=== PATIENT | male | born 1970 | race Caucasian/White ===

== ENCOUNTER 2017-02-02 11:40 | Emergency (ER) | payer BC, MEDICARE ==
[2017-02-02 11:57] VITALS: BP 143/79; PULSE 104; RESP 20; TEMP 99.1
--- NOTE | 2017-02-02 12:24 | ED ---
General Adult HPI - General Chief complaint: Wound/Laceration Stated complaint: LAC RT HAND Time Seen by Provider: 02/02/17 12:15 Source: patient, RN notes reviewed Mode of arrival: ambulatory Limitations: physical limitation - History of Present Illness Initial comments: Patient 46-year-old male who presents emergency room today with chief complaint of lacerations to the right hand that occurred yesterday at approximately 6 PM. He states he accidentally grabbed a boot trimmer that was running causing laceration to the webspace of the first and second digit along with small lacerations to the proximal phalanx of the third fourth and fifth digits over the volar aspect. Patient states that lacerations to his fingers seem to be healing well but he said hard time with a laceration to the webspace. Patient states tetanus up-to-date. He denies any other complaints or symptoms. Patient denies any recent fever, chills, shortness of breath, chest pain, back pain, abdominal pain, nausea or vomiting, numbness or tingling, dysuria or hematuria, constipation or diarrhea, headaches or visual changes, or any other complaints. - Related Data Home Medications Medication Instructions Recorded Confirmed ALPRAZolam 0.5 mg PO HS 03/28/15 02/02/17 DULoxetine HCL 60 mg PO DAILY 03/28/15 02/02/17 Gabapentin 600 mg PO TID 03/28/15 02/02/17 HYDROcodone/APAP 10-325MG [[place] 1 tab PO Q6H PRN 03/28/15 02/02/17 10-325] Ipratropium/Albuterol Sulfate 1 - 2 puff INHALATION RT-QID 03/28/15 02/02/17 [Combivent Respimat Inhaler] Oxygen 3 - 4 l NASAL CONTINUOUS 03/28/15 02/02/17 Previous Rx's Medication Instructions Recorded Albuterol Nebulized (Conc) 2.5 mg INHALATION Q6H #0 03/31/15 [Ventolin Nebulized (Conc)] Budesonide-Formot 160-4.5 Mcg 2 puff INHALATION BID #1 inhaler 03/31/15 [Symbicort 160-4.5 Mcg Inhaler] Ipratropium Nebulized [Atrovent 0.5 mg INHALATION RT-Q6H #0 03/31/15 Nebulized] Allergies Allergy/AdvReac Type Severity Reaction Status Date / Time No Known Allergies Allergy Verified 02/02/17 11:57 Review of Systems ROS Statement: Those systems with pertinent positive or pertinent negative responses have been documented in the HPI. ROS Other: All systems not noted in ROS Statement are negative. Past Medical History Past Medical History: COPD, Fibromyalgia Additional Past Medical History / Comment(s): arthritis History of Any Multi-Drug Resistant Organisms: None Reported Past Surgical History: Ear Surgery Past Psychological History: No Psychological Hx Reported Smoking Status: Former smoker Past Alcohol Use History: None Reported Past Drug Use History: None Reported - Past Family History Father Family Medical History: Cancer Mother Family Medical History: COPD General Exam - General Exam Comments Initial Comments: General: The patient is awake and alert, in no distress, and does not appear acutely ill. Neck: The neck is supple, there is no tenderness or JVD. Cardiovascular: There is a regular rate and rhythm. No murmur, rub or gallop is appreciated. Respiratory: Lungs are clear to auscultation, respirations are non-labored, breath sounds are equal. No wheezes, stridor, rales, or rhonchi. Musculoskeletal: Full range motion. Sensation intact. Pulses equal bilaterally 2+. Strength is 5/5 in all areas. Neurological: A&O x 3. CN II-XII intact, There are no obvious motor or sensory deficits. Coordination appears grossly intact. Speech is normal. Skin: 0.5 cm linear laceration to the volar aspect of the third fourth and fifth digits of the proximal aspect running horizontally. No active bleeding. Patient does have a L-shaped laceration in the webspace between the first and second digit of the right hand. Psychiatric: Normal mood and affect. Limitations: physical limitation Course Vital Signs 02/02/17 11:55 Temperature 99.1 F Pulse Rate 104 H Respiratory 20 Rate Blood Pressure 143/79 O2 Sat by Pulse 93 L Oximetry Procedures - Procedures Initial comment: 1.5 cm L-shaped laceration to the webspace between the first and second digit of the right hand. The skin was anesthetized with 1% lidocaine. The laceration was then cleansed with Betadine and irrigated with normal saline. The wound was inspected, and there was no evidence of injury to deep structures. No foreign body was noted in the wound. A total of 2 skin sutures were placed utilizing 4- 0 nylon. Disposition Clinical Impression: Laceration Disposition: HOME SELF-CARE Condition: Good Instructions: Laceration (ED) Additional Instructions: Please return to the emergency room in 8-10 days to have sutures removed. Please watch for any signs of infection which may include increased pain, swelling, redness, fever or chills. Please return to emergency room for any signs of infection do occur. Please use clean soap and water over the area to prevent scabbing over your stitches. Please leave wound covered for the first 24-48 hours and then leave wound open to air. Please return to the emergency room for any other concerns. Referrals: Hue Laurent MD [Primary Care Provider] - 1-2 days Time of Disposition: 12:50
== END 2017-02-02 13:03 | disposition home or self-care (01) ==
LOC: EC 11:40
DX: S61.411A Laceration without foreign body of right hand, initial encounter (principal); S61.212A Laceration without foreign body of right middle finger without damage to nail, initial encounter; S61.214A Laceration without foreign body of right ring finger without damage to nail, initial encounter; S61.216A Laceration without foreign body of right little finger without damage to nail, initial encounter; J44.9 Chronic obstructive pulmonary disease, unspecified; M79.7 Fibromyalgia; M19.90 Unspecified osteoarthritis, unspecified site; Z79.899 Other long term (current) drug therapy; Z87.891 Personal history of nicotine dependence; W31.89XA Contact with other specified machinery, initial encounter
CPT/HCPCS: 12001; 99282

== ENCOUNTER → 2017-08-17 | Outpatient (CLI) | payer BC, MEDICARE ==
--- NOTE | 2017-08-17 14:00 | XR ---
EXAMINATION TYPE: XR cervical spine comp DATE OF EXAM: 08/17/2017 COMPARISON: NONE HISTORY: Cervalgia posterior left neck pain x1 month TECHNIQUE: Five-view cervical spine FINDINGS: There is some side bending towards the right which can be positional. Foramen are patent. T here is some foraminal narrowing C5-C6 on the right. Prevertebral space is normal. Disc space narrowi ng is present C5-6. The C6-7 disc space has limited evaluation. The C7-T1 interspace is not visualize d in the lateral projection. IMPRESSION: 1. Degenerative disc changes C5-6. Some right foraminal narrowing is present.
== END | disposition home or self-care (01) ==
LOC: RADXRYALE 13:19
PROVIDERS: ATTEND Internal Medicine
DX: M99.71 Connective tissue and disc stenosis of intervertebral foramina of cervical region (principal); M47.812 Spondylosis without myelopathy or radiculopathy, cervical region
CPT/HCPCS: 72050

== ENCOUNTER → 2017-09-14 | Outpatient (CLI) | payer BC, MEDICARE ==
--- NOTE | 2017-09-14 23:06 | MR ---
EXAMINATION TYPE: MR erick/lspine wo con DATE OF EXAM: 09/14/2017 COMPARISON: NONE HISTORY: Neck/lower back pain, headaches, BUE & BLE radic TECHNIQUE: Multiplanar, multisequence imaging of the lumbar spine is performed without IV contrast. FINDINGS: Cervical vertebra have normal alignment. There is some narrowing at C5-6 C6-7 disc spaces. There are small posterior disc herniations at C4-5 C5-6 C6-7. C6-7 disc herniation is slightly larger. There is some narrowing of the spinal canal at C5-6 and C6-7-2 8 mm. I see no definite cord edema. Visualized brainstem is intact. There is a small posterior disc bulge at C2-3. I see no focal bone destruction. The lumbar vertebra have normal alignment. There is narrowing at L4-5 L5-S1 disc spaces with mild pos terior disc bulging. There is a larger posterior disc bulge and herniation at L1-2. There is developm entally adequate spinal canal and no spinal stenosis in the lumbar region. Lumbar nerve roots appear normal. The neural foramina are fairly well-maintained. I see no focal bone destruction. There is no lumbar paraspinal mass. CONCLUSION: Spondylotic changes in the cervical spine as above with mild relative spinal stenosis at C5-6 C6-7 of 8 mm. No fracture. Small posterior disc bulging and herniation at C5-6 C6-7. Mild spondylosis in the lower lumbar spine. Posterior disc bulging as above in the lumbar region with out evidence of spinal stenosis. No fracture.
== END ==
LOC: RADMRIMAIN 19:09
PROVIDERS: ATTEND Psychiatry & Neurology Neurology
DX: M48.02 Spinal stenosis, cervical region (principal); M50.222 Other cervical disc displacement at C5-C6 level; M51.26 Other intervertebral disc displacement, lumbar region; M47.812 Spondylosis without myelopathy or radiculopathy, cervical region; M47.816 Spondylosis without myelopathy or radiculopathy, lumbar region
CPT/HCPCS: 72141; 72148

== ENCOUNTER 2018-01-31 02:46 | Observation (INO) | payer BC, MEDICARE ==
[2018-01-31] MEDS ORDERED: ACETAMINOPHEN TAB 500 MG TAB PO STA (02:56)
[2018-01-31 03:12] LABS: Basophils % (A) 0 %; Eosinophils # (A) 0.1 k/uL (0-0.7); Eosinophils % (A) 1 %; HCT 49.3 % (39.0-53.0); HGB 15.6 gm/dL (13.0-17.5); Hypochromasia Slight; Lymphocytes # (A) 1.4 k/uL (1.0-4.8); Lymphocytes % (A) 15 %; MCHC 31.7 g/dL (31.0-37.0); MCV 97.8 fL (80.0-100.0); Mean Platelet Volume 6.6; Monocytes # (A) 0.7 k/uL (0-1.0); Monocytes % (A) 8 %; Neutrophils # (A) 6.8 k/uL (1.3-7.7); Neutrophils % (A) 73 %; Platelet Count 241 k/uL (150-450); RBC 5.04 m/uL (4.30-5.90); RDW 12.1 % (11.5-15.5); WBC 9.3 k/uL (3.8-10.6)
[2018-01-31] MEDS ORDERED: IPRATROPIUM-ALBUTEROL 3 ML NEB INHALATION STA (03:12)
--- NOTE | 2018-01-31 03:18 | ED ---
General Adult HPI - General Chief complaint: Shortness of Breath Stated complaint: HAROLDO Time Seen by Provider: 01/31/18 02:47 Source: patient Mode of arrival: EMS Limitations: no limitations - History of Present Illness Initial comments: Sudhakar's a 47-year-old with known COPD and tobacco abuse who presents to the emergency department today via EMS for evaluation of shortness of breath. Patient reports that throughout the day has had progressively worsening shortness of breath and is felt as though he is wheezing. He has not tried any of his home breathing treatments. He reports that he couldn't catch his breath so he called 911. EMS reports they found him in a tripoding position with increased work of breathing, he is noted to be tachycardic and have a normal oxygen saturation of only 88%. He was given Solu-Medrol and a DuoNeb in route, placed on supplemental oxygen. On arrival the patient reports the DuoNeb improved his shortness of breath significantly. Patient denies any recent hospitalizations or known sick contacts. He denies any subjective fevers or chills. He denies any chest pain or palpitations. - Related Data Home Medications Medication Instructions Recorded Confirmed ALPRAZolam 0.5 mg PO HS 03/28/15 01/31/18 DULoxetine HCL 60 mg PO DAILY 03/28/15 01/31/18 Gabapentin 600 mg PO TID 03/28/15 01/31/18 Ipratropium/Albuterol Sulfate 1 - 2 puff INHALATION RT-QID 03/28/15 01/31/18 [Combivent Respimat Inhaler] Oxygen 3 - 4 l NASAL CONTINUOUS 03/28/15 01/31/18 Hydrocodone/Acetaminophen [[place] 1 tab PO Q8HR PRN 01/31/18 01/31/18 7.5-325] Meloxicam [Mobic] 7.5 mg PO BID 01/31/18 01/31/18 Previous Rx's Medication Instructions Recorded Albuterol Nebulized (Conc) 2.5 mg INHALATION Q6H #0 03/31/15 [Ventolin Nebulized (Conc)] Budesonide-Formot 160-4.5 Mcg 2 puff INHALATION BID #1 inhaler 03/31/15 [Symbicort 160-4.5 Mcg Inhaler] Ipratropium Nebulized [Atrovent 0.5 mg INHALATION RT-Q6H #0 03/31/15 Nebulized] Allergies Allergy/AdvReac Type Severity Reaction Status Date / Time No Known Allergies Allergy Verified 01/31/18 02:51 Review of Systems ROS Statement: Those systems with pertinent positive or pertinent negative responses have been documented in the HPI. ROS Other: All systems not noted in ROS Statement are negative. Constitutional: Denies: fever Past Medical History Past Medical History: COPD, Fibromyalgia Additional Past Medical History / Comment(s): arthritis History of Any Multi-Drug Resistant Organisms: None Reported Past Surgical History: Ear Surgery Past Psychological History: No Psychological Hx Reported Smoking Status: Former smoker Past Alcohol Use History: None Reported Past Drug Use History: None Reported - Past Family History Father Family Medical History: Cancer Mother Family Medical History: COPD General Exam Limitations: no limitations General appearance: alert, in no apparent distress Head exam: Present: atraumatic, normocephalic Eye exam: Present: normal appearance, PERRL ENT exam: Present: normal exam Neck exam: Present: full ROM Respiratory exam: Present: wheezes Cardiovascular Exam: Present: normal rhythm, tachycardia GI/Abdominal exam: Present: soft. Absent: distended Rectal exam: Present: deferred Extremities exam: Present: normal inspection. Absent: pedal edema Back exam: Present: normal inspection Neurological exam: Present: alert, oriented X3 Psychiatric exam: Present: normal affect, normal mood Skin exam: Present: warm, dry Course Vital Signs 01/31/18 01/31/18 01/31/18 02:48 03:05 03:18 Temperature 100.3 F H Pulse Rate 109 H 104 H Respiratory 20 24 20 Rate Blood Pressure 135/92 131/78 O2 Sat by Pulse 95 96 Oximetry 01/31/18 01/31/18 01/31/18 03:25 03:34 04:18 Temperature Pulse Rate 105 H 100 106 H Respiratory 20 Rate Blood Pressure 123/82 O2 Sat by Pulse 96 Oximetry 01/31/18 01/31/18 05:18 06:41 Temperature 99.0 F Pulse Rate 105 H Respiratory 20 Rate Blood Pressure 125/82 O2 Sat by Pulse 97 Oximetry EKG Findings - EKG Comments: EKG Findings:: EKG obtained at 2:59 AM, rate is 105, rhythm is sinus tachycardia , rightward axis, there is noted to be enlarged P waves suggestive of a large right atrium, normal intervals, NE is 128, QRS is 76, QTC is [address] elevations or depressions no evidence of acute ischemia or infarction. Medical Decision Making - Medical Decision Making The patient was seen and evaluated, history was obtained from the patient and EMS The patient with a history of COPD, hypoxic upon EMS arrival treated with DuoNeb , supplemental oxygen, Solu-Medrol prior to arrival in the ER Continues to wheeze upon arrival Beth vital signs were reviewed patient is tachycardic, tachypneic and has attempted sure of 100.3 Fahrenheit Sepsis workup was ordered Workup is suggestive of COPD exacerbation there is no infectious cause identified, troponin is negative, d-dimer is negative x-ray shows no evidence of pneumonia, suggestive of COPD Patient persistently tachycardic even while sleeping, tachypneic when woke he states that he still feels somewhat short of breath despite having repeat DuoNeb 's in the ER at this time I feel the patient warrants admission to the hospital for [id number] duo nebs and steroid therapy. In addition and continued to discuss possible home oxygen again. Patient is agreeable to this. Patient care was discussed with Dr. Carmona who accepts the admission for COPD exacerbation with hypoxia. - Lab Data Result diagrams: 01/31/18 02:49 01/31/18 02:49 Lab Results 01/31/18 01/31/18 01/31/18 Range/Units 02:49 02:49 02:49 WBC 9.3 (3.8-10.6) k/uL RBC 5.04 (4.30-5.90) m/uL Hgb 15.6 (13.0-17.5) gm/dL Hct 49.3 (39.0-53.0) % MCV 97.8 (80.0-100.0) fL MCH 31.0 (25.0-35.0) pg MCHC 31.7 (31.0-37.0) g/dL RDW 12.1 (11.5-15.5) % Plt Count 241 (150-450) k/uL Neutrophils % 73 % Lymphocytes % 15 % Monocytes % 8 % Eosinophils % 1 % Basophils % 0 % Neutrophils # 6.8 (1.3-7.7) k/uL Lymphocytes # 1.4 (1.0-4.8) k/uL Monocytes # 0.7 (0-1.0) k/uL Eosinophils # 0.1 (0-0.7) k/uL Basophils # 0.0 (0-0.2) k/uL Hypochromasia Slight PT (9.0-12.0) sec INR (<1.2) APTT (22.0-30.0) sec D-Dimer (<0.60) mg/L FEU Sodium 140 (137-145) mmol/L Potassium 4.5 (3.5-5.1) mmol/L Chloride 89 L (98-107) mmol/L Carbon Dioxide 43 H* (22-30) mmol/L Anion Gap 8 mmol/L BUN 12 (9-20) mg/dL Creatinine 0.60 L (0.66-1.25) mg/dL Est GFR (CKD-EPI)AfAm >90 (>60 ml/min/1.73 sqM) Est GFR (CKD-EPI)NonAf >90 (>60 ml/min/1.73 sqM) Glucose 107 H (74-99) mg/dL Plasma Lactic Acid Jamaal 0.9 (0.7-2.0) mmol/L Calcium 10.0 (8.4-10.2) mg/dL Total Bilirubin 0.7 (0.2-1.3) mg/dL AST 22 (17-59) U/L ALT 29 (21-72) U/L Alkaline Phosphatase 78 (38-126) U/L Troponin I (0.000-0.034) ng/mL Total Protein 8.4 H (6.3-8.2) g/dL Albumin 4.8 (3.5-5.0) g/dL Urine Color Urine Appearance (Clear) Urine pH (5.0-8.0) Ur Specific [place] (1.001-1.035) Urine Protein (Negative) Urine Glucose (UA) (Negative) Urine Ketones (Negative) Urine Blood (Negative) Urine Nitrite (Negative) Urine Bilirubin (Negative) Urine Urobilinogen (<2.0) mg/dL Ur Leukocyte Esterase (Negative) Urine RBC (0-5) /hpf Urine WBC (0-5) /hpf Hyaline Casts (0-2) /lpf Urine Mucus (None) /hpf 01/31/18 01/31/18 01/31/18 Range/Units 02:49 02:49 02:49 WBC (3.8-10.6) k/uL RBC (4.30-5.90) m/uL Hgb (13.0-17.5) gm/dL Hct (39.0-53.0) % MCV (80.0-100.0) fL MCH (25.0-35.0) pg MCHC (31.0-37.0) g/dL RDW (11.5-15.5) % Plt Count (150-450) k/uL Neutrophils % % Lymphocytes % % Monocytes % % Eosinophils % % Basophils % % Neutrophils # (1.3-7.7) k/uL Lymphocytes # (1.0-4.8) k/uL Monocytes # (0-1.0) k/uL Eosinophils # (0-0.7) k/uL Basophils # (0-0.2) k/uL Hypochromasia PT 10.5 (9.0-12.0) sec INR 1.1 (<1.2) APTT 25.2 (22.0-30.0) sec D-Dimer 0.18 (<0.60) mg/L FEU Sodium (137-145) mmol/L Potassium (3.5-5.1) mmol/L Chloride (98-107) mmol/L Carbon Dioxide (22-30) mmol/L Anion Gap mmol/L BUN (9-20) mg/dL Creatinine (0.66-1.25) mg/dL Est GFR (CKD-EPI)AfAm (>60 ml/min/1.73 sqM) Est GFR (CKD-EPI)NonAf (>60 ml/min/1.73 sqM) Glucose (74-99) mg/dL Plasma Lactic Acid Jamaal (0.7-2.0) mmol/L Calcium (8.4-10.2) mg/dL Total Bilirubin (0.2-1.3) mg/dL AST (17-59) U/L ALT (21-72) U/L Alkaline Phosphatase (38-126) U/L Troponin I <0.012 (0.000-0.034) ng/mL Total Protein (6.3-8.2) g/dL Albumin (3.5-5.0) g/dL Urine Color Urine Appearance (Clear) Urine pH (5.0-8.0) Ur Specific [place] (1.001-1.035) Urine Protein (Negative) Urine Glucose (UA) (Negative) Urine Ketones (Negative) Urine Blood (Negative) Urine Nitrite (Negative) Urine Bilirubin (Negative) Urine Urobilinogen (<2.0) mg/dL Ur Leukocyte Esterase (Negative) Urine RBC (0-5) /hpf Urine WBC (0-5) /hpf Hyaline Casts (0-2) /lpf Urine Mucus (None) /hpf 01/31/18 Range/Units 05:34 WBC (3.8-10.6) k/uL RBC (4.30-5.90) m/uL Hgb (13.0-17.5) gm/dL Hct (39.0-53.0) % MCV (80.0-100.0) fL MCH (25.0-35.0) pg MCHC (31.0-37.0) g/dL RDW (11.5-15.5) % Plt Count (150-450) k/uL Neutrophils % % Lymphocytes % % Monocytes % % Eosinophils % % Basophils % % Neutrophils # (1.3-7.7) k/uL Lymphocytes # (1.0-4.8) k/uL Monocytes # (0-1.0) k/uL Eosinophils # (0-0.7) k/uL Basophils # (0-0.2) k/uL Hypochromasia PT (9.0-12.0) sec INR (<1.2) APTT (22.0-30.0) sec D-Dimer (<0.60) mg/L FEU Sodium (137-145) mmol/L Potassium (3.5-5.1) mmol/L Chloride (98-107) mmol/L Carbon Dioxide (22-30) mmol/L Anion Gap mmol/L BUN (9-20) mg/dL Creatinine (0.66-1.25) mg/dL Est GFR (CKD-EPI)AfAm (>60 ml/min/1.73 sqM) Est GFR (CKD-EPI)NonAf (>60 ml/min/1.73 sqM) Glucose (74-99) mg/dL Plasma Lactic Acid Jama[place] (0.7-2.0) mmol/L Calcium (8.4-10.2) mg/dL Total Bilirubin (0.2-1.3) mg/dL AST (17-59) U/L ALT (21-72) U/L Alkaline Phosphatase (38-126) U/L Troponin I (0.000-0.034) ng/mL Total Protein (6.3-8.2) g/dL Albumin (3.5-5.0) g/dL Urine Color Yellow Urine Appearance Clear (Clear) Urine pH 8.5 H (5.0-8.0) Ur Specific [place] 1.016 (1.001-1.035) Urine Protein Trace H (Negative) Urine Glucose (UA) Negative (Negative) Urine Ketones 2+ H (Negative) Urine Blood Small H (Negative) Urine Nitrite Negative (Negative) Urine Bilirubin Negative (Negative) Urine Urobilinogen <2.0 (<2.0) mg/dL Ur Leukocyte Esterase Negative (Negative) Urine RBC 133 H (0-5) /hpf Urine WBC 4 (0-5) /hpf Hyaline Casts 1 (0-2) /lpf Urine Mucus Rare H (None) /hpf Disposition Clinical Impression: COPD (chronic obstructive pulmonary disease), Respiratory failure Disposition: ADMITTED IP TO THIS HOSP Condition: Fair Referrals: Hue Laurent MD [Primary Care Provider] - 1-2 days Decision Time: 06:57
[2018-01-31] MEDS: SODIUM CHLORIDE 0.9% 500 ML IV SCH ×2 (03:20→03:21)
[2018-01-31 03:21] LABS: INR 1.1 (<1.2); Partial Thromboplastin Time 25.2 sec (22.0-30.0); Prothrombin Time 10.5 sec (9.0-12.0)
[2018-01-31 03:23] LABS: ALT 29 U/L (21-72); AST 22 U/L (17-59); Albumin 4.8 g/dL (3.5-5.0); Alkaline Phosphatase 78 U/L (38-126); Blood Urea Nitrogen 12 mg/dL (9-20); Chloride 89 mmol/L (98-107); Glucose 107 mg/dL (74-99); Potassium 4.5 mmol/L (3.5-5.1); Sodium 140 mmol/L (137-145); Total Bilirubin 0.7 mg/dL (0.2-1.3); Total Protein 8.4 g/dL (6.3-8.2)
[2018-01-31 03:30] LABS: Anion Gap 8 mmol/L
[2018-01-31 03:34] LABS: Carbon Dioxide 43 mmol/L (22-30)
--- NOTE | 2018-01-31 04:11 | XR ---
EXAM: XR Chest, 2 Views CLINICAL HISTORY: ITS.REASON XR Reason: Fever TECHNIQUE: Frontal and lateral views of the chest. COMPARISON: 07/17/16 FINDINGS: Again noted is pulmonary hyperexpansion and chronic interstitial prominence suggestive of COPD. No interval consolidation or other acute cardiopulmonary process. Old fractures again noted. IMPRESSION: No acute cardiopulmonary findings. Findings compatible with COPD.
[2018-01-31 05:59] LABS: Appearance,Urine Clear (Clear); Bilirubin,Urine Negative (Negative); Blood,Urine Small (Negative); Color,Urine Yellow; Glucose,Urine (UA) Negative (Negative); Hyaline Casts,Urine 1 /lpf (0-2); Ketones,Urine 2+ (Negative); Leukocyte Esterase,Urine Negative (Negative); Mucus,Urine Rare /hpf; Nitrite,Urine Negative (Negative); PH, Urine 8.5 (5.0-8.0); Protein,Urine Trace (Negative); RBC,Urine 133 /hpf (0-5); Specific Gravity,Urine 1.016 (1.001-1.035); Urobilinogen,Urine <2.0 mg/dL (<2.0); WBC,Urine 4 /hpf (0-5)
[2018-01-31] MEDS ORDERED: NALOXONE 0.4 MG/ML 1 ML VIAL IV PRN (06:47)
[2018-01-31] MEDS ORDERED: IPRATROPIUM-ALBUTEROL 3 ML NEB INHALATION PRN ×2 (06:51→08:42)
[2018-01-31] MEDS ORDERED: ACETAMINOPHEN TAB 500 MG TAB PO PRN (07:35)
[2018-01-31] MEDS ORDERED: predniSONE 20 MG TAB PO SCH (09:00)
[2018-01-31] MEDS: ALPRAZolam 0.5 MG TAB PO PRN ×2 (09:33→21:03)
[2018-01-31] MEDS: LACTATED RINGERS 1,000 ML IV SCH (09:43)
--- NOTE | 2018-01-31 10:53 | P.CNPUL ---
History of Present Illness Consult date: 01/31/18 Reason for consult: dyspnea, cough, COPD, hypoxemia, abnormal CXR/CT Chief complaint: Shortness of breath, coughing, wheezing History of present illness: Pulmonary consult dated 01/31/2018 This is a 47-year-old male who looks older than his stated age who comes in for a COPD exacerbation. He has a history of significant tobacco addiction. He apparently sees my partner for COPD. The patient complains of shortness of breath chest tightness wheezing cough and phlegm production. He apparently was using his home nebulizer machine without benefit. He called 911 and EMS found him to be tripoding at home. He had significant work of breathing as well as tachycardia and a low saturation. For that reason he was given updraft treatments and steroids and brought to the hospital he was evaluated by the emergency room and admitted. The patient is not a particularly good historian. In addition to COPD, he apparently has a history of arthritis and fibromyalgia. The ER chela points out that he is a former smoker. He was not real clear as to whether or not he smoked or didn't smoke. Again he didn't really know his medications particularly well. He apparently was on some daily dose of prednisone but he was not sure of the dose. Review of Systems A 14 point review of system is positive for shortness of breath chest tightness wheezing cough chest congestion shortness of breath and phlegm production. He had all the typical symptoms of a COPD exacerbation. His chest x-ray was normal. Past Medical History Past Medical History: COPD, CVA/TIA, Fibromyalgia, Hyperlipidemia, Hypertension , Osteoarthritis (OA), Pneumonia, Respiratory Disorder Additional Past Medical History / Comment(s): Pt having some difficulty answering PMH questions, spouse is at bedside and has to correct him at times. Spouse said he normally has alittle memory problems but that pt had a severe headache on 01/29 for 1 day and vomitted and felt clammy-headache resolve but spouse thinks his memory worsened. Other hx: Severe COPD, respiratory failure with home oxygen at 2L/NC ATC, tracheobronchitis, TIA, DJD, chronic low back pain, History of Any Multi-Drug Resistant Organisms: None Reported Past Surgical History: Ear Surgery Additional Past Surgical History / Comment(s): R ear surgery for "fractured bone." per spouse. Past Anesthesia/Blood Transfusion Reactions: No Reported Reaction Smoking Status: Light tobacco smoker - Past Family History Father Family Medical History: Cancer Additional Family Medical History / Comment(s): Father of throat cancer at the age of 52 yrs. He was a smoker. Mother Family Medical History: COPD Additional Family Medical History / Comment(s): Mother is 74 yrs old. She is a smoker. Medications and Allergies Home Medications Medication Instructions Recorded Confirmed Type ALPRAZolam 0.5 mg PO QID PRN 03/28/15 01/31/18 History DULoxetine HCL 60 mg PO DAILY 03/28/15 01/31/18 History Gabapentin 600 mg PO TID 03/28/15 01/31/18 History Ipratropium/Albuterol Sulfate 1 puff INHALATION RT-QID 03/28/15 01/31/18 History [Combivent Respimat Inhaler] Budesonide-Formot 160-4.5 Mcg 2 puff INHALATION RT-BID 01/31/18 01/31/18 History [Symbicort 160-4.5 Mcg Inhaler] Hydrocodone/Acetaminophen [[place] 1 tab PO TID 01/31/18 01/31/18 History 7.5-325] Ipratropium-Albuterol Nebulize 3 ml INHALATION RT-QID 01/31/18 01/31/18 History [Duoneb 0.5 mg-3 mg/3 ml Soln] Meloxicam [Mobic] 7.5 mg PO BID 01/31/18 01/31/18 History Allergies Allergy/AdvReac Type Severity Reaction Status Date / Time No Known Allergies Allergy Verified 01/31/18 07:39 Physical Exam Osteopathic Statement: *. No significant issues noted on an osteopathic structural exam other than those noted in the History and Physical/Consult. Vitals: Vital Signs Temp Pulse Pulse Resp BP BP BP 01/31/18 08:48 100 01/31/18 08:35 104 H 117 H 25 H 139/91 01/31/18 08:00 99.2 F 121 H 18 112/82 01/31/18 07:15 100.2 F H 105 H 18 122/81 01/31/18 06:41 99.0 F 01/31/18 05:18 105 H 20 125/82 01/31/18 04:18 106 H 20 123/82 01/31/18 03:34 100 01/31/18 03:25 105 H 01/31/18 03:18 104 H 20 131/78 01/31/18 03:05 24 01/31/18 02:48 100.3 F H 109 H 20 135/92 Pulse Ox 01/31/18 08:48 01/31/18 08:35 95 01/31/18 08:00 96 01/31/18 07:15 96 01/31/18 06:41 01/31/18 05:18 97 01/31/18 04:18 96 01/31/18 03:34 01/31/18 03:25 01/31/18 03:18 96 01/31/18 03:05 01/31/18 02:48 95 Intake and Output 01/30/18 01/31/18 01/31/18 22:59 06:59 14:59 Other: Weight 68.039 kg No acute distress, oriented 3. Nasal O2 in place. No evidence of claudia respiratory distress. HEENT examination is grossly unremarkable. Mucous membranes are moist. No oral lesions. Neck supple. Full range of motion. No adenopathy thyromegaly or neck vein distention. Cardiovascular examination reveals regular rhythm rate. S1-S2 normal. No S3 or S4. No discernible murmur noted. Lungs reveal diminished breath sounds throughout. There are coarse expiratory rhonchi and wheezes. There is prolongation on forced maneuver. Breath sounds are equal bilaterally. Abdomen soft bowel sounds are heard. No masses or tenderness. Extremities are intact. No cyanosis clubbing or edema. Skin is without rash or lesion. Neurologic examination is brief but nonfocal. Results - Laboratory Findings CBC and BMP: 01/31/18 02:49 01/31/18 02:49 PT/INR, D-dimer PT 10.5 sec (9.0-12.0) 01/31/18 02:49 INR 1.1 (<1.2) 01/31/18 02:49 D-Dimer 0.18 mg/L FEU (<0.60) 01/31/18 02:49 Abnormal lab findings: Abnormal Labs 01/31/18 01/31/18 02:49 05:34 Chloride 89 L Carbon Dioxide 43 H* Creatinine 0.60 L Glucose 107 H Total Protein 8.4 H Urine pH 8.5 H Urine Protein Trace H Urine Ketones 2+ H Urine Blood Small H Urine RBC 133 H Urine Mucus Rare H - Diagnostic Findings Chest x-ray: report reviewed (Chest x-ray, labs and medications are reviewed.), image reviewed Assessment and Plan Assessment: Assessment COPD exacerbation, likely complicated by tracheobronchitis without claudia evidence of pneumonia History of fibromyalgia History of arthritis Previous history and possible ongoing tobacco use Plan: Plan dated 01/31/2018 The patient's chest x-ray does not show an acute infiltrate. It is consistent with COPD. The patient's medications will be reviewed and recommendations will be made. He was not really clear as to how much prednisone he was taking on a daily basis. He thought he was taking may be 11 mg in the nurse thought he was taking 40 mg. It doesn't list prednisone on his med list as one of the medications. In addition, the patient may still be smoking. Additional recommendations and suggestions are forthcoming. He needs follow-up with my partner when he gets discharged. He probably in the hospital for a couple of days. Time with Patient: Greater than 30
[2018-01-31] MEDS: IPRATROPIUM-ALBUTEROL 3 ML NEB INHALATION SCH ×3 (11:39→19:51)
[2018-01-31] MEDS: methylPREDNISolone SOD SUCCI 125 MG/2 ML VIAL IV SCH ×3 (13:38→23:09)
[2018-01-31] MEDS: DULoxetine HCL 60 MG CAPSULE.DR PO SCH (14:52)
[2018-01-31] MEDS: HYDROcodone/APAP 7.5-325MG 1 EACH TAB PO SCH ×2 (14:53→21:00)
[2018-01-31] MEDS: GABAPENTIN 300 MG CAP PO SCH ×2 (14:55→21:01)
[2018-01-31 17:28] LABS: Glucose,Whole Blood 122 mg/dL (75-99)
[2018-01-31] MEDS: INSULIN ASPART 100 UNIT/ML 1 ML 10 ML VIAL SQ SCH ×2 (17:56→21:01)
[2018-01-31] MEDS: BUDESONIDE 1 MG/2 ML NEBU INHALATION SCH (19:51)
[2018-01-31] MEDS ORDERED: SYMBICORT 160-4.5 MCG INHALER INHALATION SCH (20:00)
[2018-01-31] MEDS: FORMOTEROL FUMARATE 20 MCG/2 ML NEBU INHALATION SCH (20:14)
[2018-01-31 20:58] LABS: Glucose,Whole Blood 172 mg/dL (75-99)
[2018-01-31] MEDS: SULFAMETHOX-TMP 800-160MG 1 EACH TAB PO SCH (21:00)
[2018-01-31] MEDS: FAMOTIDINE 20 MG TAB PO SCH (21:01)
[2018-01-31 21:29] LABS: Hemoglobin A1C 5.2 % (4.0-6.0)
[2018-01-31 22:33] VITALS: RESP 16
--- NOTE | 2018-02-01 01:40 | P.HPIM ---
History of Present Illness H&P Date: 01/31/18 Chief Complaint: Shortness of breath Patient is a 47-year-old male with a known history of COPD, CVA/TIA, Fibromyalgia, Hyperlipidemia, Hypertension, Osteoarthritis (OA), Pneumonia and a good ejection him to ER with complaints of shortness of breath, chest tightness and wheezing and cough with sputum production. Patient was brought to the hospital where EMS. Patient has been having worsening shortness of breath since last Sunday. Patient was also having nausea vomiting yesterday. No complaints of vomiting today. Patient otherwise denied any fever or chills. No nausea vomiting or abdominal pain. Patient is being treated for acute COPD exacerbation. Patient was started on IV steroids and breathing treatments. Chest x-ray findings compatible with COPD. Patient is a poor historian and most of the history was taken from his at bedside. Review of Systems Constitutional: Patient denies any fever or chills . No generalized weakness or weight loss. Abdomen: Patient denied nausea vomiting and diarrhea and abdominal pain. Cardiovascular: Patient denies any chest pain or short of breath no palpitations. Respiratory: Patient does have cough is from production and shortness of breath. Neurologic: Patient denied any numbness or tingling headache. Musculoskeletal: Patient denies any complaints of joint swelling or deformity. Skin: Negative Psychiatric: Negative Endocrine: No heat or cold intolerance. No recent weight gain. Genitourinary: No dysuria or hematuria. All other 14 point ROS negative except the above Past Medical History Past Medical History: COPD, CVA/TIA, Fibromyalgia, Hyperlipidemia, Hypertension , Osteoarthritis (OA), Pneumonia, Respiratory Disorder Additional Past Medical History / Comment(s): Pt having some difficulty answering PMH questions, spouse is at bedside and has to correct him at times. Spouse said he normally has alittle memory problems but that pt had a severe headache on 01/29 for 1 day and vomitted and felt clammy-headache resolve but spouse thinks his memory worsened. Other hx: Severe COPD, respiratory failure with home oxygen at 2L/NC ATC, tracheobronchitis, TIA, DJD, chronic low back pain, History of Any Multi-Drug Resistant Organisms: None Reported Past Surgical History: Ear Surgery Additional Past Surgical History / Comment(s): R ear surgery for "fractured bone." per spouse. Past Anesthesia/Blood Transfusion Reactions: No Reported Reaction Smoking Status: Light tobacco smoker - Past Family History Father Family Medical History: Cancer Additional Family Medical History / Comment(s): Father of throat cancer at the age of 52 yrs. He was a smoker. Mother Family Medical History: COPD Additional Family Medical History / Comment(s): Mother is 74 yrs old. She is a smoker. Medications and Allergies Home Medications Medication Instructions Recorded Confirmed Type ALPRAZolam 0.5 mg PO QID PRN 03/28/15 01/31/18 History DULoxetine HCL 60 mg PO DAILY 03/28/15 01/31/18 History Gabapentin 600 mg PO TID 03/28/15 01/31/18 History Ipratropium/Albuterol Sulfate 1 puff INHALATION RT-QID 03/28/15 01/31/18 History [Combivent Respimat Inhaler] Budesonide-Formot 160-4.5 Mcg 2 puff INHALATION RT-BID 01/31/18 01/31/18 History [Symbicort 160-4.5 Mcg Inhaler] Hydrocodone/Acetaminophen [[place] 1 tab PO TID 01/31/18 01/31/18 History 7.5-325] Ipratropium-Albuterol Nebulize 3 ml INHALATION RT-QID 01/31/18 01/31/18 History [Duoneb 0.5 mg-3 mg/3 ml Soln] Meloxicam [Mobic] 7.5 mg PO BID 01/31/18 01/31/18 History Allergies Allergy/AdvReac Type Severity Reaction Status Date / Time No Known Allergies Allergy Verified 01/31/18 07:39 Physical Exam Vitals: Vital Signs Temp Pulse Pulse Resp BP BP BP 01/31/18 11:49 92 01/31/18 11:39 88 01/31/18 09:48 111 H 01/31/18 08:48 100 01/31/18 08:35 104 H 117 H 25 H 139/91 01/31/18 08:00 99.2 F 121 H 18 112/82 01/31/18 07:15 100.2 F H 105 H 18 122/81 01/31/18 06:41 99.0 F 01/31/18 05:18 105 H 20 125/82 01/31/18 04:18 106 H 20 123/82 01/31/18 03:34 100 01/31/18 03:25 105 H 01/31/18 03:18 104 H 20 131/78 01/31/18 03:05 24 01/31/18 02:48 100.3 F H 109 H 20 135/92 Pulse Ox 01/31/18 11:49 01/31/18 11:39 01/31/18 09:48 01/31/18 08:48 01/31/18 08:35 95 01/31/18 08:00 96 01/31/18 07:15 96 01/31/18 06:41 01/31/18 05:18 97 01/31/18 04:18 96 01/31/18 03:34 01/31/18 03:25 01/31/18 03:18 96 01/31/18 03:05 01/31/18 02:48 95 Intake and Output 01/30/18 01/31/18 01/31/18 22:59 06:59 14:59 Other: Voiding Method Urinal Weight 68.039 kg PHYSICAL EXAMINATION: Patient is lying in the bed comfortably, no acute distress, awake alert and oriented.. HEENT: Normocephalic. Neck is supple. Pupils reactive. Nostrils clear. Oral cavity is moist. Ears reveal no drainage. Neck reveals no JVD, carotid bruits, or thyromegaly. CHEST EXAMINATION: Trachea is central. Symmetrical expansion. I'll artery diminished air entry and expiratory wheeze CARDIAC: Normal S1, S2 with no gallops. No murmurs ABDOMEN: Soft. Bowel sounds normal. No organomegaly. No abdominal bruits. Extremities: reveal no edema. No clubbing or cyanosis Neurologically awake, alert, oriented x3 with well-coordinated movements. No focal deficits noted Skin: No rash or skin lesions. Psychiatric: Coperative. Nonsuicidal Musculoskeletal: No joint swelling or deformity. Normal range of motion. Results CBC & Chem 7: 01/31/18 02:49 01/31/18 02:49 Labs: Abnormal Lab Results - Last 24 Hours (Table) 01/31/18 01/31/18 Range/Units 02:49 05:34 Chloride 89 L (98-107) mmol/L Carbon Dioxide 43 H* (22-30) mmol/L Creatinine 0.60 L (0.66-1.25) mg/dL Glucose 107 H (74-99) mg/dL Total Protein 8.4 H (6.3-8.2) g/dL Urine pH 8.5 H (5.0-8.0) Urine Protein Trace H (Negative) Urine Ketones 2+ H (Negative) Urine Blood Small H (Negative) Urine RBC 133 H (0-5) /hpf Urine Mucus Rare H (None) /hpf Microbiology - Last 24 Hours (Table) 01/31/18 05:34 Urine Culture - Preliminary Urine,Voided Thrombosis Risk Factor Assmnt - DVT/VTE Prophylaxis DVT/VTE Prophylaxis: Pharmacologic Prophylaxis ordered - Choose All That Apply Any of the Below Risk Factors Present?: Yes Each Factor Represents 1 point: Abnormal pulmonary function (COPD), Age 41-60 years, Serious lung disease incl. pneumonia (< 1month) Other Risk Factors: No Other congenital or acquired thrombophilia - If yes, enter type in comment: No Thrombosis Risk Factor Assessment Total Risk Factor Score: 3 Thrombosis Risk Factor Assessment Level: Moderate Risk Assessment and Plan Assessment: Acute COPD exacerbation with tracheobronchitis. Unlikely pneumonia Chronic hypoxic respiratory failure on home oxygen 2 L with another cannula History of TIA Chronic low back pain Fibromyalgia Osteoarthritis DVT prophylaxis Nicotine addiction Plan: Patient will be continued on IV steroids and breathing treatments along with antibiotics. Pulmonary is following. Continue the current management and further admissions based on the clinical course. Smoking cessation has been counseled extensively. Time with Patient: Greater than 30
[2018-02-01] MEDS: methylPREDNISolone SOD SUCCI 125 MG/2 ML VIAL IV SCH ×2 (05:59→11:51)
[2018-02-01 06:05] VITALS: BP 124/67; TEMP 98.6
[2018-02-01] MEDS: ALPRAZolam 0.5 MG TAB PO PRN (06:08)
[2018-02-01] MEDS: FORMOTEROL FUMARATE 20 MCG/2 ML NEBU INHALATION SCH (06:10)
[2018-02-01] MEDS: IPRATROPIUM-ALBUTEROL 3 ML NEB INHALATION SCH ×2 (06:10→11:12)
[2018-02-01] MEDS: BUDESONIDE 1 MG/2 ML NEBU INHALATION SCH (06:10)
[2018-02-01 06:56] LABS: Glucose,Whole Blood 124 mg/dL (75-99)
[2018-02-01] MEDS ORDERED: HEPARIN SODIUM,PORCINE 5,000 UNIT/ML 1 ML VIAL SQ SCH (08:00)
[2018-02-01] MEDS: LACTATED RINGERS 1,000 ML IV SCH (08:09)
[2018-02-01] MEDS: INSULIN ASPART 100 UNIT/ML 1 ML 10 ML VIAL SQ SCH ×2 (08:10→11:53)
[2018-02-01] MEDS: SULFAMETHOX-TMP 800-160MG 1 EACH TAB PO SCH (08:11)
[2018-02-01] MEDS: DULoxetine HCL 60 MG CAPSULE.DR PO SCH (08:11)
[2018-02-01] MEDS: FAMOTIDINE 20 MG TAB PO SCH (08:12)
[2018-02-01] MEDS: GABAPENTIN 300 MG CAP PO SCH (08:12)
[2018-02-01] MEDS: HYDROcodone/APAP 7.5-325MG 1 EACH TAB PO SCH (08:12)
[2018-02-01 11:47] LABS: Glucose,Whole Blood 141 mg/dL (75-99)
[2018-02-01] MEDS ORDERED: predniSONE 20 MG TAB PO SCH (13:30)
[2018-02-01 13:36] VITALS: PULSE 100
--- NOTE | 2018-02-01 13:37 | P.PN ---
Subjective Progress Note Date: 02/01/18 Principal diagnosis: COPD exacerbation Progress note dated 02/01/2018 A 47-year-old male who saw yesterday in consultation. Saw him for a COPD exacerbation. The patient is doing much better. Feeling much better. He's back to baseline. In addition to COPD, he has a history of arthritis ongoing nicotine addiction and fibromyalgia. The patient could be discharged home today. We'll leave that up to the primary. He should follow with my partner in the office. The patient states that his breathing is much improved. His less chest tightness wheezing cough and phlegm production. He could be discharged home on a prednisone burst and taper and a short course of oral antibiotics. He is not manifesting any signs or symptoms of respiratory distress. No use of accessory muscles, no audible wheezing, no nasal flaring, etc. Objective - Vital Signs Vital signs: Vital Signs Temp 98.6 F 02/01/18 06:04 Pulse 104 H 02/01/18 13:25 Resp 16 02/01/18 06:04 BP 124/67 02/01/18 06:04 Pulse Ox 98 02/01/18 06:04 Intake & Output 01/31/18 02/01/18 02/01/18 18:59 06:59 18:59 Intake Total 400 Balance 400 Intake: Oral 400 Other: Voiding Method Urinal Urinal Urinal # Voids 1 1 2 - Exam No acute distress, oriented 3. No supplemental oxygen today. No evidence of claudia respiratory distress. HEENT examination is grossly unremarkable. Mucous membranes are moist. No oral lesions. Neck supple. Full range of motion. No adenopathy thyromegaly or neck vein distention. Cardiovascular examination reveals regular rhythm rate. S1-S2 normal. No S3 or S4. No discernible murmur noted. Lungs reveal diminished breath sounds throughout. Breath sounds are equal bilaterally but diminished throughout. Rhonchi have improved dramatically and there are a few scattered mild wheezes. No crackles. All in all, breath sounds are much improved. Abdomen soft bowel sounds are heard. No masses or tenderness. Extremities are intact. No cyanosis clubbing or edema. Skin is without rash or lesion. Neurologic examination is brief but nonfocal. - Labs CBC & Chem 7: 01/31/18 02:49 01/31/18 02:49 Labs: Abnormal Lab Results - Last 24 Hours (Table) 01/31/18 01/31/18 02/01/18 Range/Units 17:22 20:55 06:50 POC Glucose (mg/dL) 122 H 172 H 124 H (75-99) mg/dL 02/01/18 Range/Units 11:46 POC Glucose (mg/dL) 141 H (75-99) mg/dL Microbiology - Last 24 Hours (Table) 01/31/18 05:34 Urine Culture - Final Urine,Voided 01/31/18 02:49 Blood Culture - Preliminary Blood No Growth after 24 hours Assessment and Plan Assessment: Assessment COPD exacerbation, likely complicated by tracheobronchitis without claudia evidence of pneumonia History of fibromyalgia History of arthritis Previous history and possible ongoing tobacco use Plan: Plan dated 01/31/2018 The patient's chest x-ray does not show an acute infiltrate. It is consistent with COPD. The patient's medications will be reviewed and recommendations will be made. He was not really clear as to how much prednisone he was taking on a daily basis. He thought he was taking may be 11 mg in the nurse thought he was taking 40 mg. It doesn't list prednisone on his med list as one of the medications. In addition, the patient may still be smoking. Additional recommendations and suggestions are forthcoming. He needs follow-up with my partner when he gets discharged. He probably in the hospital for a couple of days. Plan dated 02/01/2018 The patient seems to be much improved today. Microbiologic studies are negative. His chest x-ray only showed changes of COPD. There were no new labs to report today. His medications were reviewed yesterday and adjusted accordingly. The patient encouraged to stop smoking. We also recommended he continue taking his current medications along with the prednisone and antibiotics he will be discharged on. Finally, he needs to follow-up with Dr. Stephens in the outpatient setting. Time with Patient: Less than 30
== END 2018-02-01 14:46 | disposition home or self-care (01) ==
LOC: EC 02:46 → 4MS4W 06:47
PROVIDERS: ADMIT Internal Medicine; ATTEND Internal Medicine
DX: J44.1 Chronic obstructive pulmonary disease with (acute) exacerbation (principal); J96.11 Chronic respiratory failure with hypoxia; J96.12 Chronic respiratory failure with hypercapnia; R11.2 Nausea with vomiting, unspecified; J40 Bronchitis, not specified as acute or chronic; M79.7 Fibromyalgia; M19.90 Unspecified osteoarthritis, unspecified site; R31.29 Other microscopic hematuria; E78.5 Hyperlipidemia, unspecified; I10 Essential (primary) hypertension; G89.29 Other chronic pain; M54.5 Low back pain; Z86.73 Personal history of transient ischemic attack (TIA), and cerebral infarction without residual deficits; Z87.01 Personal history of pneumonia (recurrent); Z99.81 Dependence on supplemental oxygen; F17.200 Nicotine dependence, unspecified, uncomplicated; Z80.0 Family history of malignant neoplasm of digestive organs; Z79.899 Other long term (current) drug therapy; Z79.51 Long term (current) use of inhaled steroids; Z79.1 Long term (current) use of non-steroidal anti-inflammatories (NSAID); Z79.891 Long term (current) use of opiate analgesic
CPT/HCPCS: 99285 ×2; 96361 ×5; 96376 ×2; 96374; 36415; 94640 ×4; 93005; 85379; 80053; 83605; 84484; 85025; 85610; 85730; 81001; 87040; 87086; 83036; 71046; G0378 ×2; J2930 ×2; J7512 ×2

== ENCOUNTER 2018-03-08 05:25 | Observation (INO) | payer BC, MEDICARE ==
[2018-03-08 06:19] LABS: Basophils # (A) 0.1 k/uL (0-0.2); Basophils % (A) 0 %; Eosinophils # (A) 0.2 k/uL (0-0.7); Eosinophils % (A) 1 %; HCT 48.1 % (39.0-53.0); HGB 15.5 gm/dL (13.0-17.5); Lymphocytes # (A) 0.6 k/uL (1.0-4.8); Lymphocytes % (A) 4 %; MCH 31.2 pg (25.0-35.0); MCHC 32.3 g/dL (31.0-37.0); MCV 96.8 fL (80.0-100.0); Monocytes # (A) 0.8 k/uL (0-1.0); Monocytes % (A) 5 %; Neutrophils # (A) 14.8 k/uL (1.3-7.7); Neutrophils % (A) 89 %; Platelet Count 267 k/uL (150-450); RBC 4.97 m/uL (4.30-5.90); RDW 12.5 % (11.5-15.5); WBC 16.7 k/uL (3.8-10.6)
[2018-03-08 06:29] LABS: ALT 22 U/L (21-72); AST 27 U/L (17-59); Albumin 4.4 g/dL (3.5-5.0); Alkaline Phosphatase 83 U/L (38-126); Anion Gap 8 mmol/L; Blood Urea Nitrogen 12 mg/dL (9-20); Calcium 9.9 mg/dL (8.4-10.2); Carbon Dioxide 40 mmol/L (22-30); Chloride 90 mmol/L (98-107); Glucose 98 mg/dL (74-99); Potassium 4.9 mmol/L (3.5-5.1); Sodium 138 mmol/L (137-145); Total Bilirubin 0.7 mg/dL (0.2-1.3); Total Protein 7.9 g/dL (6.3-8.2)
[2018-03-08 06:34] LABS: D-Dimer 0.23 mg/L FEU (<0.60); INR 1.1 (<1.2); Partial Thromboplastin Time 26.7 sec (22.0-30.0); Prothrombin Time 10.3 sec (9.0-12.0)
--- NOTE | 2018-03-08 06:39 | XR ---
EXAM: XR Chest, 1 View. CLINICAL HISTORY: Reason: dyspnea TECHNIQUE: Frontal view of the chest. COMPARISON: 01/31/18 FINDINGS: Lungs: Lungs are mildly hyperinflated, likely secondary to COPD. No definite airspace consolidation or superimposed interstitial edema. Pleural spaces: No significant pleural effusions. No evidence of pneumothorax. Heart: Heart size normal. Mediastinum: No mediastinal widening or shift. Bones: Unremarkable. No acute fracture. IMPRESSION: No evidence of acute cardiopulmonary abnormality.
[2018-03-08 06:47] LABS: Creatine Kinase 38 U/L (55-170)
[2018-03-08] MEDS ORDERED: ALBUTEROL NEBULIZED 2.5 MG/3 ML INHALATION STA ×2 (06:53→07:07)
[2018-03-08 07:00] LABS: Creatine Kinase MB 1.8 ng/mL (0.0-2.4); Troponin I <0.012 ng/mL (0.000-0.034)
[2018-03-08] MEDS ORDERED: DEXAMETHASONE SOD PHOSPHATE 10 MG/ML 1 ML VIAL IV STA (07:06)
[2018-03-08] MEDS ORDERED: IPRATROPIUM-ALBUTEROL 3 ML NEB INHALATION STA (07:06)
[2018-03-08] MEDS ORDERED: ACETAMINOPHEN TAB 500 MG TAB PO STA (07:06)
[2018-03-08] MEDS ORDERED: SODIUM CHLORIDE 0.9% 500 ML IV ONE (07:06)
[2018-03-08] MEDS ORDERED: LEVOFLOXACIN 500 MG TAB PO STA (07:07)
[2018-03-08] MEDS: SODIUM CHLORIDE 0.9% 1,000 ML IV SCH ×2 (08:10→20:31)
[2018-03-08] MEDS ORDERED: IPRATROPIUM-ALBUTEROL 3 ML NEB INHALATION PRN (08:32)
--- NOTE | 2018-03-08 08:37 | ED ---
General Adult HPI - General Chief complaint: Shortness of Breath Stated complaint: Vomiting,HAROLDO Time Seen by Provider: 03/08/18 05:39 Source: patient, family, RN notes reviewed, old records reviewed Mode of arrival: ambulatory Limitations: no limitations - History of Present Illness Initial comments: 48-year-old male presenting for evaluation of cough and dyspnea. Patient does have COPD, he was recently admitted with COPD exacerbation. Patient continues to smoke, he states he's had some diffuse chest pain worse with coughing. Denies any central or radiating chest pain. Patient does report subjective fever and chills. He is also had some nausea, no significant abdominal pain. No diarrhea. Patient's cough is productive of yellow sputum. - Related Data Home Medications Medication Instructions Recorded Confirmed ALPRAZolam 0.5 mg PO TID 03/28/15 03/08/18 DULoxetine HCL 60 mg PO DAILY 03/28/15 03/08/18 Gabapentin 600 mg PO TID 03/28/15 03/08/18 Ipratropium/Albuterol Sulfate 1 puff INHALATION RT-QID 03/28/15 03/08/18 [Combivent Respimat Inhaler] Budesonide-Formot 160-4.5 Mcg 1 puff INHALATION RT-BID 01/31/18 03/08/18 [Symbicort 160-4.5 Mcg Inhaler] Ipratropium-Albuterol Nebulize 3 ml INHALATION RT-QID 01/31/18 03/08/18 [Duoneb 0.5 mg-3 mg/3 ml Soln] HYDROcodone/APAP 10-325MG [[place] 1 tab PO Q8H PRN 03/08/18 03/08/18 10-325] Allergies Allergy/AdvReac Type Severity Reaction Status Date / Time No Known Allergies Allergy Verified 03/08/18 07:54 Review of Systems ROS Statement: Those systems with pertinent positive or pertinent negative responses have been documented in the HPI. ROS Other: All systems not noted in ROS Statement are negative. Past Medical History Past Medical History: COPD, CVA/TIA, Fibromyalgia, Hyperlipidemia, Hypertension , Osteoarthritis (OA), Pneumonia, Respiratory Disorder Additional Past Medical History / Comment(s): Pt having some difficulty answering PMH questions, spouse is at bedside and has to correct him at times. Spouse said he normally has alittle memory problems but that pt had a severe headache on 01/29 for 1 day and vomitted and felt clammy-headache resolve but spouse thinks his memory worsened. Other hx: Severe COPD, respiratory failure with home oxygen at 2L/NC ATC, tracheobronchitis, TIA, DJD, chronic low back pain, History of Any Multi-Drug Resistant Organisms: None Reported Past Surgical History: Ear Surgery Additional Past Surgical History / Comment(s): R ear surgery for "fractured bone." per spouse. Past Anesthesia/Blood Transfusion Reactions: No Reported Reaction Past Psychological History: No Psychological Hx Reported Smoking Status: Former smoker Past Alcohol Use History: None Reported Past Drug Use History: None Reported - Past Family History Father Family Medical History: Cancer Additional Family Medical History / Comment(s): Father of throat cancer at the age of 52 yrs. He was a smoker. Mother Family Medical History: COPD Additional Family Medical History / Comment(s): Mother is 74 yrs old. She is a smoker. General Exam Limitations: no limitations General appearance: alert, in no apparent distress Head exam: Present: atraumatic, normocephalic Eye exam: Present: normal appearance, PERRL ENT exam: Present: normal exam Neck exam: Present: normal inspection. Absent: tenderness, meningismus Respiratory exam: Present: respiratory distress, wheezes, rhonchi, decreased breath sounds Cardiovascular Exam: Present: normal rhythm, tachycardia GI/Abdominal exam: Present: soft. Absent: distended, tenderness, guarding Extremities exam: Present: normal inspection, normal capillary refill. Absent: pedal edema Neurological exam: Present: alert, oriented X3, CN II-XII intact. Absent: motor sensory deficit Psychiatric exam: Present: normal affect, normal mood Skin exam: Present: warm, dry, intact. Absent: cyanosis, diaphoretic Course Vital Signs 03/08/18 03/08/18 03/08/18 05:29 05:41 07:54 Temperature 99.3 F Pulse Rate 115 H 107 H Respiratory 24 22 Rate Blood Pressure 130/70 O2 Sat by Pulse 95 Oximetry 03/08/18 03/08/18 08:09 08:13 Temperature Pulse Rate 120 H 112 H Respiratory 22 Rate Blood Pressure 118/85 O2 Sat by Pulse Oximetry EKG Findings - EKG Comments: EKG Findings:: EKG: Sinus tachycardia, right atrial enlargement, ventricular rate of 112, HI interval 122, QRS duration 84, QTC 434, no ST segment elevation or depression Medical Decision Making - Medical Decision Making 48-year-old male presenting with worsening cough and dyspnea. Patient is in moderate respiratory distress, given multiple doses of albuterol, Atrovent in the emergency department. Is also loaded with IV steroids. Despite initial treatment, patient's symptoms fail to improve. Chest x-ray obtained, negative for focal pneumonia. Patient does have leukocytosis given this with history of subjective fever and chills patient is started on antibiotics. Laboratory studies also revealed negative d-dimer, negative troponin and BNP. Patient will be admitted for further treatment and evaluation of COPD exacerbation. - Lab Data Result diagrams: 03/08/18 05:44 03/08/18 05:44 Lab Results 03/08/18 03/08/18 03/08/18 Range/Units 05:44 05:44 05:44 WBC 16.7 H (3.8-10.6) k/uL RBC 4.97 (4.30-5.90) m/uL Hgb 15.5 (13.0-17.5) gm/dL Hct 48.1 (39.0-53.0) % MCV 96.8 (80.0-100.0) fL MCH 31.2 (25.0-35.0) pg MCHC 32.3 (31.0-37.0) g/dL RDW 12.5 (11.5-15.5) % Plt Count 267 (150-450) k/uL Neutrophils % 89 % Lymphocytes % 4 % Monocytes % 5 % Eosinophils % 1 % Basophils % 0 % Neutrophils # 14.8 H (1.3-7.7) k/uL Lymphocytes # 0.6 L (1.0-4.8) k/uL Monocytes # 0.8 (0-1.0) k/uL Eosinophils # 0.2 (0-0.7) k/uL Basophils # 0.1 (0-0.2) k/uL PT (9.0-12.0) sec INR (<1.2) APTT (22.0-30.0) sec D-Dimer (<0.60) mg/L FEU Sodium 138 (137-145) mmol/L Potassium 4.9 (3.5-5.1) mmol/L Chloride 90 L (98-107) mmol/L Carbon Dioxide 40 H (22-30) mmol/L Anion Gap 8 mmol/L BUN 12 (9-20) mg/dL Creatinine 0.58 L (0.66-1.25) mg/dL Est GFR (CKD-EPI)AfAm >90 (>60 ml/min/1.73 sqM) Est GFR (CKD-EPI)NonAf >90 (>60 ml/min/1.73 sqM) Glucose 98 (74-99) mg/dL Calcium 9.9 (8.4-10.2) mg/dL Total Bilirubin 0.7 (0.2-1.3) mg/dL AST 27 (17-59) U/L ALT 22 (21-72) U/L Alkaline Phosphatase 83 (38-126) U/L Total Creatine Kinase 38 L (55-170) U/L CK-MB (CK-2) 1.8 (0.0-2.4) ng/mL CK-MB (CK-2) Rel Index 4.7 Troponin I <0.012 (0.000-0.034) ng/mL NT-Pro-B Natriuret Pep pg/mL Total Protein 7.9 (6.3-8.2) g/dL Albumin 4.4 (3.5-5.0) g/dL 03/08/18 03/08/18 Range/Units 05:44 05:44 WBC (3.8-10.6) k/uL RBC (4.30-5.90) m/uL Hgb (13.0-17.5) gm/dL Hct (39.0-53.0) % MCV (80.0-100.0) fL MCH (25.0-35.0) pg MCHC (31.0-37.0) g/dL RDW (11.5-15.5) % Plt Count (150-450) k/uL Neutrophils % % Lymphocytes % % Monocytes % % Eosinophils % % Basophils % % Neutrophils # (1.3-7.7) k/uL Lymphocytes # (1.0-4.8) k/uL Monocytes # (0-1.0) k/uL Eosinophils # (0-0.7) k/uL Basophils # (0-0.2) k/uL PT 10.3 (9.0-12.0) sec INR 1.1 (<1.2) APTT 26.7 (22.0-30.0) sec D-Dimer 0.23 (<0.60) mg/L FEU Sodium (137-145) mmol/L Potassium (3.5-5.1) mmol/L Chloride (98-107) mmol/L Carbon Dioxide (22-30) mmol/L Anion Gap mmol/L BUN (9-20) mg/dL Creatinine (0.66-1.25) mg/dL Est GFR (CKD-EPI)AfAm (>60 ml/min/1.73 sqM) Est GFR (CKD-EPI)NonAf (>60 ml/min/1.73 sqM) Glucose (74-99) mg/dL Calcium (8.4-10.2) mg/dL Total Bilirubin (0.2-1.3) mg/dL AST (17-59) U/L ALT (21-72) U/L Alkaline Phosphatase (38-126) U/L Total Creatine Kinase (55-170) U/L CK-MB (CK-2) (0.0-2.4) ng/mL CK-MB (CK-2) Rel Index Troponin I (0.000-0.034) ng/mL NT-Pro-B Natriuret Pep 89 pg/mL Total Protein (6.3-8.2) g/dL Albumin (3.5-5.0) g/dL Disposition Clinical Impression: Acute exacerbation of chronic obstructive airways disease Disposition: ADMITTED IP TO THIS HOSP Condition: Stable Is patient prescribed a controlled substance at d/c from ED?: No Referrals: Hue Laurent MD [Primary Care Provider] - 1-2 days Decision to Admit Reason: Admit from EC Decision Date: 03/08/18 Decision Time: 08:37
[2018-03-08] MEDS ORDERED: ONDANSETRON 4 MG/2 ML VIAL IVP STA (09:00)
--- NOTE | 2018-03-08 11:30 | P.HPIM ---
History of Present Illness Patient developed pleasant 48-year-old gentleman with a long history of smoking and advance to COPD FEV1 of 17% uses 2 L of onset at home came in with complaints of shortness of breath cough with. Sputum production going on for last few days patient was given now for breathing treatments without any significant improvement IV steroids and patient was subsequently admitted to the hospital. Patient's d-dimer is negative chest x-ray did not show any pneumonic process patient is trying to quit smoking use to smoke a lot in the past now only smoking about 2 cigarettes per day. Review of Systems REVIEW OF SYSTEMS: CONSTITUTIONAL: No fever, no malaise, no fatigue. HEENT: No recent visual problems or hearing problems. Denied any sore throat. CARDIOVASCULAR: No chest pain, orthopnea, PND, no palpitations, no syncope. PULMONARY: no hemoptysis. GASTROINTESTINAL: No diarrhea, no nausea, no vomiting, no abdominal pain. Normoactive bowel sounds. NEUROLOGICAL: No headaches, no weakness, no numbness. HEMATOLOGICAL: Denies any bleeding or petechiae. GENITOURINARY: Denies any burning micturition, frequency, or urgency. MUSCULOSKELETAL/RHEUMATOLOGICAL: Denies any joint pain, swelling, or any muscle pain. ENDOCRINE: Denies any polyuria or polydipsia. The rest of the 14-point review of systems is negative. Past Medical History Past Medical History: COPD, CVA/TIA, Fibromyalgia, Hyperlipidemia, Hypertension , Osteoarthritis (OA), Pneumonia, Respiratory Disorder Additional Past Medical History / Comment(s): Pt recently admitted on 01/31/18 with chronic hypoxic and hypercapnic respiratory failure, acute/chronic COPD, traceobronchitis and microscopic hematuria. Other hx: Severe COPD, respiratory failure with home oxygen at 3L/[place] ATC, tracheobronchitis, TIA, DJD, chronic low back pain, memory problems. History of Any Multi-Drug Resistant Organisms: None Reported Past Surgical History: Ear Surgery Additional Past Surgical History / Comment(s): R ear surgery for "fractured bone." per spouse. Past Anesthesia/Blood Transfusion Reactions: No Reported Reaction Smoking Status: Current every day smoker - Past Family History Father Family Medical History: Cancer Additional Family Medical History / Comment(s): Father of throat cancer at the age of 52 yrs. He was a smoker. Mother Family Medical History: COPD Additional Family Medical History / Comment(s): Mother is 74 yrs old. She is a smoker. Medications and Allergies Home Medications Medication Instructions Recorded Confirmed Type ALPRAZolam 0.5 mg PO TID 03/28/15 03/08/18 History DULoxetine HCL 60 mg PO DAILY 03/28/15 03/08/18 History Gabapentin 600 mg PO TID 03/28/15 03/08/18 History Ipratropium/Albuterol Sulfate 1 puff INHALATION RT-QID 03/28/15 03/08/18 History [Combivent Respimat Inhaler] Budesonide-Formot 160-4.5 Mcg 1 puff INHALATION RT-BID 01/31/18 03/08/18 History [Symbicort 160-4.5 Mcg Inhaler] Ipratropium-Albuterol Nebulize 3 ml INHALATION RT-QID 01/31/18 03/08/18 History [Duoneb 0.5 mg-3 mg/3 ml Soln] HYDROcodone/APAP 10-325MG [[place] 1 tab PO Q8H PRN 03/08/18 03/08/18 History 10-325] Allergies Allergy/AdvReac Type Severity Reaction Status Date / Time No Known Allergies Allergy Verified 03/08/18 07:54 Physical Exam Vitals: Vital Signs Temp Pulse Resp BP Pulse Ox 03/08/18 09:07 98.7 F 102 H 22 104/76 96 03/08/18 08:13 112 H 22 118/85 03/08/18 08:09 120 H 03/08/18 07:54 107 H 03/08/18 05:41 22 03/08/18 05:29 99.3 F 115 H 24 130/70 95 Intake and Output 03/07/18 03/08/18 03/08/18 22:59 06:59 14:59 Other: Weight 60.781 kg PHYSICAL EXAMINATION: GENERAL: The patient is alert and oriented x3, not in any acute distress. Well developed, well nourished. HEENT: Pupils are round and equally reacting to light. EOMI. No scleral icterus. No conjunctival pallor. Normocephalic, atraumatic. No pharyngeal erythema. No thyromegaly. CARDIOVASCULAR: S1 and S2 present. No murmurs, rubs, or gallops. PULMONARY: Fairly good air entry into bilateral lung bond minimal expiratory wheezing was appreciated. ABDOMEN: Soft, nontender, nondistended, normoactive bowel sounds. No palpable organomegaly. MUSCULOSKELETAL: No joint swelling or deformity. EXTREMITIES: No cyanosis, clubbing, or pedal edema. NEUROLOGICAL: Gross neurological examination did not reveal any focal deficits. SKIN: No rashes. Results CBC & Chem 7: 03/08/18 05:44 03/08/18 05:44 Labs: Abnormal Lab Results - Last 24 Hours (Table) 03/08/18 03/08/18 03/08/18 Range/Units 05:44 05:44 05:44 WBC 16.7 H (3.8-10.6) k/uL Neutrophils # 14.8 H (1.3-7.7) k/uL Lymphocytes # 0.6 L (1.0-4.8) k/uL Chloride 90 L (98-107) mmol/L Carbon Dioxide 40 H (22-30) mmol/L Creatinine 0.58 L (0.66-1.25) mg/dL Total Creatine Kinase 38 L (55-170) U/L Thrombosis Risk Factor Assmnt - Choose All That Apply Any of the Below Risk Factors Present?: Yes Each Factor Represents 1 point: Abnormal pulmonary function (COPD), Age 41-60 years, Serious lung disease incl. pneumonia (< 1month) Other Risk Factors: No Other congenital or acquired thrombophilia - If yes, enter type in comment: No Thrombosis Risk Factor Assessment Total Risk Factor Score: 3 Thrombosis Risk Factor Assessment Level: Moderate Risk Assessment and Plan Plan: -Acute on chronic hypercapnic respiratory failure secondary to COPD exacerbation. Smoking cessation counseling was provided and patient will be started on oral steroids IV steroids will be discontinued patient probably can be discharged tomorrow pulmonary will be consulted inhalational treatments will be provided. -Depression -Fibromyalgia -Hyperlipidemia Hypertension - osteoarthritis -CVA/TIA For rest of his chronic medical problems patient will be resumed and continued on appropriate home medications.
[2018-03-08] MEDS ORDERED: methylPREDNISolone SOD SUCCI 125 MG/2 ML VIAL IV SCH (12:00)
[2018-03-08] MEDS: HYDROcodone/APAP 10-325MG 1 EACH TAB PO PRN ×2 (12:23→18:34)
[2018-03-08] MEDS: ALPRAZolam 0.5 MG TAB PO PRN ×2 (13:18→18:34)
[2018-03-08] MEDS: GABAPENTIN 300 MG CAP PO SCH ×3 (13:54→20:32)
[2018-03-08] MEDS: DULoxetine HCL 60 MG CAPSULE.DR PO SCH (13:58)
[2018-03-08 14:56] VITALS: RESP 18
[2018-03-08] MEDS: ALBUTEROL NEBULIZED 2.5 MG/3 ML INHALATION SCH ×3 (15:41→19:34)
[2018-03-08] MEDS ORDERED: GABAPENTIN 300 MG CAP PO SCH (16:00)
--- NOTE | 2018-03-08 16:09 | P.CNPUL ---
History of Present Illness Consult date: 03/08/18 Reason for consult: dyspnea, cough, COPD Chief complaint: Dyspnea, cough, wheezing, congestion History of present illness: This is a 48-year-old white male patient medical history of COPD, CVA/TIA, hypertension, hyperlipidemia, osteoarthritis, previous episodes of pneumonia, fibromyalgia, presented to the emergency department on 03/08/2018 for evaluation of worsening cough, dyspnea, wheezing, chest congestion. Patient was having some diffuse chest pain without radiation is related with coughing. Patient is a current smoker. Denied any fever or chills, no nausea or vomiting , no diarrhea. Bringing up yellow sputum. His maintenance inhalers include Symbicort, and Combivent, and DuoNeb nebulized treatments. Patient does have home oxygen at 2 L per nasal cannula. Chest x-ray was completed, showed no evidence of acute cardiopulmonary abnormality. EKG showed sinus tachycardia with a rate of 112 bPM. Labs showed leukocytosis, with WBC of 16.7, hemoglobin 15.5, d-dimer and [place] profile were within normal limits, sodium is 138, potassium is 4.9, chloride is 90, CO2 is 40, BUN is 12, creatinine 0.58, LFTs were within normal limits, troponin was negative 1, proBNP was 89. Patient has been afebrile, his pulse ox on 3 L per nasal cannula is 96%, hemodynamically stable. He has diffuse wheezing, and rhonchi, he has conversational dyspnea. He was started on doxycycline, IV steroids, nebulized bronchodilators and was admitted for further management. Review of Systems All systems: negative Constitutional: Denies chills, Denies fever Eyes: denies blurred vision, denies pain Ears, nose, mouth and throat: Denies headache, Denies sore throat Cardiovascular: Denies chest pain, Denies shortness of breath Respiratory: Reports cough with sputum, Reports dyspnea, Reports home oxygen, Reports pain on inspiration, Reports respiratory infections, Reports wheezing, Denies cough Gastrointestinal: Denies abdominal pain, Denies diarrhea, Denies nausea, Denies vomiting Musculoskeletal: Denies myalgias Integumentary: Denies pruritus, Denies rash Neurological: Denies numbness, Denies weakness Psychiatric: Denies anxiety, Denies depression Endocrine: Denies fatigue, Denies weight change Past Medical History Past Medical History: COPD, CVA/TIA, Fibromyalgia, Hyperlipidemia, Hypertension , Osteoarthritis (OA), Pneumonia, Respiratory Disorder Additional Past Medical History / Comment(s): Pt recently admitted on 01/31/18 with chronic hypoxic and hypercapnic respiratory failure, acute/chronic COPD, traceobronchitis and microscopic hematuria. Other hx: Severe COPD, respiratory failure with home oxygen at 3L/[place] ATC, tracheobronchitis, TIA, DJD, chronic low back pain, memory problems. History of Any Multi-Drug Resistant Organisms: None Reported Past Surgical History: Ear Surgery Additional Past Surgical History / Comment(s): R ear surgery for "fractured bone." per spouse. Past Anesthesia/Blood Transfusion Reactions: No Reported Reaction Smoking Status: Current every day smoker - Past Family History Father Family Medical History: Cancer Additional Family Medical History / Comment(s): Father of throat cancer at the age of 52 yrs. He was a smoker. Mother Family Medical History: COPD Additional Family Medical History / Comment(s): Mother is 74 yrs old. She is a smoker. Medications and Allergies Home Medications Medication Instructions Recorded Confirmed Type ALPRAZolam 0.5 mg PO TID 03/28/15 03/08/18 History DULoxetine HCL 60 mg PO DAILY 03/28/15 03/08/18 History Gabapentin 600 mg PO TID 03/28/15 03/08/18 History Ipratropium/Albuterol Sulfate 1 puff INHALATION RT-QID 03/28/15 03/08/18 History [Combivent Respimat Inhaler] Budesonide-Formot 160-4.5 Mcg 1 puff INHALATION RT-BID 01/31/18 03/08/18 History [Symbicort 160-4.5 Mcg Inhaler] Ipratropium-Albuterol Nebulize 3 ml INHALATION RT-QID 01/31/18 03/08/18 History [Duoneb 0.5 mg-3 mg/3 ml Soln] HYDROcodone/APAP 10-325MG [[place] 1 tab PO Q8H PRN 03/08/18 03/08/18 History 10-325] Allergies Allergy/AdvReac Type Severity Reaction Status Date / Time No Known Allergies Allergy Verified 03/08/18 07:54 Physical Exam Vitals: Vital Signs Temp Pulse Pulse Resp BP BP Pulse Ox 03/08/18 15:50 112 H 03/08/18 14:53 96.7 F L 111 H 18 120/92 96 03/08/18 13:23 98.5 F 105 H 16 119/75 97 03/08/18 09:07 98.7 F 102 H 22 104/76 96 03/08/18 08:13 112 H 22 118/85 03/08/18 08:09 120 H 03/08/18 07:54 107 H 03/08/18 05:41 22 03/08/18 05:29 99.3 F 115 H 24 130/70 95 Intake and Output 03/08/18 03/08/18 03/08/18 06:59 14:59 22:59 Intake Total 525 Balance 525 Intake: Intake, IV Titration 525 Amount Sodium Chloride 0.9% 1, 525 000 ml @ 75 mls/hr IV . [id number] [facility] Rx#:[id number] Other: Weight 60.781 kg GENERAL EXAM: Alert, pleasant, 48-year-old white male in mild conversational dyspnea comfortable in no apparent distress. HEAD: Normocephalic/atraumatic. EYES: Normal reaction of pupils, equal size. Conjunctiva pink, sclera white. NOSE: Clear with pink turbinates. THROAT: No erythema or exudates. NECK: No masses, no JVD, no thyroid enlargement, no adenopathy. CHEST: No chest wall deformity. Symmetrical expansion. LUNGS: Equal air entry with diffuse wheezes, and rhonchi CVS: Regular rate and rhythm, normal S1 and S2, no gallops, no murmurs, no rubs ABDOMEN: Soft, nontender. No hepatosplenomegaly, normal bowel sounds, no guarding or rigidity. EXTREMITIES: No clubbing, no edema, no cyanosis, 2+ pulses and upper and lower extremities. MUSCULOSKELETAL: Muscle strength and tone normal. SPINE: No scoliosis or deformity SKIN: No rashes CENTRAL NERVOUS SYSTEM: Alert and oriented -3. No focal deficits, tone is normal in all 4 extremities. PSYCHIATRIC: Alert and oriented -3. Appropriate affect. Intact judgment and insight. Results - Laboratory Findings CBC and BMP: 03/08/18 05:44 03/08/18 05:44 PT/INR, D-dimer PT 10.3 sec (9.0-12.0) 03/08/18 05:44 INR 1.1 (<1.2) 03/08/18 05:44 D-Dimer 0.23 mg/L FEU (<0.60) 03/08/18 05:44 Abnormal lab findings: Abnormal Labs 03/08/18 03/08/18 03/08/18 05:44 05:44 05:44 WBC 16.7 H Neutrophils # 14.8 H Lymphocytes # 0.6 L Chloride 90 L Carbon Dioxide 40 H Creatinine 0.58 L Total Creatine Kinase 38 L - Diagnostic Findings Chest x-ray: report reviewed, image reviewed Additional studies: EKG reviewed Assessment and Plan Plan: Assessment: #1. Acute exacerbation of chronic obstructive pulmonary disease and tracheobronchitis. Chest x-ray did not show any evidence of acute pulmonary process #2. Leukocytosis #3. History of advanced COPD, with chronic hypoxemic and hypercapnic respiratory failure #4. History of CVA/TIA #5. Hypertension, hyperlipidemia #6. Osteoarthritis #7. Previous episodes of pneumonia #8. Nicotine dependence, currently down to 2 cigarettes a day #9. Chronic back pain Plan: Continue with doxycycline, nebulized bronchodilators, and steroids. Complete smoking cessation was strongly encouraged. Chest x-ray was negative for any evidence of acute pulmonary process, vital signs are stable. Anticipate improvement and possible discharge home in the next 24 hours. I performed a history & physical examination of the patient and discussed their management with my nurse practitioner, Renetta Lomax. I reviewed the nurse practitioner's note and agree with the documented findings and plan of care. Lung sounds are positive for diffuse wheezes and rhonchi throughout the lung bond. The findings and the impression was discussed with the patient. I attest to the documentation by the nurse practitioner. Time with Patient: Greater than 30
[2018-03-08] MEDS: SYMBICORT 160-4.5 MCG INHALER INHALATION SCH (19:35)
[2018-03-08] MEDS: DOXYCYCLINE 100 MG CAP PO SCH (20:32)
[2018-03-09] MEDS: ALBUTEROL NEBULIZED 2.5 MG/3 ML INHALATION SCH ×2 (06:18→06:20)
[2018-03-09] MEDS: ALPRAZolam 0.5 MG TAB PO PRN (06:25)
[2018-03-09] MEDS: HYDROcodone/APAP 10-325MG 1 EACH TAB PO PRN (06:25)
[2018-03-09] MEDS: SYMBICORT 160-4.5 MCG INHALER INHALATION SCH (08:00)
[2018-03-09 08:09] VITALS: BP 132/66; TEMP 97.6
[2018-03-09] MEDS: DOXYCYCLINE 100 MG CAP PO SCH (08:34)
[2018-03-09] MEDS: SODIUM CHLORIDE 0.9% 1,000 ML IV SCH (08:34)
[2018-03-09] MEDS: GABAPENTIN 300 MG CAP PO SCH (08:34)
[2018-03-09] MEDS: DULoxetine HCL 60 MG CAPSULE.DR PO SCH (08:35)
[2018-03-09] MEDS ORDERED: DULoxetine HCL 60 MG CAPSULE.DR PO SCH (09:00)
[2018-03-09] MEDS ORDERED: LEVOFLOXACIN 500 MG TAB PO SCH (09:00)
[2018-03-09] MEDS ORDERED: predniSONE 20 MG TAB PO SCH (09:00)
--- NOTE | 2018-03-09 11:10 | P.DS ---
Providers Date of admission: 03/08/18 08:32 Attending physician: Magdaleno Sellers Consults: 03/08/18 11:21 Consult Physician Routine Consulting Provider: Amanda Ozuna Consult Reason/Comments: COPD Do you want consulting provider notified?: Yes Primary care physician: Hue Laurent [facility] Course: 48-year-old the with the chronic hypercapnic respiratory failure uses 2 L 3 dysfunction at home came in with for COPD exacerbation triggered bronchitis doing well will be discharged today patient still has some expiratory wheezing. PHYSICAL EXAMINATION: GENERAL: The patient is alert and oriented x3, not in any acute distress. Well developed, well nourished. HEENT: Pupils are round and equally reacting to light. EOMI. No scleral icterus. No conjunctival pallor. Normocephalic, atraumatic. No pharyngeal erythema. No thyromegaly. CARDIOVASCULAR: S1 and S2 present. No murmurs, rubs, or gallops. PULMONARY: Minimal expiratory wheezing probably his baseline. ABDOMEN: Soft, nontender, nondistended, normoactive bowel sounds. No palpable organomegaly. MUSCULOSKELETAL: No joint swelling or deformity. EXTREMITIES: No cyanosis, clubbing, or pedal edema. NEUROLOGICAL: Gross neurological examination did not reveal any focal deficits. SKIN: No rashes. Assessment and Plan Plan: -Acute on chronic hypercapnic respiratory failure secondary to COPD exacerbation. Smoking cessation counseling was provided -Depression -Fibromyalgia -Hyperlipidemia Hypertension - osteoarthritis -CVA/TIA Patient Condition at Discharge: Stable Plan - Discharge Summary Discharge Rx Participant: No New Discharge Prescriptions: New Doxycycline Monohydrate [Monodox] 100 mg PO BID 3 Days #6 cap predniSONE 10 mg PO DAILY #30 tab Ranitidine HCl [Zantac] 150 mg PO BID #30 tab No Action Ipratropium/Albuterol Sulfate [Combivent Respimat Inhaler] 1 puff INHALATION RT-QID Gabapentin 600 mg PO TID DULoxetine HCL 60 mg PO DAILY ALPRAZolam 0.5 mg PO TID Ipratropium-Albuterol Nebulize [Duoneb 0.5 mg-3 mg/3 ml Soln] 3 ml INHALATION RT-QID Budesonide-Formot 160-4.5 Mcg [Symbicort 160-4.5 Mcg Inhaler] 1 puff INHALATION RT-BID HYDROcodone/APAP 10-325MG [[place] 10-325] 1 tab PO Q8H PRN PRN Reason: Pain Discharge Medication List ALPRAZolam 0.5 mg PO TID 03/28/15 [History] DULoxetine HCL 60 mg PO DAILY 03/28/15 [History] Gabapentin 600 mg PO TID 03/28/15 [History] Ipratropium/Albuterol Sulfate [Combivent Respimat Inhaler] 1 puff INHALATION RT- QID 03/28/15 [History] Budesonide-Formot 160-4.5 Mcg [Symbicort 160-4.5 Mcg Inhaler] 1 puff INHALATION RT-BID 01/31/18 [History] Ipratropium-Albuterol Nebulize [Duoneb 0.5 mg-3 mg/3 ml Soln] 3 ml INHALATION RT -QID 01/31/18 [History] HYDROcodone/APAP 10-325MG [[place] 10-325] 1 tab PO Q8H PRN 03/08/18 [History] Doxycycline Monohydrate [Monodox] 100 mg PO BID 3 Days #6 cap 03/09/18 [Rx] Ranitidine HCl [Zantac] 150 mg PO BID #30 tab 03/09/18 [Rx] predniSONE 10 mg PO DAILY #30 tab 03/09/18 [Rx] Follow up Appointment(s)/Referral(s): Hue Laurent MD [Primary Care Provider] - 3 Days Discharge Disposition: HOME SELF-CARE
[2018-03-09 12:02] VITALS: PULSE 88
--- NOTE | 2018-03-09 13:44 | P.PN ---
Subjective Progress Note Date: 03/09/18 Principal diagnosis: Acute exacerbation of chronic obstructive pulmonary disease This is a 48-year-old white male patient medical history of COPD, CVA/TIA, hypertension, hyperlipidemia, osteoarthritis, previous episodes of pneumonia, fibromyalgia, presented to the emergency department on 03/08/2018 for evaluation of worsening cough, dyspnea, wheezing, chest congestion. Patient was having some diffuse chest pain without radiation is related with coughing. Patient is a current smoker. Denied any fever or chills, no nausea or vomiting , no diarrhea. Bringing up yellow sputum. His maintenance inhalers include Symbicort, and Combivent, and DuoNeb nebulized treatments. Patient does have home oxygen at 2 L per nasal cannula. Chest x-ray was completed, showed no evidence of acute cardiopulmonary abnormality. EKG showed sinus tachycardia with a rate of 112 bPM. Labs showed leukocytosis, with WBC of 16.7, hemoglobin 15.5, d-dimer and Vietnamese profile were within normal limits, sodium is 138, potassium is 4.9, chloride is 90, CO2 is 40, BUN is 12, creatinine 0.58, LFTs were within normal limits, troponin was negative 1, proBNP was 89. Patient has been afebrile, his pulse ox on 3 L per nasal cannula is 96%, hemodynamically stable. He has diffuse wheezing, and rhonchi, he has conversational dyspnea. He was started on doxycycline, IV steroids, nebulized bronchodilators and was admitted for further management. The patient is seen again today 03/09/2018 in follow-up on the regular medical floor. He is awake and alert in no acute distress. He states he is breathing quite a bit better today as compared to yesterday. He is still dyspneic on exertion. He is maintaining good O2 saturations in the 90s on 3 L per nasal cannula. He is afebrile. Hemodynamically stable. He is continued on DuoNeb inhalations, Symbicort, prednisone. He is also on empiric antibiotics in the form of doxycycline. He is quite anxious to go home. Objective - Vital Signs Vital signs: Vital Signs Temp 97.6 F 03/09/18 06:55 Pulse 88 03/09/18 11:57 Resp 18 03/09/18 06:55 BP 132/66 03/09/18 06:55 Pulse Ox 94 L 03/09/18 06:55 Intake & Output 03/08/18 03/09/18 03/09/18 18:59 06:59 18:59 Intake Total 525 900 Balance 525 900 Intake: Intake, IV Titration 525 900 Amount Sodium Chloride 0.9% 1, 525 900 000 ml @ 75 mls/hr IV . [id number] MELVA Rx#:[id number] Other: Voiding Method Toilet Toilet # Voids 1 - Exam GENERAL EXAM: Alert, active, comfortable in no apparent distress. HEAD: Normocephalic. EYES: Normal reaction of pupils, equal size. NOSE: Clear with pink turbinates. THROAT: No erythema or exudates. NECK: No masses, no JVD. CHEST: No chest wall deformity. LUNGS: Equal air entry with bilateral end expiratory wheeze. Diminished. CVS: S1 and S2 normal with no audible murmur, regular rhythm. ABDOMEN: No hepatosplenomegaly, normal bowel sounds, no guarding or rigidity. SPINE: No scoliosis or deformity SKIN: No rashes CENTRAL NERVOUS SYSTEM: No focal deficits, tone is normal in all 4 extremities. EXTREMITIES: There is no peripheral edema. No clubbing, no cyanosis. Peripheral pulses are intact. - Labs CBC & Chem 7: 03/08/18 05:44 03/08/18 05:44 Assessment and Plan Assessment: Assessment: #1. Acute exacerbation of chronic obstructive pulmonary disease and tracheobronchitis. Chest x-ray did not show any evidence of acute pulmonary process #2. Leukocytosis #3. History of advanced COPD, with chronic hypoxemic and hypercapnic respiratory failure #4. History of CVA/TIA #5. Hypertension, hyperlipidemia #6. Osteoarthritis #7. Previous episodes of pneumonia #8. Nicotine dependence, currently down to 2 cigarettes a day #9. Chronic back pain Plan: The patient was seen and evaluated by Dr. Lane. The patient is quite anxious to go home. He could complete a course of oral antibiotics. Complete a prednisone taper. Continue with his home nebulized treatments and inhalers. He is again encouraged regarding possible importance of complete smoking cessation. He should follow-up in our office early next week. He and his are both encouraged to call sooner however with any recurrence of symptoms or other questions or concerns. I, the cosigning physician, performed a history & physical examination of the patient. Lungs sounds with end expiratory wheeze, diminished. Maintaining good O2 saturations in the 90s on 3 L/m per nasal cannula. I discussed the assessment and plan of care with my nurse practitioner, Gabrielle Segura. I attest to the above note as dictated by her.
== END 2018-03-09 14:30 | disposition home or self-care (01) ==
LOC: EC 05:25 → 5MS5E 08:32
PROVIDERS: ADMIT Internal Medicine; ATTEND Internal Medicine
DX: J44.1 Chronic obstructive pulmonary disease with (acute) exacerbation (principal); E78.5 Hyperlipidemia, unspecified; F17.210 Nicotine dependence, cigarettes, uncomplicated; F32.9 Major depressive disorder, single episode, unspecified; M79.7 Fibromyalgia; G89.29 Other chronic pain; M54.5 Low back pain; J96.22 Acute and chronic respiratory failure with hypercapnia; J96.21 Acute and chronic respiratory failure with hypoxia; I10 Essential (primary) hypertension; M19.90 Unspecified osteoarthritis, unspecified site; Z71.6 Tobacco abuse counseling; Z86.73 Personal history of transient ischemic attack (TIA), and cerebral infarction without residual deficits; Z82.5 Family history of asthma and other chronic lower respiratory diseases; Z80.0 Family history of malignant neoplasm of digestive organs; Z79.51 Long term (current) use of inhaled steroids; Z87.01 Personal history of pneumonia (recurrent); Z99.81 Dependence on supplemental oxygen; Z79.899 Other long term (current) drug therapy
CPT/HCPCS: 36415; 71045; 80053; 82550; 82553; 83880; 84484; 85025; 85379; 85610; 85730; 93005; 94640; 96361; 96374; 99285

== ENCOUNTER 2018-07-10 13:20 | Inpatient (IN) | payer BC, MEDICARE ==
[2018-07-10] MEDS ORDERED: methylPREDNISolone SOD SUCCI 125 MG/2 ML VIAL IV STA (13:57)
[2018-07-10] MEDS ORDERED: SODIUM CHLORIDE 0.9% 1,000 ML IV STA (13:57)
[2018-07-10] MEDS ORDERED: IPRATROPIUM-ALBUTEROL 3 ML NEB INHALATION STA (13:57)
[2018-07-10] MEDS ORDERED: HYDROcodone/APAP 5-325MG 1 EACH TAB PO STA (13:59)
--- NOTE | 2018-07-10 14:01 | ED ---
General Adult HPI - General Chief complaint: Shortness of Breath Stated complaint: HAROLDO Time Seen by Provider: 07/10/18 13:49 Source: patient, EMS, RN notes reviewed Mode of arrival: EMS Limitations: no limitations - History of Present Illness Initial comments: Patient is a pleasant 48-year-old male presenting to the emergency Department with complaints of difficulty breathing. Patient has chronic COPD with similar symptoms. Symptoms have been worse over the past couple of weeks. Patient does have cough with yellow sputum. No fevers. No chest pain. No leg pain or leg swelling. - Related Data Home Medications Medication Instructions Recorded Confirmed ALPRAZolam 0.5 mg PO QID 03/28/15 07/10/18 DULoxetine HCL 60 mg PO DAILY 03/28/15 07/10/18 Gabapentin 600 mg PO TID 03/28/15 07/10/18 Ipratropium/Albuterol Sulfate 1 puff INHALATION RT-QID 03/28/15 07/10/18 [Combivent Respimat Inhaler] Budesonide-Formot 160-4.5 Mcg 2 puff INHALATION RT-BID 01/31/18 07/10/18 [Symbicort 160-4.5 Mcg Inhaler] Albuterol Nebulized [Ventolin 2.5 mg INHALATION RT-TID 07/10/18 07/10/18 Nebulized] HYDROcodone/APAP 7.5-325MG [[place] 1 tab PO TID 07/10/18 07/10/18 7.5-325] Ipratropium Nebulized [Atrovent 0.5 mg INHALATION RT-DAILY 07/10/18 07/10/18 Nebulized 0.2 MG/ML] Zolpidem Tartrate [Ambien] 10 mg PO HS PRN 07/10/18 07/10/18 Allergies Allergy/AdvReac Type Severity Reaction Status Date / Time No Known Allergies Allergy Verified 07/10/18 14:16 Review of Systems ROS Statement: Those systems with pertinent positive or pertinent negative responses have been documented in the HPI. ROS Other: All systems not noted in ROS Statement are negative. Constitutional: Denies: fever Eyes: Denies: eye pain ENT: Denies: ear pain, congestion Respiratory: Reports: cough, dyspnea Cardiovascular: Denies: chest pain Endocrine: Denies: fatigue Gastrointestinal: Denies: vomiting Genitourinary: Denies: dysuria Musculoskeletal: Denies: back pain Skin: Denies: rash Neurological: Denies: weakness Past Medical History Past Medical History: COPD, CVA/TIA, Fibromyalgia, Hyperlipidemia, Hypertension , Osteoarthritis (OA), Pneumonia, Respiratory Disorder Additional Past Medical History / Comment(s): Pt recently admitted on 01/31/18 with chronic hypoxic and hypercapnic respiratory failure, acute/chronic COPD, traceobronchitis and microscopic hematuria. Other hx: Severe COPD, respiratory failure with home oxygen at 3L/NC ATC, tracheobronchitis, TIA, DJD, chronic low back pain, memory problems. History of Any Multi-Drug Resistant Organisms: None Reported Past Surgical History: Ear Surgery Additional Past Surgical History / Comment(s): R ear surgery for "fractured bone." per spouse. Past Anesthesia/Blood Transfusion Reactions: No Reported Reaction Past Psychological History: No Psychological Hx Reported Smoking Status: Current every day smoker Past Alcohol Use History: None Reported Past Drug Use History: None Reported - Past Family History Father Family Medical History: Cancer Additional Family Medical History / Comment(s): Father of throat cancer at the age of 52 yrs. He was a smoker. Mother Family Medical History: COPD Additional Family Medical History / Comment(s): Mother is 74 yrs old. She is a smoker. General Exam Limitations: no limitations General appearance: alert, in no apparent distress Head exam: Present: atraumatic Eye exam: Present: normal appearance, PERRL ENT exam: Present: normal oropharynx Neck exam: Present: normal inspection Respiratory exam: Present: respiratory distress, wheezes, decreased breath sounds Cardiovascular Exam: Present: tachycardia GI/Abdominal exam: Present: soft. Absent: tenderness Extremities exam: Present: normal inspection. Absent: pedal edema, calf tenderness Neurological exam: Present: alert Psychiatric exam: Present: normal affect, normal mood Skin exam: Present: normal color Course Vital Signs 07/10/18 07/10/18 07/10/18 13:25 14:01 14:10 Temperature 99.3 F Pulse Rate 125 H 118 H 118 H Respiratory 30 H Rate Blood Pressure 106/85 O2 Sat by Pulse 94 L Oximetry EKG Findings - EKG Comments: EKG Findings:: Sinus tachycardia 120. NJ 128. QRS 84. QT 298. QTC 421. Right axis. Poor R-wave progression. No acute ST change. Medical Decision Making - Medical Decision Making Patient reevaluated and somewhat improved. Patient is not in respiratory distress. Patient and family updated on results and plan. Case was discussed in detail with Dr. Sellers who will admit for Dr. Laurent. - Lab Data Result diagrams: 07/10/18 13:50 07/10/18 13:50 Lab Results 07/10/18 07/10/18 07/10/18 Range/Units 13:50 13:50 13:50 WBC 8.4 (3.8-10.6) k/uL RBC 4.57 (4.30-5.90) m/uL Hgb 13.8 (13.0-17.5) gm/dL Hct 44.9 (39.0-53.0) % MCV 98.4 (80.0-100.0) fL MCH 30.2 (25.0-35.0) pg MCHC 30.7 L (31.0-37.0) g/dL RDW 12.6 (11.5-15.5) % Plt Count 286 (150-450) k/uL Neutrophils % 76 % Lymphocytes % 16 % Monocytes % 5 % Eosinophils % 2 % Basophils % 0 % Neutrophils # 6.4 (1.3-7.7) k/uL Lymphocytes # 1.3 (1.0-4.8) k/uL Monocytes # 0.4 (0-1.0) k/uL Eosinophils # 0.2 (0-0.7) k/uL Basophils # 0.0 (0-0.2) k/uL Hypochromasia Slight PT 10.5 (9.0-12.0) sec INR 1.0 (<1.2) APTT 26.8 (22.0-30.0) sec Sodium 141 (137-145) mmol/L Potassium 4.7 (3.5-5.1) mmol/L Chloride 96 L (98-107) mmol/L Carbon Dioxide 41 H* (22-30) mmol/L Anion Gap 4 mmol/L BUN 6 L (9-20) mg/dL Creatinine 0.53 L (0.66-1.25) mg/dL Est GFR (CKD-EPI)AfAm >90 (>60 ml/min/1.73 sqM) Est GFR (CKD-EPI)NonAf >90 (>60 ml/min/1.73 sqM) Glucose 114 H (74-99) mg/dL Plasma Lactic Acid [place] (0.7-2.0) mmol/L Calcium 9.2 (8.4-10.2) mg/dL Magnesium 2.0 (1.6-2.3) mg/dL Total Bilirubin 0.4 (0.2-1.3) mg/dL AST 17 (17-59) U/L ALT 22 (21-72) U/L Alkaline Phosphatase 43 (38-126) U/L Total Protein 6.5 (6.3-8.2) g/dL Albumin 3.7 (3.5-5.0) g/dL 07/10/18 Range/Units 13:50 WBC (3.8-10.6) k/uL RBC (4.30-5.90) m/uL Hgb (13.0-17.5) gm/dL Hct (39.0-53.0) % MCV (80.0-100.0) fL MCH (25.0-35.0) pg MCHC (31.0-37.0) g/dL RDW (11.5-15.5) % Plt Count (150-450) k/uL Neutrophils % % Lymphocytes % % Monocytes % % Eosinophils % % Basophils % % Neutrophils # (1.3-7.7) k/uL Lymphocytes # (1.0-4.8) k/uL Monocytes # (0-1.0) k/uL Eosinophils # (0-0.7) k/uL Basophils # (0-0.2) k/uL Hypochromasia PT (9.0-12.0) sec INR (<1.2) APTT (22.0-30.0) sec Sodium (137-145) mmol/L Potassium (3.5-5.1) mmol/L Chloride (98-107) mmol/L Carbon Dioxide (22-30) mmol/L Anion Gap mmol/L BUN (9-20) mg/dL Creatinine (0.66-1.25) mg/dL Est GFR (CKD-EPI)AfAm (>60 ml/min/1.73 sqM) Est GFR (CKD-EPI)NonAf (>60 ml/min/1.73 sqM) Glucose (74-99) mg/dL Plasma Lactic Acid Jamaal 1.1 (0.7-2.0) mmol/L Calcium (8.4-10.2) mg/dL Magnesium (1.6-2.3) mg/dL Total Bilirubin (0.2-1.3) mg/dL AST (17-59) U/L ALT (21-72) U/L Alkaline Phosphatase (38-126) U/L Total Protein (6.3-8.2) g/dL Albumin (3.5-5.0) g/dL - Radiology Data Radiology results: image reviewed (Chest x-ray shows chronic changes without acute abnormality) Disposition Clinical Impression: Acute exacerbation of chronic obstructive airways disease Disposition: ADMITTED IP TO THIS HOSP Condition: Serious Is patient prescribed a controlled substance at d/c from ED?: No Referrals: Hue Laurent MD [Primary Care Provider] - 1-2 days Decision Time: 16:31
[2018-07-10 14:53] LABS: Basophils % (A) 0 %; Eosinophils # (A) 0.2 k/uL (0-0.7); Eosinophils % (A) 2 %; HCT 44.9 % (39.0-53.0); HGB 13.8 gm/dL (13.0-17.5); Hypochromasia Slight; Lymphocytes # (A) 1.3 k/uL (1.0-4.8); Lymphocytes % (A) 16 %; MCH 30.2 pg (25.0-35.0); MCHC 30.7 g/dL (31.0-37.0); MCV 98.4 fL (80.0-100.0); Mean Platelet Volume 6.4; Monocytes # (A) 0.4 k/uL (0-1.0); Monocytes % (A) 5 %; Neutrophils # (A) 6.4 k/uL (1.3-7.7); Neutrophils % (A) 76 %; Platelet Count 286 k/uL (150-450); RBC 4.57 m/uL (4.30-5.90); RDW 12.6 % (11.5-15.5); WBC 8.4 k/uL (3.8-10.6)
[2018-07-10 14:55] LABS: ALT 22 U/L (21-72); AST 17 U/L (17-59); Albumin 3.7 g/dL (3.5-5.0); Alkaline Phosphatase 43 U/L (38-126); Blood Urea Nitrogen 6 mg/dL (9-20); Calcium 9.2 mg/dL (8.4-10.2); Chloride 96 mmol/L (98-107); Glucose 114 mg/dL (74-99); Potassium 4.7 mmol/L (3.5-5.1); Sodium 141 mmol/L (137-145); Total Bilirubin 0.4 mg/dL (0.2-1.3); Total Protein 6.5 g/dL (6.3-8.2)
[2018-07-10 15:00] LABS: Anion Gap 4 mmol/L; Partial Thromboplastin Time 26.8 sec (22.0-30.0); Prothrombin Time 10.5 sec (9.0-12.0)
[2018-07-10 15:05] LABS: Carbon Dioxide 41 mmol/L (22-30)
[2018-07-10] MEDS ORDERED: ZOLPIDEM 10 MG TAB PO PRN (15:19)
--- NOTE | 2018-07-10 15:24 | P.HPIM ---
History of Present Illness 48-year-old gentleman with known history of COPD advanced uses about 3 L at home came in with complaints of shortness of breath and wheezing today. Patient is comparing of cough with whitish sputum production follows with Dr. Lane as an outpatient for pulmonology patient's symptoms has been going on for about 2 weeks much worse last couple days. Patient the did not give any clear history of fevers. Patient denied any body aches patient doesn't have any leukocytosis chest x-ray is not available yet which was ordered from ER. Patient was given breathing treatments with significant improvement in his respiratory status although still quite a bit short of breath. Review of Systems REVIEW OF SYSTEMS: CONSTITUTIONAL: No fever, no malaise, no fatigue. HEENT: No recent visual problems or hearing problems. Denied any sore throat. CARDIOVASCULAR: No chest pain, orthopnea, PND, no palpitations, no syncope. PULMONARY: no hemoptysis. GASTROINTESTINAL: No diarrhea, no nausea, no vomiting, no abdominal pain. NEUROLOGICAL: No headaches, no weakness, no numbness. HEMATOLOGICAL: Denies any bleeding or petechiae. GENITOURINARY: Denies any burning micturition, frequency, or urgency. MUSCULOSKELETAL/RHEUMATOLOGICAL: Denies any joint pain, swelling, or any muscle pain. ENDOCRINE: Denies any polyuria or polydipsia. The rest of the 14-point review of systems is negative. Past Medical History Past Medical History: COPD, CVA/TIA, Fibromyalgia, Hyperlipidemia, Hypertension , Osteoarthritis (OA), Pneumonia, Respiratory Disorder Additional Past Medical History / Comment(s): Pt recently admitted on 01/31/18 with chronic hypoxic and hypercapnic respiratory failure, acute/chronic COPD, traceobronchitis and microscopic hematuria. Other hx: Severe COPD, respiratory failure with home oxygen at 3L/NC ATC, tracheobronchitis, TIA, DJD, chronic low back pain, memory problems. History of Any Multi-Drug Resistant Organisms: None Reported Past Surgical History: Ear Surgery Additional Past Surgical History / Comment(s): R ear surgery for "fractured bone." per spouse. Past Anesthesia/Blood Transfusion Reactions: No Reported Reaction Past Psychological History: No Psychological Hx Reported Smoking Status: Current every day smoker Past Alcohol Use History: None Reported Past Drug Use History: None Reported - Past Family History Father Family Medical History: Cancer Additional Family Medical History / Comment(s): Father of throat cancer at the age of 52 yrs. He was a smoker. Mother Family Medical History: COPD Additional Family Medical History / Comment(s): Mother is 74 yrs old. She is a smoker. Medications and Allergies Home Medications Medication Instructions Recorded Confirmed Type ALPRAZolam 0.5 mg PO QID 03/28/15 07/10/18 History DULoxetine HCL 60 mg PO DAILY 03/28/15 07/10/18 History Gabapentin 600 mg PO TID 03/28/15 07/10/18 History Ipratropium/Albuterol Sulfate 1 puff INHALATION RT-QID 03/28/15 07/10/18 History [Combivent Respimat Inhaler] Budesonide-Formot 160-4.5 Mcg 2 puff INHALATION RT-BID 01/31/18 07/10/18 History [Symbicort 160-4.5 Mcg Inhaler] Albuterol Nebulized [Ventolin 2.5 mg INHALATION RT-TID 07/10/18 07/10/18 History Nebulized] HYDROcodone/APAP 7.5-325MG [[place] 1 tab PO TID 07/10/18 07/10/18 History 7.5-325] Ipratropium Nebulized [Atrovent 0.5 mg INHALATION RT-DAILY 07/10/18 07/10/18 History Nebulized 0.2 MG/ML] Zolpidem Tartrate [Ambien] 10 mg PO HS PRN 07/10/18 07/10/18 History Allergies Allergy/AdvReac Type Severity Reaction Status Date / Time No Known Allergies Allergy Verified 07/10/18 14:16 Physical Exam Vitals: Vital Signs Temp Pulse Resp BP Pulse Ox 07/10/18 14:10 118 H 07/10/18 14:01 118 H 07/10/18 13:25 99.3 F 125 H 30 H 106/85 94 L Intake and Output 07/10/18 07/10/18 07/10/18 06:59 14:59 22:59 Other: Weight 56.699 kg PHYSICAL EXAMINATION: GENERAL: The patient is alert and oriented x3, not in any acute distress. Thin built gentleman HEENT: Pupils are round and equally reacting to light. EOMI. No scleral icterus. No conjunctival pallor. Normocephalic, atraumatic. No pharyngeal erythema. No thyromegaly. CARDIOVASCULAR: S1 and S2 present. No murmurs, rubs, or gallops. PULMONARY: Minimal L entry into bilateral lung bond minimal expiratory wheezing was appreciated ABDOMEN: Soft, nontender, nondistended, normoactive bowel sounds. No palpable organomegaly. MUSCULOSKELETAL: No joint swelling or deformity. EXTREMITIES: No cyanosis, clubbing, or pedal edema. NEUROLOGICAL: Gross neurological examination did not reveal any focal deficits. SKIN: No rashes. Results CBC & Chem 7: 07/10/18 13:50 07/10/18 13:50 Labs: Abnormal Lab Results - Last 24 Hours (Table) 07/10/18 07/10/18 Range/Units 13:50 13:50 MCHC 30.7 L (31.0-37.0) g/dL Chloride 96 L (98-107) mmol/L Carbon Dioxide 41 H* (22-30) mmol/L BUN 6 L (9-20) mg/dL Creatinine 0.53 L (0.66-1.25) mg/dL Glucose 114 H (74-99) mg/dL Assessment and Plan Plan: Acute on chronic hypercapnic respiratory failure secondary to COPD exacerbation patient was started on IV steroids continue with the inhalational treatments. Patient clinically does not appear to have pneumonia awaiting chest x-ray results. 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 -Hyperlipidemia -Hypertension -Fibromyalgia Tracheao- bronchitis which patient will be started on doxycycline -Patient will need pharmacologic GI prophylaxis due to systemic steroids is receiving
--- NOTE | 2018-07-10 15:52 | XR ---
EXAMINATION TYPE: XR chest 2V DATE OF EXAM: 07/10/2018 COMPARISON: 03/08/2018 HISTORY: Shortness of breath TECHNIQUE: Frontal and lateral views of the chest are obtained. FINDINGS: Scattered senescent parenchymal changes noted. Hyperinflation compatible with COPD. No evidence for infiltrate. No evidence for atelectasis. Heart size is stable. Mediastinal structures are stable and grossly unremarkable. No evidence for hilar prominence. Degenerative changes dorsal spine. IMPRESSION: 1. No evidence for acute pulmonary disease.
[2018-07-10] MEDS: ALPRAZolam 0.5 MG TAB PO PRN (16:09)
[2018-07-10] MEDS ORDERED: IPRATROPIUM-ALBUTEROL 3 ML NEB INHALATION PRN (16:32)
[2018-07-10] MEDS: GABAPENTIN 300 MG CAP PO SCH ×2 (16:45→21:40)
[2018-07-10] MEDS: IPRATROPIUM-ALBUTEROL 3 ML NEB INHALATION SCH (18:43)
[2018-07-10] MEDS: SYMBICORT 160-4.5 MCG INHALER INHALATION SCH (18:46)
[2018-07-10 19:54] LABS: Glucose,Whole Blood 160 mg/dL (75-99)
[2018-07-10] MEDS: FAMOTIDINE 20 MG TAB PO SCH (21:40)
[2018-07-10] MEDS: INSULIN ASPART 100 UNIT/ML 1 ML 10 ML VIAL SQ SCH (21:41)
[2018-07-10] MEDS: CEFDINIR 300 MG CAP PO SCH (21:49)
[2018-07-10] MEDS: DOXYCYCLINE 100 MG CAP PO SCH (21:49)
[2018-07-10] MEDS: methylPREDNISolone SOD SUCCI 125 MG/2 ML VIAL IV SCH (23:19)
[2018-07-11 01:34] LABS: ABG Base Excess 18.2 mmol/L; ABG PO2 69 mmHg (83-108); ABG TCO2 47 mmol/L (19-24)
[2018-07-11 01:44] LABS: ABG HCO3 45 mmol/L (21-25); ABG PCO2 91 mmHg (35-45)
[2018-07-11] MEDS: SODIUM CHLORIDE 0.9% 1,000 ML IV SCH ×3 (02:05→12:32)
[2018-07-11 04:02] LABS: Glucose,Whole Blood 151 mg/dL (75-99)
[2018-07-11] MEDS ORDERED: NALOXONE 0.4 MG/ML 1 ML VIAL IV PRN (04:27)
[2018-07-11] MEDS: methylPREDNISolone SOD SUCCI 125 MG/2 ML VIAL IV SCH ×4 (05:04→23:55)
[2018-07-11] MEDS: ALPRAZolam 0.5 MG TAB PO PRN ×2 (05:32→16:10)
[2018-07-11 05:54] LABS: HCT 43.9 % (39.0-53.0); HGB 13.5 gm/dL (13.0-17.5); Hypochromasia Moderate; MCHC 30.8 g/dL (31.0-37.0); MCV 100.3 fL (80.0-100.0); Mean Platelet Volume 6.7; Platelet Count 269 k/uL (150-450); RBC 4.37 m/uL (4.30-5.90); RDW 12.6 % (11.5-15.5); WBC 4.3 k/uL (3.8-10.6)
[2018-07-11 06:30] LABS: Anion Gap 3 mmol/L; Blood Urea Nitrogen 11 mg/dL (9-20); Calcium 9.2 mg/dL (8.4-10.2); Chloride 94 mmol/L (98-107); Glucose 133 mg/dL (74-99); Magnesium 1.8 mg/dL (1.6-2.3); Phosphorus 3.6 mg/dL (2.5-4.5); Potassium 5.3 mmol/L (3.5-5.1); Sodium 137 mmol/L (137-145)
[2018-07-11 06:44] LABS: Carbon Dioxide 40 mmol/L (22-30)
[2018-07-11] MEDS ORDERED: Magnesium Replacement Protocol 1 EACH MISC MISCELLANE PRN (06:46)
[2018-07-11] MEDS: MAGNESIUM SULFATE-D5W PMX 1 GM in DEXTROSE/WATER 1 100ML.BAG IVPB SCH ×2 (07:03→09:25)
[2018-07-11] MEDS: INSULIN ASPART 100 UNIT/ML 1 ML 10 ML VIAL SQ SCH ×4 (07:04→20:46)
[2018-07-11 07:11] LABS: Glucose,Whole Blood 127 mg/dL (75-99)
[2018-07-11] MEDS ORDERED: HYDROcodone/APAP 7.5-325MG 1 EACH TAB PO PRN (08:47)
[2018-07-11] MEDS: IPRATROPIUM-ALBUTEROL 3 ML NEB INHALATION SCH ×4 (08:48→19:09)
[2018-07-11] MEDS: SYMBICORT 160-4.5 MCG INHALER INHALATION SCH (08:48)
[2018-07-11] MEDS: HEPARIN SODIUM,PORCINE 5,000 UNIT/ML 1 ML VIAL SQ SCH ×3 (09:24→23:55)
[2018-07-11] MEDS: CEFDINIR 300 MG CAP PO SCH ×2 (09:25→20:52)
[2018-07-11] MEDS: FAMOTIDINE 20 MG TAB PO SCH ×2 (09:26→20:52)
[2018-07-11] MEDS: GABAPENTIN 300 MG CAP PO SCH ×3 (09:26→20:52)
[2018-07-11] MEDS: DOXYCYCLINE 100 MG CAP PO SCH (09:26)
[2018-07-11] MEDS: DULoxetine HCL 60 MG CAPSULE.DR PO SCH (09:26)
--- NOTE | 2018-07-11 11:16 | P.CNPUL ---
History of Present Illness Consult date: 07/11/18 Requesting physician: Magdaleno Sellers Reason for consult: dyspnea, COPD Chief complaint: Acute hypercapnic respiratory failure History of present illness: This is a 48-year-old white male patient of Dr. Laurent, also follows with Dr. 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 Patient's baseline FEV1 is 0.77 L or 21% of predicted, patient wears home O2 at 3 L per nasal cannula, and he is on maintenance dose prednisone of 5 mg daily. Patient quit smoking recently about a month ago, prior to that he smoked 2-3 packs a day for 42 years. Patient presented to the emergency department by ambulance on 2018 for increasing difficulty breathing, early his symptoms have been worse over the past couple of weeks, he does have a congested cough with production of yellow sputum, denied any fever or chills, denied any chest pain, denied any nausea or vomiting. Chest x-ray showed no evidence for acute pulmonary disease. He was initially admitted to a medical floor, however last night he was noted to be lethargic, rapid assessment team was called, and blood gas showed a pO2 of 69, pCO2 of 91, pH of 7.30, this was done on FiO2 of 32%, and is consistent with acute on chronic hypercapnic and hypoxemic respiratory failure. Patient was placed on BiPAP support at pressures of 14/6 and FiO2 of 32%, and transferred to the intensive care unit. The BiPAP unit overnight, this morning she was switched over to 3 L per nasal cannula, he is awake and alert, he is neurologically intact, he is answering questions appropriately, lung sounds are diminished, with diffuse end expiratory wheezing, and prolongation of expiratory phase, he has a congested cough. He was placed on empiric antibiotics including Ceftin year and doxycycline, he is on IV steroids , Symbicort, and DuoNeb nebulized treatments, no fever or chills, hemodynamically she stable. This morning was reviewed and showed no evidence of acute pulmonary process. Review of Systems All systems: negative Constitutional: Denies chills, Denies fever Eyes: denies blurred vision, denies pain Ears, nose, mouth and throat: Denies headache, Denies sore throat Cardiovascular: Denies chest pain, Denies shortness of breath Respiratory: Reports cough with sputum, Reports dyspnea, Denies cough Gastrointestinal: Denies abdominal pain, Denies diarrhea, Denies nausea, Denies vomiting Musculoskeletal: Denies myalgias Integumentary: Denies pruritus, Denies rash Neurological: Denies numbness, Denies weakness Psychiatric: Denies anxiety, Denies depression Endocrine: Denies fatigue, Denies weight change Past Medical History Past Medical History: COPD, CVA/TIA, Fibromyalgia, Hyperlipidemia, Hypertension , Osteoarthritis (OA), Pneumonia, Respiratory Disorder Additional Past Medical History / Comment(s): Pt recently admitted on 01/31/18 with chronic hypoxic and hypercapnic respiratory failure, acute/chronic COPD, traceobronchitis and microscopic hematuria. Other hx: Severe COPD, respiratory failure with home oxygen at 3L/NC ATC, tracheobronchitis, TIA, DJD, chronic low back pain- receives epidural injections, memory problems/forgetfull. History of Any Multi-Drug Resistant Organisms: None Reported Past Surgical History: Ear Surgery Additional Past Surgical History / Comment(s): R ear surgery for "fractured bone." per spouse. Past Anesthesia/Blood Transfusion Reactions: No Reported Reaction Additional Past Anesthesia/Blood Transfusion Reaction / Comment(s): never had any blood transfusions Smoking Status: Current every day smoker - Past Family History Father Family Medical History: Cancer Additional Family Medical History / Comment(s): Father of throat cancer at the age of 52 yrs. He was a smoker. Mother Family Medical History: COPD Additional Family Medical History / Comment(s): Mother is 74 yrs old. She is a smoker. Medications and Allergies Home Medications Medication Instructions Recorded Confirmed Type ALPRAZolam 0.5 mg PO QID 03/28/15 07/10/18 History DULoxetine HCL 60 mg PO DAILY 03/28/15 07/10/18 History Gabapentin 600 mg PO TID 03/28/15 07/10/18 History Ipratropium/Albuterol Sulfate 1 puff INHALATION RT-QID 03/28/15 07/10/18 History [Combivent Respimat Inhaler] Budesonide-Formot 160-4.5 Mcg 2 puff INHALATION RT-BID 01/31/18 07/10/18 History [Symbicort 160-4.5 Mcg Inhaler] Albuterol Nebulized [Ventolin 2.5 mg INHALATION RT-TID 07/10/18 07/10/18 History Nebulized] HYDROcodone/APAP 7.5-325MG [[place] 1 tab PO TID 07/10/18 07/10/18 History 7.5-325] Ipratropium Nebulized [Atrovent 0.5 mg INHALATION RT-DAILY 07/10/18 07/10/18 History Nebulized 0.2 MG/ML] Zolpidem Tartrate [Ambien] 10 mg PO HS PRN 07/10/18 07/10/18 History Allergies Allergy/AdvReac Type Severity Reaction Status Date / Time No Known Allergies Allergy Verified 07/10/18 14:16 Physical Exam Vitals: Vital Signs Temp Pulse Pulse Resp BP BP Pulse Ox 07/11/18 10:00 98 10 L 96/72 90 L 07/11/18 09:15 100 07/11/18 09:00 93 12 120/83 98 07/11/18 08:53 98 07/11/18 08:30 102 H 22 120/83 96 07/11/18 08:00 97.6 F 106 H 23 119/85 92 L 07/11/18 07:30 105 H 21 119/85 93 L 07/11/18 07:00 104 H 29 H 104/71 93 L 07/11/18 06:30 99 14 104/71 94 L 07/11/18 06:00 92 13 104/71 95 07/11/18 05:30 93 11 L 98/69 92 L 07/11/18 05:00 96 15 102/72 94 L 07/11/18 04:30 96 12 102/72 94 L 07/11/18 04:00 98.6 F 95 15 102/72 95 07/11/18 03:50 97 11 L 95 07/11/18 01:54 98.3 F 101 H 24 107/71 96 07/11/18 00:48 96 07/11/18 00:34 100 07/11/18 00:13 113 H 26 H 93 L 07/11/18 00:00 103 H 24 07/10/18 19:36 98.0 F 99 18 103/70 94 L 07/10/18 18:53 107 H 07/10/18 18:52 97.6 F 111 H 24 120/74 97 07/10/18 18:43 109 H 18 07/10/18 16:46 105 H 22 114/99 96 07/10/18 14:10 118 H 07/10/18 14:01 118 H 07/10/18 13:25 99.3 F 125 H 30 H 106/85 94 L Intake and Output 07/10/18 07/11/18 07/11/18 22:59 06:59 14:59 Intake Total 800 190 160 Output Total 250 600 Balance 800 -60 -440 Intake: IV 40 160 Magnesium Sulfate-D5w Pmx 100 1 gm In Dextrose/Water 1 100ml.bag @ 100 mls/hr IVPB Q1H [facility] Rx#: [id number] Sodium Chloride 0.9% 1, 40 60 000 ml @ 100 mls/hr IV . Q10H [facility] Rx#:[id number] Intake, IV Titration 800 Amount Sodium Chloride 0.9% 1, 800 000 ml @ 100 mls/hr IV . Q10H [facility] Rx#:[id number] Oral 150 Output: Urine 250 600 Other: Voiding Method Urinal Urinal # Voids 1 GENERAL EXAM: Alert, pleasant, 48-year-old white male, mildly dyspneic with conversation, but in no acute distress, currently on 3 L per nasal cannula comfortable in no apparent distress. HEAD: Normocephalic/atraumatic. EYES: Normal reaction of pupils, equal size. Conjunctiva pink, sclera white. NOSE: Clear with pink turbinates. THROAT: No erythema or exudates. NECK: No masses, no JVD, no thyroid enlargement, no adenopathy. CHEST: No chest wall deformity. Symmetrical expansion. LUNGS: Diminished breath sounds bilaterally, with diffuse end expiratory wheezes , and prolongation of the expiratory phase of breathing CVS: Regular rate and rhythm, normal S1 and S2, no gallops, no murmurs, no rubs ABDOMEN: Soft, nontender. No hepatosplenomegaly, normal bowel sounds, no guarding or rigidity. EXTREMITIES: No clubbing, no edema, no cyanosis, 2+ pulses and upper and lower extremities. MUSCULOSKELETAL: Muscle strength and tone normal. SPINE: No scoliosis or deformity SKIN: No rashes CENTRAL NERVOUS SYSTEM: Alert and oriented -3. No focal deficits, tone is normal in all 4 extremities. PSYCHIATRIC: Alert and oriented -3. Appropriate affect. Intact judgment and insight. Results - Laboratory Findings CBC and BMP: 07/11/18 05:08 07/11/18 05:08 ABG ABG pH 7.30 (7.35-7.45) L 07/11/18 01:22 ABG pCO2 91 mmHg (35-45) H* 07/11/18 01:22 ABG pO2 69 mmHg (83-108) L 07/11/18 01:22 ABG O2 Saturation 95.0 % (94-97) 07/11/18 01:22 PT/INR, D-dimer PT 10.5 sec (9.0-12.0) 07/10/18 13:50 INR 1.0 (<1.2) 07/10/18 13:50 Abnormal lab findings: Abnormal Labs 07/10/18 07/10/18 07/10/18 13:50 13:50 19:52 MCV MCHC 30.7 L ABG pH ABG pCO2 ABG pO2 ABG HCO3 ABG Total CO2 Potassium Chloride 96 L Carbon Dioxide 41 H* BUN 6 L Creatinine 0.53 L Glucose 114 H POC Glucose (mg/dL) 160 H 07/11/18 07/11/18 07/11/18 01:22 03:51 05:08 MCV 100.3 H MCHC 30.8 L ABG pH 7.30 L ABG pCO2 91 H* ABG pO2 69 L ABG HCO3 45 H* ABG Total CO2 47 H Potassium Chloride Carbon Dioxide BUN Creatinine Glucose POC Glucose (mg/dL) 151 H 07/11/18 07/11/18 05:08 06:59 MCV MCHC ABG pH ABG pCO2 ABG pO2 ABG HCO3 ABG Total CO2 Potassium 5.3 H Chloride 94 L Carbon Dioxide 40 H BUN Creatinine 0.53 L Glucose 133 H POC Glucose (mg/dL) 127 H - Diagnostic Findings Chest x-ray: report reviewed, image reviewed Additional studies: EKG reviewed Assessment and Plan Plan: Assessment: #1. Acute on chronic hypercapnic respiratory failure related to acute exacerbation of chronic obstructive pulmonary disease with tracheobronchitis. Chest x-ray did not show any evidence of acute pulmonary process #2. Stage IV COPD, baseline FEV1 of 0.77 L or 21% of predicted, oxygen and prednisone dependent #3. Former smoker, quit smoking a month ago, prior to that smoked for 42 years 2-3 packs a day #4. Chronic back pain #5. History of hypertension, hyperlipidemia #6. Episodes of pneumonia #7. Osteoarthritis #8. Fibromyalgia #9. History of CVA/TIA Plan: Patient has been maintained on BiPAP support overnight, and this morning he is awake and alert, breathing easier, patient is appropriate, less dyspneic. He utilizes BiPAP as needed during the day and at bedtime, continue the current dose of IV steroids,stop doxycycline will continue with oral Cefdinir. No fever or chills, hemodynamically patient is stable, we'll switch Symbicort to Pulmicort and Perforomist, continue DuoNeb nebulized treatments, patient is stable to transfer out of the intensive care unit today to medical surgical floor [facility]. I performed a history & physical examination of the patient and discussed their management with my nurse practitioner, Renetta Lomax. I reviewed the nurse practitioner's note and agree with the documented findings and plan of care. Lung sounds are positive for diffuse wheezes throughout the lung bond. The findings and the impression was discussed with the patient. I attest to the documentation by the nurse practitioner. Time with Patient: Greater than 30
--- NOTE | 2018-07-11 11:18 | XR ---
EXAMINATION TYPE: XR chest 1V portable DATE OF EXAM: 07/11/2018 COMPARISON: 07/10/2018 INDICATION: COPD exacerbation TECHNIQUE: Single frontal view of the chest is obtained. FINDINGS: The heart size is normal. The pulmonary vasculature is normal. The lungs are clear. No suspicious infiltrates are evident. There is some hyperinflation flattening the diaphragms and silverio nting left costophrenic angle likely related to COPD. IMPRESSION: 1. No acute pulmonary process.
[2018-07-11 12:21] LABS: Glucose,Whole Blood 140 mg/dL (75-99)
--- NOTE | 2018-07-11 13:13 | P.PN ---
Subjective 48-year-old gentleman was admitted for COPD exacerbation patient has advanced COPD. Later in the day patient became up tended required the BiPAP patient was admitted to ICU. significantly improved patient will be discharged out of ICU we will use BiPAP on as-needed basis. In use to have some shortness of breath Constitutional: Denied any fatigue denied any fever. Cardio vascular: denied any chest pain, palpitations Gastrointestinal denied any nausea vomiting Pulmonary: As mentioned in HPI Neurologic denied any new focal deficits All inpatient medications were reviewed and appropriate changes in these medications as dictated in the interval history and assessment and plan. Objective - Vital Signs Vital signs: Vital Signs Temp 97.6 F 07/11/18 08:00 Pulse 91 07/11/18 12:00 Resp 14 07/11/18 12:00 BP 111/76 07/11/18 12:00 Pulse Ox 93 L 07/11/18 12:00 Intake & Output 07/10/18 07/11/18 07/11/18 18:59 06:59 18:59 Intake Total 990 200 Output Total 250 600 Balance 740 -400 Weight 56.699 kg Intake: IV 40 200 Magnesium Sulfate-D5w Pmx 100 1 gm In Dextrose/Water 1 100ml.bag @ 100 mls/hr IVPB Q1H [facility] Rx#: [id number] Sodium Chloride 0.9% 1, 40 100 000 ml @ 100 mls/hr IV . Q10H [facility] Rx#:[id number] Intake, IV Titration 800 Amount Sodium Chloride 0.9% 1, 800 000 ml @ 100 mls/hr IV . Q10H [facility] Rx#:[id number] Oral 150 Output: Urine 250 600 Other: Voiding Method Urinal Urinal # Voids 1 - Exam PHYSICAL EXAMINATION: GENERAL: The patient is alert and oriented x3, not in any acute distress. Thin built gentleman HEENT: Pupils are round and equally reacting to light. EOMI. No scleral icterus. No conjunctival pallor. Normocephalic, atraumatic. No pharyngeal erythema. No thyromegaly. CARDIOVASCULAR: S1 and S2 present. No murmurs, rubs, or gallops. PULMONARY: Minimal L entry into bilateral lung bond minimal expiratory wheezing was appreciated ABDOMEN: Soft, nontender, nondistended, normoactive bowel sounds. No palpable organomegaly. MUSCULOSKELETAL: No joint swelling or deformity. EXTREMITIES: No cyanosis, clubbing, or pedal edema. NEUROLOGICAL: Gross neurological examination did not reveal any focal deficits. SKIN: No rashes. - Labs CBC & Chem 7: 07/11/18 05:08 07/11/18 05:08 Labs: Abnormal Lab Results - Last 24 Hours (Table) 07/10/18 07/10/18 07/10/18 Range/Units 13:50 13:50 19:52 MCV (80.0-100.0) fL MCHC 30.7 L (31.0-37.0) g/dL ABG pH (7.35-7.45) ABG pCO2 (35-45) mmHg ABG pO2 (83-108) mmHg ABG HCO3 (21-25) mmol/L ABG Total CO2 (19-24) mmol/L Potassium (3.5-5.1) mmol/L Chloride 96 L (98-107) mmol/L Carbon Dioxide 41 H* (22-30) mmol/L BUN 6 L (9-20) mg/dL Creatinine 0.53 L (0.66-1.25) mg/dL Glucose 114 H (74-99) mg/dL POC Glucose (mg/dL) 160 H (75-99) mg/dL 07/11/18 07/11/18 07/11/18 Range/Units 01:22 03:51 05:08 MCV 100.3 H (80.0-100.0) fL MCHC 30.8 L (31.0-37.0) g/dL ABG pH 7.30 L (7.35-7.45) ABG pCO2 91 H* (35-45) mmHg ABG pO2 69 L (83-108) mmHg ABG HCO3 45 H* (21-25) mmol/L ABG Total CO2 47 H (19-24) mmol/L Potassium (3.5-5.1) mmol/L Chloride (98-107) mmol/L Carbon Dioxide (22-30) mmol/L BUN (9-20) mg/dL Creatinine (0.66-1.25) mg/dL Glucose (74-99) mg/dL POC Glucose (mg/dL) 151 H (75-99) mg/dL 07/11/18 07/11/18 07/11/18 Range/Units 05:08 06:59 12:10 MCV (80.0-100.0) fL MCHC (31.0-37.0) g/dL ABG pH (7.35-7.45) ABG pCO2 (35-45) mmHg ABG pO2 (83-108) mmHg ABG HCO3 (21-25) mmol/L ABG Total CO2 (19-24) mmol/L Potassium 5.3 H (3.5-5.1) mmol/L Chloride 94 L (98-107) mmol/L Carbon Dioxide 40 H (22-30) mmol/L BUN (9-20) mg/dL Creatinine 0.53 L (0.66-1.25) mg/dL Glucose 133 H (74-99) mg/dL POC Glucose (mg/dL) 127 H 140 H (75-99) mg/dL Assessment and Plan Plan: Acute on chronic hypercapnic respiratory failure secondary to COPD exacerbation patient was started on IV steroids continue with the inhalational treatments. 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
[2018-07-11 14:03] LABS: Hemoglobin A1C 5.2 % (4.0-6.0)
[2018-07-11] MEDS: HYDROcodone/APAP 10-325MG 1 EACH TAB PO PRN (16:10)
[2018-07-11 17:48] LABS: Glucose,Whole Blood 130 mg/dL (75-99)
[2018-07-11] MEDS: FORMOTEROL FUMARATE 20 MCG/2 ML NEBU INHALATION SCH (19:09)
[2018-07-11] MEDS: BUDESONIDE 1 MG/2 ML NEBU INHALATION SCH (19:09)
[2018-07-11 20:44] LABS: Glucose,Whole Blood 178 mg/dL (75-99)
[2018-07-12 02:10] VITALS: RESP 16
[2018-07-12] MEDS: methylPREDNISolone SOD SUCCI 125 MG/2 ML VIAL IV SCH ×2 (06:00→12:46)
[2018-07-12] MEDS: ALPRAZolam 0.5 MG TAB PO PRN (06:24)
[2018-07-12] MEDS: FORMOTEROL FUMARATE 20 MCG/2 ML NEBU INHALATION SCH (07:02)
[2018-07-12] MEDS: IPRATROPIUM-ALBUTEROL 3 ML NEB INHALATION SCH ×3 (07:02→15:45)
[2018-07-12] MEDS: BUDESONIDE 1 MG/2 ML NEBU INHALATION SCH (07:02)
[2018-07-12 07:19] LABS: Glucose,Whole Blood 112 mg/dL (75-99)
[2018-07-12 08:10] VITALS: BP 104/71; TEMP 98
[2018-07-12 08:18] LABS: Magnesium 2.1 mg/dL (1.6-2.3); Phosphorus 3.4 mg/dL (2.5-4.5)
[2018-07-12] MEDS: INSULIN ASPART 100 UNIT/ML 1 ML 10 ML VIAL SQ SCH ×2 (08:22→13:39)
[2018-07-12] MEDS: CEFDINIR 300 MG CAP PO SCH (08:27)
[2018-07-12] MEDS: HYDROcodone/APAP 10-325MG 1 EACH TAB PO PRN ×2 (08:27)
[2018-07-12] MEDS: GABAPENTIN 300 MG CAP PO SCH (08:27)
[2018-07-12] MEDS: HEPARIN SODIUM,PORCINE 5,000 UNIT/ML 1 ML VIAL SQ SCH (08:27)
[2018-07-12] MEDS: FAMOTIDINE 20 MG TAB PO SCH (08:28)
[2018-07-12] MEDS: SODIUM CHLORIDE 0.9% 1,000 ML IV SCH (08:28)
[2018-07-12] MEDS: DULoxetine HCL 60 MG CAPSULE.DR PO SCH (08:28)
[2018-07-12 12:07] LABS: Glucose,Whole Blood 119 mg/dL (75-99)
--- NOTE | 2018-07-12 13:51 | P.PN ---
Subjective Progress Note Date: 07/12/18 Principal diagnosis: Acute hypercapnic respiratory failure This is a 48-year-old white male patient of Dr. Laurent, also follows with Dr. 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 Patient's baseline FEV1 is 0.77 L or 21% of predicted, patient wears home O2 at 3 L per nasal cannula, and he is on maintenance dose prednisone of 5 mg daily. Patient quit smoking recently about a month ago, prior to that he smoked 2-3 packs a day for 42 years. Patient presented to the emergency department by ambulance on 2018 for increasing difficulty breathing, early his symptoms have been worse over the past couple of weeks, he does have a congested cough with production of yellow sputum, denied any fever or chills, denied any chest pain, denied any nausea or vomiting. Chest x-ray showed no evidence for acute pulmonary disease. He was initially admitted to a medical floor, however last night he was noted to be lethargic, rapid assessment team was called, and blood gas showed a pO2 of 69, pCO2 of 91, pH of 7.30, this was done on FiO2 of 32%, and is consistent with acute on chronic hypercapnic and hypoxemic respiratory failure. Patient was placed on BiPAP support at pressures of 14/6 and FiO2 of 32%, and transferred to the intensive care unit. The BiPAP unit overnight, this morning she was switched over to 3 L per nasal cannula, he is awake and alert, he is neurologically intact, he is answering questions appropriately, lung sounds are diminished, with diffuse end expiratory wheezing, and prolongation of expiratory phase, he has a congested cough. He was placed on empiric antibiotics including Ceftin year and doxycycline, he is on IV steroids , Symbicort, and DuoNeb nebulized treatments, no fever or chills, hemodynamically she stable. This morning was reviewed and showed no evidence of acute pulmonary process. On 07/12/2018 patient seen in follow-up on medical surgical floor. He is up ambulating, was able to take a shower this morning, breathing easier, did not require BiPAP support last night. Pulse ox on 3 L per nasal cannula is a 6%, afebrile, hemodynamically stable, no acute events overnight, lung sounds are diminished, with minimal end expiratory wheezes, improved from yesterday's exam , no cough, no chest congestion. Blood culture showed no growth, sputum culture showed many gram-positive cocci, few gram-negative bacilli, and a few gram positive bacilli, fungal cultures in progress. No fever or chills. Patient is ambulating. Objective - Vital Signs Vital signs: Vital Signs Temp 98.0 F 07/12/18 07:22 Pulse 88 07/12/18 11:17 Resp 16 07/12/18 07:22 BP 104/71 07/12/18 07:22 Pulse Ox 96 07/12/18 07:22 Intake & Output 07/11/18 07/12/18 07/12/18 18:59 06:59 18:59 Intake Total 350 Output Total 600 Balance -250 Intake: IV 200 Magnesium Sulfate-D5w Pmx 100 1 gm In Dextrose/Water 1 100ml.bag @ 100 mls/hr IVPB Q1H [facility] Rx#: [id number] Sodium Chloride 0.9% 1, 100 000 ml @ 100 mls/hr IV . Q10H [facility] Rx#:[id number] Intake, IV Titration 150 Amount Sodium Chloride 0.9% 1, 150 000 ml @ 50 mls/hr IV . Q20H [facility] Rx#:[id number] Output: Urine 600 Other: Voiding Method Urinal Urinal # Voids 1 - Exam GENERAL EXAM: Alert, pleasant, 48-year-old white male, in no acute distress, currently on 3 L per nasal cannula comfortable in no apparent distress. HEAD: Normocephalic/atraumatic. EYES: Normal reaction of pupils, equal size. Conjunctiva pink, sclera white. NOSE: Clear with pink turbinates. THROAT: No erythema or exudates. NECK: No masses, no JVD, no thyroid enlargement, no adenopathy. CHEST: No chest wall deformity. Symmetrical expansion. LUNGS: Diminished breath sounds bilaterally, with minimal end expiratory wheezes , and prolongation of the expiratory phase of breathing CVS: Regular rate and rhythm, normal S1 and S2, no gallops, no murmurs, no rubs ABDOMEN: Soft, nontender. No hepatosplenomegaly, normal bowel sounds, no guarding or rigidity. EXTREMITIES: No clubbing, no edema, no cyanosis, 2+ pulses and upper and lower extremities. MUSCULOSKELETAL: Muscle strength and tone normal. SPINE: No scoliosis or deformity SKIN: No rashes CENTRAL NERVOUS SYSTEM: Alert and oriented -3. No focal deficits, tone is normal in all 4 extremities. PSYCHIATRIC: Alert and oriented -3. Appropriate affect. Intact judgment and insight. - Labs CBC & Chem 7: 07/11/18 05:08 07/11/18 05:08 Labs: Abnormal Lab Results - Last 24 Hours (Table) 07/11/18 07/11/18 07/12/18 Range/Units 17:47 20:43 07:07 POC Glucose (mg/dL) 130 H 178 H 112 H (75-99) mg/dL 07/12/18 Range/Units 11:56 POC Glucose (mg/dL) 119 H (75-99) mg/dL Microbiology - Last 24 Hours (Table) 07/11/18 16:30 Gram Stain - Preliminary Sputum Sputum Culture - Preliminary 07/10/18 13:50 Blood Culture - Preliminary Blood No Growth after 24 hours Assessment and Plan Plan: Assessment: #1. Acute on chronic hypercapnic respiratory failure related to acute exacerbation of chronic obstructive pulmonary disease with tracheobronchitis. Chest x-ray did not show any evidence of acute pulmonary process #2. Stage IV COPD, baseline FEV1 of 0.77 L or 21% of predicted, oxygen and prednisone dependent #3. Former smoker, quit smoking a month ago, prior to that smoked for 42 years 2-3 packs a day #4. Chronic back pain #5. History of hypertension, hyperlipidemia #6. Episodes of pneumonia #7. Osteoarthritis #8. Fibromyalgia #9. History of CVA/TIA Plan: Patient is improving, breathing easier, tolerating ambulation, was able to take a shower today, no fever or chills, vital signs are stable, did not require BiPAP support last night. Continue with current medical treatment, hardly any wheezes on today's exam, no acute events overnight. Could possibly be considered for discharge home today or in the next 24 hours on prednisone taper , oral course of antibiotics, and patient has home oxygen, nebulizer machine at home. Usually follows her Angelo in the pulmonary clinic, patient will need follow-up next week. I performed a history & physical examination of the patient and discussed their management with my nurse practitioner, Renetta Lomax. I reviewed the nurse practitioner's note and agree with the documented findings and plan of care. Lung sounds are positive for diffuse wheezes throughout the lung bond. The findings and the impression was discussed with the patient. I attest to the documentation by the nurse practitioner.
[2018-07-12 15:51] VITALS: PULSE 96
[2018-07-12 16:32] VITALS: BMI 19.0
--- NOTE | 2018-07-12 23:23 | P.DS ---
Providers Date of admission: 07/10/18 16:32 Expected date of discharge: 07/12/18 Attending physician: Magdaleno Sellers Consults: 07/10/18 15:21 Consult Physician Routine Consulting Provider: Amanda Ozuna Consult Reason/Comments: copd Do you want consulting provider notified?: Yes Primary care physician: Hue Laurent Hospital Course: Final diagnoses Acute on chronic hypercapnic respiratory failure secondary to COPD exacerbation with tracheobronchitis. Chest x-ray did not show any pneumonic process. -Altered mental status, obtundation: Secondary to metabolic encephalopathy from CO2 retention improved with BiPAP -CVA TIA in the past -Chronic low back pain with peripheral neuropathy -Hyperlipidemia -Hypertension -Fibromyalgia -Former smoker, 2-3 packs per day 42 years, quit 1 month ago -Stage IV COPD, steroid-dependent Hospital course: This is a 48-year-old gentleman was admitted for COPD exacerbation patient has advanced COPD. Later in the day patient became obtunded required the BiPAP patient was admitted to ICU. Evaluated by pulmonary. Transferred to MedSur unit once improved, using BiPAP on as-needed basis. Breathing improved, Maintaining O2 sats of 96% on 3 L nasal cannula ( pt wears 3lnc at home). Sputum culture reporting many gram-positive cocci, few gram-negative bacilli and few gram-positive bacilli, fungal cultures in progress. Blood cultures reporting no growth at 48 hours. Significant clinical improvement. Patient is being discharged home in a stable condition with guarded prognosis, pending pulmonary clearance. GENERAL: Thin built gentleman, alert and oriented x3, noacute distress. CARDIOVASCULAR: S1 and S2 present. No murmurs, rubs, or gallops. PULMONARY:Bilateral lung bond diminished with minimal expiratory wheezing ABDOMEN: Soft, nontender, nondistended, normoactive bowel sounds. No palpable organomegaly. NEUROLOGICAL: Gross neurological examination did not reveal any focal deficits. The impression and plan of care has been dictated as directed. : I performed a history and examination of this patient, discussed the same with the dictator. I agree with the dictator's note ,documented as a scribe. Any additional findings or plans will be noted. Time taken: 35 minutes Patient Condition at Discharge: Stable Plan - Discharge Summary Discharge Rx Participant: Yes New Discharge Prescriptions: New Cefdinir [Omnicef] 300 mg PO BID #10 cap Famotidine [Pepcid] 20 mg PO BID #60 tab predniSONE 10 mg PO DIRECTED #30 tab Continue Ipratropium/Albuterol Sulfate [Combivent Respimat Inhaler] 1 puff INHALATION RT-QID Gabapentin 600 mg PO TID DULoxetine HCL 60 mg PO DAILY ALPRAZolam 0.5 mg PO QID Budesonide-Formot 160-4.5 Mcg [Symbicort 160-4.5 Mcg Inhaler] 2 puff INHALATION RT-BID HYDROcodone/APAP 7.5-325MG [[place] 7.5-325] 1 tab PO TID Ipratropium Nebulized [Atrovent Nebulized 0.2 MG/ML] 0.5 mg INHALATION RT- DAILY Zolpidem Tartrate [Ambien] 10 mg PO HS PRN PRN Reason: Insomnia predniSONE 5 mg PO DAILY #0 Changed Albuterol Nebulized [Ventolin Nebulized] 2.5 mg INHALATION QID #0 Discharge Medication List ALPRAZolam 0.5 mg PO QID 03/28/15 [History] DULoxetine HCL 60 mg PO DAILY 03/28/15 [History] Gabapentin 600 mg PO TID 03/28/15 [History] Ipratropium/Albuterol Sulfate [Combivent Respimat Inhaler] 1 puff INHALATION RT- QID 03/28/15 [History] Budesonide-Formot 160-4.5 Mcg [Symbicort 160-4.5 Mcg Inhaler] 2 puff INHALATION RT-BID 01/31/18 [History] HYDROcodone/APAP 7.5-325MG [[place] 7.5-325] 1 tab PO TID 07/10/18 [History] Ipratropium Nebulized [Atrovent Nebulized 0.2 MG/ML] 0.5 mg INHALATION RT-DAILY 07/10/18 [History] Zolpidem Tartrate [Ambien] 10 mg PO HS PRN 07/10/18 [History] Albuterol Nebulized [Ventolin Nebulized] 2.5 mg INHALATION QID #0 07/12/18 [Rx] Cefdinir [Omnicef] 300 mg PO BID #10 cap 07/12/18 [Rx] Famotidine [Pepcid] 20 mg PO BID #60 tab 07/12/18 [Rx] predniSONE 5 mg PO DAILY #0 07/12/18 [Rx] predniSONE 10 mg PO DIRECTED #30 tab 07/12/18 [Rx] Follow up Appointment(s)/Referral(s): [facility],Equipment [NON-STAFF] - As Needed Hue Laurent MD [Primary Care Provider] - 07/16/18 2:00 pm () [facility] Visiting Nurse, [NON-STAFF] - 1-2 Days Ambulatory/Diagnostic Orders: Complete Blood Count w/diff [LAB.AMB] Time Frame: 3 Days, Location: None Selected Patient Instructions/Handouts: COPD (Chronic Obstructive Pulmonary Disease) (DC ) Activity/Diet/Wound Care/Special Instructions: Pt agreeable to dc rx Nebulizer - [facility] - [phone] - will deliver to bedside before discharge Discharge Disposition: HOME SELF-CARE
== END 2018-07-12 16:30 | disposition home health service (06) | DRG 190 ==
LOC: EC 13:20 → 3NMEDONC 16:32 → 2SICU 07-11 03:54 → 4SSUR 07-11 12:47
PROVIDERS: ADMIT Internal Medicine; ATTEND Internal Medicine
PROC: 5A09357 Assistance with Respiratory Ventilation, Less than 24 Consecutive Hours, Continuous Positive Airway Pressure (ICD-10-PCS; principal; 2018-07-10)
DX: J44.0 Chronic obstructive pulmonary disease with (acute) lower respiratory infection (principal); J96.21 Acute and chronic respiratory failure with hypoxia; J96.22 Acute and chronic respiratory failure with hypercapnia; G93.41 Metabolic encephalopathy; E87.2 Acidosis; E78.5 Hyperlipidemia, unspecified; G62.9 Polyneuropathy, unspecified; G89.29 Other chronic pain; I10 Essential (primary) hypertension; M19.90 Unspecified osteoarthritis, unspecified site; M79.7 Fibromyalgia; M54.5 Low back pain; Z79.51 Long term (current) use of inhaled steroids; Z79.899 Other long term (current) drug therapy; Z86.73 Personal history of transient ischemic attack (TIA), and cerebral infarction without residual deficits; Z87.891 Personal history of nicotine dependence; Z87.01 Personal history of pneumonia (recurrent); Z80.0 Family history of malignant neoplasm of digestive organs; Z82.5 Family history of asthma and other chronic lower respiratory diseases
CPT/HCPCS: 36415; 36600; 71045; 71046; 80048; 80053; 82805; 83036; 83605; 83735; 84100; 85025; 85027; 85610; 85730; 87040; 87070; 87205; 93005; 94640; 94644; 94660; 96361; 96374; 99285

== ENCOUNTER 2019-03-05 15:07 | Inpatient (IN) | payer BC, MEDICARE ==
[2019-03-05] MEDS ORDERED: DEXAMETHASONE SOD PHOSPHATE 10 MG/ML 1 ML VIAL IV STA (15:23)
[2019-03-05] MEDS ORDERED: IPRATROPIUM 0.5 MG/2.5 ML NEBU INHALATION STA (15:23)
[2019-03-05] MEDS ORDERED: DILTIAZEM DRIP BOLUS FROM BAG 1 MG SOLN IV ONE (15:23)
[2019-03-05] MEDS ORDERED: ALBUTEROL NEBULIZED 2.5 MG/3 ML INHALATION STA (15:23)
[2019-03-05] MEDS: DILTIAZEM 125 MG in SODIUM CHLORIDE 0.9% 100 ML IV SCH (15:37)
[2019-03-05] MEDS ORDERED: AZITHROMYCIN 500 MG in SODIUM CHLORIDE 0.9% 250 ML IVPB STA (15:37)
--- NOTE | 2019-03-05 15:38 | XR ---
EXAMINATION TYPE: XR chest 1V portable DATE OF EXAM: 03/05/2019 COMPARISON: 07/11/2018 INDICATION: Dyspnea history of COPD TECHNIQUE: Single frontal view of the chest is obtained. FINDINGS: The heart size is normal. The pulmonary vasculature is normal. The lungs are clear. IMPRESSION: 1. No acute pulmonary process.
--- NOTE | 2019-03-05 15:59 | ED ---
General Adult HPI - General Chief complaint: Shortness of Breath Stated complaint: low oxygen Time Seen by Provider: 03/05/19 15:22 Source: patient Mode of arrival: wheelchair Limitations: no limitations - History of Present Illness Initial comments: Dictation was produced using [employer] dictation software. please excuse any grammatical, word or spelling errors. Chief Complaint: 49-year-old male past medical history of COPD and home oxygen presents with dyspnea. History of Present Illness: 19-year-old male. He has history of COPD and On home O2. Patient was seen at Dr. Thayer's office however given patient's clinical presentation didn't COME TO THE EMERGENCY DEPARTMENT RIGHT AWAY. Since with family. They report that patient has been having difficulty breathing since yesterday. Patient not in active tobacco user. Denies any fever, chills or night sweats. No chest pain. Patient does not note any recent exposure that would set off of COPD. The ROS documented in this emergency department record has been reviewed and confirmed by me. Those systems with pertinent positive or negative responses have been documented in the HPI. All other systems are other negative and/or noncontributory. PHYSICAL EXAM: General Impression: Alert and oriented x3, distress secondary to dyspnea HEENT: Normocephalic atraumatic, extra-ocular movements intact, pupils equal and reactive to light bilaterally, mucous membranes moist. Cardiovascular: Heart regular rate and rhythm, S1&S2 audible, no murmurs, rubs or gallops Chest: Diffuse wheezing, poor air exchange Abdomen: Bowel sounds present, abdomen soft, non-tender, non-distended, no organomegaly Musculoskeletal: Pulses present and equal in all extremities, no peripheral edema Motor: no focal deficits noted Neurological: CN II-XII grossly intact, no focal motor or sensory deficits noted Skin: Intact with no visualized rashes Psych: Normal affect and mood ED course: 49 old male with severe COPD exacerbation. As upon arrival shows heart rate of 179, oxygen 63. Patient with resuscitation bay immediately. He was placed on BiPAP. Patient also been on monitor on have heart rate measuring in the 170s. EKG is obtained showing atrial fibrillation with rapid ventricular rate. Given given Cardizem bolus and started on Cardizem infusion. Patient also given COPD medications including magnesium, being treatment and steroids.Patient has no known history of atrial fibrillation or any sort of cardiac arrhythmia. There is concern for new onset atrial fibrillation. Patient does not clinically palpitations present clear when patient's symptoms started. She was started on heparin. EKG interpretation: Ventricular rate 172, atrial fibrillation with rapid ventricular rate, care is 80, QTC 378. No [place] prolongation, no QTC prolongation, no ST or T-wave changes noted. Abdomen evaluation obtained. CBC unremarkable. Coag panel negative. Metabolic panel shows A 46. This is likely from chronic CO2 retention with metabolic compensation. Rest of labs unremarkable. Chest x-ray is nonacute. Patient reevaluated at bedside he feels better. Patient will be admitted for new onset atrial fibrillation with rapid ventricular rate and COPD exacerbation on BiPAP. Patient is to Dr. Carmona who is willing to accept patients care. No knowledge and cardiology to be placed on consult. Patient reevaluated bedside with improvement of heart rate. His heart rate is trending down however still slightly elevated. - Related Data Home Medications Medication Instructions Recorded Confirmed ALPRAZolam 0.5 mg PO QID 03/28/15 03/05/19 DULoxetine HCL 60 mg PO DAILY 03/28/15 03/05/19 Gabapentin 600 mg PO TID 03/28/15 03/05/19 Ipratropium/Albuterol Sulfate 1 puff INHALATION RT-QID 03/28/15 03/05/19 [Combivent Respimat Inhaler] Budesonide-Formot 160-4.5 Mcg 2 puff INHALATION RT-BID 01/31/18 03/05/19 [Symbicort 160-4.5 Mcg Inhaler] HYDROcodone/APAP 7.5-325MG [[place] 1 tab PO TID 07/10/18 03/05/19 7.5-325] guaiFENesin [Mucinex] 600 mg PO BID 03/05/19 03/05/19 predniSONE 10 mg PO DAILY 03/05/19 03/05/19 Previous Rx's Medication Instructions Recorded Albuterol Nebulized [Ventolin 2.5 mg INHALATION QID #0 07/12/18 Nebulized] Famotidine [Pepcid] 20 mg PO BID #60 tab 07/12/18 Allergies Allergy/AdvReac Type Severity Reaction Status Date / Time No Known Allergies Allergy Verified 07/10/18 14:16 Review of Systems ROS Statement: Those systems with pertinent positive or pertinent negative responses have been documented in the HPI. ROS Other: All systems not noted in ROS Statement are negative. Past Medical History Past Medical History: COPD, CVA/TIA, Fibromyalgia, Hyperlipidemia, Hypertension, Osteoarthritis (OA), Pneumonia, Respiratory Disorder Additional Past Medical History / Comment(s): Pt recently admitted on 01/31/18 with chronic hypoxic and hypercapnic respiratory failure, acute/chronic COPD, traceobronchitis and microscopic hematuria. Other hx: Severe COPD, respiratory failure with home oxygen at 3L/NC ATC, tracheobronchitis, TIA, DJD, chronic low back pain- receives epidural injections, memory problems/forgetfull. History of Any Multi-Drug Resistant Organisms: None Reported Past Surgical History: Ear Surgery Additional Past Surgical History / Comment(s): R ear surgery for "fractured bone." per spouse. Past Anesthesia/Blood Transfusion Reactions: No Reported Reaction Additional Past Anesthesia/Blood Transfusion Reaction / Comment(s): never had any blood transfusions Past Psychological History: Anxiety Smoking Status: Current every day smoker - Past Family History Father Family Medical History: Cancer Additional Family Medical History / Comment(s): Father of throat cancer at the age of 52 yrs. He was a smoker. Mother Family Medical History: COPD Additional Family Medical History / Comment(s): Mother is 74 yrs old. She is a smoker. General Exam Limitations: no limitations Course Vital Signs 03/05/19 15:15 Temperature 97.9 F Pulse Rate 179 H Respiratory 18 Rate Blood Pressure 111/82 O2 Sat by Pulse 63 L Oximetry Medical Decision Making - Lab Data Result diagrams: 03/05/19 15:27 03/05/19 15:27 Lab Results 03/05/19 03/05/19 03/05/19 Range/Units 15:27 15:27 15:27 WBC 9.2 (3.8-10.6) k/uL RBC 4.98 (4.30-5.90) m/uL Hgb 15.2 (13.0-17.5) gm/dL Hct 49.9 (39.0-53.0) % MCV 100.2 H (80.0-100.0) fL MCH 30.6 (25.0-35.0) pg MCHC 30.5 L (31.0-37.0) g/dL RDW 14.5 (11.5-15.5) % Plt Count 227 (150-450) k/uL Neutrophils % (Manual) 64 % Band Neutrophils % 1 % Lymphocytes % (Manual) 32 % Monocytes % (Manual) 1 % Eosinophils % (Manual) 2 % Neutrophils # (Manual) 5.90 (1.3-7.7) k/uL Lymphocytes # (Manual) 2.94 (1.0-4.8) k/uL Monocytes # (Manual) 0.09 (0-1.0) k/uL Eosinophils # (Manual) 0.18 (0-0.7) k/uL Nucleated RBCs 0 (0-0) /100 WBC Manual Slide Review Performed Reactive Lymphocytes Present Hypochromasia Moderate PT 10.1 (9.0-12.0) sec INR 0.9 (<1.2) APTT 25.2 (22.0-30.0) sec Sodium 140 (137-145) mmol/L Potassium 5.0 (3.5-5.1) mmol/L Chloride 87 L (98-107) mmol/L Carbon Dioxide 46 H* (22-30) mmol/L Anion Gap 7 mmol/L BUN 14 (9-20) mg/dL Creatinine 0.72 (0.66-1.25) mg/dL Est GFR (CKD-EPI)AfAm >90 (>60 ml/min/1.73 sqM) Est GFR (CKD-EPI)NonAf >90 (>60 ml/min/1.73 sqM) Glucose 107 H (74-99) mg/dL Calcium 9.4 (8.4-10.2) mg/dL Magnesium 1.9 (1.6-2.3) mg/dL Total Bilirubin 0.6 (0.2-1.3) mg/dL AST 24 (17-59) U/L ALT 23 (21-72) U/L Alkaline Phosphatase 70 (38-126) U/L Troponin I (0.000-0.034) ng/mL Total Protein 7.9 (6.3-8.2) g/dL Albumin 4.5 (3.5-5.0) g/dL 03/05/19 Range/Units 15:27 WBC (3.8-10.6) k/uL RBC (4.30-5.90) m/uL Hgb (13.0-17.5) gm/dL Hct (39.0-53.0) % MCV (80.0-100.0) fL MCH (25.0-35.0) pg MCHC (31.0-37.0) g/dL RDW (11.5-15.5) % Plt Count (150-450) k/uL Neutrophils % (Manual) % Band Neutrophils % % Lymphocytes % (Manual) % Monocytes % (Manual) % Eosinophils % (Manual) % Neutrophils # (Manual) (1.3-7.7) k/uL Lymphocytes # (Manual) (1.0-4.8) k/uL Monocytes # (Manual) (0-1.0) k/uL Eosinophils # (Manual) (0-0.7) k/uL Nucleated RBCs (0-0) /100 WBC Manual Slide Review Reactive Lymphocytes Hypochromasia PT (9.0-12.0) sec INR (<1.2) APTT (22.0-30.0) sec Sodium (137-145) mmol/L Potassium (3.5-5.1) mmol/L Chloride (98-107) mmol/L Carbon Dioxide (22-30) mmol/L Anion Gap mmol/L BUN (9-20) mg/dL Creatinine (0.66-1.25) mg/dL Est GFR (CKD-EPI)AfAm (>60 ml/min/1.73 sqM) Est GFR (CKD-EPI)NonAf (>60 ml/min/1.73 sqM) Glucose (74-99) mg/dL Calcium (8.4-10.2) mg/dL Magnesium (1.6-2.3) mg/dL Total Bilirubin (0.2-1.3) mg/dL AST (17-59) U/L ALT (21-72) U/L Alkaline Phosphatase (38-126) U/L Troponin I <0.012 (0.000-0.034) ng/mL Total Protein (6.3-8.2) g/dL Albumin (3.5-5.0) g/dL Critical Care Time Critical Care Time: Yes Total Critical Care Time: 31 Disposition Clinical Impression: COPD exacerbation, Acute respiratory failure, Atrial fibrillation with RVR Disposition: ADMITTED IP TO THIS [facility] Condition: Critical Referrals: Hue Laurent MD [Primary Care Provider] - 1-2 days Decision Time: 17:16
[2019-03-05 16:01] LABS: INR 0.9 (<1.2); Partial Thromboplastin Time 25.2 sec (22.0-30.0); Prothrombin Time 10.1 sec (9.0-12.0)
[2019-03-05 16:02] LABS: ALT 23 U/L (21-72); AST 24 U/L (17-59); African American GFR (CKD) >90 (>60 ml/min/1.73 sqM); Albumin 4.5 g/dL (3.5-5.0); Alkaline Phosphatase 70 U/L (38-126); Blood Urea Nitrogen 14 mg/dL (9-20); Calcium 9.4 mg/dL (8.4-10.2); Chloride 87 mmol/L (98-107); Glucose 107 mg/dL (74-99); Magnesium 1.9 mg/dL (1.6-2.3); Sodium 140 mmol/L (137-145); Total Bilirubin 0.6 mg/dL (0.2-1.3); Total Protein 7.9 g/dL (6.3-8.2)
[2019-03-05 16:08] LABS: Anion Gap 7 mmol/L
[2019-03-05 16:10] LABS: Carbon Dioxide 46 mmol/L (22-30)
[2019-03-05] MEDS: MAGNESIUM SULFATE-D5W PMX 1 GM in DEXTROSE/WATER 1 100ML.BAG IVPB SCH ×2 (16:11→20:50)
[2019-03-05 16:14] LABS: HCT 49.9 % (39.0-53.0); HGB 15.2 gm/dL (13.0-17.5); Hypochromasia Moderate; MCH 30.6 pg (25.0-35.0); MCHC 30.5 g/dL (31.0-37.0); MCV 100.2 fL (80.0-100.0); Mean Platelet Volume 7.1; Platelet Count 227 k/uL (150-450); RBC 4.98 m/uL (4.30-5.90); RDW 14.5 % (11.5-15.5); WBC 9.2 k/uL (3.8-10.6)
[2019-03-05] MEDS ORDERED: HEPARIN SODIUM,PORCINE 5,000 UNIT/ML 1 ML VIAL IV ONE (16:15)
[2019-03-05 16:33] LABS: Band Neutrophils % 1 %; Eosinophils # (M) 0.18 k/uL (0-0.7); Lymphocytes # (M) 2.94 k/uL (1.0-4.8); Monocytes # (M) 0.09 k/uL (0-1.0); Neutrophils % (M) 64 %; Nucleated Red Blood Cells 0 /100 WBC (0-0); Reactive Lymphocytes Present; Total Cells Counted 100
[2019-03-05 17:22] LABS: ABG Base Excess 22.5 mmol/L; ABG Oxygen Saturation 96.1 % (94-97); ABG PH 7.33 (7.35-7.45); ABG PO2 75 mmHg (83-108); ABG TCO2 51 mmol/L (19-24); Allen Test Performed? Yes
[2019-03-05 17:25] LABS: ABG HCO3 48 mmol/L (21-25); ABG PCO2 91 mmHg (35-45)
[2019-03-05] MEDS: HEPARIN SOD,PORK IN 0.45% NACL 25,000 UNIT in 0.45% NACL 1 250ML.BAG IV SCH (19:30)
[2019-03-05] MEDS: LORazepam 2 MG/ML INJ IV PRN (20:16)
[2019-03-05] MEDS: IPRATROPIUM-ALBUTEROL 3 ML NEB INHALATION SCH (20:51)
--- NOTE | 2019-03-05 22:13 | CT ---
EXAMINATION TYPE: CT brain wo con DATE OF EXAM: 03/05/2019 COMPARISON: None HISTORY: ams CT DLP: 1172.4 mGycm Automated exposure control for dose reduction was used. FINDINGS: Ventricles have normal size. There is no mass effect nor midline shift. There is no sign of intracran ial hemorrhage. Calvarium is intact. Exam limited slightly by motion. There is no evidence of cerebra l edema. IMPRESSION: NEGATIVE CT SCAN OF THE BRAIN.
[2019-03-06] MEDS: IPRATROPIUM-ALBUTEROL 3 ML NEB INHALATION PRN ×3 (00:10→13:57)
--- NOTE | 2019-03-06 00:41 | P.HPIM ---
History of Present Illness H&P Date: 03/05/19 Chief Complaint: Shortness of breath Patient is a 49-year-old male with a known history of severe COPD on home oxygen and steroid dependent, fibromyalgia, hypertension, hyperlipidemia, history of CVA/TIA and chronic low back pain came to ER with complaints of worsening short ness of breath and exertional dyspnea. Patient has been having worsening symptoms since yesterday. Patient follows with Dr. Stephens as outpatient. Primary care physician is Dr. Laurent. Otherwise patient denied any complaints of chest pain. Patient does complain of cough with yellowish sputum production. No leg swelling. Denied any palpitations. No recent illnesses otherwise. Patient was found to have atrial fibrillation with rapid ventricular rate in the ER. No history of atrial fibrillation in the past. No fever no chills. Patient is currently on BiPAP machine and could not provide much history. Chest x-ray showed no acute cardiopulmonary process. EKG showed atrial fibrillation with rapid ventricular rate. Bicarb level 46 Review of Systems Constitutional: Patient denies any fever or chills . No generalized weakness or weight loss. Abdomen: Patient denied nausea vomiting and diarrhea and abdominal pain. Cardiovascular: Patient denies any chest pain or short of breath no palpitations. Respiratory: With Sputum production and shortness of breath Neurologic: Patient denied any numbness or tingling headache. Musculoskeletal: Patient denies any complaints of joint swelling or deformity. Skin: Negative Psychiatric: Negative Endocrine: No heat or cold intolerance. No recent weight gain. Genitourinary: No dysuria or hematuria. All other 14 point ROS negative except the above Past Medical History Past Medical History: COPD, CVA/TIA, Fibromyalgia, Hyperlipidemia, Hypertension, Osteoarthritis (OA), Pneumonia, Respiratory Disorder Additional Past Medical History / Comment(s): Pt recently admitted on 01/31/18 with chronic hypoxic and hypercapnic respiratory failure, acute/chronic COPD, traceobronchitis and microscopic hematuria. Other hx: Severe COPD, respiratory failure with home oxygen at 3L/NC ATC, tracheobronchitis, TIA, DJD, chronic low back pain- receives epidural injections, memory problems/forgetfull. History of Any Multi-Drug Resistant Organisms: None Reported Past Surgical History: Ear Surgery Additional Past Surgical History / Comment(s): R ear surgery for "fractured bone." per spouse. Past Anesthesia/Blood Transfusion Reactions: No Reported Reaction Additional Past Anesthesia/Blood Transfusion Reaction / Comment(s): never had any blood transfusions Past Psychological History: Anxiety Additional Psychological History / Comment(s): Pt resides with his spouse and 2 sons. He is disabled. He does not drive d/t medications. His spouse drives him to appts or another family member will drive him. He has home O2 and a nebulizer. Spouse states she would be interested in home care for the patient. Pt has memory issues.has had falls Smoking Status: Current some day smoker Past Alcohol Use History: None Reported Additional Past Alcohol Use History / Comment(s): Pt started smoking in 1975 and is down to about 4 cig per day. Past Drug Use History: None Reported - Past Family History Father Family Medical History: Cancer Additional Family Medical History / Comment(s): Father of throat cancer at the age of 52 yrs. He was a smoker. Mother Family Medical History: COPD Additional Family Medical History / Comment(s): Mother is 74 yrs old. She is a smoker. Medications and Allergies Home Medications Medication Instructions Recorded Confirmed Type ALPRAZolam 0.5 mg PO QID 03/28/15 03/05/19 History DULoxetine HCL 60 mg PO DAILY 03/28/15 03/05/19 History Gabapentin 600 mg PO TID 03/28/15 03/05/19 History Ipratropium/Albuterol Sulfate 1 puff INHALATION RT-QID 03/28/15 03/05/19 History [Combivent Respimat Inhaler] Budesonide-Formot 160-4.5 Mcg 2 puff INHALATION RT-BID 01/31/18 03/05/19 History [Symbicort 160-4.5 Mcg Inhaler] HYDROcodone/APAP 7.5-325MG [[place] 1 tab PO TID 07/10/18 03/05/19 History 7.5-325] Albuterol Nebulized [Ventolin 2.5 mg INHALATION QID #0 07/12/18 03/05/19 Rx Nebulized] Famotidine [Pepcid] 20 mg PO BID #60 tab 07/12/18 03/05/19 Rx guaiFENesin [Mucinex] 600 mg PO BID 03/05/19 03/05/19 History predniSONE 10 mg PO DAILY 03/05/19 03/05/19 History Allergies Allergy/AdvReac Type Severity Reaction Status Date / Time No Known Allergies Allergy Verified 07/10/18 14:16 Physical Exam Vitals: Vital Signs Temp Pulse Pulse Resp BP BP Pulse Ox 03/05/19 19:35 97.9 F 165 H 13 115/87 95 03/05/19 19:30 96 03/05/19 19:24 98 F 72 24 122/77 95 03/05/19 19:10 165 H 13 115/87 95 03/05/19 18:43 165 H 13 115/87 95 03/05/19 18:40 165 H 13 115/87 95 03/05/19 18:30 160 H 27 H 108/90 94 L 03/05/19 18:20 146 H 10 L 108/90 88 L 03/05/19 18:10 154 H 13 112/88 95 03/05/19 18:00 135 H 19 110/85 94 L 03/05/19 17:50 23 110/85 95 03/05/19 17:40 147 H 20 105/87 94 L 03/05/19 17:30 165 H 28 H 118/86 93 L 03/05/19 17:23 142 H 18 118/86 92 L 03/05/19 17:21 156 H 23 118/86 90 L 03/05/19 16:15 168 H 20 138/105 92 L 03/05/19 15:35 168 H 28 H 03/05/19 15:20 160 H 03/05/19 15:15 97.9 F 179 H 18 111/82 63 L Intake and Output 03/05/19 03/05/19 03/05/19 06:59 14:59 22:59 Intake Total 500 Balance 500 Intake: Amount of Fluid Infused ( 500 ml) Other: Weight 54.431 kg PHYSICAL EXAMINATION: Patient is lying in the bed comfortably, mild to moderate distress with sh ortness of breath, awake alert and oriented.. HEENT: Normocephalic. Neck is supple. Pupils reactive. Nostrils clear. Oral cavity is moist. Ears reveal no drainage. Neck reveals no JVD, carotid bruits, or thyromegaly. CHEST EXAMINATION: Trachea is central. Symmetrical expansion. Bilateral diminis hed air entry and minimal expiratory wheeze. CARDIAC: Normal S1, S2 with no gallops. No murmurs . Irregularly irregular rhythm ABDOMEN: Soft. Bowel sounds normal. No organomegaly. No abdominal bruits. Extremities: reveal no edema. No clubbing or cyanosis Neurologically awake, alert, oriented x3 with well-coordinated movements. No focal deficits noted Skin: No rash or skin lesions. Psychiatric: Coperative. Nonsuicidal. Anxious Musculoskeletal: No joint swelling or deformity. Normal range of motion. Results CBC & Chem 7: 03/05/19 15:27 03/05/19 15:27 Labs: Abnormal Lab Results - Last 24 Hours (Table) 03/05/19 03/05/19 03/05/19 Range/Units 15:27 15:27 17:15 MCV 100.2 H (80.0-100.0) fL MCHC 30.5 L (31.0-37.0) g/dL ABG pH 7.33 L (7.35-7.45) ABG pCO2 91 H* (35-45) mmHg ABG pO2 75 L (83-108) mmHg ABG HCO3 48 H* (21-25) mmol/L ABG Total CO2 51 H (19-24) mmol/L Chloride 87 L (98-107) mmol/L Carbon Dioxide 46 H* (22-30) mmol/L Glucose 107 H (74-99) mg/dL Thrombosis Risk Factor Assmnt - DVT/VTE Prophylaxis DVT/VTE Prophylaxis: Pharmacologic Prophylaxis ordered - Choose All That Apply Any of the Below Risk Factors Present?: Yes Each Factor Represents 1 point: Abnormal pulmonary function (COPD), Age 41-60 years, Medical pt on bed rest Thrombosis Risk Factor Assessment Total Risk Factor Score: 3 Thrombosis Risk Factor Assessment Level: Moderate Risk Assessment and Plan Assessment: Acute hypoxic and hypercapnic respiratory failure secondary to COPD Acute exacerbation of severe COPD. Home oxygen 3 L nasal cannula and prednisone dependent. Atrial fibrillation with a rapid ventricular rate. New onset atrial fibrillation Hypertension Hyperlipidemia Osteoarthritis History of CVA/TIA Chronic low back pain and degenerative joint disease Memory impairment Anxiety Cigarette smoking. Currently cutting down to 4 cigarettes per day. DVT prophylaxis patient is already on heparin drip Plan: Patient will be continued on BiPAP and gradually titrate down to nasal cannula oxygen. Pulmonary was consulted. Continue with IV steroids, DuoNeb's and Symbicort. Antibiotics in the form of azithromycin. Patient will be continued on Cardizem drip and heparin IV. Continue the home medications and follow closely. Cardiology and pulmonary was consulted. Further recommendations based on the clinical course. Prognosis is guarded. Time with Patient: Greater than 30
[2019-03-06 01:21] LABS: ABG Base Excess 20.7 mmol/L; ABG Oxygen Saturation 92.2 % (94-97); ABG PH 7.33 (7.35-7.45); ABG PO2 60 mmHg (83-108); ABG TCO2 49 mmol/L (19-24); Allen Test Performed? Yes
[2019-03-06 01:32] LABS: ABG HCO3 47 mmol/L (21-25); ABG PCO2 89 mmHg (35-45)
[2019-03-06 07:29] LABS: African American GFR (CKD) >90 (>60 ml/min/1.73 sqM); Blood Urea Nitrogen 17 mg/dL (9-20); Calcium 9.1 mg/dL (8.4-10.2); Chloride 88 mmol/L (98-107); Glucose 107 mg/dL (74-99); Potassium 5.2 mmol/L (3.5-5.1); Sodium 139 mmol/L (137-145)
[2019-03-06 07:37] LABS: Anion Gap 5 mmol/L
[2019-03-06 07:54] LABS: Carbon Dioxide 46 mmol/L (22-30)
[2019-03-06] MEDS ORDERED: SYMBICORT 160-4.5 MCG INHALER INHALATION SCH (08:00)
[2019-03-06 08:13] LABS: Basophils # (A) 0.1 k/uL (0-0.2); Basophils % (A) 2 %; Eosinophils % (A) 1 %; HCT 45.7 % (39.0-53.0); HGB 13.9 gm/dL (13.0-17.5); Hypochromasia Moderate; Lymphocytes % (A) 23 %; MCH 30.6 pg (25.0-35.0); MCHC 30.3 g/dL (31.0-37.0); MCV 100.9 fL (80.0-100.0); Mean Platelet Volume 7.4; Monocytes # (A) 0.3 k/uL (0-1.0); Monocytes % (A) 8 %; Neutrophils # (A) 2.8 k/uL (1.3-7.7); Neutrophils % (A) 65 %; Platelet Count 222 k/uL (150-450); RBC 4.53 m/uL (4.30-5.90); RDW 14.1 % (11.5-15.5); WBC 4.2 k/uL (3.8-10.6)
[2019-03-06 08:30] LABS: T4, Free (Free Thyroxine) 1.22 ng/dL (0.78-2.19)
[2019-03-06 08:52] LABS: Poikilocytosis (M) Present
[2019-03-06] MEDS: GABAPENTIN 300 MG CAP PO SCH ×3 (08:52→20:41)
[2019-03-06] MEDS: ALPRAZolam 0.5 MG TAB PO SCH ×4 (08:53→20:41)
[2019-03-06] MEDS: HEPARIN SODIUM,PORCINE 5,000 UNIT/ML 1 ML VIAL IV PRN ×2 (08:53→17:25)
[2019-03-06] MEDS: AZITHROMYCIN 500 MG TAB PO SCH (08:53)
[2019-03-06] MEDS: DULoxetine HCL 60 MG CAPSULE.DR PO SCH (08:53)
[2019-03-06] MEDS: FAMOTIDINE 20 MG TAB PO SCH ×2 (08:53→20:41)
[2019-03-06] MEDS ORDERED: predniSONE 20 MG TAB PO SCH (09:00)
[2019-03-06] MEDS ORDERED: DILTIAZEM DRIP BOLUS FROM BAG 1 MG SOLN IV STA (09:28)
--- NOTE | 2019-03-06 09:43 | P.CRDCN ---
History of Present Illness Consult date: 03/06/19 Requesting physician: Minal Carmona Reason for Consult (text): Tachycardia Chief complaint: Shortness of breath History of present illness: This is a 49-year-old gentleman with history of severe stage IV COPD with chronic hypoxemia and respiratory failure, hypertension, hyperlipidemia, fibromyalgia, prior TIA, nicotine dependence, he presented to the hospital with symptoms of progressively worsening shortness of breath as well as frequent falls. Patient had a follow-up appointment with Dr. Rivera his male infertility specialist yesterday and was referred to the hospital for admission. His initial EKG reading was atrial fibrillation, it appears that the patient is in a multifocal atrial tachycardia. For this reason a cardiology consultation has been requested. Chest x-ray did not reveal any acute changes. CAT scan of the brain was negative. Blood pressure 145/70 with a heart rate of 128, 96% on BiPAP. White blood cell count 4.2, hemoglobin 13.9, platelet count 222. PH 7.3, pCO2 89, pO2 60, HCO3 47, O2 saturation 92%. Sodium 139, potassium 5.2, CO2 88, carbon dioxide 46, BUN 17 and creatinine 0.6. Plasma lactic acid 0.8, magnesium 1.9. TSH level is 0.075. Free T4 1 0.2. At the time of my examination this morning, patient is very short of breath, his did most of the talking, just to speak is very difficult for him. Past Medical History Past Medical History: COPD, CVA/TIA, Fibromyalgia, Hyperlipidemia, Hypertension, Osteoarthritis (OA), Pneumonia, Respiratory Disorder Additional Past Medical History / Comment(s): Pt recently admitted on 01/31/18 with chronic hypoxic and hypercapnic respiratory failure, acute/chronic COPD, traceobronchitis and microscopic hematuria. Other hx: Severe COPD, respiratory failure with home oxygen at 3L/NC ATC, tracheobronchitis, TIA, DJD, chronic low back pain- receives epidural injections, memory problems/forgetfull. History of Any Multi-Drug Resistant Organisms: None Reported Past Surgical History: Ear Surgery Additional Past Surgical History / Comment(s): R ear surgery for "fractured bone." per spouse. Past Anesthesia/Blood Transfusion Reactions: No Reported Reaction Additional Past Anesthesia/Blood Transfusion Reaction / Comment(s): never had any blood transfusions Past Psychological History: Anxiety Additional Psychological History / Comment(s): Pt resides with his spouse and 2 sons. He is disabled. He does not drive d/t medications. His spouse drives him to appts or another family member will drive him. He has home O2 and a nebulizer. Spouse states she would be interested in home care for the patient. Pt has memory issues.has had falls Smoking Status: Current some day smoker Past Alcohol Use History: None Reported Additional Past Alcohol Use History / Comment(s): Pt started smoking in 1975 and is down to about 4 cig per day. Past Drug Use History: None Reported - Past Family History Father Family Medical History: Cancer Additional Family Medical History / Comment(s): Father of throat cancer at the age of 52 yrs. He was a smoker. Mother Family Medical History: COPD Additional Family Medical History / Comment(s): Mother is 74 yrs old. She is a smoker. Medications and Allergies Home Medications Medication Instructions Recorded Confirmed Type ALPRAZolam 0.5 mg PO QID 03/28/15 03/05/19 History DULoxetine HCL 60 mg PO DAILY 03/28/15 03/05/19 History Gabapentin 600 mg PO TID 03/28/15 03/05/19 History Ipratropium/Albuterol Sulfate 1 puff INHALATION RT-QID 03/28/15 03/05/19 History [Combivent Respimat Inhaler] Budesonide-Formot 160-4.5 Mcg 2 puff INHALATION RT-BID 01/31/18 03/05/19 History [Symbicort 160-4.5 Mcg Inhaler] HYDROcodone/APAP 7.5-325MG [[place] 1 tab PO TID 07/10/18 03/05/19 History 7.5-325] Albuterol Nebulized [Ventolin 2.5 mg INHALATION QID #0 07/12/18 03/05/19 Rx Nebulized] Famotidine [Pepcid] 20 mg PO BID #60 tab 07/12/18 03/05/19 Rx guaiFENesin [Mucinex] 600 mg PO BID 03/05/19 03/05/19 History predniSONE 10 mg PO DAILY 03/05/19 03/05/19 History Allergies Allergy/AdvReac Type Severity Reaction Status Date / Time No Known Allergies Allergy Verified 07/10/18 14:16 Physical Exam Vitals: Vital Signs Temp Pulse Pulse Resp BP BP Pulse Ox 03/06/19 04:03 128 H 03/06/19 03:56 110 H 03/06/19 03:12 98.2 F 125 H 22 145/72 96 03/06/19 00:18 110 H 18 03/06/19 00:10 100 18 03/06/19 00:00 132 H 22 132/71 95 03/05/19 23:01 120 H 24 138/72 94 L 03/05/19 21:04 104 H 03/05/19 20:52 96 03/05/19 19:35 97.9 F 165 H 13 115/87 95 03/05/19 19:30 96 03/05/19 19:24 98 F 72 24 122/77 95 03/05/19 19:10 165 H 13 115/87 95 03/05/19 18:43 165 H 13 115/87 95 03/05/19 18:40 165 H 13 115/87 95 03/05/19 18:30 160 H 27 H 108/90 94 L 03/05/19 18:20 146 H 10 L 108/90 88 L 03/05/19 18:10 154 H 13 112/88 95 03/05/19 18:00 135 H 19 110/85 94 L 03/05/19 17:50 23 110/85 95 03/05/19 17:40 147 H 20 105/87 94 L 03/05/19 17:30 165 H 28 H 118/86 93 L 03/05/19 17:23 142 H 18 118/86 92 L 03/05/19 17:21 156 H 23 118/86 90 L 03/05/19 16:15 168 H 20 138/105 92 L 03/05/19 15:35 168 H 28 H 03/05/19 15:20 160 H 03/05/19 15:15 97.9 F 179 H 18 111/82 63 L Intake and Output 03/05/19 03/06/19 03/06/19 22:59 06:59 14:59 Intake Total 500 174.971 Output Total 200 Balance 500 -200 174.971 Intake: Amount of Fluid Infused ( 500 ml) Intake, IV Titration 174.971 Amount Diltiazem 125 mg In 87.333 Sodium Chloride 0.9% 100 ml @ 5 MG/HR 5 mls/hr IV .Q24H [facility] Rx#:[id number] Heparin Sod,Pork in 0.45% 87.638 NaCl 25,000 unit In 0.45 % NaCl 1 250ml.bag @ 12 UNITS/KG/HR 6.532 mls/hr IV .Q24H [facility] Rx#: [id number] Output: Urine 200 Other: Voiding Method Urinal # Voids 1 Weight 54.431 kg HEAD: Normocephalic/atraumatic. EYES: Normal reaction of pupils, equal size. Conjunctiva pink, sclera white. NOSE: Clear with pink turbinates. THROAT: No erythema or exudates. NECK: No masses, no JVD, no thyroid enlargement, no adenopathy. CHEST: No chest wall deformity. Symmetrical expansion. LUNGS: Diminished breath sounds bilaterally, with diffuse end expiratory wheezes, and prolongation of the expiratory phase of breathing CVS: Regular rate and rhythm, normal S1 and S2, no gallops, no murmurs, no rubs ABDOMEN: Soft, nontender. No hepatosplenomegaly, normal bowel sounds, no g uarding or rigidity. EXTREMITIES: No clubbing, no edema, no cyanosis, 2+ pulses and upper and lower extremities. MUSCULOSKELETAL: Muscle strength and tone normal. SPINE: No scoliosis or deformity SKIN: No rashes CENTRAL NERVOUS SYSTEM: Alert and oriented -3. No focal deficits, tone is normal in all 4 extremities. PSYCHIATRIC: Alert and oriented -3. Appropriate affect. Intact judgment and insight. Results 03/06/19 06:45 03/06/19 06:45 Cardiac Enzymes 03/05/19 03/05/19 Range/Units 15:27 15:27 AST 24 (17-59) U/L Troponin I <0.012 (0.000-0.034) ng/mL Coagulation 03/05/19 03/06/19 Range/Units 15:27 06:45 PT 10.1 (9.0-12.0) sec APTT 25.2 29.4 (22.0-30.0) sec CBC 03/05/19 03/06/19 Range/Units 15:27 06:45 WBC 9.2 4.2 (3.8-10.6) k/uL RBC 4.98 4.53 (4.30-5.90) m/uL Hgb 15.2 13.9 (13.0-17.5) gm/dL Hct 49.9 45.7 (39.0-53.0) % Plt Count 227 222 (150-450) k/uL Comprehensive Metabolic Panel 03/05/19 03/06/19 Range/Units 15:27 06:45 Sodium 140 139 (137-145) mmol/L Potassium 5.0 5.2 H (3.5-5.1) mmol/L Chloride 87 L 88 L (98-107) mmol/L Carbon Dioxide 46 H* 46 H* (22-30) mmol/L BUN 14 17 (9-20) mg/dL Creatinine 0.72 0.66 (0.66-1.25) mg/dL Glucose 107 H 107 H (74-99) mg/dL Calcium 9.4 9.1 (8.4-10.2) mg/dL AST 24 (17-59) U/L ALT 23 (21-72) U/L Alkaline Phosphatase 70 (38-126) U/L Total Protein 7.9 (6.3-8.2) g/dL Albumin 4.5 (3.5-5.0) g/dL Current Medications Generic Name Dose Route Start Last Admin Trade Name Freq PRN Reason Stop Dose Admin Hydrocodone Bitart/Acetaminophen 1 each 03/05/19 21:38 [place] 10 PO Q6H PRN Pain Albuterol/Ipratropium 3 ml 03/05/19 20:00 03/05/19 20:51 Duoneb 0.5 Mg-3 Mg/3 Ml Soln INHALATION 3 ml RT-QID [facility] Administration Albuterol/Ipratropium 3 ml 03/05/19 22:16 03/06/19 03:56 Duoneb 0.5 Mg-3 Mg/3 Ml Soln INHALATION 3 ml RT-Q2H PRN Administration Shortness Of Breath Or Wheezing Alprazolam 0.5 mg 03/06/19 09:00 03/06/19 08:53 Xanax PO 0.5 mg QID [facility] Administration Azithromycin 500 mg 03/06/19 09:00 03/06/19 08:53 Zithromax PO 500 mg DAILY [facility] Administration Budesonide/Formoterol Fumarate 2 puff 03/06/19 08:00 Symbicort 160-4.5 Mcg Inhaler INHALATION RT-BID [facility] Duloxetine HCl 60 mg 03/06/19 09:00 03/06/19 08:53 Cymbalta PO 60 mg DAILY [facility] Administration Famotidine 20 mg 03/06/19 09:00 03/06/19 08:53 Pepcid PO 20 mg BID [facility] Administration Gabapentin 600 mg 03/06/19 09:00 03/06/19 08:52 Neurontin PO 600 mg TID [facility] Administration Heparin Sodium (Porcine) 0 unit 03/05/19 16:15 03/06/19 08:53 Heparin IV 2,720 unit PER PROTOCOL PRN Administration Low PTT Protocol Diltiazem HCl 125 mg/ Sodium 125 mls @ 5 mls/hr 03/05/19 15:30 03/06/19 09:05 Chloride IV 10 mg/hr .Q24H [facility] 10 mls/hr Infusion 5 MG/HR Heparin Sodium/Sodium Chloride 250 mls @ 6.532 mls/hr 03/05/19 16:15 03/06/19 08:55 25,000 unit/ Sodium Chloride IV 15 units/kg/hr .Q24H [facility] 8.165 mls/hr Titration Protocol 12 UNITS/KG/HR Lorazepam 1 mg 03/05/19 19:57 03/05/19 20:16 Ativan IV 1 mg Q4HR PRN Administration Anxiety Prednisone 40 mg 03/06/19 09:00 03/06/19 08:53 PO 40 mg DAILY [facility] Administration Intake and Output 03/05/19 03/06/19 03/06/19 22:59 06:59 14:59 Intake Total 500 174.971 Output Total 200 Balance 500 -200 174.971 Intake: Amount of Fluid Infused ( 500 ml) Intake, IV Titration 174.971 Amount Diltiazem 125 mg In 87.333 Sodium Chloride 0.9% 100 ml @ 5 MG/HR 5 mls/hr IV .Q24H [facility] Rx#:[id number] Heparin Sod,Pork in 0.45% 87.638 NaCl 25,000 unit In 0.45 % NaCl 1 250ml.bag @ 12 UNITS/KG/HR 6.532 mls/hr IV .Q24H [facility] Rx#: [id number] Output: Urine 200 Other: Voiding Method Urinal # Voids 1 Weight 54.431 kg 03/06/19 06:45 03/06/19 06:45 EKG Interpretations (text) EKG shows a multifocal atrial tachycardia. Assessment and Plan Plan: Assessment and Plan: #1. Acute on chronic hypercapnic respiratory failure related to acute exacerbation of chronic obstructive pulmonary disease with tracheobronchitis. Chest x-ray did not show any evidence of acute pulmonary process #2. Stage IV COPD, baseline FEV1 of 0.77 L or 21% of predicted, oxygen and prednisone dependent #3. Former smoker, quit smoking a month ago, prior to that smoked for 42 years 2-3 packs a day #4. Chronic back pain #5. History of hypertension, hyperlipidemia #6. Episodes of pneumonia #7. Osteoarthritis #8. Fibromyalgia #9. History of CVA/TIA #10. atrial fibrillation , paroxsysmal, rapid rate #11 frequent falls Plan We will obtain an echocardiogram with Doppler study. Increase the Cardizem drip to optimize heart rate control. Patient will also need anticoagulation for stroke prevention. Overall his prognosis is quite guarded. DNP note has been reviewed, I agree with a documented findings and plan of care. Patient was seen and examined.
[2019-03-06] MEDS: IPRATROPIUM-ALBUTEROL 3 ML NEB INHALATION SCH ×4 (09:45→19:16)
[2019-03-06] MEDS ORDERED: THEOPHYLLINE 24 HOUR 400 MG CAP.ER.24H PO SCH (11:45)
--- NOTE | 2019-03-06 12:00 | ECHOF ---
Referral Reason:tachycardia MEASUREMENTS -------- HEIGHT: 172.7 cm WEIGHT: 54.4 kg BP: 145/72 RVIDd: 4.7 cm (< 3.3) IVSd: 1.0 cm (0.6 - 1.1) LVIDd: 4.4 cm (3.9 - 5.3) LVPWd: 1.1 cm (0.6 - 1.1) IVSs: 1.5 cm LVIDs: 3.3 cm LVPWs: 1.5 cm Ao Diam: 2.9 cm (2.0 - 3.7) AV Cusp: 1.9 cm (1.5 - 2.6) LA Diam: 3.7 cm (2.7 - 3.8) RAP: 20.00 mmHg RVSP: 57.28 mmHg FINDINGS -------- Atrial fibrillation with RVR. Images were taken from subcostal views . This was a technically adequate study. The left ventricular size is normal. Left ventricular wall thickness is normal. There is moderate global hypokinesis of LV . Overall left ventricular systolic function is mild-moderately impaired with, an EF between 40 - 45 %. The right ventricle is severely enlarged. The left atrial size is normal. The right atrial size is normal. Interatrial and interventricular septum intact. The aortic valve is trileaflet, and appears structurally normal. No aortic stenosis or regurgitation. The aortic valve is trileaflet and appears structurally normal. The mitral valve is normal. Mild mitral regurgitation is present. [id number] tricuspid regurgitation present. There is moderate to severe pulmonary hypertensio n. The right ventricular systolic pressure, as measured by Doppler, is 57.28mmHg. There is no pulmonic regurgitation present. The aortic root size is normal. The inferior vena cava is dilated with poor inspiratory collapse which is consistent with estimated r ight atrial pressure of 20 mmHg. There is no pericardial effusion. CONCLUSIONS -------- 1. Atrial fibrillation with RVR. 2. This was a technically adequate study. 3. The left ventricular size is normal. 4. Left ventricular wall thickness is normal. 5. There is moderate global hypokinesis of LV . 6. Overall left ventricular systolic function is mild-moderately impaired with, an EF between 40 - 45 %. 7. The right ventricle is severely enlarged. 8. The left atrial size is normal. 9. The aortic valve is trileaflet, and appears structurally normal. No aortic stenosis or regurgitati on. 10. The aortic valve is trileaflet and appears structurally normal. 11. Mild mitral regurgitation is present. 12. [id number] tricuspid regurgitation present. 13. There is moderate to severe pulmonary hypertension. 14. There is no pulmonic regurgitation present. 15. The aortic root size is normal. 16. The inferior vena cava is dilated with poor inspiratory collapse which is consistent with estimat ed right atrial pressure of 20 mmHg. 17. There is no pericardial effusion. CLINICAL MASSAGE THERAPIST: Marta Carlos RDCS
[2019-03-06] MEDS: methylPREDNISolone SOD SUCCI 125 MG/2 ML VIAL IV SCH ×3 (12:23→23:22)
[2019-03-06] MEDS: DILTIAZEM 125 MG in SODIUM CHLORIDE 0.9% 100 ML IV SCH (12:24)
[2019-03-06] MEDS: HYDROcodone/APAP 10-325MG 1 EACH TAB PO PRN ×2 (13:48→20:41)
[2019-03-06] MEDS: LORazepam 2 MG/ML INJ IV PRN (13:54)
[2019-03-06] MEDS ORDERED: AMIODARONE 360 MG in DEXTROSE 5% IN WATER 200 ML IV ONE ×2 (13:59)
[2019-03-06] MEDS ORDERED: DEXTROSE 5% IN WATER 100 ML with AMIODARONE 150 MG IV ONE (13:59)
[2019-03-06] MEDS ORDERED: METOPROLOL TARTRATE 5 MG/5 ML VIAL IVP STA (15:24)
[2019-03-06] MEDS: INSULIN ASPART (NovoLOG) 100 UNIT/ML VIAL SQ SCH ×2 (17:58→20:44)
[2019-03-06 18:18] LABS: Glucose,Whole Blood 165 mg/dL (75-99)
[2019-03-06] MEDS: BUDESONIDE 1 MG/2 ML NEBU INHALATION SCH (19:16)
[2019-03-06] MEDS: FORMOTEROL FUMARATE 20 MCG/2 ML NEBU INHALATION SCH (19:16)
[2019-03-06] MEDS: THEOPHYLLINE 24 HOUR 400 MG CAP.ER.24H PO SCH (19:58)
[2019-03-06 20:12] LABS: Glucose,Whole Blood 110 mg/dL (75-99)
[2019-03-06] MEDS: AMIODARONE 300 MG in DEXTROSE 5% IN WATER 250 ML IV SCH ×2 (20:43)
[2019-03-06] MEDS: HEPARIN SOD,PORK IN 0.45% NACL 25,000 UNIT in 0.45% NACL 1 250ML.BAG IV SCH (20:43)
--- NOTE | 2019-03-06 21:08 | CONS ---
CONSULTATION PULMONARY/CRITICAL CARE CONSULTATION: DATE OF SERVICE: 03/06/2019 This is a 49-year-old male who apparently presented to our office yesterday to be seen by our nurse practitioner. Once one of our nurses saw him and saw how much distress he was in, he was immediately sent to the emergency room, where he was evaluated for shortness of breath and COPD exacerbation. This patient has severe chronic lung disease. He sees one of my partners in the office; I believe Dr. Lane. He apparently has an FEV1 which is only 21% of predicted, which puts him in GOLD stage IV disease. Anyway, he presented with increasing shortness of breath. He was quite tachypneic and dyspneic. He had conversational dyspnea. He was coughing but not producing any phlegm. No fever or chills. He was quickly evaluated in the emergency room and was immediately placed on BiPAP and given steroids, breathing treatments and antibiotics. Currently, he could not tolerate the BiPAP. He tried it for a while, but he states the mask made him very claustrophobic and he thought the pressure was excessive. For that reason, we went ahead and switched him to AIRVO. Anyway, the plan for the AIRVO was hopefully maintain saturations in the 88% to 92% range. We figured that his baseline PaCO2 at best was about 75 mmHg. He is a big-time CO2 retainer and I passed that on to the nurse. That is important because we do not want to give him excessive oxygen concentrations. Anyway, we are going to see if we can qualify him for the Trilogy ventilator. The patient has chronic respiratory failure because of stage IV COPD. He will require nocturnal home noninvasive ventilator with pressure support and supplemental oxygen. This will help to prevent hospital readmissions and/or worsening of life-threatening conditions. Currently the patient is feeling a bit better than he did yesterday when he first came in. HOME MEDICATIONS: His home medications include: 1. Xanax. 2. Cymbalta. 3. Gabapentin. 4. Albuterol and Atrovent updrafts. 5. Symbicort. 6. Prednisone 10 mg a day. 7. Mucinex. 8. [place]. 9. He also carries with him a rescue inhaler. 10.He also uses Pepcid from time to time. ALLERGIES: DENIED. PAST MEDICAL HISTORY: His past medical history includes: 1. Severe end-stage/stage IV COPD. 2. CVA. 3. Fibromyalgia. 4. Hyperlipidemia. 5. Hypertension. 6. Osteoarthritis. 7. Pneumonia. 8. Chronic hypoxemic respiratory failure. In fact, his baseline PaCO2 is about 75 mmHg plus/minus 2 mmHg based on using the Hernandez' formula and his bicarbonate concentration on his electrolyte profile. 9. In addition, he has a history of tracheobronchitis. 10.Microscopic hematuria. 11.Probable pulmonary hypertension. 12.Chronic low back pain. 13.Memory impairment. SURGICAL HISTORY: Surgical history includes: 1. Ear surgery. 2. Some other minor procedures. SOCIAL HISTORY: Positive for ongoing tobacco use. I told him he absolutely needs to stop smoking because he cannot afford to lose any additional lung function. He denies any alcohol use or illicit drug use. FAMILY HISTORY: Father with throat cancer, who was a smoker. Mother apparently with a history of COPD. She is a smoker. REVIEW OF SYSTEMS: CONSTITUTIONAL: Negative. NEUROLOGIC: Negative. HEENT: Negative. CARDIOVASCULAR: Negative. PULMONARY: Profound shortness of breath, difficulty breathing, coughing, wheezing, phlegm production and chest congestion. GI: Negative. : Negative. RHEUMATOLOGIC: Negative. IMMUNOLOGIC: Negative. ENDOCRINOLOGIC: Negative. DERMATOLOGIC: Negative. PHYSICAL EXAMINATION: VITAL SIGNS: Vital signs are reviewed. Temperature is 97.7, heart rate about 120 beats per minute, respiratory rate about 20, blood pressure 122/68, mean 86. On the AIRVO, at an FiO2 of 33%, his saturation is about 92% to 93%. GENERAL APPEARANCE: He appears quite tachypneic and dyspneic. AIRVO nasal cannula in place. HEENT: HEENT examination is grossly unremarkable. No audible wheezing. No use of accessory muscles. NECK: Supple. Full range of motion. No adenopathy or thyromegaly. Neck veins are flat. CARDIOVASCULAR: Cardiovascular examination reveals tachycardia. It is regular. Heart rate is about 110 to 120 beats per minute. No murmur. S1, S2 normal. LUNGS: Lungs reveal severely diminished breath sounds. There is prolongation on forced maneuver. The patient does has expiratory wheezing. No crackles. ABDOMEN: Soft. Bowel sounds are heard. His abdomen is scaphoid. EXTREMITIES: Intact. No cyanosis, clubbing or edema. SKIN: Without rash. NEUROLOGIC: Neurologic examination is brief but nonfocal. LABS: Reviewed. White count 4.2, hemoglobin 13.9, hematocrit 45.7, platelet count 222,000. Last set of blood gases shows a pO2 of 68, paCO2 of 89. The pH is 7.33. That was on 35% FiO2. Sodium 139, potassium 5.2, chloride 88, CO2 46, anion gap 5. BUN and creatinine were 17 and 0.66. TSH 0.075. IMAGING: Chest x-ray shows changes primarily of COPD. Brain CT negative. Medications are reviewed. ASSESSMENT: 1. Severe chronic obstructive pulmonary disease exacerbation complicated by purulent tracheobronchitis in a patient with GOLD stage IV chronic obstructive pulmonary disease. 2. Ongoing tobacco use with nicotine addiction. 3. History of cerebrovascular accident. 4. History of fibromyalgia. 5. Hyperlipidemia. 6. Hypertension. 7. Osteoarthritis. 8. History of pneumonia. 9. Chronic hypoxemic respiratory failure. 10.Microscopic hematuria. 11.History of chronic low back pain. 12.Memory impairment. PLAN: As mentioned above, I believe the patient will be a good candidate for the [facility] ventilator. He has chronic hypoxemic respiratory failure and chronic hypercapnic respiratory failure secondary to severe stage IV COPD, which will require nocturnal home noninvasive ventilation with pressure support and supplemental oxygen. This will hopefully prevent possible readmissions and/or worsening of life-threatening conditions. We did add Pulmicort and Perforomist at 1 mg and 20 mcg, respectively, twice a day to his regimen. We put him on Solu-Medrol and discontinued the oral prednisone. He continues on updrafts q.i.d. and p.r.n. Finally, we went ahead and added a long-acting theophylline preparation at 8 p.m. 400 mg. Additional recommendations and suggestions are forthcoming. Prognosis is very guarded. We will continue to follow. Should he deteriorate, we may have to move him down to the ICU. MMODL / IJN: [id number] /
--- NOTE | 2019-03-06 22:41 | P.PN ---
Subjective Progress Note Date: 03/06/19 Principal diagnosis: Acute severe COPD exacerbation New onset atrial fibrillation with RVR Patient is a 49-year-old male with a known history of severe COPD on home oxygen and steroid dependent, fibromyalgia, hypertension, hyperlipidemia, history of CVA/TIA and chronic low back pain came to ER with complaints of worsening shortness of breath and exertional dyspnea. Patient has been having worsening symptoms since yesterday. Patient follows with Dr. Stephens as outpatient. P [facility] physician is Dr. Laurent. Otherwise patient denied any complaints of chest pain. Patient does complain of cough with yellowish sputum production. No leg swelling. Denied any palpitations. No recent illnesses otherwise. Patient was found to have atrial fibrillation with rapid ventricular rate in the ER. No history of atrial fibrillation in the past. No fever no chills. Patient is currently on BiPAP machine and could not provide much history. Chest x-ray showed no acute cardiopulmonary process. EKG showed atrial fibrillation with rapid ventricular rate. Bicarb level 46 03/06/2019 Patient remains in acute respiratory distress. Currently saturating well on Avapro with 31% FiO2. Otherwise patient is anxious and is getting Xanax doses. Heart rate is still elevated in 160s and is in atrial fibrillation. Cardizem drip is being continued and loading dose was given. Patient was also started on amiodarone drip Patient is being continued on IV steroids, DuoNeb's and inhaled steroids. Pulmonary and cardiology is following. CODE STATUS was discussed with the patient and his in detail. Patient is non-decision at this time and will update us after discussed with his . At the same time patient expressed his concern that he does not want to be in a vegetative state. Patient does have chest tightness. No fever no chills. No nausea vomiting or diarrhea no abdominal pain. Current medications reviewed. Active Medications Hydrocodone Bitart/Acetaminophen ([place] 10) 1 each PO Q6H PRN PRN Reason: Pain Last Admin: 03/06/19 20:41 Dose: 1 each Documented by: Albuterol/Ipratropium (Duoneb 0.5 Mg-3 Mg/3 Ml Soln) 3 ml INHALATION RT-QID [facility] Last Admin: 03/06/19 19:16 Dose: 3 ml Documented by: Albuterol/Ipratropium (Duoneb 0.5 Mg-3 Mg/3 Ml Soln) 3 ml INHALATION RT-Q2H PRN PRN Reason: Shortness Of Breath Or Wheezing Last Admin: 03/06/19 13:57 Dose: 3 ml Documented by: Alprazolam (Xanax) 0.5 mg PO QID [facility] [place] Last Admin: 03/06/19 20:41 Dose: 0.5 mg Documented by: Azithromycin (Zithromax) 500 mg PO DAILY [facility] [place] Last Admin: 03/06/19 08:53 Dose: 500 mg Documented by: Budesonide (Pulmicort) 1 mg INHALATION RT-BID [facility] [place] Last Admin: 03/06/19 19:16 Dose: 1 mg Documented by: Duloxetine HCl (Cymbalta) 60 mg PO DAILY [facility] [place] Last Admin: 03/06/19 08:53 Dose: 60 mg Documented by: Famotidine (Pepcid) 20 mg PO BID [facility] [place] Last Admin: 03/06/19 20:41 Dose: 20 mg Documented by: Formoterol Fumarate (Perforomist) 20 mcg INHALATION RT-BID [facility] [place] Last Admin: 03/06/19 19:16 Dose: 20 mcg Documented by: Gabapentin (Neurontin) 600 mg PO TID [facility] [place] Last Admin: 03/06/19 20:41 Dose: 600 mg Documented by: Heparin Sodium (Porcine) (Heparin) 0 unit IV PER PROTOCOL PRN; Protocol PRN Reason: Low PTT Last Admin: 03/06/19 17:25 Dose: 2,720 unit Documented by: Heparin Sodium/Sodium Chloride (25,000 unit/ Sodium Chloride) 250 mls @ 6.532 mls/hr IV .Q24H [facility] [place]; Protocol Last Admin: 03/06/19 20:43 Dose: 18 units/kg/hr, 9.798 mls/hr Documented by: Amiodarone HCl 300 mg/ (Dextrose/Water) 250 mls @ 25 mls/hr IV .Q10H [facility] [place]; Protocol Stop: 03/07/19 13:59 Last Admin: 03/06/19 20:43 Dose: 0.5 mg/min, 25 mls/hr Documented by: Insulin Aspart (Novolog) 0 unit SQ ACHS [facility] [place]; Protocol Last Admin: 03/06/19 20:44 Dose: Not Given Documented by: Lorazepam (Ativan) 1 mg IV Q4HR PRN PRN Reason: Anxiety Last Admin: 03/06/19 13:54 Dose: 1 mg Documented by: Methylprednisolone Sodium Succinate (Solu-Medrol) 60 mg IV Q6HR [facility] [place] Last Admin: 03/06/19 17:25 Dose: 60 mg Documented by: Theophylline (Lloyd-24) 400 mg PO 1999 [facility] [place] Last Admin: 03/06/19 19:58 Dose: 400 mg Documented by: Objective - Vital Signs Vital signs: Vital Signs Temp 97.5 F L 03/06/19 19:10 Pulse 84 03/06/19 19:34 Resp 20 03/06/19 19:20 BP 117/83 03/06/19 19:10 Pulse Ox 92 L 03/06/19 19:10 Intake & Output 03/06/19 03/06/19 03/07/19 06:59 18:59 06:59 Intake Total 500 981.310 30.21 Output Total 200 600 Balance 300 381.310 30.21 Intake: Amount of Fluid Infused ( 500 ml) Intake, IV Titration 301.310 30.21 Amount Diltiazem 125 mg In 142.500 Sodium Chloride 0.9% 100 ml @ 10 MG/HR 10 mls/hr IV .[id number] [facility] [place] Rx#: [id number] Heparin Sod,Pork in 0.45% 158.810 30.21 NaCl 25,000 unit In 0.45 % NaCl 1 250ml.bag @ 12 UNITS/KG/HR 6.532 mls/hr IV .Q24H [facility] [place] Rx#: [id number] Oral 680 Output: Urine 200 600 Other: Voiding Method Urinal Urinal Urinal # Voids 1 1 - Exam PHYSICAL EXAMINATION: Patient is lying in the bed comfortably, mild to moderate respiratory distress, awake alert and oriented.. HEENT: Normocephalic. Neck is supple. Pupils reactive. Nostrils clear. Oral cavity is moist. Ears reveal no drainage. Neck reveals no JVD, carotid bruits, or thyromegaly. CHEST EXAMINATION: Trachea is central. Symmetrical expansion. Bilateral diminished air entry, rhonchi and expiratory wheeze. CARDIAC: Normal S1, S2 with no gallops. No murmurs . Irregular rhythm ABDOMEN: Soft. Bowel sounds normal. No organomegaly. No abdominal bruits. Extremities: reveal no edema. No clubbing or cyanosis Neurologically awake, alert, oriented x3 with well-coordinated movements. No focal deficits noted Skin: No rash or skin lesions. Psychiatric: Coperative. Nonsuicidal. Anxious Musculoskeletal: No joint swelling or deformity. Normal range of motion. - Labs CBC & Chem 7: 03/06/19 06:45 03/06/19 06:45 Labs: Abnormal Lab Results - Last 24 Hours (Table) 03/06/19 03/06/19 03/06/19 Range/Units 01:18 06:45 06:45 MCV 100.9 H (80.0-100.0) fL MCHC 30.3 L (31.0-37.0) g/dL APTT (22.0-30.0) sec ABG pH 7.33 L (7.35-7.45) ABG pCO2 89 H* (35-45) mmHg ABG pO2 60 L (83-108) mmHg ABG HCO3 47 H* (21-25) mmol/L ABG Total CO2 49 H (19-24) mmol/L ABG O2 Saturation 92.2 L (94-97) % Potassium 5.2 H (3.5-5.1) mmol/L Chloride 88 L (98-107) mmol/L Carbon Dioxide 46 H* (22-30) mmol/L Glucose 107 H (74-99) mg/dL POC Glucose (mg/dL) (75-99) mg/dL TSH 0.075 L (0.465-4.680) mIU/L 03/06/19 03/06/19 03/06/19 Range/Units 15:45 17:42 20:06 MCV (80.0-100.0) fL MCHC (31.0-37.0) g/dL APTT 32.8 H (22.0-30.0) sec ABG pH (7.35-7.45) ABG pCO2 (35-45) mmHg ABG pO2 (83-108) mmHg ABG HCO3 (21-25) mmol/L ABG Total CO2 (19-24) mmol/L ABG O2 Saturation (94-97) % Potassium (3.5-5.1) mmol/L Chloride (98-107) mmol/L Carbon Dioxide (22-30) mmol/L Glucose (74-99) mg/dL POC Glucose (mg/dL) 165 H 110 H (75-99) mg/dL TSH (0.465-4.680) mIU/L Microbiology - Last 24 Hours (Table) 03/05/19 16:18 Blood Culture - Preliminary Blood No Growth after 24 hours Assessment and Plan Assessment: Acute hypoxic and hypercapnic respiratory failure secondary to COPD Acute exacerbation of severe COPD. Home oxygen 3 L nasal cannula and prednisone dependent. Atrial fibrillation with a rapid ventricular rate. Rate not controlled. New onset atrial fibrillation Hypertension Hyperlipidemia Osteoarthritis History of CVA/TIA Chronic low back pain and degenerative joint disease Memory impairment Anxiety Cigarette smoking. Currently cutting down to 4 cigarettes per day. DVT prophylaxis patient is already on heparin drip Plan: Patient will be continued on the Avapro. Off BiPAP and gradually titrate down to nasal cannula oxygen. Pulmonary and cardiology is following. Continue with IV steroids, DuoNeb's and pulmicort/Performist. Antibiotics in the form of azithromycin. Patient will be continued on Cardizem drip and heparin IV. Continue the home medications and follow closely. Cardiology and pulmonary was consulted. Further recommendations based on the clinical course. Prognosis is guarded. Time with Patient: Greater than 30
[2019-03-07] MEDS: IPRATROPIUM-ALBUTEROL 3 ML NEB INHALATION PRN (00:17)
[2019-03-07] MEDS: HYDROcodone/APAP 10-325MG 1 EACH TAB PO PRN ×3 (03:00→19:57)
[2019-03-07] MEDS: AMIODARONE 300 MG in DEXTROSE 5% IN WATER 250 ML IV SCH ×2 (04:50)
[2019-03-07] MEDS: methylPREDNISolone SOD SUCCI 125 MG/2 ML VIAL IV SCH ×4 (04:56→23:10)
[2019-03-07] MEDS: LORazepam 2 MG/ML INJ IV PRN (05:57)
[2019-03-07 06:01] LABS: Glucose,Whole Blood 165 mg/dL (75-99)
[2019-03-07] MEDS: INSULIN ASPART (NovoLOG) 100 UNIT/ML VIAL SQ SCH ×4 (06:01→20:33)
[2019-03-07 06:16] LABS: Basophils # (A) 0.1 k/uL (0-0.2); Basophils % (A) 1 %; Eosinophils % (A) 0 %; HCT 39.5 % (39.0-53.0); HGB 12.5 gm/dL (13.0-17.5); Hypochromasia Slight; Lymphocytes # (A) 0.4 k/uL (1.0-4.8); Lymphocytes % (A) 5 %; MCHC 31.6 g/dL (31.0-37.0); Mean Platelet Volume 6.9; Monocytes # (A) 0.3 k/uL (0-1.0); Monocytes % (A) 4 %; Neutrophils # (A) 7.4 k/uL (1.3-7.7); Neutrophils % (A) 89 %; Platelet Count 181 k/uL (150-450); RBC 4.03 m/uL (4.30-5.90); RDW 13.2 % (11.5-15.5); WBC 8.3 k/uL (3.8-10.6)
[2019-03-07 06:34] LABS: African American GFR (CKD) >90 (>60 ml/min/1.73 sqM); Blood Urea Nitrogen 19 mg/dL (9-20); Calcium 8.7 mg/dL (8.4-10.2); Chloride 89 mmol/L (98-107); Glucose 177 mg/dL (74-99); Potassium 4.4 mmol/L (3.5-5.1); Sodium 138 mmol/L (137-145)
[2019-03-07] MEDS: IPRATROPIUM-ALBUTEROL 3 ML NEB INHALATION SCH ×4 (06:49→19:42)
[2019-03-07] MEDS: FORMOTEROL FUMARATE 20 MCG/2 ML NEBU INHALATION SCH ×2 (06:49→19:42)
[2019-03-07] MEDS: BUDESONIDE 1 MG/2 ML NEBU INHALATION SCH ×2 (06:49→19:42)
[2019-03-07 06:56] LABS: Anion Gap 5 mmol/L
[2019-03-07 07:10] LABS: Carbon Dioxide 44 mmol/L (22-30)
[2019-03-07] MEDS ORDERED: HEPARIN SODIUM,PORCINE 5,000 UNIT/ML 1 ML VIAL IV ONE (08:16)
[2019-03-07] MEDS: DULoxetine HCL 60 MG CAPSULE.DR PO SCH (09:15)
[2019-03-07] MEDS: AZITHROMYCIN 500 MG TAB PO SCH (09:15)
[2019-03-07] MEDS: FAMOTIDINE 20 MG TAB PO SCH ×2 (09:15→20:33)
[2019-03-07] MEDS: ALPRAZolam 0.5 MG TAB PO SCH ×4 (09:15→20:33)
[2019-03-07] MEDS: GABAPENTIN 300 MG CAP PO SCH ×3 (09:16→20:33)
[2019-03-07 11:54] LABS: Glucose,Whole Blood 115 mg/dL (75-99)
--- NOTE | 2019-03-07 12:10 | P.PN ---
Subjective Progress Note Date: 03/07/19 Principal diagnosis: Acute exacerbation of severe chronic obstructive pulmonary disease complicated by purulent tracheobronchitis On 03/07/2019 patient seen in follow-up on selective care unit, he is currently on Airvo at 35 L or FiO2 of 32% with a pulse ox of 96-98%, he states he is breathing easier today, although still dyspnea, and there is actually improved air entry auscultated on physical exam, patient is afebrile,. Vital signs are stable, he is awake and alert, following commands and responding appropriately. Today's labs have been reviewed, showing white blood cell count of 8.3, hemoglobin of 12.5, sodium of 138, potassium is 4.4, chloride is 89, CO2 is 44, B1 of 19 and creatinine 0.72. Echocardiogram results have been reviewed showing moderately impaired left ventricle systolic function with an EF of 40-45% mild mitral regurgitation and [id number] tricuspid regurgitation and moderate to severe pulmonary hypertension with PA systolic of 57 mmHg. Yesterday we started the patient on theophylline, he continues on Zithromax, Pulmicort, firm on arrival, and DuoNeb breathing treatments, in addition to IV steroids. We started the process for trilogy ventilator arrangement after the patient's discharge home. As the patient had previously been unable to wear the BiPAP related to extreme anxiety and inability to wear fullface mask. Yesterday narda hanks was unable to wear the BiPAP, and was managed with Airvo. Objective - Vital Signs Vital signs: Vital Signs Temp 98.3 F 03/07/19 03:27 Pulse 90 03/07/19 11:45 Resp 20 03/07/19 03:27 BP 110/74 03/07/19 03:27 Pulse Ox 98 03/07/19 06:49 Intake & Output 03/06/19 03/07/19 03/07/19 18:59 06:59 18:59 Intake Total 981.310 233.127 472.024 Output Total 600 525 Balance 381.310 -291.873 472.024 Weight 55.5 kg Intake: Intake, IV Titration 301.310 233.127 112.024 Amount Amiodarone 300 mg In 202.917 Dextrose 5% in Water 250 ml @ 0.5 MG/MIN 25 mls/hr IV .Q10H [facility] Rx#: [id number] Diltiazem 125 mg In 142.500 Sodium Chloride 0.9% 100 ml @ 10 MG/HR 10 mls/hr IV .[id number] [facility] Rx#: [id number] Heparin Sod,Pork in 0.45% 158.810 30.21 112.024 NaCl 25,000 unit In 0.45 % NaCl 1 250ml.bag @ 12 UNITS/KG/HR 6.532 mls/hr IV .Q24H [facility] Rx#: [id number] Oral 680 360 Output: Urine 600 525 Other: Voiding Method Urinal Urinal # Voids 1 - Exam GENERAL EXAM: Alert, pleasant, 49-year-old white male, on Airvo at 35 L or 32% comfortable in no apparent distress. HEAD: Normocephalic/atraumatic. EYES: Normal reaction of pupils, equal size. Conjunctiva pink, sclera white. NOSE: Clear with pink turbinates. THROAT: No erythema or exudates. NECK: No masses, no JVD, no thyroid enlargement, no adenopathy. CHEST: No chest wall deformity. Symmetrical expansion. Extremely diminished breath sounds bilaterally, but improved air entry noted on today's exam. No crackles, wheeze, rhonchi or dullness. CVS: Regular rate and rhythm, normal S1 and S2, no gallops, no murmurs, no rubs ABDOMEN: Soft, nontender. No hepatosplenomegaly, normal bowel sounds, no guarding or rigidity. EXTREMITIES: No clubbing, no edema, no cyanosis, 2+ pulses and upper and lower extremities. MUSCULOSKELETAL: Muscle strength and tone normal. SPINE: No scoliosis or deformity SKIN: No rashes CENTRAL NERVOUS SYSTEM: Alert and oriented -3. No focal deficits, tone is normal in all 4 extremities. PSYCHIATRIC: Alert and oriented -3. Appropriate affect. Intact judgment and insight. - Labs CBC & Chem 7: 03/07/19 05:27 03/07/19 05:27 Labs: Abnormal Lab Results - Last 24 Hours (Table) 03/06/19 03/06/19 03/06/19 Range/Units 15:45 17:42 20:06 RBC (4.30-5.90) m/uL Hgb (13.0-17.5) gm/dL Lymphocytes # (1.0-4.8) k/uL APTT 32.8 H (22.0-30.0) sec Chloride (98-107) mmol/L Carbon Dioxide (22-30) mmol/L Glucose (74-99) mg/dL POC Glucose (mg/dL) 165 H 110 H (75-99) mg/dL 03/06/19 03/07/19 03/07/19 Range/Units 23:25 05:27 05:27 RBC 4.03 L (4.30-5.90) m/uL Hgb 12.5 L (13.0-17.5) gm/dL Lymphocytes # 0.4 L (1.0-4.8) k/uL APTT 53.0 H (22.0-30.0) sec Chloride 89 L (98-107) mmol/L Carbon Dioxide 44 H* (22-30) mmol/L Glucose 177 H (74-99) mg/dL POC Glucose (mg/dL) (75-99) mg/dL 03/07/19 Range/Units 05:59 RBC (4.30-5.90) m/uL Hgb (13.0-17.5) gm/dL Lymphocytes # (1.0-4.8) k/uL APTT (22.0-30.0) sec Chloride (98-107) mmol/L Carbon Dioxide (22-30) mmol/L Glucose (74-99) mg/dL POC Glucose (mg/dL) 165 H (75-99) mg/dL Microbiology - Last 24 Hours (Table) 03/05/19 16:18 Blood Culture - Preliminary Blood No Growth after 24 hours Assessment and Plan Plan: Assessment: #1. Acute exacerbation of severe chronic obstructive pulmonary disease complicated by purulent tracheobronchitis and the patient with a gold stage IV COPD with a baseline FEV1 of 0.7 cm or 21% of predicted, oxygen and prednisone dependent #2. Acute on chronic hypoxemic and hypercapnic respiratory failure related to the above #3. Ongoing tobacco use with nicotine addiction, over 80 pack year history #4. Atrial fibrillation, paroxysmal in nature, with a rapid ventricular response #5. History of cerebrovascular accident #6. History of fibromyalgia #7. Hyperlipidemia #8. Hypertension #9. Osteoarthritis #10. History of pneumonia #11. Chronic hypoxemic and hypercapnic respiratory failure related to COPD #12. History of chronic low back pain #13. Memory impairment Plan: Continue current plan of treatment, continue with IV steroids, nebulized bronchodilators, antibiotics, and theophylline, patient is breathing easier today, there is slightly better air movement noted bilaterally, but still very dyspneic, very limited in terms of activity tolerance. We'll continue with current medical treatment, will follow, overall prognosis is quite guarded. BiPAP was tried and patient failed. A pe is recommended mode of therapy to eliminate CO2. Quicker patient compliance with noninvasive ventilator could reduce hospital readmission. Patient is at risk for clinical deterioration and without a NPPV, such as AVAPS I performed a history & physical examination of the patient and discussed their management with my nurse practitioner, Renetta Lomax. I reviewed the nurse practitioner's note and agree with the documented findings and plan of care. Lung sounds are positive for diffuse wheezes throughout the lung bond. The findings and the impression was discussed with the patient. I attest to the do cumentation by the nurse practitioner. Time with Patient: Less than 30
[2019-03-07 13:47] VITALS: BMI 18.6
[2019-03-07] MEDS: VERAPAMIL SR 240 MG TABLET.ER PO SCH (14:19)
--- NOTE | 2019-03-07 15:27 | P.PN ---
Subjective Progress Note Date: 03/07/19 This is a 66-year-old gentleman who follows regularly with Dr. Dos Santos in the office he has a known history of COPD, pulmonary hypertension, chronic atrial fibrillation, EtOH abuse, patient states he drinks a pint of whiskey a day, underlying pulmonary fibrosis, hypertension, hyperlipidemia, history of nicotine dependence, presents to the hospital with symptoms of worsening shortness of breath. His most recent hospitalization, was in November of this year which time he was admitted with COPD exacerbation and pneumonia. He was noted on that admission to have abnormal troponin likely related to sepsis at that time. Patient also had significant redness in his bilateral lower extremities which was felt to be a rash versus cellulitis. According to the patient, for the last several months he's noticed himself to be much more short of breath, positive PND and orthopnea. He was initiated here on IV Lasix. VQ scan did not reveal any evidence of a pulmonary embolism. Lower extremity ultrasound revealed no evidence of a DVT. No evidence of gross fluid overload on the chest x-ray. I pressure 110/60 with a heart rate in the 60s, 96% on room air. White blood cell count 19.1 on admission, 10.4 this morning, hemoglobin 12.0, platelet count 232. D-dimer 1.48, sodium 136, potassium 4.2, BUN 52 and creatinine 2.1, on admission the patient's creatinine was noted to be 2.5. Plasma lactic acid up to 3.8. Magnesium on admission 1.3, 2.3 this morning. BNP level 11,000. Troponins 0.17, 0.11, 0.13, 0.09. Drug screen positive for urine opiates.here and opiates. EKG on admission here showed atrial fibrillation with a controlled ventricular response. 03/07/2019 Patient overall doing much better today, yesterday there is an 18 called because of severe difficulty in breathing. Today overall his breathing is stable. Continues to be in atrial fibrillation, heart rate in the 110 region. He is on amiodarone through the IV, we will change him to oral amiodarone and add verapamil to his medication list. Objective - Vital Signs Vital signs: Vital Signs Temp 98.3 F 03/07/19 03:27 Pulse 90 03/07/19 11:58 Resp 20 09/20/19 03:27 BP 110/74 03/07/19 03:27 Pulse Ox 98 03/07/19 06:49 Intake & Output 03/06/19 03/07/19 03/07/19 18:59 06:59 18:59 Intake Total 981.310 233.127 832.024 Output Total 600 525 Balance 381.310 -291.873 832.024 Weight 55.5 kg 55.5 kg Intake: Intake, IV Titration 301.310 233.127 112.024 Amount Amiodarone 300 mg In 202.917 Dextrose 5% in Water 250 ml @ 0.5 MG/MIN 25 mls/hr IV .Q10H [facility] Rx#: [id number] Diltiazem 125 mg In 142.500 Sodium Chloride 0.9% 100 ml @ 10 MG/HR 10 mls/hr IV .[id number] [facility] Rx#: [id number] Heparin Sod,Pork in 0.45% 158.810 30.21 112.024 NaCl 25,000 unit In 0.45 % NaCl 1 250ml.bag @ 12 UNITS/KG/HR 6.532 mls/hr IV .Q24H [facility] Rx#: [id number] Oral 680 720 Output: Urine 600 525 Other: Voiding Method Urinal Urinal # Voids 1 1 - Exam HEAD: Normocephalic/atraumatic. EYES: Normal reaction of pupils, equal size. Conjunctiva pink, sclera white. NOSE: Clear with pink turbinates. THROAT: No erythema or exudates. NECK: No masses, no JVD, no thyroid enlargement, no adenopathy. CHEST: No chest wall deformity. Symmetrical expansion. LUNGS: Diminished breath sounds bilaterally, with diffuse end expiratory wheezes, and prolongation of the expiratory phase of breathing CVS: Regular rate and rhythm, normal S1 and S2, no gallops, no murmurs, no rubs ABDOMEN: Soft, nontender. No hepatosplenomegaly, normal bowel sounds, no guarding or rigidity. EXTREMITIES: No clubbing, no edema, no cyanosis, 2+ pulses and upper and lower extremities. MUSCULOSKELETAL: Muscle strength and tone normal. SPINE: No scoliosis or deformity SKIN: No rashes CENTRAL NERVOUS SYSTEM: Alert and oriented -3. No focal deficits, tone is normal in all 4 extremities. PSYCHIATRIC: Alert and oriented -3. Appropriate affect. Intact judgment and insight. - Labs CBC & Chem 7: 03/07/19 05:27 03/07/19 05:27 Labs: Abnormal Lab Results - Last 24 Hours (Table) 03/06/19 03/06/19 03/06/19 Range/Units 15:45 17:42 20:06 RBC (4.30-5.90) m/uL Hgb (13.0-17.5) gm/dL Lymphocytes # (1.0-4.8) k/uL APTT 32.8 H (22.0-30.0) sec Chloride (98-107) mmol/L Carbon Dioxide (22-30) mmol/L Glucose (74-99) mg/dL POC Glucose (mg/dL) 165 H 110 H (75-99) mg/dL 03/06/19 03/07/19 03/07/19 Range/Units 23:25 05:27 05:27 RBC 4.03 L (4.30-5.90) m/uL Hgb 12.5 L (13.0-17.5) gm/dL Lymphocytes # 0.4 L (1.0-4.8) k/uL APTT 53.0 H (22.0-30.0) sec Chloride 89 L (98-107) mmol/L Carbon Dioxide 44 H* (22-30) mmol/L Glucose 177 H (74-99) mg/dL POC Glucose (mg/dL) (75-99) mg/dL 03/07/19 03/07/19 Range/Units 05:59 11:50 RBC (4.30-5.90) m/uL Hgb (13.0-17.5) gm/dL Lymphocytes # (1.0-4.8) k/uL APTT (22.0-30.0) sec Chloride (98-107) mmol/L Carbon Dioxide (22-30) mmol/L Glucose (74-99) mg/dL POC Glucose (mg/dL) 165 H 115 H (75-99) mg/dL Microbiology - Last 24 Hours (Table) 03/05/19 16:18 Blood Culture - Preliminary Blood No Growth after 24 hours Assessment and Plan Plan: Assessment and Plan: #1. Acute on chronic hypercapnic respiratory failure related to acute exacerbation of chronic obstructive pulmonary disease with tracheobronchitis. Chest x-ray did not show any evidence of acute pulmonary process #2. Stage IV COPD, baseline FEV1 of 0.77 L or 21% of predicted, oxygen and prednisone dependent #3. Former smoker, quit smoking a month ago, prior to that smoked for 42 years 2-3 packs a day #4. Chronic back pain #5. History of hypertension, hyperlipidemia #6. Episodes of pneumonia #7. Osteoarthritis #8. Fibromyalgia #9. History of CVA/TIA #10. atrial fibrillation , paroxsysmal, rapid rate #11 frequent falls Plan We'll start the patient on oral amiodarone today as well as verapamil. Continue rest of the medications. DNP note has been reviewed, I agree with a documented findings and plan of care. Patient was seen and examined.
[2019-03-07 17:31] LABS: Glucose,Whole Blood 142 mg/dL (75-99)
[2019-03-07] MEDS: THEOPHYLLINE 24 HOUR 400 MG CAP.ER.24H PO SCH (19:57)
[2019-03-07 20:24] LABS: Glucose,Whole Blood 116 mg/dL (75-99)
[2019-03-07] MEDS: AMIODARONE 200 MG TAB PO SCH (20:33)
[2019-03-07] MEDS: HEPARIN SOD,PORK IN 0.45% NACL 25,000 UNIT in 0.45% NACL 1 250ML.BAG IV SCH (22:34)
[2019-03-08 06:07] LABS: Glucose,Whole Blood 116 mg/dL (75-99)
[2019-03-08] MEDS: HYDROcodone/APAP 10-325MG 1 EACH TAB PO PRN ×3 (06:18→18:16)
[2019-03-08] MEDS: methylPREDNISolone SOD SUCCI 125 MG/2 ML VIAL IV SCH ×4 (06:18→23:22)
[2019-03-08] MEDS: INSULIN ASPART (NovoLOG) 100 UNIT/ML VIAL SQ SCH ×4 (06:29→20:09)
[2019-03-08] MEDS: FORMOTEROL FUMARATE 20 MCG/2 ML NEBU INHALATION SCH ×2 (07:28→19:47)
[2019-03-08] MEDS: IPRATROPIUM-ALBUTEROL 3 ML NEB INHALATION SCH ×4 (07:28→19:47)
[2019-03-08] MEDS: BUDESONIDE 1 MG/2 ML NEBU INHALATION SCH ×2 (07:28→19:47)
[2019-03-08] MEDS: VERAPAMIL SR 240 MG TABLET.ER PO SCH (08:45)
[2019-03-08] MEDS: ALPRAZolam 0.5 MG TAB PO SCH ×4 (08:45→20:11)
[2019-03-08] MEDS: AZITHROMYCIN 500 MG TAB PO SCH (08:45)
[2019-03-08] MEDS: FAMOTIDINE 20 MG TAB PO SCH ×2 (08:45→20:11)
[2019-03-08] MEDS: GABAPENTIN 300 MG CAP PO SCH ×3 (08:45→20:11)
[2019-03-08] MEDS: AMIODARONE 200 MG TAB PO SCH ×2 (08:46→20:11)
[2019-03-08] MEDS: DULoxetine HCL 60 MG CAPSULE.DR PO SCH (08:46)
--- NOTE | 2019-03-08 09:16 | PN ---
PROGRESS NOTE This is a pulmonary critical care progress note. DATE OF SERVICE: March 08, 2019. This is a 49-year-old gentleman with history of severe COPD. He has stage IV disease. His FEV1 is 21% of predicted. He has chronic hypoxemic hypercapnic respiratory failure, unfortunately, ongoing tobacco use with nicotine addiction, atrial fibrillation, CVA, fibromyalgia, hyperlipidemia, hypertension, DJD, pneumonia, chronic low back pain, and memory impairment. The patient is being maximally managed. He is on all the appropriate medications. Please see the list of medications he is on for his COPD. He actually is doing much better. Currently remains on AIRVO. His FiO2 is relatively low and therefore we are going to trial him on some nasal prongs. He may need a Venturi mask and/or high-flow O2. Anyway, the patient is doing much better. He is much less short of breath. Still tightness chest. Still coughing and producing some phlegm. No wheezing. No fever or chills. PHYSICAL EXAMINATION: VITAL SIGNS: Current vital signs are reviewed. Temperature is 99. Heart rate 84. Respiratory rate 18, blood pressure 100/60, mean 73, and saturations are mid to high 90s on the AIRVO at 30 L/minute and 32% FiO2. GENERAL: Appears in no acute distress. No respiratory distress. No audible wheezing. No use of accessory muscles. No conversational dyspnea. HEENT examination is grossly unremarkable. Mucous membranes are moist. He has AIRVO cannula in place. NECK: Supple. Full range of motion. No adenopathy. Neck veins are flat. CARDIOVASCULAR examination reveals regular rhythm and rate. Heart rate 68 beats per minute. S1, S2 normal. No S3, S4, or murmur. LUNGS: Reveal severely diminished breath sounds throughout. A few scattered expiratory wheezes noted. No crackles. No rhonchi. There is prolongation. ABDOMEN: Soft. Bowel sounds are heard. EXTREMITIES are intact. No cyanosis, clubbing, or edema. SKIN: Without rash. NEUROLOGIC examination is brief but nonfocal. LAB DATA: Reviewed. Nothing new to report today. Microbiologic studies are thus far negative. No new chest x-ray to report. ASSESSMENT: 1. Shortness of breath, secondary to acute exacerbation of severe chronic obstructive pulmonary disease, complicated by purulent tracheobronchitis, without claudia pneumonia. 2. Severe stage IV chronic obstructive pulmonary disease, with an FEV1 that is 21% of predicted. 3. Chronic hypoxemic and hypercapnic respiratory failure. 4. Ongoing tobacco use with nicotine addiction. 5. History of atrial fibrillation. 6. History of cerebrovascular accident. 7. History of hypertension. 8. Hyperlipidemia by history. 9. History of fibromyalgia. 10.History of degenerative joint disease. 11.History of previous episode of pneumonia. 12.Chronic hypoxemic respiratory failure. 13.Chronic low back pain. 14.Memory impairment. PLAN: The patient is on appropriate medications. He is on short-acting beta agonist, short- acting muscarinic antagonist, long-acting beta agonist, inhaled corticosteroids, systemic corticosteroids, oral antibiotics and long-acting theophylline preparation. Additional recommendations and suggestions are forthcoming. Prognosis is guarded. We will continue to follow. We will see if we can not transition him from the AIRVO to nasal prongs and/or Venturi mask. JAGUAR / CRISTINO: [id number] /
[2019-03-08 12:10] LABS: Glucose,Whole Blood 142 mg/dL (75-99)
--- NOTE | 2019-03-08 12:31 | P.PN ---
Subjective Progress Note Date: 03/08/19 his is a 66-year-old gentleman who follows regularly with Dr. Dos Santos in the office he has a known history of COPD, pulmonary hypertension, chronic atrial fibrillation, EtOH abuse, patient states he drinks a pint of whiskey a day, underlying pulmonary fibrosis, hypertension, hyperlipidemia, history of nicotine dependence, presents to the hospital with symptoms of worsening shortness of breath. His most recent hospitalization, was in November of this year which time he was admitted with COPD exacerbation and pneumonia. He was noted on that admission to have abnormal troponin likely related to sepsis at that time. Patient also had significant redness in his bilateral lower extremities which was felt to be a rash versus cellulitis. According to the patient, for the last several months he's noticed himself to be much more short of breath, positive PND and orthopnea. He was initiated here on IV Lasix. VQ scan did not reveal any evidence of a pulmonary embolism. Lower extremity ultrasound revealed no evidence of a DVT. No evidence of gross fluid overload on the chest x-ray. I pressure 110/60 with a heart rate in the 60s, 96% on room air. White blood cell count 19.1 on admission, 10.4 this morning, hemoglobin 12.0, platelet count 232. D-dimer 1.48, sodium 136, potassium 4.2, BUN 52 and creatinine 2.1, on admission the patient's creatinine was noted to be 2.5. Plasma lactic acid up to 3.8. Magnesium on admission 1.3, 2.3 this morning. BNP level 11,000. Troponins 0.17, 0.11, 0.13, 0.09. Drug screen positive for urine opiates.here and opiates. EKG on admission here showed atrial fibrillation with a controlled ventricular response. 03/07/2019 Patient overall doing much better today, yesterday there is an 18 called because of severe difficulty in breathing. Today overall his breathing is stable. Continues to be in atrial fibrillation, heart rate in the 110 region. He is on amiodarone through the IV, we will change him to oral amiodarone and add verapamil to his medication list. 03/08: Heart rate is better controlled today. He states his breathing is impr robbie today as well. He is in a sinus rhythm converted yesterday evening. He is on a heparin drip and will be transitioned to eliquis 5 mg twice daily. Prescription will be sent to his pharmacy to check coverage and case hardener updated. Physical exam: Gen: This is a 49-year-old thin male. He is sitting up in bed and appears to be comfortable and in no acute distress. HEENT: Head is atraumatic, normocephalic. Pupils equal, round. Sclerae is anicteric. NECK: Supple. No JVD. No lymphadenopathy. No thyromegaly. LUNGS: Diminished bilaterally with a few expiratory wheezes, prolonged expiratory phase. No intercostal retractions. HEART: Regular rate and rhythm. No murmur. ABDOMEN: Soft. Bowel sounds are present. No masses. No tenderness. EXTREMITIES: No pedal edema. No calf tenderness. NEUROLOGICAL: Patient is awake, alert and oriented x3. Cranial nerves 2 through 12 are grossly intact. Assessment: Acute on chronic hypercapnic respiratory failure secondary to acute exacerbation of COPD with acute tracheobronchitis Stage IV COPD Former smoker, quit 1 month ago with 42 year 2-3 pack a day history Chronic back pain Hypertension Hyperlipidemia History of CVA/TIA Peroxisomal atrial fibrillation, converted to sinus rhythm Plan: Discontinue heparin drip and initiate eliquis 5 mg twice daily Prescription for eliquis sent to pharmacy to check coverage Continue amiodarone 200 mg twice daily, verapamil 240 mg daily Further recommendations to follow based upon clinical course. Nurse practitioner has been reviewed, I agree with the documented findings and plan of care. Patient was seen and examined. Objective - Vital Signs Vital signs: Vital Signs Temp 99 F 03/08/19 03:15 Pulse 92 03/08/19 11:25 Resp 18 03/08/19 03:15 BP 100/60 03/08/19 03:15 Pulse Ox 97 03/08/19 11:16 Intake & Output 03/07/19 03/08/19 03/08/19 18:59 06:59 18:59 Intake Total 1072.024 360 Balance 1072.024 360 Weight 55.5 kg Intake: Intake, IV Titration 112.024 Amount Heparin Sod,Pork in 0.45% 112.024 NaCl 25,000 unit In 0.45 % NaCl 1 250ml.bag @ 12 UNITS/KG/HR 6.532 mls/hr IV .Q24H [facility] Rx#: [id number] Oral 960 360 Other: Voiding Method Urinal Urinal # Voids 1 - Labs CBC & Chem 7: 03/07/19 05:27 03/07/19 05:27 Labs: Abnormal Lab Results - Last 24 Hours (Table) 03/07/19 03/07/19 03/07/19 Range/Units 15:43 17:28 20:22 APTT 59.8 H (22.0-30.0) sec POC Glucose (mg/dL) 142 H 116 H (75-99) mg/dL 03/08/19 03/08/19 03/08/19 Range/Units 06:06 06:13 12:08 APTT 48.2 H (22.0-30.0) sec POC Glucose (mg/dL) 116 H 142 H (75-99) mg/dL Microbiology - Last 24 Hours (Table) 03/05/19 16:18 Blood Culture - Preliminary Blood No Growth after 48 hours
[2019-03-08] MEDS: APIXABAN 5 MG TAB PO SCH ×2 (13:03→20:11)
[2019-03-08 17:08] LABS: Glucose,Whole Blood 118 mg/dL (75-99)
[2019-03-08] MEDS: THEOPHYLLINE 24 HOUR 400 MG CAP.ER.24H PO SCH (19:58)
[2019-03-08 20:00] LABS: Glucose,Whole Blood 131 mg/dL (75-99)
--- NOTE | 2019-03-09 02:13 | P.PN ---
Subjective Progress Note Date: 03/07/19 Principal diagnosis: Acute severe COPD exacerbation New onset atrial fibrillation with RVR Patient is a 49-year-old male with a known history of severe COPD on home oxygen and steroid dependent, fibromyalgia, hypertension, hyperlipidemia, history of CVA/TIA and chronic low back pain came to ER with complaints of worsening shortness of breath and exertional dyspnea. Patient has been having worsening symptoms since yesterday. Patient follows with Dr. Stephens as outpatient. P [facility] physician is Dr. Laurent. Otherwise patient denied any complaints of chest pain. Patient does complain of cough with yellowish sputum production. No leg swelling. Denied any palpitations. No recent illnesses otherwise. Patient was found to have atrial fibrillation with rapid ventricular rate in the ER. No history of atrial fibrillation in the past. No fever no chills. Patient is currently on BiPAP machine and could not provide much history. Chest x-ray showed no acute cardiopulmonary process. EKG showed atrial fibrillation with rapid ventricular rate. Bicarb level 46 03/06/2019 Patient remains in acute respiratory distress. Currently saturating well on Avapro with 31% FiO2. Otherwise patient is anxious and is getting Xanax doses. Heart rate is still elevated in 160s and is in atrial fibrillation. Cardizem drip is being continued and loading dose was given. Patient was also started on amiodarone drip Patient is being continued on IV steroids, DuoNeb's and inhaled steroids. Pulmonary and cardiology is following. CODE STATUS was discussed with the patient and his in detail. Patient is non-decision at this time and will update us after discussed with his . At the same time patient expressed his concern that he does not want to be in a vegetative state. Patient does have chest tightness. No fever no chills. No nausea vomiting or diarrhea no abdominal pain. 03/07/2019 Patient's breathing status is better today. Currently saturating well on Avap ro., Titrating down to nasal cannula oxygen. Otherwise heart rate is still elevated. Currently being continued on Cardizem and is planning to start on verapamil and amiodarone as per cardiology. Otherwise patient is being continued on IV steroids, and DuoNeb's and inhaled steroids. Pulmonary and cardiology is on board. No fever no chills. No nausea vomiting or abdominal pain or diarrhea. No chest pain. No other acute overnight issues. Current medications reviewed. Objective - Vital Signs Vital signs: Vital Signs Temp 98.4 F 03/07/19 19:10 Pulse 92 03/07/19 20:04 Resp 18 03/07/19 19:15 BP 107/67 03/07/19 19:10 Pulse Ox 97 03/07/19 19:10 Intake & Output 03/07/19 03/07/19 03/08/19 06:59 18:59 06:59 Intake Total 140.419 3266.024 Output Total 525 Balance -676.132 2659.024 Weight 55.5 kg 55.5 kg Intake: Intake, IV Titration 233.127 112.024 Amount Amiodarone 300 mg In 202.917 Dextrose 5% in Water 250 ml @ 0.5 MG/MIN 25 mls/hr IV .Q10H [facility] Rx#: [id number] Heparin Sod,Pork in 0.45% 30.21 112.024 NaCl 25,000 unit In 0.45 % NaCl 1 250ml.bag @ 12 UNITS/KG/HR 6.532 mls/hr IV .Q24H [facility] Rx#: [id number] Oral 960 Output: Urine 525 Other: Voiding Method Urinal Urinal Urinal # Voids 1 - Exam PHYSICAL EXAMINATION: Patient is lying in the bed comfortably, mild to moderate respiratory distress, awake alert and oriented.. HEENT: Normocephalic. Neck is supple. Pupils reactive. Nostrils clear. Oral cavity is moist. Ears reveal no drainage. Neck reveals no JVD, carotid bruits, or thyromegaly. CHEST EXAMINATION: Trachea is central. Symmetrical expansion. Bilateral diminished air entry, no rhonchi rhonchi. Patient does have expiratory wheeze. CARDIAC: Normal S1, S2 with no gallops. No murmurs . Irregular rhythm ABDOMEN: Soft. Bowel sounds normal. No organomegaly. No abdominal bruits. Extremities: reveal no edema. No clubbing or cyanosis Neurologically awake, alert, oriented x3 with well-coordinated movements. No focal deficits noted Skin: No rash or skin lesions. Psychiatric: Coperative. Nonsuicidal. Anxious Musculoskeletal: No joint swelling or deformity. Normal range of motion. - Labs CBC & Chem 7: 03/07/19 05:27 03/07/19 05:27 Labs: Abnormal Lab Results - Last 24 Hours (Table) 03/06/19 03/07/19 03/07/19 Range/Units 23:25 05:27 05:27 RBC 4.03 L (4.30-5.90) m/uL Hgb 12.5 L (13.0-17.5) gm/dL Lymphocytes # 0.4 L (1.0-4.8) k/uL APTT 53.0 H (22.0-30.0) sec Chloride 89 L (98-107) mmol/L Carbon Dioxide 44 H* (22-30) mmol/L Glucose 177 H (74-99) mg/dL POC Glucose (mg/dL) (75-99) mg/dL 03/07/19 03/07/19 03/07/19 Range/Units 05:59 11:50 15:43 RBC (4.30-5.90) m/uL Hgb (13.0-17.5) gm/dL Lymphocytes # (1.0-4.8) k/uL APTT 59.8 H (22.0-30.0) sec Chloride (98-107) mmol/L Carbon Dioxide (22-30) mmol/L Glucose (74-99) mg/dL POC Glucose (mg/dL) 165 H 115 H (75-99) mg/dL 03/07/19 03/07/19 Range/Units 17:28 20:22 RBC (4.30-5.90) m/uL Hgb (13.0-17.5) gm/dL Lymphocytes # (1.0-4.8) k/uL APTT (22.0-30.0) sec Chloride (98-107) mmol/L Carbon Dioxide (22-30) mmol/L Glucose (74-99) mg/dL POC Glucose (mg/dL) 142 H 116 H (75-99) mg/dL Microbiology - Last 24 Hours (Table) 03/05/19 16:18 Blood Culture - Preliminary Blood No Growth after 48 hours Assessment and Plan Assessment: Acute hypoxic and hypercapnic respiratory failure secondary to COPD Acute exacerbation of severe COPD. Home oxygen 3 L nasal cannula and prednisone dependent. Atrial fibrillation with a rapid ventricular rate. Rate not controlled. New onset atrial fibrillation Hypertension Hyperlipidemia Osteoarthritis History of CVA/TIA Chronic low back pain and degenerative joint disease Memory impairment Anxiety Cigarette smoking. Currently cutting down to 4 cigarettes per day. DVT prophylaxis patient is already on heparin drip Plan: Patient will be continued on the Avapro. Off BiPAP and gradually titrate down to nasal cannula oxygen. Pulmonary and cardiology is following. Continue with IV steroids, DuoNeb's and pulmicort/Performist. Antibiotics in the form of azithromycin. Patient will be continued on Cardizem drip and heparin IV. Continue the home medications and follow closely. Cardiology and pulmonary was consulted. Further recommendations based on the clinical course. Prognosis is guarded. Time with Patient: Greater than 30
--- NOTE | 2019-03-09 02:17 | P.PN ---
Subjective Progress Note Date: 03/08/19 Principal diagnosis: Acute severe COPD exacerbation New onset atrial fibrillation with RVR Patient is a 49-year-old male with a known history of severe COPD on home oxygen and steroid dependent, fibromyalgia, hypertension, hyperlipidemia, history of CVA/TIA and chronic low back pain came to ER with complaints of worsening shortness of breath and exertional dyspnea. Patient has been having worsening symptoms since yesterday. Patient follows with Dr. Stephens as outpatient. P [facility] physician is Dr. Laurent. Otherwise patient denied any complaints of chest pain. Patient does complain of cough with yellowish sputum production. No leg swelling. Denied any palpitations. No recent illnesses otherwise. Patient was found to have atrial fibrillation with rapid ventricular rate in the ER. No history of atrial fibrillation in the past. No fever no chills. Patient is currently on BiPAP machine and could not provide much history. Chest x-ray showed no acute cardiopulmonary process. EKG showed atrial fibrillation with rapid ventricular rate. Bicarb level 46 03/06/2019 Patient remains in acute respiratory distress. Currently saturating well on Avapro with 31% FiO2. Otherwise patient is anxious and is getting Xanax doses. Heart rate is still elevated in 160s and is in atrial fibrillation. Cardizem drip is being continued and loading dose was given. Patient was also started on amiodarone drip Patient is being continued on IV steroids, DuoNeb's and inhaled steroids. Pulmonary and cardiology is following. CODE STATUS was discussed with the patient and his in detail. Patient is non-decision at this time and will update us after discussed with his . At the same time patient expressed his concern that he does not want to be in a vegetative state. Patient does have chest tightness. No fever no chills. No nausea vomiting or diarrhea no abdominal pain. 03/07/2019 Patient's breathing status is better today. Currently saturating well on Avap ro., Titrating down to nasal cannula oxygen. Otherwise heart rate is still elevated. Currently being continued on Cardizem and is planning to start on verapamil and amiodarone as per cardiology. Otherwise patient is being continued on IV steroids, and DuoNeb's and inhaled steroids. Pulmonary and cardiology is on board. No fever no chills. No nausea vomiting or abdominal pain or diarrhea. No chest pain. No other acute overnight issues. 03/08/2019 Patient is currently sitting on the bed comfortably. Saturating well on nasal cannula oxygen. Heart rate is better controlled. Patient was started on anticoagulation in the form of liquids. Currently on oral amiodarone and verapamil. Cardiology and pulmonary is following. Being continued on IV steroids, DuoNeb's and inhaled steroids. No chest pain. No worsening shortness of breath. No headache or dizziness or lightheadedness. No fever no chills. No cough or sputum production. Anticipate discharge in next 24-48 hours more clinical improvement Current medications reviewed. Objective - Vital Signs Vital signs: Vital Signs Temp 98.8 F 03/08/19 16:00 Pulse 108 H 03/08/19 16:00 Resp 22 03/08/19 16:00 BP 127/75 03/08/19 16:00 Pulse Ox 92 L 03/08/19 16:00 Intake & Output 03/08/19 03/08/19 03/09/19 06:59 18:59 06:59 Intake Total 1440 Output Total 250 Balance 1190 Intake: Oral 1440 Output: Urine 250 Other: Voiding Method Urinal Urinal # Voids 1 - Exam PHYSICAL EXAMINATION: Patient is lying in the bed comfortably, mild to moderate respiratory distress, awake alert and oriented.. HEENT: Normocephalic. Neck is supple. Pupils reactive. Nostrils clear. Oral cavity is moist. Ears reveal no drainage. Neck reveals no JVD, carotid bruits, or thyromegaly. CHEST EXAMINATION: Trachea is central. Symmetrical expansion. Bilateral slowing air entry. No rhonchi. Patient does have expiratory wheeze. CARDIAC: Normal S1, S2 with no gallops. No murmurs . Irregular rhythm ABDOMEN: Soft. Bowel sounds normal. No organomegaly. No abdominal bruits. Extremities: reveal no edema. No clubbing or cyanosis Neurologically awake, alert, oriented x3 with well-coordinated movements. No focal deficits noted Skin: No rash or skin lesions. Psychiatric: Coperative. Nonsuicidal. Anxious Musculoskeletal: No joint swelling or deformity. Normal range of motion. - Labs CBC & Chem 7: 03/07/19 05:27 03/07/19 05:27 Labs: Abnormal Lab Results - Last 24 Hours (Table) 03/07/19 03/08/19 03/08/19 Range/Units 20:22 06:06 06:13 APTT 48.2 H (22.0-30.0) sec POC Glucose (mg/dL) 116 H 116 H (75-99) mg/dL 03/08/19 03/08/19 Range/Units 12:08 17:06 APTT (22.0-30.0) sec POC Glucose (mg/dL) 142 H 118 H (75-99) mg/dL Microbiology - Last 24 Hours (Table) 03/05/19 16:18 Blood Culture - Preliminary Blood No Growth after 48 hours Assessment and Plan Assessment: Acute hypoxic and hypercapnic respiratory failure secondary to COPD Acute exacerbation of severe COPD. Home oxygen 3 L nasal cannula and prednisone dependent. Atrial fibrillation with a rapid ventricular rate. Rate not controlled. New onset atrial fibrillation Hypertension Hyperlipidemia Osteoarthritis History of CVA/TIA Chronic low back pain and degenerative joint disease Memory impairment Anxiety Cigarette smoking. Currently cutting down to 4 cigarettes per day. DVT prophylaxis patient is already on heparin drip Plan: Off BiPAP and gradually titrated down from Avapro to nasal cannula oxygen. Pulmonary and cardiology is following. Continue with IV steroids, DuoNeb's and pulmicort/Performist. Antibiotics in the form of azithromycin. Continue Cardizem drip. Currently on amiodarone and verapamil. Anticoagulation, Eliquis. Prescription sent to pharmacy. Continue the home medications and follow closely. Further recommendations based on the clinical course. Prognosis is guarded. Time with Patient: Greater than 30
[2019-03-09] MEDS: methylPREDNISolone SOD SUCCI 125 MG/2 ML VIAL IV SCH ×4 (06:05→23:21)
[2019-03-09 06:06] LABS: Glucose,Whole Blood 123 mg/dL (75-99)
[2019-03-09] MEDS: HYDROcodone/APAP 10-325MG 1 EACH TAB PO PRN ×3 (06:06→19:27)
[2019-03-09] MEDS: IPRATROPIUM-ALBUTEROL 3 ML NEB INHALATION SCH ×4 (07:31→19:40)
[2019-03-09] MEDS: BUDESONIDE 1 MG/2 ML NEBU INHALATION SCH ×2 (07:31→19:40)
[2019-03-09] MEDS: FORMOTEROL FUMARATE 20 MCG/2 ML NEBU INHALATION SCH ×2 (07:47→19:40)
[2019-03-09] MEDS: VERAPAMIL SR 240 MG TABLET.ER PO SCH (09:12)
[2019-03-09] MEDS: APIXABAN 5 MG TAB PO SCH ×2 (09:12→20:02)
[2019-03-09] MEDS: AMIODARONE 200 MG TAB PO SCH ×2 (09:13→20:02)
[2019-03-09] MEDS: GABAPENTIN 300 MG CAP PO SCH ×3 (09:13→20:01)
[2019-03-09] MEDS: ALPRAZolam 0.5 MG TAB PO SCH ×4 (09:13→20:02)
[2019-03-09] MEDS: FAMOTIDINE 20 MG TAB PO SCH ×2 (09:13→20:02)
[2019-03-09] MEDS: AZITHROMYCIN 500 MG TAB PO SCH (09:13)
[2019-03-09] MEDS: DULoxetine HCL 60 MG CAPSULE.DR PO SCH (09:13)
[2019-03-09] MEDS: INSULIN ASPART (NovoLOG) 100 UNIT/ML VIAL SQ SCH ×4 (09:14→20:02)
[2019-03-09 11:58] LABS: Glucose,Whole Blood 167 mg/dL (75-99)
--- NOTE | 2019-03-09 12:38 | PN ---
PROGRESS NOTE This is a 49-year-old gentleman with history of stage IV COPD. His FEV1 is 21% of predicted. He was admitted back on March 05. He has chronic hypoxemic and hypercapnic respiratory failure. Currently doing much better. He has been weaned down to nasal O2 at 3 L which is his normal home dose. In addition, he has a history of ongoing tobacco use with nicotine addiction, atrial fibrillation, CVA, fibromyalgia, hyperlipidemia, hypertension, DJD, pneumonia, chronic low back pain and memory impairment. The patient was weaned off the BiPAP to AIRVO, from AIRVO to nasal O2. Again, he is back to his 3 L. He is feeling much better. Not quite ready for discharge. I suspect in the next 24-48 hours, he can be discharged. He typically sees Dr. Lane in our office. PHYSICAL EXAMINATION: VITAL SIGNS: Current vital signs are reviewed. Temperature is 98, heart rate 62, respiratory rate 18, blood pressure 104/63 mean 76 and 3 L saturations about 95-97 percent. GENERAL: Appears no acute distress. HEENT examination is grossly unremarkable. Nasal O2 noted. Mucous membranes are moist. NECK: Supple. Full range of motion. No adenopathy or thyromegaly. Neck veins are flat. CARDIOVASCULAR examination reveals regular rhythm and rate. Heart rate about 80 beats per minute. S1, S2 normal. No murmur. Heart sounds are distant. LUNGS: Reveal severely diminished breath sounds throughout. A few scattered rhonchi. Slight prolongation on forced maneuver. No wheezes or crackles. ABDOMEN: Soft. Bowel sounds are heard. EXTREMITIES are intact. No cyanosis, clubbing, or edema. SKIN: Without rash. NEUROLOGIC examination is brief but nonfocal. LABS: Reviewed. Nothing back for the last couple of days. Microbiology is thus far negative. No recent chest x-ray. ASSESSMENT: 1. Shortness of breath, secondary to acute exacerbation of severe COPD, complicated by purulent tracheobronchitis, without claudia pneumonia. 2. Severe/stage 4 chronic obstructive pulmonary disease, with an FEV1 that is 21% of predicted. 3. Chronic hypoxemic and hypercapnic respiratory failure. 4. Ongoing tobacco use with nicotine addiction, despite counseling. 5. History of atrial fibrillation, chronic. 6. History of cerebrovascular accident. 7. History of hypertension. 8. Hyperlipidemia. 9. History of fibromyalgia. 10.Degenerative joint disease. 11.Previous episode of pneumonia. 12.Chronic hypoxemic respiratory failure. 13.Chronic low back pain. 14.Memory impairment. PLAN: The patient is doing much better. He seems to have improved dramatically over the last 24-48 hours. He is on all appropriate medications including long-acting theophylline preparation. The patient may be discharged home hopefully in next day or so. We will continue to follow. Prognosis is guarded. MMODL / JOYCEN: [id number] /
--- NOTE | 2019-03-09 12:38 | P.PN ---
Subjective Progress Note Date: 03/08/19 This is a 49-year-old gentleman with history of severe COPD, was admitted to the hospital with exacerbation of COPD. Patient was found to be atrial fibrillation with rapid ventricular response. He was put on amiodarone. Patient's heart rate is controlled. He is feeling much better. Denies any chest pain. From Cardec standpoint we'll continue his current medical therapy. We'll quickly tapered on amiodarone to 200 mg daily Objective - Vital Signs Vital signs: Vital Signs Temp 98 F 03/09/19 03:00 Pulse 84 03/09/19 11:34 Resp 18 03/09/19 03:00 BP 104/63 03/09/19 03:00 Pulse Ox 98 03/09/19 03:00 Intake & Output 03/08/19 03/09/19 03/09/19 18:59 06:59 18:59 Intake Total 1440 720 Output Total 250 Balance 1190 720 Intake: Oral 1440 720 Output: Urine 250 Other: Voiding Method Urinal Urinal # Voids 1 1 - Exam GENERAL EXAM: Patient is alert and oriented and appears much more comfortable HEENT: Normocephalic. Normal reaction of pupils, equal size, normal range of extraocular motion. No erythema or exudates in the throat. NECK: No masses, no nuchal rigidity. CHEST: No chest wall deformity. LUNGS: Improved aeration and less wheezing HEART: S1 and S2 normal. Irregular heart sounds ABDOMEN: No hepatosplenomegaly, normal bowel sounds, no guarding or rigidity. SKIN: No rashes CENTRAL NERVOUS SYSTEM: No focal deficits. EXTREMITIES: No cyanosis, clubbing or edema. - Labs CBC & Chem 7: 03/07/19 05:27 03/07/19 05:27 Labs: Abnormal Lab Results - Last 24 Hours (Table) 03/08/19 03/08/19 03/09/19 Range/Units 17:06 19:59 06:05 POC Glucose (mg/dL) 118 H 131 H 123 H (75-99) mg/dL 03/09/19 Range/Units 11:57 POC Glucose (mg/dL) 167 H (75-99) mg/dL Microbiology - Last 24 Hours (Table) 03/05/19 16:18 Blood Culture - Preliminary Blood No Growth after 72 hours Assessment and Plan (1) Acute respiratory failure Current Visit: Yes Status: Acute Code(s): J96.00 - ACUTE RESPIRATORY FAILURE, UNSP W HYPOXIA OR HYPERCAPNIA SNOMED Code(s): 78421630 (2) Atrial fibrillation with RVR Current Visit: Yes Status: Acute Code(s): I48.91 - UNSPECIFIED ATRIAL FIBRIL LATION SNOMED Code(s): 620863703611206 (3) COPD exacerbation Current Visit: Yes Status: Acute Code(s): J44.1 - CHRONIC OBSTRUCTIVE PULMONARY DISEASE W (ACUTE) EXACERBATION SNOMED Code(s): 067099827 Plan: Continue current medical therapy. We'll quickly tapered down amiodarone to 200 mg daily
[2019-03-09 17:15] LABS: Glucose,Whole Blood 148 mg/dL (75-99)
[2019-03-09 19:58] LABS: Glucose,Whole Blood 176 mg/dL (75-99)
[2019-03-09] MEDS: THEOPHYLLINE 24 HOUR 400 MG CAP.ER.24H PO SCH (20:02)
--- NOTE | 2019-03-10 02:59 | P.PN ---
Subjective Progress Note Date: 03/09/19 Principal diagnosis: Acute severe COPD exacerbation New onset atrial fibrillation with RVR Patient is a 49-year-old male with a known history of severe COPD on home oxygen and steroid dependent, fibromyalgia, hypertension, hyperlipidemia, history of CVA/TIA and chronic low back pain came to ER with complaints of worsening shortness of breath and exertional dyspnea. Patient has been having worsening symptoms since yesterday. Patient follows with Dr. Stephens as outpatient. P [facility] physician is Dr. Laurent. Otherwise patient denied any complaints of chest pain. Patient does complain of cough with yellowish sputum production. No leg swelling. Denied any palpitations. No recent illnesses otherwise. Patient was found to have atrial fibrillation with rapid ventricular rate in the ER. No history of atrial fibrillation in the past. No fever no chills. Patient is currently on BiPAP machine and could not provide much history. Chest x-ray showed no acute cardiopulmonary process. EKG showed atrial fibrillation with rapid ventricular rate. Bicarb level 46 03/06/2019 Patient remains in acute respiratory distress. Currently saturating well on Avapro with 31% FiO2. Otherwise patient is anxious and is getting Xanax doses. Heart rate is still elevated in 160s and is in atrial fibrillation. Cardizem drip is being continued and loading dose was given. Patient was also started on amiodarone drip Patient is being continued on IV steroids, DuoNeb's and inhaled steroids. Pulmonary and cardiology is following. CODE STATUS was discussed with the patient and his in detail. Patient is non-decision at this time and will update us after discussed with his . At the same time patient expressed his concern that he does not want to be in a vegetative state. Patient does have chest tightness. No fever no chills. No nausea vomiting or diarrhea no abdominal pain. 03/07/2019 Patient's breathing status is better today. Currently saturating well on Avap ro., Titrating down to nasal cannula oxygen. Otherwise heart rate is still elevated. Currently being continued on Cardizem and is planning to start on verapamil and amiodarone as per cardiology. Otherwise patient is being continued on IV steroids, and DuoNeb's and inhaled steroids. Pulmonary and cardiology is on board. No fever no chills. No nausea vomiting or abdominal pain or diarrhea. No chest pain. No other acute overnight issues. 03/08/2019 Patient is currently sitting on the bed comfortably. Saturating well on nasal cannula oxygen. Heart rate is better controlled. Patient was started on anticoagulation in the form of liquids. Currently on oral amiodarone and verapamil. Cardiology and pulmonary is following. Being continued on IV steroids, DuoNeb's and inhaled steroids. No chest pain. No worsening shortness of breath. No headache or dizziness or lightheadedness. No fever no chills. No cough or sputum production. Anticipate discharge in next 24-48 hours more clinical improvement. 03/09/2019 Patient is currently lying in the bed comfortably. Saturating well on nasal cannula. Heart rate is better controlled. Continued on amiodarone and verapamil. Cardiology and pulmonary is following. Anticipate discharged tomorrow with more clinical improvement. Current medications reviewed. Objective - Vital Signs Vital signs: Vital Signs Temp 98.3 F 03/09/19 16:00 Pulse 86 03/09/19 16:00 Resp 20 03/09/19 16:00 BP 111/64 03/09/19 16:00 Pulse Ox 93 L 03/09/19 16:00 Intake & Output 03/08/19 03/09/19 03/09/19 18:59 06:59 18:59 Intake Total 1440 1440 Output Total 250 Balance 1190 1440 Intake: Oral 1440 1440 Output: Urine 250 Other: Voiding Method Urinal Urinal Urinal # Voids 1 1 - Exam PHYSICAL EXAMINATION: Patient is lying in the bed comfortably, mild to moderate respiratory distress, awake alert and oriented.. HEENT: Normocephalic. Neck is supple. Pupils reactive. Nostrils clear. Oral cavity is moist. Ears reveal no drainage. Neck reveals no JVD, carotid bruits, or thyromegaly. CHEST EXAMINATION: Trachea is central. Symmetrical expansion. Bilateral slowing air entry. No rhonchi. Patient does have expiratory wheeze. CARDIAC: Normal S1, S2 with no gallops. No murmurs . Irregular rhythm ABDOMEN: Soft. Bowel sounds normal. No organomegaly. No abdominal bruits. Extremities: reveal no edema. No clubbing or cyanosis Neurologically awake, alert, oriented x3 with well-coordinated movements. No focal deficits noted Skin: No rash or skin lesions. Psychiatric: Coperative. Nonsuicidal. Anxious Musculoskeletal: No joint swelling or deformity. Normal range of motion. - Labs CBC & Chem 7: 03/07/19 05:27 03/07/19 05:27 Labs: Abnormal Lab Results - Last 24 Hours (Table) 03/08/19 03/09/19 03/09/19 Range/Units 19:59 06:05 11:57 POC Glucose (mg/dL) 131 H 123 H 167 H (75-99) mg/dL 03/09/19 Range/Units 17:05 POC Glucose (mg/dL) 148 H (75-99) mg/dL Microbiology - Last 24 Hours (Table) 03/05/19 16:18 Blood Culture - Preliminary Blood No Growth after 72 hours Assessment and Plan Assessment: Acute hypoxic and hypercapnic respiratory failure secondary to COPD Acute exacerbation of severe COPD. Home oxygen 3 L nasal cannula and prednisone dependent. Atrial fibrillation with a rapid ventricular rate. Rate not controlled. New onset atrial fibrillation Hypertension Hyperlipidemia Osteoarthritis History of CVA/TIA Chronic low back pain and degenerative joint disease Memory impairment Anxiety Cigarette smoking. Currently cutting down to 4 cigarettes per day. DVT prophylaxis patient is already on heparin drip Plan: Off BiPAP and gradually titrated down from Avapro to nasal cannula oxygen. Pulmonary and cardiology is following. Continue with IV steroids, DuoNeb's and pulmicort/Performist. Antibiotics in the form of azithromycin. Continue Cardizem drip. Currently on amiodarone and verapamil. Anticoagulation, Eliquis. Prescription sent to pharmacy. Continue the home medications and follow closely. Further recommendations based on the clinical course. Prognosis is guarded. Time with Patient: Greater than 30
[2019-03-10 03:10] VITALS: RESP 16
[2019-03-10 06:25] LABS: Glucose,Whole Blood 117 mg/dL (75-99)
[2019-03-10] MEDS: HYDROcodone/APAP 10-325MG 1 EACH TAB PO PRN (06:27)
[2019-03-10] MEDS: methylPREDNISolone SOD SUCCI 125 MG/2 ML VIAL IV SCH (06:27)
[2019-03-10] MEDS: INSULIN ASPART (NovoLOG) 100 UNIT/ML VIAL SQ SCH ×2 (06:29→12:41)
[2019-03-10] MEDS: FORMOTEROL FUMARATE 20 MCG/2 ML NEBU INHALATION SCH (08:24)
[2019-03-10] MEDS: IPRATROPIUM-ALBUTEROL 3 ML NEB INHALATION SCH ×2 (08:24→11:11)
[2019-03-10] MEDS: BUDESONIDE 1 MG/2 ML NEBU INHALATION SCH (08:25)
[2019-03-10] MEDS: VERAPAMIL SR 240 MG TABLET.ER PO SCH (09:07)
[2019-03-10] MEDS: AZITHROMYCIN 500 MG TAB PO SCH (09:07)
[2019-03-10] MEDS: AMIODARONE 200 MG TAB PO SCH (09:07)
[2019-03-10] MEDS: APIXABAN 5 MG TAB PO SCH (09:07)
[2019-03-10] MEDS: ALPRAZolam 0.5 MG TAB PO SCH ×2 (09:07→12:40)
[2019-03-10] MEDS: GABAPENTIN 300 MG CAP PO SCH (09:07)
[2019-03-10] MEDS: DULoxetine HCL 60 MG CAPSULE.DR PO SCH (09:07)
[2019-03-10] MEDS: FAMOTIDINE 20 MG TAB PO SCH (09:07)
[2019-03-10 11:25] VITALS: TEMP 98
[2019-03-10] MEDS ORDERED: predniSONE 50 MG TAB PO SCH (11:30)
[2019-03-10 12:03] LABS: Basophils % (A) 0 %; Eosinophils % (A) 0 %; Hypochromasia Slight; Lymphocytes # (A) 0.2 k/uL (1.0-4.8); Lymphocytes % (A) 2 %; MCHC 31.8 g/dL (31.0-37.0); MCV 97.6 fL (80.0-100.0); Mean Platelet Volume 7.3; Monocytes # (A) 0.6 k/uL (0-1.0); Monocytes % (A) 6 %; Neutrophils # (A) 9.3 k/uL (1.3-7.7); Neutrophils % (A) 91 %; Platelet Count 209 k/uL (150-450); RBC 4.21 m/uL (4.30-5.90); RDW 15.1 % (11.5-15.5); WBC 10.2 k/uL (3.8-10.6)
[2019-03-10 12:09] LABS: African American GFR (CKD) >90 (>60 ml/min/1.73 sqM); Blood Urea Nitrogen 25 mg/dL (9-20); Chloride 86 mmol/L (98-107); Glucose 145 mg/dL (74-99); Sodium 137 mmol/L (137-145)
[2019-03-10 12:16] LABS: Anion Gap 7 mmol/L
[2019-03-10 12:18] LABS: Carbon Dioxide 44 mmol/L (22-30)
[2019-03-10 12:29] LABS: Glucose,Whole Blood 196 mg/dL (75-99)
[2019-03-10 15:04] VITALS: BP 112/63; PULSE 89
--- NOTE | 2019-03-10 16:44 | P.PN ---
Subjective Progress Note Date: 03/10/19 Principal diagnosis: Acute exacerbation of severe chronic obstructive pulmonary disease complicated by purulent tracheobronchitis On 03/07/2019 patient seen in follow-up on selective care unit, he is currently on Airvo at 35 L or FiO2 of 32% with a pulse ox of 96-98%, he states he is breathing easier today, although still dyspnea, and there is actually improved air entry auscultated on physical exam, patient is afebrile,. Vital signs are stable, he is awake and alert, following commands and responding appropriately. Today's labs have been reviewed, showing white blood cell count of 8.3, hemoglobin of 12.5, sodium of 138, potassium is 4.4, chloride is 89, CO2 is 44, B1 of 19 and creatinine 0.72. Echocardiogram results have been reviewed showing moderately impaired left ventricle systolic function with an EF of 40-45% mild mitral regurgitation and [id number] tricuspid regurgitation and moderate to severe pulmonary hypertension with PA systolic of 57 mmHg. Yesterday we started the patient on theophylline, he continues on Zithromax, Pulmicort, firm on arrival, and DuoNeb breathing treatments, in addition to IV steroids. We started the process for trilogy ventilator arrangement after the patient's discharge home. As the patient had previously been unable to wear the BiPAP related to extreme anxiety and inability to wear fullface mask. Yesterday narda hanks was unable to wear the BiPAP, and was managed with Airvo. On 03/10/2019 patient seen in follow-up on selective care unit, FiO2 is down to 3 L per nasal cannula, and his pulse ox is 96%, afebrile, hemodynamically stable, his breathing has significantly improved, no compressive chest pain, no fever, chills, no cough, or sputum production. Patient's rate is controlled, he is on oral amiodarone and verapamil. Vital signs have been stable, no acute events overnight. No compressive chest pain, blood cultures have shown no growth, today's labs have been reviewed, white blood cell count is 10.2, hemoglobin is 13.0, CO2 sodium is 137, potassium is 4.0, chloride is 86, CO2 24, B1 is 25 and creatinine 0.67, patient has been approved for Trilogy ventilator. Importance of smoking cessation was again addressed. Patient is tolerating ambulation. Stable for discharge home from pulmonary perspective Objective - Vital Signs Vital signs: Vital Signs Temp 98.0 F 03/10/19 08:00 Pulse 89 03/10/19 12:00 Resp 16 03/10/19 03:09 BP 112/63 03/10/19 12:00 Pulse Ox 96 03/10/19 12:00 Intake & Output 03/09/19 03/10/19 03/10/19 18:59 06:59 18:59 Intake Total 0 942 Balance 2059 942 Intake: Oral 2059 942 Other: Voiding Method Urinal Toilet Urinal # Voids 1 2 - Exam GENERAL EXAM: Alert, pleasant, 49-year-old white male, on 3 comfortable in no apparent distress. HEAD: Normocephalic/atraumatic. EYES: Normal reaction of pupils, equal size. Conjunctiva pink, sclera white. NOSE: Clear with pink turbinates. THROAT: No erythema or exudates. NECK: No masses, no JVD, no thyroid enlargement, no adenopathy. CHEST: No chest wall deformity. Symmetrical expansion. Diminished breath sounds bilaterally, but improved air entry noted on today's exam. No crackles, wheeze, rhonchi or dullness. CVS: Regular rate and rhythm, normal S1 and S2, no gallops, no murmurs, no rubs ABDOMEN: Soft, nontender. No hepatosplenomegaly, normal bowel sounds, no guarding or rigidity. EXTREMITIES: No clubbing, no edema, no cyanosis, 2+ pulses and upper and lower extremities. MUSCULOSKELETAL: Muscle strength and tone normal. SPINE: No scoliosis or deformity SKIN: No rashes CENTRAL NERVOUS SYSTEM: Alert and oriented -3. No focal deficits, tone is normal in all 4 extremities. PSYCHIATRIC: Alert and oriented -3. Appropriate affect. Intact judgment and insight. - Labs CBC & Chem 7: 03/10/19 11:29 03/10/19 11:29 Labs: Abnormal Lab Results - Last 24 Hours (Table) 03/09/19 03/09/19 03/10/19 Range/Units 17:05 19:56 06:23 RBC (4.30-5.90) m/uL Neutrophils # (1.3-7.7) k/uL Lymphocytes # (1.0-4.8) k/uL Chloride (98-107) mmol/L Carbon Dioxide (22-30) mmol/L BUN (9-20) mg/dL Glucose (74-99) mg/dL POC Glucose (mg/dL) 148 H 176 H 117 H (75-99) mg/dL 03/10/19 03/10/19 03/10/19 Range/Units 11:29 11:29 12:28 RBC 4.21 L (4.30-5.90) m/uL Neutrophils # 9.3 H (1.3-7.7) k/uL Lymphocytes # 0.2 L (1.0-4.8) k/uL Chloride 86 L (98-107) mmol/L Carbon Dioxide 44 H* (22-30) mmol/L BUN 25 H (9-20) mg/dL Glucose 145 H (74-99) mg/dL POC Glucose (mg/dL) 196 H (75-99) mg/dL Microbiology - Last 24 Hours (Table) 03/05/19 16:18 Blood Culture - Preliminary Blood No Growth after 96 hours Assessment and Plan Plan: Assessment: #1. Acute exacerbation of severe chronic obstructive pulmonary disease complicated by purulent tracheobronchitis and the patient with a gold stage IV C OPD with a baseline FEV1 of 0.7 cm or 21% of predicted, oxygen and prednisone dependent #2. Acute on chronic hypoxemic and hypercapnic respiratory failure related to the above #3. Ongoing tobacco use with nicotine addiction, over 80 pack year history #4. Atrial fibrillation, paroxysmal in nature, with a rapid ventricular response #5. History of cerebrovascular accident #6. History of fibromyalgia #7. Hyperlipidemia #8. Hypertension #9. Osteoarthritis #10. History of pneumonia #11. Chronic hypoxemic and hypercapnic respiratory failure related to COPD #12. History of chronic low back pain #13. Memory impairment Plan: No acute events overnight, patient continues to improve, down to 3 L, tolerating ambulation, no fever or chills, stable for discharge home from pulmonary perspective, he has been approved for trilogy ventilator, and he was advised to wear it at bedtime and as needed during the day. Smoking cessation was again advised. Follow-up with Dr. Stephens in the office in 7-10 days I performed a history & physical examination of the patient and discussed their management with my nurse practitioner, Renetta Lomax. I reviewed the nurse practitioner's note and agree with the documented findings and plan of care. Lung sounds are positive for diminished breath sounds. The findings and the impression was discussed with the patient. I attest to the documentation by the nurse practitioner. Time with Patient: Less than 30
== END 2019-03-10 15:58 | disposition home health service (06) | DRG 190 ==
LOC: EC 15:07 → 3SCARD 17:16
PROVIDERS: ADMIT Internal Medicine; ATTEND Internal Medicine
PROC: 5A09357 Assistance with Respiratory Ventilation, Less than 24 Consecutive Hours, Continuous Positive Airway Pressure (ICD-10-PCS; principal; 2019-03-05)
DX: J44.1 Chronic obstructive pulmonary disease with (acute) exacerbation (principal); J96.21 Acute and chronic respiratory failure with hypoxia; J96.22 Acute and chronic respiratory failure with hypercapnia; E87.2 Acidosis; I47.1 Supraventricular tachycardia; E78.5 Hyperlipidemia, unspecified; Z71.6 Tobacco abuse counseling; F17.210 Nicotine dependence, cigarettes, uncomplicated; F40.240 Claustrophobia; G89.29 Other chronic pain; I08.1 Rheumatic disorders of both mitral and tricuspid valves; I10 Essential (primary) hypertension; I27.20 Pulmonary hypertension, unspecified; I48.0 Paroxysmal atrial fibrillation; Z86.73 Personal history of transient ischemic attack (TIA), and cerebral infarction without residual deficits; Z87.01 Personal history of pneumonia (recurrent); J20.9 Acute bronchitis, unspecified; J44.0 Chronic obstructive pulmonary disease with (acute) lower respiratory infection; J84.10 Pulmonary fibrosis, unspecified; M19.90 Unspecified osteoarthritis, unspecified site; M79.7 Fibromyalgia; R29.6 Repeated falls; R31.29 Other microscopic hematuria; Z79.01 Long term (current) use of anticoagulants; Z79.51 Long term (current) use of inhaled steroids; Z79.52 Long term (current) use of systemic steroids; Z79.899 Other long term (current) drug therapy; Z80.8 Family history of malignant neoplasm of other organs or systems; Z82.5 Family history of asthma and other chronic lower respiratory diseases; Z91.81 History of falling; Z99.81 Dependence on supplemental oxygen; Z79.891 Long term (current) use of opiate analgesic; M54.5 Low back pain; R41.3 Other amnesia
CPT/HCPCS: 36415; 36600; 70450; 71045; 80048; 80053; 82805; 83605; 83735; 84439; 84443; 84484; 85025; 85610; 85730; 87040; 93306; 94640; 94660; 94760; 96365; 96366; 96368; 96375; 96376; 99291

== ENCOUNTER 2019-06-10 08:45 | Inpatient (IN) | payer BC, MEDICARE ==
[2019-06-10] MEDS ORDERED: ALBUTEROL NEBULIZED 2.5 MG/3 ML INHALATION STA ×2 (09:02→10:46)
--- NOTE | 2019-06-10 09:32 | ED ---
General Adult HPI - General Chief complaint: Shortness of Breath Stated complaint: HAROLDO Time Seen by Provider: 06/10/19 08:48 Source: patient, RN notes reviewed, old records reviewed Mode of arrival: ambulatory Limitations: no limitations - History of Present Illness Initial comments: 49-year-old male presenting with increased cough and dyspnea. Patient has COPD has had 24 hours of worsening cough and dyspnea. Denies fever. Denies central radiating chest pain. Patient denies lower extremity pain or swelling. Denies abdominal pain nausea or vomiting. Cough is productive of clear yellow sputum.patient's states he has been more sleepy than normal over the past several days. He wears 4 L of oxygen at home - Related Data Home Medications Medication Instructions Recorded Confirmed ALPRAZolam 0.5 mg PO QID 03/28/15 03/05/19 DULoxetine HCL 60 mg PO DAILY 03/28/15 03/05/19 Gabapentin 600 mg PO TID 03/28/15 03/05/19 Ipratropium/Albuterol Sulfate 1 puff INHALATION RT-QID 03/28/15 03/05/19 [Combivent Respimat Inhaler] Budesonide-Formot 160-4.5 Mcg 2 puff INHALATION RT-BID 01/31/18 03/05/19 [Symbicort 160-4.5 Mcg Inhaler] HYDROcodone/APAP 7.5-325MG [[place] 1 tab PO TID 07/10/18 03/05/19 7.5-325] guaiFENesin [Mucinex] 600 mg PO BID 03/05/19 03/05/19 Previous Rx's Medication Instructions Recorded Albuterol Nebulized [Ventolin 2.5 mg INHALATION QID #0 07/12/18 Nebulized] Famotidine [Pepcid] 20 mg PO BID #60 tab 07/12/18 Apixaban [Eliquis] 5 mg PO BID #60 tab 03/08/19 Amiodarone [Cordarone] 200 mg PO BID #60 tab 03/10/19 Verapamil Sr [Isoptin Sr] 240 mg PO DAILY #30 tablet.er 03/10/19 predniSONE See Taper PO DIRECTED #30 tab 03/10/19 Allergies Allergy/AdvReac Type Severity Reaction Status Date / Time No Known Allergies Allergy Verified 06/10/19 08:46 Review of Systems ROS Statement: Those systems with pertinent positive or pertinent negative responses have been documented in the HPI. ROS Other: All systems not noted in ROS Statement are negative. Past Medical History Past Medical History: COPD, CVA/TIA, Fibromyalgia, Hyperlipidemia, Hypertension, Osteoarthritis (OA), Pneumonia, Respiratory Disorder Additional Past Medical History / Comment(s): Pt recently admitted on 01/31/18 with chronic hypoxic and hypercapnic respiratory failure, acute/chronic COPD, traceobronchitis and microscopic hematuria. Other hx: Severe COPD, respiratory failure with home oxygen at 3L/NC ATC, tracheobronchitis, TIA, DJD, chronic low back pain- receives epidural injections, memory problems/forgetfull. History of Any Multi-Drug Resistant Organisms: None Reported Past Surgical History: Ear Surgery Additional Past Surgical History / Comment(s): R ear surgery for "fractured bone." per spouse. Past Anesthesia/Blood Transfusion Reactions: No Reported Reaction Additional Past Anesthesia/Blood Transfusion Reaction / Comment(s): never had any blood transfusions Past Psychological History: Anxiety Smoking Status: Current some day smoker Past Alcohol Use History: None Reported Past Drug Use History: None Reported - Past Family History Father Family Medical History: Cancer Additional Family Medical History / Comment(s): Father of throat cancer at the age of 52 yrs. He was a smoker. Mother Family Medical History: COPD Additional Family Medical History / Comment(s): Mother is 74 yrs old. She is a smoker. General Exam Limitations: no limitations General appearance: alert, in distress Head exam: Present: atraumatic, normocephalic Eye exam: Present: normal appearance, PERRL ENT exam: Present: normal exam Neck exam: Present: normal inspection. Absent: tenderness, meningismus Respiratory exam: Present: respiratory distress, wheezes, accessory muscle use, decreased breath sounds Cardiovascular Exam: Present: regular rate, normal rhythm GI/Abdominal exam: Present: soft. Absent: distended, tenderness, guarding Extremities exam: Present: normal inspection, normal capillary refill. Absent: pedal edema, calf tenderness Neurological exam: Present: alert, oriented X3 Psychiatric exam: Present: normal affect, normal mood Skin exam: Present: warm, dry, intact. Absent: cyanosis, diaphoretic Course Vital Signs 06/10/19 06/10/19 06/10/19 08:47 09:18 09:32 Temperature 98.3 F Pulse Rate 82 80 Respiratory 16 12 20 Rate Blood Pressure 131/82 118/81 O2 Sat by Pulse 95 96 Oximetry 06/10/19 06/10/19 09:42 10:02 Temperature Pulse Rate 80 84 Respiratory Rate Blood Pressure O2 Sat by Pulse Oximetry EKG Findings - EKG Comments: EKG Findings:: EKG: Normal sinus rhythm, rate of 82, NJ interval 150, QRS duration 96, QTC [address] segment elevation Medical Decision Making - Medical Decision Making 49-year-old male with COPD presenting with increased cough and dyspnea, increased sleepiness. Patient is alert and oriented at time my initial evaluation. He has minimal air entry bilaterally with faint wheezing. He is given additional albuterol, Atrovent, on top of EMS dosing. He is given steroids by EMS prior to arrival. Chest x-ray obtained, consistent with emphysema and COPD, no focal pneumonia, no pneumothorax. Patient's laboratory studies reveal mild anemia hemoglobin 11, CO2 of 43 consistent with chronic CO2 retention. I did reevaluate the patient, he is difficult to arouse after his initial treatment, suspect CO2 narcosis, ABG obtained, patient placed on BiPAP. He is protecting his airway, he is arousable with stimulation. Patient will be admitted, admitting physician Dr. Barrios. Diagnosis: Acute hypercarbic respiratory failure requiring BiPAP, COPD exacerbation. - Lab Data Result diagrams: 06/10/19 08:57 06/10/19 08:57 Lab Results 06/10/19 06/10/19 06/10/19 Range/Units 08:57 08:57 08:57 WBC 5.9 (3.8-10.6) k/uL RBC 3.66 L (4.30-5.90) m/uL Hgb 11.4 L (13.0-17.5) gm/dL Hct 37.0 L (39.0-53.0) % MCV 101.3 H (80.0-100.0) fL MCH 31.2 (25.0-35.0) pg MCHC 30.8 L (31.0-37.0) g/dL RDW 13.2 (11.5-15.5) % Plt Count 203 (150-450) k/uL Neutrophils % 62 % Lymphocytes % 25 % Monocytes % 8 % Eosinophils % 1 % Basophils % 2 % Neutrophils # 3.7 (1.3-7.7) k/uL Lymphocytes # 1.5 (1.0-4.8) k/uL Monocytes # 0.5 (0-1.0) k/uL Eosinophils # 0.0 (0-0.7) k/uL Basophils # 0.1 (0-0.2) k/uL Hypochromasia Moderate PT (9.0-12.0) sec INR (<1.2) APTT (22.0-30.0) sec Sodium 140 (137-145) mmol/L Potassium 4.5 (3.5-5.1) mmol/L Chloride 91 L (98-107) mmol/L Carbon Dioxide 43 H* (22-30) mmol/L Anion Gap 6 mmol/L BUN 10 (9-20) mg/dL Creatinine 0.67 (0.66-1.25) mg/dL Est GFR (CKD-EPI)AfAm >90 (>60 ml/min/1.73 sqM) Est GFR (CKD-EPI)NonAf >90 (>60 ml/min/1.73 sqM) Glucose 92 (74-99) mg/dL Plasma Lactic Acid [place] 0.9 (0.7-2.0) mmol/L Calcium 9.0 (8.4-10.2) mg/dL Magnesium 1.8 (1.6-2.3) mg/dL Total Bilirubin 0.5 (0.2-1.3) mg/dL AST 25 (17-59) U/L ALT 14 (4-49) U/L Alkaline Phosphatase 48 (38-126) U/L Total Protein 6.6 (6.3-8.2) g/dL Albumin 4.0 (3.5-5.0) g/dL 06/10/19 Range/Units 08:57 WBC (3.8-10.6) k/uL RBC (4.30-5.90) m/uL Hgb (13.0-17.5) gm/dL Hct (39.0-53.0) % MCV (80.0-100.0) fL MCH (25.0-35.0) pg MCHC (31.0-37.0) g/dL RDW (11.5-15.5) % Plt Count (150-450) k/uL Neutrophils % % Lymphocytes % % Monocytes % % Eosinophils % % Basophils % % Neutrophils # (1.3-7.7) k/uL Lymphocytes # (1.0-4.8) k/uL Monocytes # (0-1.0) k/uL Eosinophils # (0-0.7) k/uL Basophils # (0-0.2) k/uL Hypochromasia PT 10.3 (9.0-12.0) sec INR 1.0 (<1.2) APTT 25.5 (22.0-30.0) sec Sodium (137-145) mmol/L Potassium (3.5-5.1) mmol/L Chloride (98-107) mmol/L Carbon Dioxide (22-30) mmol/L Anion Gap mmol/L BUN (9-20) mg/dL Creatinine (0.66-1.25) mg/dL Est GFR (CKD-EPI)AfAm (>60 ml/min/1.73 sqM) Est GFR (CKD-EPI)NonAf (>60 ml/min/1.73 sqM) Glucose (74-99) mg/dL Plasma Lactic Acid [place] (0.7-2.0) mmol/L Calcium (8.4-10.2) mg/dL Magnesium (1.6-2.3) mg/dL Total Bilirubin (0.2-1.3) mg/dL AST (17-59) U/L ALT (4-49) U/L Alkaline Phosphatase (38-126) U/L Total Protein (6.3-8.2) g/dL Albumin (3.5-5.0) g/dL Critical Care Time Critical Care Time: Yes Total Critical Care Time: 35 Disposition Clinical Impression: Acute exacerbation of chronic obstructive airways disease, Acute respiratory failure Dis[facility] Condition: Stable Is patient prescribed a controlled substance at d/c from ED?: No Referrals: Hue Laurent MD [Primary Care Provider] - 1-2 days Decision to Admit Reason: Admit from EC Decision Date: 06/10/19 Decision Time: 10:53
[2019-06-10] MEDS: IPRATROPIUM 0.5 MG/2.5 ML NEBU INHALATION STA ×2 (09:41→09:42)
--- NOTE | 2019-06-10 09:48 | XR ---
EXAMINATION TYPE: XR chest 2V DATE OF EXAM: 06/10/2019 COMPARISON: Chest x-ray March 24, 2019. HISTORY: COPD. TECHNIQUE: Frontal and lateral views of the chest are obtained. FINDINGS: There is Chronic emphysematous change without suspicious new focal air space opacity, pleural effusion, or pne umothorax seen. The cardiac silhouette size is upper limits of normal. The osseous structures are intact. Overlying EKG leads. IMPRESSION: Emphysematous change without acute pulmonary process.
[2019-06-10 10:12] LABS: Basophils # (A) 0.1 k/uL (0-0.2); Basophils % (A) 2 %; Eosinophils % (A) 1 %; HGB 11.4 gm/dL (13.0-17.5); Hypochromasia Moderate; Lymphocytes # (A) 1.5 k/uL (1.0-4.8); Lymphocytes % (A) 25 %; MCH 31.2 pg (25.0-35.0); MCHC 30.8 g/dL (31.0-37.0); MCV 101.3 fL (80.0-100.0); Mean Platelet Volume 6.9; Monocytes # (A) 0.5 k/uL (0-1.0); Monocytes % (A) 8 %; Neutrophils # (A) 3.7 k/uL (1.3-7.7); Neutrophils % (A) 62 %; Platelet Count 203 k/uL (150-450); RBC 3.66 m/uL (4.30-5.90); RDW 13.2 % (11.5-15.5); WBC 5.9 k/uL (3.8-10.6)
[2019-06-10 10:21] LABS: Partial Thromboplastin Time 25.5 sec (22.0-30.0); Prothrombin Time 10.3 sec (9.0-12.0)
[2019-06-10 10:25] LABS: ALT 14 U/L (4-49); AST 25 U/L (17-59); African American GFR (CKD) >90 (>60 ml/min/1.73 sqM); Alkaline Phosphatase 48 U/L (38-126); Blood Urea Nitrogen 10 mg/dL (9-20); Chloride 91 mmol/L (98-107); Glucose 92 mg/dL (74-99); Magnesium 1.8 mg/dL (1.6-2.3); Non-African American GFR(CKD) >90 (>60 ml/min/1.73 sqM); Potassium 4.5 mmol/L (3.5-5.1); Sodium 140 mmol/L (137-145); Total Bilirubin 0.5 mg/dL (0.2-1.3); Total Protein 6.6 g/dL (6.3-8.2)
[2019-06-10 10:31] LABS: Anion Gap 6 mmol/L
[2019-06-10 10:34] LABS: Carbon Dioxide 43 mmol/L (22-30)
[2019-06-10] MEDS ORDERED: IPRATROPIUM-ALBUTEROL 3 ML NEB INHALATION PRN (10:46)
[2019-06-10] MEDS ORDERED: ALBUTEROL NEBULIZED 2.5 MG/3 ML INHALATION PRN (10:46)
[2019-06-10 11:38] LABS: ABG Base Excess 24.7 mmol/L; ABG Oxygen Saturation 89.8 % (94-97); ABG PH 7.35 (7.35-7.45); ABG TCO2 53 mmol/L (19-24); Allen Test Performed? Yes
[2019-06-10] MEDS: methylPREDNISolone SOD SUCCI 125 MG/2 ML VIAL IV SCH ×2 (12:15→18:10)
[2019-06-10 12:27] LABS: ABG PCO2 90 mmHg (35-45)
[2019-06-10 12:28] LABS: ABG HCO3 50 mmol/L (21-25); ABG PO2 56 mmHg (83-108)
--- NOTE | 2019-06-10 12:40 | P.HPIM ---
History of Present Illness this is a pleasant 49 years old male with past medical history of COPD, TIA, fibromyalgia, hypertension, hyperlipidemia, memory impairment, osteoarthritis, chronic hypoxic respiratory failure and home oxygen of 4 L via nasal cannula, chronic low back pain.Luis Manuel. fib on Eliquis.ex- smoker,she was still smoking. Patient is lethargic on BiPAP machine and information is taken from the at bedside. Patient has been having increasing dyspnea over the last 2 days, which should not sure if he has worsening chronic cough or productive sputum. No chest pain. No change in bowel habits. Patient has a BiPAP machine at home but he is not adherent to it. vitals are stable, he is saturating 95-96% on 4 L oxygen via nasal cannula. P atient is afebrile. CBC is unremarkable.INR, liver enzymes and creatinine with electrolytes are within normal limits, carbon dioxide is elevated at 43.EK beats per minutes with sinus rhythm, no significant ST-T changes. QTC is 439. Chest x-ray:emphysematous changes with consultation.patient was started on steroids and bronchodilator. Review of Systems CONSTITUTIONAL: No fever, no malaise, no fatigue. HEENT: No recent visual problems or hearing problems. Denied any sore throat. CARDIOVASCULAR: No orthopnea, PND, no palpitations, no syncope. PULMONARY: no hemoptysis. GASTROINTESTINAL: No diarrhea, no nausea, no vomiting, no abdominal pain. Normoactive bowel sounds. NEUROLOGICAL: No headaches, no weakness, no numbness. HEMATOLOGICAL: Denies any bleeding or petechiae. GENITOURINARY: Denies any burning micturition, frequency, or urgency. MUSCULOSKELETAL/RHEUMATOLOGICAL: Denies any joint pain, swelling, or any muscle pain. ENDOCRINE: Denies any polyuria or polydipsia. Past Medical History Past Medical History: COPD, CVA/TIA, Fibromyalgia, Hyperlipidemia, Hypertension, Memory Impairment, Osteoarthritis (OA), Pneumonia, Respiratory Disorder Additional Past Medical History / Comment(s): Chronic hypoxic and hypercapnic respiratory failure with home oxygen at 4L/NC ATC, acute/chronic COPD, tracheobronchitis, TIA, DJD, chronic low back pain- receives epidural injections, memory problems/forgetfull, falls. History of Any Multi-Drug Resistant Organisms: None Reported Past Surgical History: Ear Surgery Additional Past Surgical History / Comment(s): R ear surgery for "fractured bone." per spouse. Past Anesthesia/Blood Transfusion Reactions: No Reported Reaction Additional Past Anesthesia/Blood Transfusion Reaction / Comment(s): never had any blood transfusions Smoking Status: Former smoker - Past Family History Father Family Medical History: Cancer Additional Family Medical History / Comment(s): Father of throat cancer at the age of 52 yrs. He was a smoker. Mother Family Medical History: COPD Additional Family Medical History / Comment(s): Mother at the age of 75yrs. She was a smoker. Medications and Allergies Home Medications Medication Instructions Recorded Confirmed Type ALPRAZolam 0.5 mg PO QID 03/28/15 06/10/19 History DULoxetine HCL 60 mg PO DAILY 03/28/15 06/10/19 History Gabapentin 600 mg PO TID 03/28/15 06/10/19 History Ipratropium/Albuterol Sulfate 1 puff INHALATION RT-QID 03/28/15 06/10/19 History [Combivent Respimat Inhaler] Budesonide-Formot 160-4.5 Mcg 2 puff INHALATION RT-BID 01/31/18 06/10/19 History [Symbicort 160-4.5 Mcg Inhaler] HYDROcodone/APAP 7.5-325MG [[place] 1 tab PO TID 07/10/18 06/10/19 History 7.5-325] Famotidine [Pepcid] 20 mg PO BID #60 tab 07/12/18 06/10/19 Rx guaiFENesin [Mucinex] 600 mg PO BID 03/05/19 06/10/19 History Apixaban [Eliquis] 5 mg PO BID #60 tab 03/08/19 06/10/19 Rx Amiodarone [Cordarone] 200 mg PO BID #60 tab 03/10/19 06/10/19 Rx Verapamil Sr [Isoptin Sr] 240 mg PO DAILY #30 tablet.er 03/10/19 06/10/19 Rx Albuterol Nebulized [Ventolin 2.5 mg INHALATION RT-QID 06/10/19 06/10/19 History Nebulized] predniSONE 10 mg PO DAILY 06/10/19 06/10/19 History Allergies Allergy/AdvReac Type Severity Reaction Status Date / Time No Known Allergies Allergy Verified 06/10/19 11:14 Physical Exam Vitals: Vital Signs Temp Pulse Resp BP Pulse Ox 06/10/19 11:15 98 F 86 15 136/80 92 L 06/10/19 10:55 15 92 L 06/10/19 10:46 81 16 118/75 98 06/10/19 10:02 84 06/10/19 09:42 80 06/10/19 09:32 20 06/10/19 09:18 80 12 118/81 96 06/10/19 08:47 98.3 F 82 16 131/82 95 Intake and Output 06/09/19 06/10/19 06/10/19 22:59 06:59 14:59 Other: Weight 58.967 kg -GENERAL: The patient is alert and oriented x3, patient is lethargic. Well de veloped, well nourished. HEENT: Pupils are round and equally reacting to light. EOMI. No scleral icterus. No conjunctival pallor. Normocephalic, atraumatic. No pharyngeal erythema. No thyromegaly. CARDIOVASCULAR: S1 and S2 present. No murmurs, rubs, or gallops. -PULMONARY: Chest is clear to auscultation, bilateral expiratory wheezes with decreased air entry in both sides ABDOMEN: Soft, nontender, nondistended, normoactive bowel sounds. No palpable organomegaly. MUSCULOSKELETAL: No joint swelling or deformity. EXTREMITIES: No cyanosis, clubbing, or pedal edema. NEUROLOGICAL: Gross neurological examination did not reveal any focal deficits. SKIN: No rashes. No petechiae Results CBC & Chem 7: 06/10/19 08:57 06/10/19 08:57 Labs: Abnormal Lab Results - Last 24 Hours (Table) 06/10/19 06/10/19 Range/Units 08:57 08:57 RBC 3.66 L (4.30-5.90) m/uL Hgb 11.4 L (13.0-17.5) gm/dL Hct 37.0 L (39.0-53.0) % MCV 101.3 H (80.0-100.0) fL MCHC 30.8 L (31.0-37.0) g/dL Chloride 91 L (98-107) mmol/L Carbon Dioxide 43 H* (22-30) mmol/L Thrombosis Risk Factor Assmnt - Choose All That Apply Any of the Below Risk Factors Present?: Yes Each Factor Represents 1 point: Abnormal pulmonary function (COPD), Age 41-60 years, Medical pt on bed rest, Serious lung disease incl. pneumonia (< 1month) Other Risk Factors: Yes Each Risk Factor Represents 2 Points: Patient confined to bed Other congenital or acquired thrombophilia - If yes, enter type in comment: No Thrombosis Risk Factor Assessment Total Risk Factor Score: 6 Thrombosis Risk Factor Assessment Level: High Risk Assessment and Plan Assessment: COPD with acute exacerbation TIA Eliquis A. fib on Eliquis fibromyalgia hypertension hyperlipidemia memory impairment osteoarthritis chronic hypoxic respiratory failure and home oxygen of 4 L via nasal cannula chronic low back pain. Plan: this is a 49 years old male who presents for COPD exacerbation. Continue with steroids, bronchodilators, antibiotics, oxygen therapy. Pulmonary consult. Continue with BiPAP machine. Check influenza. Labs and medication were reviewed.. Continue same treatment. Continue with symptomatic treatment. Resume home medication. Monitor lytes and vitals. DVT and GI prophylaxis. Further recommendations of the clinical course of the patient DVT prophylaxis: Eliquis GI Prophylaxis: Pepcid Prognosis is guarded
[2019-06-10] MEDS: IPRATROPIUM-ALBUTEROL 3 ML NEB INHALATION SCH ×3 (12:55→20:30)
--- NOTE | 2019-06-10 13:24 | P.CNPUL ---
History of Present Illness Consult date: 06/10/19 Requesting physician: Atul E Sophie Reason for consult: dyspnea Chief complaint: Shortness of breath History of present illness: This is a very pleasant 49-year-old gentleman follows with Dr. Laurent as his primary care physician. He has a history of paroxysmal atrial fibrillation anticoagulated with Eliquis, CVA, fibromyalgia, hyperlipidemia, hypertension, osteoarthritis, chronic low back pain. He also has a history of severe oxygen dependent, Gold stage IV chronic obstructive pulmonary disease with an FEV1 value 21% of predicted. He also has severe hypercapnic respiratory failure and utilizes BiPAP in the outpatient setting. He has chronic and ongoing tobacco dependence and chronic anxiety. He presented here to the emergency room with worsening shortness of breath for the past 3-4 days. He had been out to eat at the [employer] and upon his return was seemed to be too much activity and could not recover from his shortness of breath which produced more anxiety. Arterial blood gaseson 35% FiO2 revealed a PaO2 of 56, pCO2 of 90 and a pH is 7.35. Bicarb 43.He is currently on BiPAP at 10/5 and 28% FiO2. We'll increase it to 12/6. He is seen in consultation on the regular medical floor. He arouses to verbal stimuli. Answering yes no questions appropriately. His is at the bedside providing most of the information today. White count 5.9. Hemoglobin 11.6. Creatinine 0.67. Influenza screen is negative. He's been initiated on DuoNeb inhalations, Symbicort, IV Solu-Medrol. Review of Systems REVIEW OF SYSTEMS: CONSTITUTIONAL: Denies any recent significant weight loss or weight gain. EYES: Denies change in vision. EARS, NOSE, MOUTH, THROAT: Denies headaches, denies sore throat. CARDIOVASCULAR: Denies chest pain, palpitations or syncopal episodes. RESPIRATORY: Positive for shortness of breath, cough, congestion No hemoptysis. GASTROINTESTINAL: Denies change in appetite, denies abdominal pain GENITOURINARY: Denies hematuria, denies infections. MUSKULOSKELETAL: Denies pain, denies swelling. INTEGUMENTARY: Denies rash, denies eczema. NEUROLOGICAL: Denies recent memory loss, no recent seizure activity. PSYCHIATRIC: Positive for anxiety, denies depression. HEMATOLOGIC/LYMPHATIC: Denies anemia, denies enlarged lymph nodes. Past Medical History Past Medical History: COPD, CVA/TIA, Fibromyalgia, Hyperlipidemia, Hypertension, Memory Impairment, Osteoarthritis (OA), Pneumonia, Respiratory Disorder Additional Past Medical History / Comment(s): Chronic hypoxic and hypercapnic respiratory failure with home oxygen at 4L/[place] ATC, acute/chronic COPD, tracheobronchitis, TIA, DJD, chronic low back pain- receives epidural injections, memory problems/forgetfull, falls. History of Any Multi-Drug Resistant Organisms: None Reported Past Surgical History: Ear Surgery Additional Past Surgical History / Comment(s): R ear surgery for "fractured bone." per spouse. Past Anesthesia/Blood Transfusion Reactions: No Reported Reaction Additional Past Anesthesia/Blood Transfusion Reaction / Comment(s): never had any blood transfusions Smoking Status: Former smoker - Past Family History Father Family Medical History: Cancer Additional Family Medical History / Comment(s): Father of throat cancer at the age of 52 yrs. He was a smoker. Mother Family Medical History: COPD Additional Family Medical History / Comment(s): Mother at the age of 75yrs. She was a smoker. Medications and Allergies Home Medications Medication Instructions Recorded Confirmed Type ALPRAZolam 0.5 mg PO QID 03/28/15 06/10/19 History DULoxetine HCL 60 mg PO DAILY 03/28/15 06/10/19 History Gabapentin 600 mg PO TID 03/28/15 06/10/19 History Ipratropium/Albuterol Sulfate 1 puff INHALATION RT-QID 03/28/15 06/10/19 History [Combivent Respimat Inhaler] Budesonide-Formot 160-4.5 Mcg 2 puff INHALATION RT-BID 01/31/18 06/10/19 History [Symbicort 160-4.5 Mcg Inhaler] HYDROcodone/APAP 7.5-325MG [[place] 1 tab PO TID 07/10/18 06/10/19 History 7.5-325] Famotidine [Pepcid] 20 mg PO BID #60 tab 07/12/18 06/10/19 Rx guaiFENesin [Mucinex] 600 mg PO BID 03/05/19 06/10/19 History Apixaban [Eliquis] 5 mg PO BID #60 tab 03/08/19 06/10/19 Rx Amiodarone [Cordarone] 200 mg PO BID #60 tab 03/10/19 06/10/19 Rx Verapamil Sr [Isoptin Sr] 240 mg PO DAILY #30 tablet.er 03/10/19 06/10/19 Rx Albuterol Nebulized [Ventolin 2.5 mg INHALATION RT-QID 06/10/19 06/10/19 History Nebulized] predniSONE 10 mg PO DAILY 06/10/19 06/10/19 History Allergies Allergy/AdvReac Type Severity Reaction Status Date / Time No Known Allergies Allergy Verified 06/10/19 11:14 Physical Exam Vitals: Vital Signs Temp Pulse Pulse Resp BP BP Pulse Ox 06/10/19 13:06 84 06/10/19 12:55 80 06/10/19 12:15 97.9 F 92 22 124/85 93 L 06/10/19 11:15 98 F 86 15 136/80 92 L 06/10/19 10:55 15 92 L 06/10/19 10:46 81 16 118/75 98 06/10/19 10:02 84 06/10/19 09:42 80 06/10/19 09:32 20 06/10/19 09:18 80 12 118/81 96 06/10/19 08:47 98.3 F 82 16 131/82 95 Intake and Output 06/09/19 06/10/19 06/10/19 22:59 06:59 14:59 Other: Weight 58.967 kg GENERAL EXAM: Alert, disheveled, 49-year-old gentleman who appears older than s tated age, on BiPAP, fairly comfortable in no apparent distress. HEAD: Normocephalic. EYES: Normal reaction of pupils, equal size. NOSE: Clear with pink turbinates. THROAT: No erythema or exudates. NECK: No masses, no JVD. CHEST: No chest wall deformity. LUNGS: Equal air entry with bilateral end expiratory wheeze, diminished. CVS: S1 and S2 normal with no audible murmur, regular rhythm. ABDOMEN: No hepatosplenomegaly, normal bowel sounds, no guarding or rigidity. SPINE: No scoliosis or deformity SKIN: No rashes CENTRAL NERVOUS SYSTEM: No focal deficits, tone is normal in all 4 extremities. EXTREMITIES: There is no peripheral edema. No clubbing, no cyanosis. Peripheral pulses are intact. Results - Laboratory Findings CBC and BMP: 06/10/19 08:57 06/10/19 08:57 ABG ABG pH 7.35 (7.35-7.45) 06/10/19 11:34 ABG pCO2 90 mmHg (35-45) H* 06/10/19 11:34 ABG pO2 56 mmHg (83-108) L* 06/10/19 11:34 ABG O2 Saturation 89.8 % (94-97) L 06/10/19 11:34 PT/INR, D-dimer PT 10.3 sec (9.0-12.0) 06/10/19 08:57 INR 1.0 (<1.2) 06/10/19 08:57 Abnormal lab findings: Abnormal Labs 06/10/19 06/10/19 06/10/19 08:57 08:57 11:34 RBC 3.66 L Hgb 11.4 L Hct 37.0 L MCV 101.3 H MCHC 30.8 L ABG pCO2 90 H* ABG pO2 56 L* ABG HCO3 50 H* ABG Total CO2 53 H ABG O2 Saturation 89.8 L Chloride 91 L Carbon Dioxide 43 H* - Diagnostic Findings Chest x-ray: image reviewed (No acute pulmonary process.) Assessment and Plan Assessment: 1 Acute on chronic hypoxemic respiratory failure secondary to an acute exacerbation of chronic obstructive pulmonary disease. Gold stage IV. FEV1 value 21% of predicted Chest x-ray shows evidence of emphysema but no acute pul monary process. Influenza screen negative. 2 Acute on chronic hypercapnic respiratory failure secondary to above, maintained on BiPAP in the outpatient setting, issues with noncompliance. 3 Chronic and ongoing tobacco dependence. 4 Anxiety/depression. 5 Atrial fibrillation, paroxysmal, anticoagulated with Eliquis, maintained on amiodarone. 6 History of CVA. 7 Hyperlipidemia. 8 Hypertension. 9 Fibromyalgia. 10 Chronic low back pain. Plan: The patient was seen and evaluated by Dr. Lane. Chest x-ray and labs reviewed. We'll increase his BiPAP to 12/6 at 28% FiO2. Continue on DuoNeb inhalations, change Symbicort to Pulmicort and Perforomist inhalations, continue IV Solu-Medrol. The patient is again educated regarding the importance of complete smoking cessation. Xanax for anxiety. Anticoagulated on Eliquis. We will continue to follow and make further recommendations based on his clinical status. I, the cosigning physician, performed a history & physical examination of the patient. Lungs sounds bilateral end expiratory wheeze, diminished throughout. Maintaining good O2 saturations in the 90s on BiPAP 12/6 and 28% FiO2. I discussed the assessment and plan of care with my nurse practitioner, Gabrielle Segura. I attest to the above consultation as dictated by her. Time with Patient: Greater than 30
[2019-06-10] MEDS: ALPRAZolam 0.5 MG TAB PO SCH ×3 (13:50→22:27)
[2019-06-10] MEDS: GABAPENTIN 300 MG CAP PO SCH ×2 (15:07→22:27)
[2019-06-10] MEDS: HYDROcodone/APAP 7.5-325MG 1 EACH TAB PO SCH ×2 (15:07→21:27)
[2019-06-10] MEDS: SYMBICORT 160-4.5 MCG INHALER INHALATION SCH (20:32)
[2019-06-10] MEDS: FAMOTIDINE 20 MG TAB PO SCH (21:26)
[2019-06-10] MEDS: APIXABAN 5 MG TAB PO SCH (21:27)
[2019-06-10] MEDS: AMIODARONE 200 MG TAB PO SCH (21:27)
[2019-06-11] MEDS: methylPREDNISolone SOD SUCCI 125 MG/2 ML VIAL IV SCH ×3 (00:43→12:45)
[2019-06-11] MEDS: SYMBICORT 160-4.5 MCG INHALER INHALATION SCH (07:35)
[2019-06-11] MEDS: IPRATROPIUM-ALBUTEROL 3 ML NEB INHALATION SCH ×2 (07:35→10:41)
[2019-06-11] MEDS: HYDROcodone/APAP 7.5-325MG 1 EACH TAB PO SCH (07:51)
[2019-06-11] MEDS: FAMOTIDINE 20 MG TAB PO SCH (07:51)
[2019-06-11] MEDS: AMIODARONE 200 MG TAB PO SCH (07:51)
[2019-06-11] MEDS: GABAPENTIN 300 MG CAP PO SCH (07:51)
[2019-06-11] MEDS: ALPRAZolam 0.5 MG TAB PO SCH ×2 (07:51→12:45)
[2019-06-11] MEDS: APIXABAN 5 MG TAB PO SCH (07:51)
[2019-06-11 07:53] LABS: African American GFR (CKD) >90 (>60 ml/min/1.73 sqM); Blood Urea Nitrogen 13 mg/dL (9-20); Calcium 9.2 mg/dL (8.4-10.2); Chloride 91 mmol/L (98-107); Glucose 154 mg/dL (74-99); Non-African American GFR(CKD) >90 (>60 ml/min/1.73 sqM); Potassium 4.8 mmol/L (3.5-5.1); Sodium 140 mmol/L (137-145)
[2019-06-11 08:02] LABS: Anion Gap 2 mmol/L
[2019-06-11 08:14] LABS: Carbon Dioxide 47 mmol/L (22-30)
--- NOTE | 2019-06-11 08:30 | P.PN ---
Subjective this is a pleasant 49 years old male with past medical history of COPD, TIA, fibromyalgia, hypertension, hyperlipidemia, memory impairment, osteoarthritis, chronic hypoxic respiratory failure and home oxygen of 4 L via nasal cannula, chronic low back pain.A. fib on Eliquis.ex- smoker,she was still smoking. Patient is lethargic on BiPAP machine and information is taken from the at bedside. Patient has been having increasing dyspnea over the last 2 days, which should not sure if he has worsening chronic cough or productive sputum. No ch est pain. No change in bowel habits. Patient has a BiPAP machine at home but he is not adherent to it. vitals are stable, he is saturating 95-96% on 4 L oxygen via nasal cannula. Patient is afebrile. CBC is unremarkable.INR, liver enzymes and creatinine with electrolytes are within normal limits, carbon dioxide is elevated at 43.EK beats per minutes with sinus rhythm, no significant ST-T changes. QTC is 439. Chest x-ray:emphysematous changes with consultation.patient was started on s teroids and bronchodilator. 06/11/2019 Patient feels better today, I did not need a BiPAP overnight, as patient also felt that his mask is uncomfortable. Patient currently on oxygen 4 L of oxygen via nasal cannula and he is saturating 98%. Rest of vitals are stable. Labs reviewed, he has worsening carbon dioxide from for T3 up to 47. However patient is breathing more easily and able to talk with less difficulty. Patient is mobile and only to the bathroom with no significant dyspnea. He remains on steroids 60 mg and Eliquis and his pain home medication. Pulmonary team is following the patient closely Review of systems: CONSTITUTIONAL: No fever, no malaise, no fatigue. HEENT: No recent visual problems or hearing problems. Denied any sore throat. CARDIOVASCULAR: No orthopnea, PND, no palpitations, no syncope. PULMONARY: no hemoptysis. GASTROINTESTINAL: No diarrhea, no nausea, no vomiting, no abdominal pain. Normoactive bowel sounds. NEUROLOGICAL: No headaches, no weakness, no numbness. HEMATOLOGICAL: Denies any bleeding or petechiae. GENITOURINARY: Denies any burning micturition, frequency, or urgency. MUSCULOSKELETAL/RHEUMATOLOGICAL: Denies any joint pain, swelling, or any muscle pain. ENDOCRINE: Denies any polyuria or polydipsia. Active Medications Generic Name Dose Route Start Last Admin Trade Name Freq PRN Reason Stop Dose Admin Hydrocodone Bitart/Acetaminophen 1 each 06/10/19 16:00 06/11/19 07:51 [place] 7.5-325 PO 1 each TID MELVA Administration Albuterol Sulfate 2.5 mg 06/10/19 10:46 Ventolin Nebulized INHALATION RT-Q2H PRN Shortness Of Breath Or Wheezing Albuterol/Ipratropium 3 ml 06/10/19 10:46 Duoneb 0.5 Mg-3 Mg/3 Ml Soln INHALATION RT-Q4H PRN Shortness Of Breath Or Wheezing Albuterol/Ipratropium 3 ml 06/10/19 12:00 06/11/19 07:35 Duoneb 0.5 Mg-3 Mg/3 Ml Soln INHALATION 3 ml RT-QID MELVA Administration Alprazolam 0.5 mg 06/10/19 13:00 06/11/19 07:51 Xanax PO 0.5 mg QID MELVA Administration Amiodarone HCl 200 mg 06/10/19 21:00 06/11/19 07:51 Cordarone PO 200 mg BID MELVA Administration Apixaban 5 mg 06/10/19 21:00 06/11/19 07:51 Eliquis PO 5 mg BID MELVA Administration Budesonide/Formoterol Fumarate 2 puff 06/10/19 20:00 06/11/19 07:35 Symbicort 160-4.5 Mcg Inhaler INHALATION 2 puff RT-BID MELVA Administration Duloxetine HCl 60 mg 06/11/19 09:00 06/11/19 07:51 Cymbalta PO 60 mg DAILY MELVA Administration Famotidine 20 mg 06/10/19 21:00 06/11/19 07:51 Pepcid PO 20 mg BID MELVA Administration Gabapentin 600 mg 06/10/19 16:00 06/11/19 07:51 Neurontin PO 600 mg TID MELVA Administration Methylprednisolone Sodium Succinate 60 mg 06/10/19 12:00 06/11/19 05:31 Solu-Medrol IV 60 mg Q6HR MELVA Administration Verapamil HCl 240 mg 06/11/19 09:00 06/11/19 07:51 Isoptin Sr PO 240 mg DAILY MELVA Administration Objective - Vital Signs Vital signs: Vital Signs Temp 98.0 F 06/11/19 05:32 Pulse 102 H 06/11/19 07:48 Resp 18 06/11/19 05:32 BP 132/69 06/11/19 05:32 Pulse Ox 98 06/11/19 05:32 Intake & Output 06/10/19 06/11/19 06/11/19 18:59 06:59 18:59 Weight 58.967 kg Other: Voiding Method Urinal Toilet Urinal # Voids 1 1 - Exam -GENERAL: The patient is alert and oriented x3, patient is sitting in bed with no lethargy. Well developed, well nourished. HEENT: Pupils are round and equally reacting to light. EOMI. No scleral icterus. No conjunctival pallor. Normocephalic, atraumatic. No pharyngeal erythema. No thyromegaly. CARDIOVASCULAR: S1 and S2 present. No murmurs, rubs, or gallops. -PULMONARY: Chest is clear to auscultation, bilateral expiratory wheezes with decreased air entry in both sides ABDOMEN: Soft, nontender, nondistended, normoactive bowel sounds. No palpable organomegaly. MUSCULOSKELETAL: No joint swelling or deformity. EXTREMITIES: No cyanosis, clubbing, or pedal edema. NEUROLOGICAL: Gross neurological examination did not reveal any focal deficits. SKIN: No rashes. No petechiae - Labs CBC & Chem 7: 06/10/19 08:57 06/11/19 06:47 Labs: Abnormal Lab Results - Last 24 Hours (Table) 06/10/19 06/10/19 06/10/19 Range/Units 08:57 08:57 11:34 RBC 3.66 L (4.30-5.90) m/uL Hgb 11.4 L (13.0-17.5) gm/dL Hct 37.0 L (39.0-53.0) % MCV 101.3 H (80.0-100.0) fL MCHC 30.8 L (31.0-37.0) g/dL ABG pCO2 90 H* (35-45) mmHg ABG pO2 56 L* (83-108) mmHg ABG HCO3 50 H* (21-25) mmol/L ABG Total CO2 53 H (19-24) mmol/L ABG O2 Saturation 89.8 L (94-97) % Chloride 91 L (98-107) mmol/L Carbon Dioxide 43 H* (22-30) mmol/L Glucose (74-99) mg/dL 06/11/19 Range/Units 06:47 RBC (4.30-5.90) m/uL Hgb (13.0-17.5) gm/dL Hct (39.0-53.0) % MCV (80.0-100.0) fL MCHC (31.0-37.0) g/dL ABG pCO2 (35-45) mmHg ABG pO2 (83-108) mmHg ABG HCO3 (21-25) mmol/L ABG Total CO2 (19-24) mmol/L ABG O2 Saturation (94-97) % Chloride 91 L (98-107) mmol/L Carbon Dioxide 47 H* (22-30) mmol/L Glucose 154 H (74-99) mg/dL Assessment and Plan Assessment: COPD with acute exacerbation TIA Eliquis A. fib on Eliquis fibromyalgia hypertension hyperlipidemia memory impairment osteoarthritis chronic hypoxic respiratory failure and home oxygen of 4 L via nasal cannula chronic low back pain. Plan: this is a 49 years old male who presents for COPD exacerbation. Continue with steroids, bronchodilators, antibiotics, oxygen therapy. Pulmonary consult. Co ntinue with BiPAP machine. Check influenza. Labs and medication were reviewed.. Continue same treatment. Continue with symptomatic treatment. Resume home medication. Monitor lytes and vitals. DVT and GI prophylaxis. Further recommendations of the clinical course of the patient DVT prophylaxis: Eliquis GI Prophylaxis: Pepcid Prognosis is guarded
[2019-06-11] MEDS ORDERED: DULoxetine HCL 60 MG CAPSULE.DR PO SCH (09:00)
[2019-06-11] MEDS ORDERED: VERAPAMIL SR 240 MG TABLET.ER PO SCH (09:00)
[2019-06-11 09:38] VITALS: BMI 18.6
--- NOTE | 2019-06-11 11:36 | P.PN ---
Subjective Progress Note Date: 06/11/19 Principal diagnosis: Acute on chronic hypoxemic respiratory failure secondary to an acute exacerbation of severe Gold stage IV oxygen dependent chronic obstructive pulmonary disease. This is a very pleasant 49-year-old gentleman follows with Dr. Laurent as his primary care physician. He has a history of paroxysmal atrial fibrillation anticoagulated with Eliquis, CVA, fibromyalgia, hyperlipidemia, hypertension, osteoarthritis, chronic low back pain. He also has a history of severe oxygen dependent, Gold stage IV chronic obstructive pulmonary disease with an FEV1 value 21% of predicted. He also has severe hypercapnic respiratory failure and utilizes BiPAP in the outpatient setting. He has chronic and ongoing tobacco dependence and chronic anxiety. He presented here to the emergency room with worsening shortness of breath for the past 3-4 days. He had been out to eat at the [employer] and upon his return was seemed to be too much activity and could not recover from his shortness of breath which produced more anxiety. Arterial blood gaseson 35% FiO2 revealed a PaO2 of 56, pCO2 of 90 and a pH is 7.35. Bicarb 43.He is currently on BiPAP at 10/5 and 28% FiO2. We'll increase it to 12/6. He is seen in consultation on the regular medical floor. He arouses to verbal stimuli. Answering yes no questions appropriately. His is at the bedside providing most of the information today. White count 5.9. Hemoglobin 11.6. Creatinine 0.67. Influenza screen is negative. He's been initiated on DuoNeb inhalations, Symbicort, IV Solu-Medrol. The patient is seen today 06/11/2019 in follow-up on the regular medical floor. He is currently off the BiPAP. Awake and alert in no acute distress. Breathing easier today as compared to yesterday. maintaining O2 saturations in the upper 90s on 4 L/m per nasal cannula. He is afebrile. Hemodynamically stable. Somew hat anxious and wanting to go home. sodium 140. Potassium 4.8. Chloride 91. Bicarb 47. Creatinine 0.71. he is been continued on IV Solu-Medrol, Symbicort, DuoNeb inhalations. Objective - Vital Signs Vital signs: Vital Signs Temp 98.0 F 06/11/19 05:32 Pulse 94 06/11/19 10:53 Resp 18 06/11/19 08:00 BP 132/69 06/11/19 05:32 Pulse Ox 98 06/11/19 05:32 Intake & Output 06/10/19 06/11/19 06/11/19 18:59 06:59 18:59 Weight 58.967 kg 58.967 kg Other: Voiding Method Urinal Toilet Toilet Urinal Urinal # Voids 1 1 - Exam GENERAL EXAM: Alert, 49-year-old gentleman who appears older than stated age, currently off BiPAP on 4 L nasal cannula, fairly comfortable in no apparent distress. HEAD: Normocephalic. EYES: Normal reaction of pupils, equal size. NOSE: Clear with pink turbinates. THROAT: No erythema or exudates. NECK: No masses, no JVD. CHEST: No chest wall deformity. LUNGS: Equal air entry with bilateral end expiratory wheeze, diminished. CVS: S1 and S2 normal with no audible murmur, regular rhythm. ABDOMEN: No hepatosplenomegaly, normal bowel sounds, no guarding or rigidity. SPINE: No scoliosis or deformity SKIN: No rashes CENTRAL NERVOUS SYSTEM: No focal deficits, tone is normal in all 4 extremities. EXTREMITIES: There is no peripheral edema. No clubbing, no cyanosis. Peripheral pulses are intact. - Labs CBC & Chem 7: 06/10/19 08:57 06/11/19 06:47 Labs: Abnormal Lab Results - Last 24 Hours (Table) 06/10/19 06/11/19 Range/Units 11:34 06:47 ABG pCO2 90 H* (35-45) mmHg ABG pO2 56 L* (83-108) mmHg ABG HCO3 50 H* (21-25) mmol/L ABG Total CO2 53 H (19-24) mmol/L ABG O2 Saturation 89.8 L (94-97) % Chloride 91 L (98-107) mmol/L Carbon Dioxide 47 H* (22-30) mmol/L Glucose 154 H (74-99) mg/dL Assessment and Plan Assessment: 1 Acute on chronic hypoxemic respiratory failure secondary to an acute exacerbation of chronic obstructive pulmonary disease. Gold stage IV. FEV1 value 21% of predicted Chest x-ray shows evidence of emphysema but no acute pulmonary process. Influenza screen negative. 2 Acute on chronic hypercapnic respiratory failure secondary to above, maintained on BiPAP in the outpatient setting, issues with noncompliance. 3 Chronic and ongoing tobacco dependence. 4 Anxiety/depression. 5 Atrial fibrillation, paroxysmal, anticoagulated with Eliquis, maintained on amiodarone. 6 History of CVA. 7 Hyperlipidemia. 8 Hypertension. 9 Fibromyalgia. 10 Chronic low back pain. Plan: The patient was seen and evaluated by Dr. Lane. Continue on DuoNeb inhalations, Symbicort, continue steroids. The patient is again educated regarding the importance of complete smoking cessation. Xanax for anxiety. Anticoagulated on Eliquis. I, the cosigning physician, performed a history & physical examination of the patient. Lungs sounds bilateral end expiratory wheeze, diminished throughout. Maintaining good O2 saturations in the 90s on 4 L/m per nasal cannula. I discussed the assessment and plan of care with my nurse practitioner, Gabrielle Segura. I attest to the above note as dictated by her.
[2019-06-11 13:27] VITALS: BP 110/70; PULSE 68; RESP 17; TEMP 97.7
== END 2019-06-11 15:12 | disposition home or self-care (01) | DRG 190 ==
LOC: EC 08:45 → 6NMEDSUR 10:46
PROVIDERS: ADMIT Internal Medicine; ATTEND Internal Medicine
PROC: 5A09357 Assistance with Respiratory Ventilation, Less than 24 Consecutive Hours, Continuous Positive Airway Pressure (ICD-10-PCS; principal; 2019-06-10)
DX: J43.9 Emphysema, unspecified (principal); J96.21 Acute and chronic respiratory failure with hypoxia; J96.22 Acute and chronic respiratory failure with hypercapnia; M19.90 Unspecified osteoarthritis, unspecified site; M79.7 Fibromyalgia; I48.0 Paroxysmal atrial fibrillation; I10 Essential (primary) hypertension; G89.29 Other chronic pain; F41.9 Anxiety disorder, unspecified; F17.200 Nicotine dependence, unspecified, uncomplicated; F32.9 Major depressive disorder, single episode, unspecified; E78.5 Hyperlipidemia, unspecified; D64.9 Anemia, unspecified; Z79.01 Long term (current) use of anticoagulants; Z79.51 Long term (current) use of inhaled steroids; Z79.899 Other long term (current) drug therapy; Z80.0 Family history of malignant neoplasm of digestive organs; Z82.5 Family history of asthma and other chronic lower respiratory diseases; Z86.73 Personal history of transient ischemic attack (TIA), and cerebral infarction without residual deficits; Z91.19 Patient's noncompliance with other medical treatment and regimen; Z99.81 Dependence on supplemental oxygen
CPT/HCPCS: 36415; 36600; 71046; 80048; 80053; 82805; 83605; 83735; 85025; 85610; 85730; 87040; 87502; 93005; 94640; 94660; 94760; 99291

== ENCOUNTER → 2019-08-26 | Outpatient (CLI) | payer BC, MEDICARE ==
--- NOTE | 2019-08-26 15:50 | US ---
EXAMINATION TYPE: US kidneys/renal and bladder DATE OF EXAM: 08/26/2019 COMPARISON: NONE CLINICAL HISTORY: R31.0 Gross hematuria. EXAM MEASUREMENTS: Right Kidney: 10.8 x 4.4 x 5.9 cm Left Kidney: 11.2 x 4.7 x 5.8 cm Right Kidney: cyst lat/sup measures 2.1 x 2.0 x 2.2 cm Left Kidney: No hydronephrosis or masses seen Bladder: Minimal internal debris Bilateral Jets seen: Yes There is no evidence for hydronephrosis at this point in time. No nephrolithiasis is seen. The urina ry bladder demonstrates minimal internal debris. Bilateral ureteral jets are seen. IMPRESSION: Simple appearing 2.2 cm right renal cyst. No hydronephrosis or nephrolithiasis of either kidney. Minimal debris is seen within the urinary bladder. Correlate with urinalysis.
== END | disposition home or self-care (01) ==
LOC: RADUSWWP 15:27
PROVIDERS: ATTEND Internal Medicine
DX: N28.1 Cyst of kidney, acquired (principal); R31.0 Gross hematuria
CPT/HCPCS: 76770

== ENCOUNTER 2019-12-29 09:27 | Inpatient (IN) | payer BC, MEDICARE ==
[2019-12-29] MEDS ORDERED: ACETAMINOPHEN SUPPOSITORY 650 MG SUPP RECTAL STA (09:33)
[2019-12-29 09:36] LABS: Glucose,Whole Blood 109 mg/dL (75-99)
[2019-12-29 09:39] LABS: ABG Base Excess 24.7 mmol/L; ABG Oxygen Saturation 98.3 % (94-97); ABG PH 7.33 (7.35-7.45); ABG PO2 125 mmHg (83-108); ABG TCO2 54 mmol/L (19-24); Allen Test Performed? Yes
[2019-12-29 09:45] LABS: ABG PCO2 96 mmHg (35-45)
[2019-12-29 09:46] LABS: ABG HCO3 51 mmol/L (21-25)
[2019-12-29 09:51] LABS: Basophils % (A) 0 %; Eosinophils # (A) 0.1 k/uL (0-0.7); Eosinophils % (A) 1 %; HCT 25.5 % (39.0-53.0); HGB 7.3 gm/dL (13.0-17.5); Hypochromasia Marked; Lymphocytes # (A) 0.6 k/uL (1.0-4.8); Lymphocytes % (A) 3 %; MCH 23.8 pg (25.0-35.0); MCHC 28.6 g/dL (31.0-37.0); MCV 83.2 fL (80.0-100.0); Mean Platelet Volume 7.5; Monocytes # (A) 1.1 k/uL (0-1.0); Monocytes % (A) 6 %; Neutrophils # (A) 16.4 k/uL (1.3-7.7); Neutrophils % (A) 88 %; Platelet Count 228 k/uL (150-450); RBC 3.07 m/uL (4.30-5.90); RDW 14.5 % (11.5-15.5); WBC 18.6 k/uL (3.8-10.6)
[2019-12-29 09:57] LABS: Appearance,Urine Clear (Clear); Bacteria,Urine Rare /hpf; Bilirubin,Urine Negative (Negative); Blood,Urine Large (Negative); Color,Urine Yellow; Glucose,Urine (UA) Negative (Negative); Hyaline Casts,Urine 4 /lpf (0-2); Ketones,Urine Negative (Negative); Leukocyte Esterase,Urine Negative (Negative); Mucus,Urine Rare /hpf; Nitrite,Urine Negative (Negative); Protein,Urine Trace (Negative); RBC,Urine >182 /hpf (0-5); Specific Gravity,Urine 1.018 (1.001-1.035); Squamous Epithelial Cell,Urine <1 /hpf (0-4); Urobilinogen,Urine <2.0 mg/dL (<2.0); WBC,Urine 4 /hpf (0-5)
[2019-12-29 10:00] LABS: INR 1.1 (<1.2); Partial Thromboplastin Time 24.8 sec (22.0-30.0); Prothrombin Time 11.4 sec (9.0-12.0)
[2019-12-29] MEDS ORDERED: SUCCINYLCHOLINE CHLORIDE VIAL 200 MG/10 ML VIAL IV STA (10:06)
[2019-12-29] MEDS ORDERED: MIDAZOLAM 2 MG/2 ML VIAL IV STA (10:06)
[2019-12-29 10:27] LABS: C Reactive Protein 25.7 mg/L (<10.0); Calcium 8.9 mg/dL (8.4-10.2); Magnesium 1.6 mg/dL (1.6-2.3); Potassium 4.6 mmol/L (3.5-5.1); Total Bilirubin 0.5 mg/dL (0.2-1.3); Total Protein 6.3 g/dL (6.3-8.2)
[2019-12-29] MEDS: LORazepam 2 MG/ML INJ IV PRN ×3 (10:29→11:14)
--- NOTE | 2019-12-29 10:30 | ED ---
General Adult HPI - General Chief complaint: Altered Mental Status Stated complaint: Altered Time Seen by Provider: 12/29/19 09:28 Source: EMS, RN notes reviewed Mode of arrival: EMS Limitations: altered mental status - History of Present Illness Initial comments: Patient is a approximately 58-year-old male presenting to the emergency department by EMS. Patient has decreased responsiveness and unable to provide history. Patient reportedly has been having increased weakness over the past several days. Patient has had some mild falls however family did not seem to be overly concerned regarding that. Unclear patient has history of similar symptom s previously. - Related Data Home Medications Medication Instructions Recorded Confirmed ALPRAZolam [Xanax] 0.5 mg PO QID 12/29/19 12/29/19 Amiodarone [Cordarone] 200 mg PO DAILY 12/29/19 12/29/19 Apixaban [Eliquis] 5 mg PO BID 12/29/19 12/29/19 Budesonide/Formoterol Fumarate 2 puff INHALATION RT-BID 12/29/19 12/29/19 [Symbicort 160-4.5 Mcg Inhaler] DULoxetine HCL [Cymbalta] 60 mg PO DAILY 12/29/19 12/29/19 Gabapentin 600 mg PO TID 12/29/19 12/29/19 HYDROcodone/APAP 7.5-325MG [Suring 1 tab PO TID PRN 12/29/19 12/29/19 7.5-325] Ipratropium-Albuterol Nebulize 3 ml INHALATION RT-QID 12/29/19 12/29/19 [Duoneb 0.5 mg-3 mg/3 ml Soln] Ipratropium/Albuterol Sulfate 1 puff INHALATION RT-DAILY 12/29/19 12/29/19 [Combivent Respimat Inhaler] Verapamil HCl [Verapamil ER] 240 mg PO DAILY 12/29/19 12/29/19 Allergies Allergy/AdvReac Type Severity Reaction Status Date / Time No Known Allergies Allergy Verified 12/29/19 12:03 Review of Systems ROS Statement: Those systems with pertinent positive or pertinent negative responses have been documented in the HPI. ROS Other: All systems not noted in ROS Statement are negative. Limitations: ROS unobtainable due to patients medical condition Past Medical History Past Medical History: No Reported History, Unable to Obtain History of Any Multi-Drug Resistant Organisms: Unobtainable Past Surgical History: Unable to Obtain Past Psychological History: Unable to Obtain Smoking Status: Unknown if ever smoked Past Alcohol Use History: Unable to Obtain Past Drug Use History: Unable to Obtain General Exam Limitations: altered mental status General appearance: lethargic Head exam: Present: other (Soft tissue swelling left forehead/orbital region) Eye exam: Present: PERRL ENT exam: Present: normal oropharynx Neck exam: Present: normal inspection. Absent: tenderness Respiratory exam: Present: wheezes Cardiovascular Exam: Present: regular rate, normal rhythm GI/Abdominal exam: Present: soft. Absent: tenderness Extremities exam: Present: normal inspection Neurological exam: Present: alert, other (Nonverbal. Does not follow commands. Does move all extremities.) Expanded Motor strength exam: RUE: 5, LUE: 5, RLE: 5, LLE: 5 Eye Response: (4) open spontaneously Motor Response: (4) withdraws to pain Verbal Response: incomprehensible sounds Psychiatric exam: Present: other (Nonverbal) Skin exam: Present: normal color Course Vital Signs 12/29/19 12/29/19 12/29/19 09:48 10:15 10:25 Temperature 99.9 F H Pulse Rate 97 93 88 Respiratory 18 18 18 Rate Blood Pressure 108/70 121/74 110/69 O2 Sat by Pulse 91 L 99 100 Oximetry 12/29/19 12/29/19 12/29/19 10:40 10:45 10:54 Temperature Pulse Rate 89 81 80 Respiratory 18 18 Rate Blood Pressure 101/65 101/54 O2 Sat by Pulse 97 100 Oximetry 12/29/19 12/29/19 12/29/19 11:00 11:16 11:38 Temperature 98.1 F 101.1 F H Pulse Rate 87 77 75 Respiratory 18 18 16 Rate Blood Pressure 98/65 92/71 89/56 O2 Sat by Pulse 100 100 100 Oximetry 12/29/19 12/29/19 12:08 12:19 Temperature 101 F H Pulse Rate 74 74 Respiratory 16 16 Rate Blood Pressure 88/74 105/72 O2 Sat by Pulse 100 100 Oximetry - Reevaluation(s) Reevaluation #1: 12/29/19 10:31 Secondary to high CO2 level and patient drowsiness patient was intubated without difficulty. 12/29/19 11:20 Patient reevaluated. No meningismus 12/29/19 11:48 Repeat ABG shows pH 7.48, CO2 65, O2 140 12/29/19 12:23 There is concern for sepsis diagnosed at 1223 associated with COPD. Blood culture and lactic acid have been ordered. IV antibiotics will be ordered. 12/29/19 12:23 Fluid bolus was provided with improvement of blood pressure. EKG Findings - EKG Comments: EKG Findings:: Significant motion artifact with appearance of normal sinus rhythm. Rate 99. IL 174. QRS 94. QT 332. QTC 426. Normal axis. Normal QRS. No acute ST change. Procedures - ABG Interpretation Ph: 7.33 PCO2: 96 PO2: 125 Bicarbonate: 50 Interpretation: respiratory acidosis - Intubation Sedative: Versed Paralytic: Succinylcholine Laryngoscope: Amanda Size: 3 ET Tube Size: 8 Tube Secured Depth (cm): 22 Tube Secured Location: lips Tube Placement Confirmation: visualized tube passing through cords, equal breath sounds bilaterally, no breath sounds over epigastrium, confirmation by capnometry Patient Tolerated Procedure: well, no complications Medical Decision Making - Medical Decision Making Patient has hypercarbia with CO2 of 95. Patient has possible sepsis involved with COPD. Patient reevaluated. Case was discussed with Dr. Sellers, covering for Dr. Laurent, who will admit. Dr. Ozuna has been paged for consult. - Lab Data Result diagrams: 12/29/19 09:40 12/29/19 09:40 Lab Results 12/29/19 12/29/19 12/29/19 Range/Units 09:31 09:33 09:40 WBC 18.6 H (3.8-10.6) k/uL RBC 3.07 L (4.30-5.90) m/uL Hgb 7.3 L (13.0-17.5) gm/dL Hct 25.5 L (39.0-53.0) % MCV 83.2 (80.0-100.0) fL MCH 23.8 L (25.0-35.0) pg MCHC 28.6 L (31.0-37.0) g/dL RDW 14.5 (11.5-15.5) % Plt Count 228 (150-450) k/uL Neutrophils % 88 % Lymphocytes % 3 % Monocytes % 6 % Eosinophils % 1 % Basophils % 0 % Neutrophils # 16.4 H (1.3-7.7) k/uL Lymphocytes # 0.6 L (1.0-4.8) k/uL Monocytes # 1.1 H (0-1.0) k/uL Eosinophils # 0.1 (0-0.7) k/uL Basophils # 0.0 (0-0.2) k/uL Hypochromasia Marked PT (9.0-12.0) sec INR (<1.2) APTT (22.0-30.0) sec Sample Site rt radial ABG pH 7.33 L (7.35-7.45) ABG pCO2 96 H* (35-45) mmHg ABG pO2 125 H (83-108) mmHg ABG HCO3 51 H* (21-25) mmol/L ABG Total CO2 54 H (19-24) mmol/L ABG O2 Saturation 98.3 H (94-97) % ABG Base Excess 24.7 mmol/L Gonsalo Test Yes FiO2 100 % Sodium (137-145) mmol/L Potassium (3.5-5.1) mmol/L Chloride (98-107) mmol/L Carbon Dioxide (22-30) mmol/L Anion Gap mmol/L BUN (9-20) mg/dL Creatinine (0.66-1.25) mg/dL Est GFR (CKD-EPI)AfAm (>60 ml/min/1.73 sqM) Est GFR (CKD-EPI)NonAf (>60 ml/min/1.73 sqM) Glucose (74-99) mg/dL POC Glucose (mg/dL) 109 H (75-99) mg/dL POC Glu Transit Planner ID Falguni Velasquez Plasma Lactic Acid Jamaal (0.7-2.0) mmol/L Calcium (8.4-10.2) mg/dL Magnesium (1.6-2.3) mg/dL Ferritin Total Bilirubin (0.2-1.3) mg/dL AST (17-59) U/L ALT (4-49) U/L Alkaline Phosphatase (38-126) U/L Lactate Dehydrogenase (313-618) U/L C-Reactive Protein (<10.0) mg/L Total Protein (6.3-8.2) g/dL Albumin (3.5-5.0) g/dL Urine Color Urine Appearance (Clear) Urine pH (5.0-8.0) Ur Specific [place] (1.001-1.035) Urine Protein (Negative) Urine Glucose (UA) (Negative) Urine Ketones (Negative) Urine Blood (Negative) Urine Nitrite (Negative) Urine Bilirubin (Negative) Urine Urobilinogen (<2.0) mg/dL Ur Leukocyte Esterase (Negative) Urine RBC (0-5) /hpf Urine WBC (0-5) /hpf Ur Squamous Epith Cells (0-4) /hpf Urine Bacteria (None) /hpf Hyaline Casts (0-2) /lpf Urine Mucus (None) /hpf 12/29/19 12/29/19 12/29/19 Range/Units 09:40 09:40 09:40 WBC (3.8-10.6) k/uL RBC (4.30-5.90) m/uL Hgb (13.0-17.5) gm/dL Hct (39.0-53.0) % MCV (80.0-100.0) fL MCH (25.0-35.0) pg MCHC (31.0-37.0) g/dL RDW (11.5-15.5) % Plt Count (150-450) k/uL Neutrophils % % Lymphocytes % % Monocytes % % Eosinophils % % Basophils % % Neutrophils # (1.3-7.7) k/uL Lymphocytes # (1.0-4.8) k/uL Monocytes # (0-1.0) k/uL Eosinophils # (0-0.7) k/uL Basophils # (0-0.2) k/uL Hypochromasia PT 11.4 (9.0-12.0) sec INR 1.1 (<1.2) APTT 24.8 (22.0-30.0) sec Sample Site ABG pH (7.35-7.45) ABG pCO2 (35-45) mmHg ABG pO2 (83-108) mmHg ABG HCO3 (21-25) mmol/L ABG Total CO2 (19-24) mmol/L ABG O2 Saturation (94-97) % ABG Base Excess mmol/L [place] Test FiO2 % Sodium 135 L (137-145) mmol/L Potassium 4.6 (3.5-5.1) mmol/L Chloride 87 L (98-107) mmol/L Carbon Dioxide 44 H* (22-30) mmol/L Anion Gap 4 mmol/L BUN 25 H (9-20) mg/dL Creatinine 0.77 (0.66-1.25) mg/dL Est GFR (CKD-EPI)AfAm 76 (>60 ml/min/1.73 sqM) Est GFR (CKD-EPI)NonAf 65 (>60 ml/min/1.73 sqM) Glucose 96 (74-99) mg/dL POC Glucose (mg/dL) (75-99) mg/dL POC Glu Transit Planner ID Plasma Lactic Acid Jamaal 1.4 (0.7-2.0) mmol/L Calcium 8.9 (8.4-10.2) mg/dL Magnesium 1.6 (1.6-2.3) mg/dL Ferritin Cancelled Total Bilirubin 0.5 (0.2-1.3) mg/dL AST 42 (17-59) U/L ALT 18 (4-49) U/L Alkaline Phosphatase 70 (38-126) U/L Lactate Dehydrogenase 483 (313-618) U/L C-Reactive Protein 25.7 H (<10.0) mg/L Total Protein 6.3 (6.3-8.2) g/dL Albumin 4.0 (3.5-5.0) g/dL Urine Color Urine Appearance (Clear) Urine pH (5.0-8.0) Ur Specific [place] (1.001-1.035) Urine Protein (Negative) Urine Glucose (UA) (Negative) Urine Ketones (Negative) Urine Blood (Negative) Urine Nitrite (Negative) Urine Bilirubin (Negative) Urine Urobilinogen (<2.0) mg/dL Ur Leukocyte Esterase (Negative) Urine RBC (0-5) /hpf Urine WBC (0-5) /hpf Ur Squamous Epith Cells (0-4) /hpf Urine Bacteria (None) /hpf Hyaline Casts (0-2) /lpf Urine Mucus (None) /hpf 12/29/19 12/29/19 Range/Units 09:46 11:09 WBC (3.8-10.6) k/uL RBC (4.30-5.90) m/uL Hgb (13.0-17.5) gm/dL Hct (39.0-53.0) % MCV (80.0-100.0) fL MCH (25.0-35.0) pg MCHC (31.0-37.0) g/dL RDW (11.5-15.5) % Plt Count (150-450) k/uL Neutrophils % % Lymphocytes % % Monocytes % % Eosinophils % % Basophils % % Neutrophils # (1.3-7.7) k/uL Lymphocytes # (1.0-4.8) k/uL Monocytes # (0-1.0) k/uL Eosinophils # (0-0.7) k/uL Basophils # (0-0.2) k/uL Hypochromasia PT (9.0-12.0) sec INR (<1.2) APTT (22.0-30.0) sec Sample Site RT RADIAL ABG pH 7.48 H (7.35-7.45) ABG pCO2 65 H (35-45) mmHg ABG pO2 140 H (83-108) mmHg ABG HCO3 48 H* (21-25) mmol/L ABG Total CO2 50 H (19-24) mmol/L ABG O2 Saturation 99.2 H (94-97) % ABG Base Excess 25.0 mmol/L Gonsalo Test Yes FiO2 100 % Sodium (137-145) mmol/L Potassium (3.5-5.1) mmol/L Chloride (98-107) mmol/L Carbon Dioxide (22-30) mmol/L Anion Gap mmol/L BUN (9-20) mg/dL Creatinine (0.66-1.25) mg/dL Est GFR (CKD-EPI)AfAm (>60 ml/min/1.73 sqM) Est GFR (CKD-EPI)NonAf (>60 ml/min/1.73 sqM) Glucose (74-99) mg/dL POC Glucose (mg/dL) (75-99) mg/dL POC Glu Transit Planner ID Plasma Lactic Acid Jamaal (0.7-2.0) mmol/L Calcium (8.4-10.2) mg/dL Magnesium (1.6-2.3) mg/dL Ferritin Total Bilirubin (0.2-1.3) mg/dL AST (17-59) U/L ALT (4-49) U/L Alkaline Phosphatase (38-126) U/L Lactate Dehydrogenase (313-618) U/L C-Reactive Protein (<10.0) mg/L Total Protein (6.3-8.2) g/dL Albumin (3.5-5.0) g/dL Urine Color Yellow Urine Appearance Clear (Clear) Urine pH 6.0 (5.0-8.0) Ur Specific [place] 1.018 (1.001-1.035) Urine Protein Trace H (Negative) Urine Glucose (UA) Negative (Negative) Urine Ketones Negative (Negative) Urine Blood Large H (Negative) Urine Nitrite Negative (Negative) Urine Bilirubin Negative (Negative) Urine Urobilinogen <2.0 (<2.0) mg/dL Ur Leukocyte Esterase Negative (Negative) Urine RBC >182 H (0-5) /hpf Urine WBC 4 (0-5) /hpf Ur Squamous Epith Cells <1 (0-4) /hpf Urine Bacteria Rare H (None) /hpf Hyaline Casts 4 H (0-2) /lpf Urine Mucus Rare H (None) /hpf - Radiology Data Radiology results: report reviewed (Computed tomography scan brain and cervical spine reveals no acute abnormality.) Critical Care Time Critical Care Time: Yes Total Critical Care Time: 45 Disposition Clinical Impression: Hypercarbia, Respiratory failure, Altered mental status, COPD (chronic obstructive pulmonary disease), Sepsis Disposition: [facility] Condition: Critical Is patient prescribed a controlled substance at d/c from ED?: No Referrals: Hue Laurent MD [Primary Care Provider] - 1-2 days Decision Time: 12:24
--- NOTE | 2019-12-29 10:34 | CT ---
EXAMINATION TYPE: CT brain erick willson DATE OF EXAM: 12/29/2019 COMPARISON: HISTORY: Pt poor historian, currently unresponsive. Pt family states he's had multiple falls recently CT DLP: 1309.1 mGycm Automated exposure control for dose reduction was used. TECHNIQUE: CT scan of the head and cervical spine are performed without contrast. FINDINGS: There is no acute intracranial hemorrhage, mass effect, or midline shift identified. The ventricles and sulci are within normal limits in size. The globes are intact and the visualized sin uses are remarkable for probable mucus retention cyst right maxillary sinus, there is postop change t o the right temporal bone. Cervical spine is visualized in its entirety from C1 through upper thoracic levels and demonstrates s atisfactory alignment without evidence of acute fracture or dislocation. Prevertebral soft tissue ap pears within normal limits. The C1-C2 articulation is unremarkable. Degenerative disc changes are pr esent in the cervical spine, there is spondylosis with disc height loss at C5-6 and C6-7, multilevel foraminal encroachment IMPRESSION: 1. There is no acute fracture or dislocation evident in the cervical spine. 2. No acute intracranial hemorrhage, mass effect, or midline shift is seen.
[2019-12-29] MEDS ORDERED: IPRATROPIUM-ALBUTEROL 3 ML NEB INHALATION STA (10:42)
--- NOTE | 2019-12-29 11:04 | XR ---
EXAMINATION TYPE: XR chest 1V portable DATE OF EXAM: 12/29/2019 HISTORY: Shortness of breath. COMPARISON: None. TECHNIQUE: Single view of the chest is submitted. FINDINGS: Endotracheal tube is appropriately placed. NG tube is seen coiling in the esophagus and must be repos itioned. Demonstrated are scattered senescent parenchymal change. There is no evidence for focal infiltrate. The heart is stable. Hilar and mediastinal structures are within normal limits. Degenerative changes are seen of the dorsal spine. IMPRESSION: 1. NG tube is seen coiling in the esophagus and must be repositioned. No focal pneumonia seen.
[2019-12-29 11:22] LABS: ABG Oxygen Saturation 99.2 % (94-97); ABG PCO2 65 mmHg (35-45); ABG PH 7.48 (7.35-7.45); ABG PO2 140 mmHg (83-108); ABG TCO2 50 mmol/L (19-24); Allen Test Performed? Yes
[2019-12-29 11:28] LABS: ABG HCO3 48 mmol/L (21-25)
[2019-12-29] MEDS ORDERED: SODIUM CHLORIDE 0.9% 500 ML 500 ML IV STA (11:47)
[2019-12-29] MEDS ORDERED: SODIUM CHLORIDE 0.9% 1,000 ML IV STA (11:47)
[2019-12-29] MEDS ORDERED: methylPREDNISolone SOD SUCCI 125 MG/2 ML VIAL IV STA (12:26)
[2019-12-29] MEDS ORDERED: PNEUMONIA PROTOCOL UTILIZED 1 EACH MISC PO PRN (12:26)
[2019-12-29] MEDS ORDERED: AZITHROMYCIN 500 MG in SODIUM CHLORIDE 0.9% 250 ML IVPB STA (12:26)
[2019-12-29] MEDS ORDERED: IPRATROPIUM-ALBUTEROL 3 ML NEB INHALATION PRN (12:26)
--- NOTE | 2019-12-29 12:31 | XR ---
EXAMINATION TYPE: XR chest 1V confirm line [facility] DATE OF EXAM: 12/29/2019 HISTORY: Shortness of breath. COMPARISON: 12/29/2019 TECHNIQUE: Single view of the chest is submitted. FINDINGS: Demonstrated are scattered senescent parenchymal change. There is left infrahilar infiltrate. Endotracheal tube and NG tubes are appropriately placed. The heart is stable. Hilar and mediastinal structures are within normal limits. Degenerative changes are seen of the dorsal spine. IMPRESSION: 1. There is left infrahilar infiltrate. Endotracheal tube and NG tubes are appropriately placed.
[2019-12-29] MEDS: SODIUM CHLORIDE 0.9% 1,000 ML IV SCH ×2 (12:38→20:01)
[2019-12-29] MEDS ORDERED: NOREPINEPHRIN 4 MG-0.9% NS PMX 4 MG/250 ML ML IV ONE (13:19)
[2019-12-29] MEDS ORDERED: SODIUM CHLORIDE 0.9% 1,000 ML IV ONE (13:23)
[2019-12-29 13:24] LABS: Glucose,Whole Blood 144 mg/dL (75-99)
--- NOTE | 2019-12-29 13:42 | P.HPIM ---
History of Present Illness 49-year-old male was brought in unresponsive and patient is found to be in hypercapnic respiratory failure subsequently intubated. Patient does have history of COPD is on 3 L of oxygen at home. Patient does have history of atrial fibrillation for which patient is on Eliquis. Patient found to have high-grade fever. I didn't appreciate any infiltrate on chest x-ray but it was read as infrahilar infiltrate because of which patient was started on antibiotics. Patient blood pressure is low patient will be given 1 mL of bolus of IV fluids, in spite of which patient blood pressure remained low because of which a patient may require norepinephrine patient was started on norepinephrine patient is on propofol drip patient is presently on FiO2 of around 50%. PEEP of 5 set up respiratory of 18 as patient has epigastric diabetes with failure to volume of 500. Patient had ABGs showing pH of 7.33 pCO2 of 96 by mouth to 125 bicarbonate of 44 patient baseline pCO2 is around the 70 from Hernandez formula. Review of Systems Review of systems: Unable to obtain as patient is intubated. Past Medical History Past Medical History: Atrial Fibrillation, COPD, CVA/TIA, Fibromyalgia, GERD/Reflux, Pneumonia, Respiratory Disorder Additional Past Medical History / Comment(s): Home oxygen at 3.5-4L/NC ATC, recent blood in urine/brown urine off and on past few months, bronchitis, tia years ago, chronic back pain, neuropathy bilateral hands History of Any Multi-Drug Resistant Organisms: Unobtainable Past Surgical History: Ear Surgery Additional Past Surgical History / Comment(s): Lumbar epidural injections, ear surgery for eardrum injury. Past Anesthesia/Blood Transfusion Reactions: No Reported Reaction Smoking Status: Current some day smoker - Past Family History Father Family Medical History: Cancer Additional Family Medical History / Comment(s): Father had lung/brain cancer and of this at the age of 56yrs. He was a smoker. Mother Family Medical History: COPD Additional Family Medical History / Comment(s): Mother was a smoker and of COPD about age 75 yrs. Medications and Allergies Home Medications Medication Instructions Recorded Confirmed Type ALPRAZolam [Xanax] 0.5 mg PO QID 12/29/19 12/29/19 History Amiodarone [Cordarone] 200 mg PO DAILY 12/29/19 12/29/19 History Apixaban [Eliquis] 5 mg PO BID 12/29/19 12/29/19 History Budesonide/Formoterol Fumarate 2 puff INHALATION RT-BID 12/29/19 12/29/19 History [Symbicort 160-4.5 Mcg Inhaler] DULoxetine HCL [Cymbalta] 60 mg PO DAILY 12/29/19 12/29/19 History Gabapentin 600 mg PO TID 12/29/19 12/29/19 History HYDROcodone/APAP 7.5-325MG [[place] 1 tab PO TID PRN 12/29/19 12/29/19 History 7.5-325] Ipratropium-Albuterol Nebulize 3 ml INHALATION RT-QID 12/29/19 12/29/19 History [Duoneb 0.5 mg-3 mg/3 ml Soln] Ipratropium/Albuterol Sulfate 1 puff INHALATION RT-DAILY 12/29/19 12/29/19 History [Combivent Respimat Inhaler] Verapamil HCl [Verapamil ER] 240 mg PO DAILY 12/29/19 12/29/19 History Allergies Allergy/AdvReac Type Severity Reaction Status Date / Time No Known Allergies Allergy Verified 12/29/19 12:03 Physical Exam Vitals: Vital Signs Temp Pulse Resp BP Pulse Ox 12/29/19 12:19 74 16 105/72 100 12/29/19 12:08 101 F H 74 16 88/74 100 12/29/19 11:38 101.1 F H 75 16 89/56 100 12/29/19 11:16 77 18 92/71 100 12/29/19 11:00 98.1 F 87 18 98/65 100 12/29/19 10:54 80 18 101/54 100 12/29/19 10:45 81 12/29/19 10:40 89 18 101/65 97 12/29/19 10:25 88 18 110/69 100 12/29/19 10:15 93 18 121/74 99 12/29/19 09:48 99.9 F H 97 18 108/70 91 L Intake and Output 12/28/19 12/29/19 12/29/19 22:59 06:59 14:59 Intake Total 5.472 Balance 5.472 Intake: Intake, IV Titration 5.472 Amount Propofol 1,000 mg In 5.472 Empty Bag 1 bag @ Titrate IV .Q0M [facility] Rx#: [id number] Other: Weight 55.837 kg PHYSICAL EXAMINATION: GENERAL: Patient is intubated response to her. Respods to verbal stimuli HEENT: Pupils are round and equally reacting to light. EOMI. No scleral icterus. No conjunctival pallor. Normocephalic, atraumatic. No pharyngeal erythema. No th yromegaly. CARDIOVASCULAR: S1 and S2 present. No murmurs, rubs, or gallops. PULMONARY: Chest is clear to auscultation, no wheezing or crackles. ABDOMEN: Soft, nontender, nondistended, normoactive bowel sounds. No palpable organomegaly. MUSCULOSKELETAL: No joint swelling or deformity. EXTREMITIES: No cyanosis, clubbing, or pedal edema. NEUROLOGICAL: Patient is sedated and RASS score of 1 SKIN: No rashes. Results CBC & Chem 7: 12/29/19 09:40 12/29/19 09:40 Labs: Abnormal Lab Results - Last 24 Hours (Table) 12/29/19 12/29/19 12/29/19 Range/Units 09:31 09:33 09:40 WBC 18.6 H (3.8-10.6) k/uL RBC 3.07 L (4.30-5.90) m/uL Hgb 7.3 L (13.0-17.5) gm/dL Hct 25.5 L (39.0-53.0) % MCH 23.8 L (25.0-35.0) pg MCHC 28.6 L (31.0-37.0) g/dL Neutrophils # 16.4 H (1.3-7.7) k/uL Lymphocytes # 0.6 L (1.0-4.8) k/uL Monocytes # 1.1 H (0-1.0) k/uL ABG pH 7.33 L (7.35-7.45) ABG pCO2 96 H* (35-45) mmHg ABG pO2 125 H (83-108) mmHg ABG HCO3 51 H* (21-25) mmol/L ABG Total CO2 54 H (19-24) mmol/L ABG O2 Saturation 98.3 H (94-97) % Sodium (137-145) mmol/L Chloride (98-107) mmol/L Carbon Dioxide (22-30) mmol/L BUN (9-20) mg/dL POC Glucose (mg/dL) 109 H (75-99) mg/dL C-Reactive Protein (<10.0) mg/L Urine Protein (Negative) Urine Blood (Negative) Urine RBC (0-5) /hpf Urine Bacteria (None) /hpf Hyaline Casts (0-2) /lpf Urine Mucus (None) /hpf 12/29/19 12/29/19 12/29/19 Range/Units 09:40 09:46 11:09 WBC (3.8-10.6) k/uL RBC (4.30-5.90) m/uL Hgb (13.0-17.5) gm/dL Hct (39.0-53.0) % MCH (25.0-35.0) pg MCHC (31.0-37.0) g/dL Neutrophils # (1.3-7.7) k/uL Lymphocytes # (1.0-4.8) k/uL Monocytes # (0-1.0) k/uL ABG pH 7.48 H (7.35-7.45) ABG pCO2 65 H (35-45) mmHg ABG pO2 140 H (83-108) mmHg ABG HCO3 48 H* (21-25) mmol/L ABG Total CO2 50 H (19-24) mmol/L ABG O2 Saturation 99.2 H (94-97) % Sodium 135 L (137-145) mmol/L Chloride 87 L (98-107) mmol/L Carbon Dioxide 44 H* (22-30) mmol/L BUN 25 H (9-20) mg/dL POC Glucose (mg/dL) (75-99) mg/dL C-Reactive Protein 25.7 H (<10.0) mg/L Urine Protein Trace H (Negative) Urine Blood Large H (Negative) Urine RBC >182 H (0-5) /hpf Urine Bacteria Rare H (None) /hpf Hyaline Casts 4 H (0-2) /lpf Urine Mucus Rare H (None) /hpf 12/29/19 Range/Units 13:22 WBC (3.8-10.6) k/uL RBC (4.30-5.90) m/uL Hgb (13.0-17.5) gm/dL Hct (39.0-53.0) % MCH (25.0-35.0) pg MCHC (31.0-37.0) g/dL Neutrophils # (1.3-7.7) k/uL Lymphocytes # (1.0-4.8) k/uL Monocytes # (0-1.0) k/uL ABG pH (7.35-7.45) ABG pCO2 (35-45) mmHg ABG pO2 (83-108) mmHg ABG HCO3 (21-25) mmol/L ABG Total CO2 (19-24) mmol/L ABG O2 Saturation (94-97) % Sodium (137-145) mmol/L Chloride (98-107) mmol/L Carbon Dioxide (22-30) mmol/L BUN (9-20) mg/dL POC Glucose (mg/dL) 144 H (75-99) mg/dL C-Reactive Protein (<10.0) mg/L Urine Protein (Negative) Urine Blood (Negative) Urine RBC (0-5) /hpf Urine Bacteria (None) /hpf Hyaline Casts (0-2) /lpf Urine Mucus (None) /hpf Thrombosis Risk Factor Assmnt - Choose All That Apply Any of the Below Risk Factors Present?: Yes Each Factor Represents 1 point: Abnormal pulmonary function (COPD), Age 41-60 years, Serious lung disease incl. pneumonia (< 1month) Other Risk Factors: No Other congenital or acquired thrombophilia - If yes, enter type in comment: No Thrombosis Risk Factor Assessment Total Risk Factor Score: 3 Thrombosis Risk Factor Assessment Level: Moderate Risk Assessment and Plan Plan: -Acute on chronic hypercapnic respiratory failure secondary to COPD exacerbation: Patient is intubated patient is an above-mentioned settings patient to the pCO2 is almost at his baseline as the respiratory therapist occurred on the on the tidal volume. Pulmonology was consulted. Patient is on systemic steroids inhalational treatments. -Septic shock probable source of sepsis being Pneumonia urine does look abnormal as well but my suspicion is low that patient has UTI continue with Rocephin and azithromycin. Blood cultures and sputum cultures will be obtained. Hypermetabolic is about the: Secondary to hypercapnia -COPD advanced with a chronic hypercapnic respiratory failure requiring liters of oxygen at home patient does have advanced COPD -History of atrial fibrillation presently rate controlled sinus rhythm continue with anti-correlation, verapamil is on hold because of his low blood pressures. -Gastroesophageal reflux disease -History of cerebral vascular accident in the past -Continue nicotine use -DVT prophylaxis patient is already on Eliquis GI prophylaxis Protonix
[2019-12-29] MEDS: PANTOPRAZOLE 40 MG/10 ML VIAL IVP SCH (14:10)
[2019-12-29] MEDS: NOREPINEPHRINE 4 MG in SODIUM CHLORIDE 0.9% 250 ML IV SCH (14:31)
[2019-12-29 15:19] LABS: Appearance,Urine Clear (Clear); Bacteria,Urine Rare /hpf; Bilirubin,Urine Negative (Negative); Blood,Urine Moderate (Negative); Color,Urine Light Yellow; Glucose,Urine (UA) Negative (Negative); Ketones,Urine 1+ (Negative); Leukocyte Esterase,Urine Negative (Negative); Nitrite,Urine Negative (Negative); Protein,Urine Negative (Negative); RBC,Urine 10 /hpf (0-5); Specific Gravity,Urine 1.013 (1.001-1.035); Urobilinogen,Urine <2.0 mg/dL (<2.0); WBC,Urine 3 /hpf (0-5)
[2019-12-29] MEDS: IPRATROPIUM-ALBUTEROL 3 ML NEB INHALATION SCH ×2 (15:44→19:36)
--- NOTE | 2019-12-29 16:04 | P.CNPUL ---
History of Present Illness Consult date: 12/29/19 Reason for consult: dyspnea, COPD Chief complaint: Diminished level of consciousness History of present illness: This is a 49-year-old male patient with severe end-stage COPD with chronic hypoxic and hypercapnic respiratory failure. The patient has been steroid- dependent receiving prednisone 5 mg on a daily basis. The patient also has a Trilogy AVAPS, oxygen which she uses it 08/01 and the patient has been utilizing Symbicort as maintenance and albuterol/Atrovent nebulized treatment [id number] on as-needed basis. His spirometry from August 2014 has a yielded an FEV1 of 0.77 L which is only 21% of predicted. He is under the care of Dr. Lane on outpatient basis. His other comorbid conditions include atrial fibrillation, previous history of CVA, and generalized anxiety disorder. The patient came into the emergency department with worsening shortness of breath and diminished level of consciousness and the patient was unable to provide any history of the time of arrival. The patient reportedly has been having increased weakness over the past several days. He has had falls, however, family did not seem to be very much concerned regarding that. The patient was brought into the ED and he should chest exit did not show any signs of pneumonia. He was afebrile. His initial blood gases showed a pH of 7.33 with a pCO2 of 96 and pO2 of 125. The patient was intubated and placed on a mechanical ventilator. Currently the patient is an assist-control mode of ventilation at the rate of 18 with a tidal volume of 500 and a PEEP of 5 with an FiO2 of 50%. Subsequent blood gases showed improvement and acid base status with a pH of 7.48 and a pCO2 of 65 and a pO2 was 41 the patient was being and 100% FiO2. FiO2 has been gradually wean down to 50%. The patient has a chronic serum bicarb of 44. Renal function shows a BUN of 25 with a creatinine of 0.7. Sodium is 135. Magnesium is 1.6. Lactic acid level is at 1.4. CRP is 25.7. Albumin is at 4 with a total protein of 6.3. LFTs were within normal limits. The UA was abnormal with more than 182 white cells and rare bacteria. The white cell count on admission was 18.6 with hemoglobin of 7.3. For now, the patient is sedated with propofol is calm and comfortable. The patient is on DuoNeb nebulized with [id number]. The patient IV Solu- Medrol. The patient is covered with a combination of Rocephin and Zithromax. The patient got transferred to the intensive care unit. Note that the patient was initially found to have a temperature 11.0 and current temperature is 99.6. Hemodynamically stable on no pressors. IV fluids are running at 125 mL of normal saline. He was given a bolus of 1 L in the emergency department. The computed tomography scan of the head showed no evidence of an acute abnormalities. Computed tomography scan of the cervical spine shows no evidence of any fractures or dislocation. There is degenerative disc changes throughout the C-spine. The cardiac rhythm for now is sinus. Review of Systems ROS unobtainable: due to endotracheal tube Past Medical History Past Medical History: Atrial Fibrillation, COPD, CVA/TIA, Fibromyalgia, GERD/Reflux, Pneumonia, Respiratory Disorder Additional Past Medical History / Comment(s): Home oxygen at 3.5-4L/[place] ATC, recent blood in urine/brown urine off and on past few months, bronchitis, tia years ago, chronic back pain, neuropathy bilateral hands History of Any Multi-Drug Resistant Organisms: Unobtainable Past Surgical History: Ear Surgery Additional Past Surgical History / Comment(s): Lumbar epidural injections, ear surgery for eardrum injury. Past Anesthesia/Blood Transfusion Reactions: No Reported Reaction Smoking Status: Current some day smoker - Past Family History Father Family Medical History: Cancer Additional Family Medical History / Comment(s): Father had lung/brain cancer and of this at the age of 56yrs. He was a smoker. Mother Family Medical History: COPD Additional Family Medical History / Comment(s): Mother was a smoker and of COPD about age 75 yrs. Medications and Allergies Home Medications Medication Instructions Recorded Confirmed Type ALPRAZolam 0.5 mg PO QID 03/28/15 06/10/19 History DULoxetine HCL 60 mg PO DAILY 03/28/15 06/10/19 History Gabapentin 600 mg PO TID 03/28/15 06/10/19 History Ipratropium/Albuterol Sulfate 1 puff INHALATION RT-QID 03/28/15 06/10/19 History [Combivent Respimat Inhaler] Budesonide-Formot 160-4.5 Mcg 2 puff INHALATION RT-BID 01/31/18 06/10/19 History [Symbicort 160-4.5 Mcg Inhaler] HYDROcodone/APAP 7.5-325MG [[place] 1 tab PO TID 07/10/18 06/10/19 History 7.5-325] Famotidine [Pepcid] 20 mg PO BID #60 tab 07/12/18 06/10/19 Rx guaiFENesin [Mucinex] 600 mg PO BID 03/05/19 06/10/19 History Apixaban [Eliquis] 5 mg PO BID #60 tab 03/08/19 06/10/19 Rx Amiodarone [Cordarone] 200 mg PO BID #60 tab 03/10/19 06/10/19 Rx Verapamil Sr [Isoptin Sr] 240 mg PO DAILY #30 tablet.er 03/10/19 06/10/19 Rx Albuterol Nebulized [Ventolin 2.5 mg INHALATION RT-QID 06/10/19 06/10/19 History Nebulized] predniSONE 10 mg PO DAILY 06/10/19 06/10/19 History predniSONE 10 mg PO DIRECTED #20 tab 06/11/19 Rx ALPRAZolam [Xanax] 0.5 mg PO QID 12/29/19 12/29/19 History Amiodarone [Cordarone] 200 mg PO DAILY 12/29/19 12/29/19 History Apixaban [Eliquis] 5 mg PO BID 12/29/19 12/29/19 History Budesonide/Formoterol Fumarate 2 puff INHALATION RT-BID 12/29/19 12/29/19 History [Symbicort 160-4.5 Mcg Inhaler] DULoxetine HCL [Cymbalta] 60 mg PO DAILY 12/29/19 12/29/19 History Gabapentin 600 mg PO TID 12/29/19 12/29/19 History HYDROcodone/APAP 7.5-325MG [[place] 1 tab PO TID PRN 12/29/19 12/29/19 History 7.5-325] Ipratropium-Albuterol Nebulize 3 ml INHALATION RT-QID 12/29/19 12/29/19 History [Duoneb 0.5 mg-3 mg/3 ml Soln] Ipratropium/Albuterol Sulfate 1 puff INHALATION RT-DAILY 12/29/19 12/29/19 History [Combivent Respimat Inhaler] Verapamil HCl [Verapamil ER] 240 mg PO DAILY 12/29/19 12/29/19 History Allergies Allergy/AdvReac Type Severity Reaction Status Date / Time No Known Allergies Allergy Verified 12/29/19 15:49 Physical Exam Vitals: Vital Signs Temp Pulse Resp BP Pulse Ox 12/29/19 13:30 76 18 113/73 99 12/29/19 13:24 99.6 F 75 18 99 12/29/19 12:19 74 16 105/72 100 12/29/19 12:08 101 F H 74 16 88/74 100 12/29/19 11:38 101.1 F H 75 16 89/56 100 12/29/19 11:16 77 18 92/71 100 12/29/19 11:00 98.1 F 87 18 98/65 100 12/29/19 10:54 80 18 101/54 100 12/29/19 10:45 81 12/29/19 10:40 89 18 101/65 97 12/29/19 10:25 88 18 110/69 100 12/29/19 10:15 93 18 121/74 99 12/29/19 09:48 99.9 F H 97 18 108/70 91 L Intake and Output 12/28/19 12/29/19 12/29/19 22:59 06:59 14:59 Intake Total 29.817 Balance 29.817 Intake: Intake, IV Titration 29.817 Amount Propofol 1,000 mg In 29.817 Empty Bag 1 bag @ Titrate IV .Q0M [facility] Rx#: [id number] Other: Weight 55.837 kg Gen. appearance the patient is sedated, comfortable intubated on a mechanical ventilator. Orogastric and orotracheal tube are both in place. Head exam was generally normal. There was no scleral icterus or corneal arcus. Mucous membranes were moist. Neck was supple and without jugular venous distension, thyromegaly, or carotid bruits. Carotids were easily palpable bilaterally. There was no adenopathy. Lungs marked diminished breath sound bilaterally along with scattered expiratory we'll rhonchi and wheezes. Cardiac exam revealed the PMI to be normally situated and sized. The rhythm was regular and no extrasystoles were noted during several minutes of auscultation. The first and second heart sounds were normal and physiologic splitting of the second heart sound was noted. There were no murmurs, rubs, clicks, or gallops. Abdominal exam revealed normal bowel sounds. The abdomen was soft, non-tender, and without masses, organomegaly, or appreciable enlargement of the abdominal aorta. Examination of the extremities revealed easily palpable radial, femoral and pedal pulses. There was no cyanosis, clubbing or edema. Examination of the skin revealed no evidence of significant rashes, suspicious appearing nevi or other concerning lesions. Neurologically sedated, comfortable with a RASS sale of 1 Results - Laboratory Findings CBC and BMP: 12/29/19 09:40 12/29/19 09:40 ABG ABG pH 7.48 (7.35-7.45) H 12/29/19 11:09 ABG pCO2 65 mmHg (35-45) H 12/29/19 11:09 ABG pO2 140 mmHg (83-108) H 12/29/19 11:09 ABG O2 Saturation 99.2 % (94-97) H 12/29/19 11:09 PT/INR, D-dimer PT 11.4 sec (9.0-12.0) 12/29/19 09:40 INR 1.1 (<1.2) 12/29/19 09:40 Abnormal lab findings: Abnormal Labs 12/29/19 12/29/19 12/29/19 09:31 09:33 09:40 WBC 18.6 H RBC 3.07 L Hgb 7.3 L Hct 25.5 L MCH 23.8 L MCHC 28.6 L Neutrophils # 16.4 H Lymphocytes # 0.6 L Monocytes # 1.1 H ABG pH 7.33 L ABG pCO2 96 H* ABG pO2 125 H ABG HCO3 51 H* ABG Total CO2 54 H ABG O2 Saturation 98.3 H Sodium Chloride Carbon Dioxide BUN POC Glucose (mg/dL) 109 H C-Reactive Protein Urine Protein Urine Blood Urine RBC Urine Bacteria Hyaline Casts Urine Mucus 12/29/19 12/29/19 12/29/19 09:40 09:46 11:09 WBC RBC Hgb Hct MCH MCHC Neutrophils # Lymphocytes # Monocytes # ABG pH 7.48 H ABG pCO2 65 H ABG pO2 140 H ABG HCO3 48 H* ABG Total CO2 50 H ABG O2 Saturation 99.2 H Sodium 135 L Chloride 87 L Carbon Dioxide 44 H* BUN 25 H POC Glucose (mg/dL) C-Reactive Protein 25.7 H Urine Protein Trace H Urine Blood Large H Urine RBC >182 H Urine Bacteria Rare H Hyaline Casts 4 H Urine Mucus Rare H 12/29/19 13:22 WBC RBC Hgb Hct MCH MCHC Neutrophils # Lymphocytes # Monocytes # ABG pH ABG pCO2 ABG pO2 ABG HCO3 ABG Total CO2 ABG O2 Saturation Sodium Chloride Carbon Dioxide BUN POC Glucose (mg/dL) 144 H C-Reactive Protein Urine Protein Urine Blood Urine RBC Urine Bacteria Hyaline Casts Urine Mucus - Diagnostic Findings Chest x-ray: image reviewed Assessment and Plan Plan: 1 acute on chronic hypoxic/hypercapnic the story failure secondary to COPD exacerbation. Currently intubated on a mechanical ventilator 2 severe advanced end-stage COPD with an FEV1 of 21% of predicted from 2014. The patient has been oxygen and steroid-dependent outpatient basis. Maintenance after medications of his Symbicort and the patient has been utilizing DuoNeb nebulized treatments around the clock. The patient also has a AVAPS machine on outpatient basis regarding his advanced COPD and hypercapnic respiratory failure. 3 acute fever, consider underlying UTI. No clear indication for pneumonia based on the chest x-ray findings. Right apexes opacified. May benefit from a CAT scan at a later stage 4 paroxysmal atrial fibrillation current rhythm is sinus. The patient is on amiodarone and verapamil and long-term anticoagulation with Eliquis 5 history of CVA 6 acid reflux 7 chronic anxiety 8 leukocytosis secondary to above 9 normocytic anemia hemoglobin of 7.3 10 frequent falls, most likely secondary to above Plan Continue ventilator support The tidal volume to 375 Wean down FiO2 to maintain sufficient above 90% CAT scan of the chest with contrast once more stable Initiate enteral feeding for nutritional support Continue DuoNeb nebulized treatment [id number] IV Solu Medrol 63 g every 6 hours Sputum Gram stain and culture Blood culture Urine culture IV Rocephin and Zithromax Resume home medications including Cymbalta We'll establish arterial line May need to establish a central line We'll continue to follow
[2019-12-29] MEDS: methylPREDNISolone SOD SUCCI 125 MG/2 ML VIAL IV SCH ×2 (18:21→23:53)
[2019-12-29 18:37] LABS: Glucose,Whole Blood 161 mg/dL (75-99)
[2019-12-29] MEDS: INSULIN ASPART (NovoLOG) 100 UNIT/ML VIAL SQ SCH ×2 (18:47→23:52)
[2019-12-29] MEDS: SYMBICORT 160-4.5 MCG INHALER INHALATION SCH ×2 (19:38→21:38)
[2019-12-29] MEDS: APIXABAN 5 MG TAB PO SCH (20:00)
[2019-12-29] MEDS: CHLORHEXIDINE GLUCONATE 15 ML CUP MUCOUS MEM SCH (20:00)
[2019-12-29 23:51] LABS: Glucose,Whole Blood 138 mg/dL (75-99)
[2019-12-30] MEDS: SODIUM CHLORIDE 0.9% 1,000 ML IV SCH ×2 (04:16→13:51)
[2019-12-30 04:36] LABS: Basophils % (A) 0 %; Eosinophils # (A) 0.1 k/uL (0-0.7); Eosinophils % (A) 1 %; HCT 23.2 % (39.0-53.0); Hypochromasia Marked; Lymphocytes # (A) 0.4 k/uL (1.0-4.8); Lymphocytes % (A) 4 %; MCH 24.5 pg (25.0-35.0); MCV 84.7 fL (80.0-100.0); Mean Platelet Volume 6.8; Monocytes # (A) 0.3 k/uL (0-1.0); Monocytes % (A) 3 %; Neutrophils # (A) 11.1 k/uL (1.3-7.7); Neutrophils % (A) 93 %; Platelet Count 185 k/uL (150-450); Poikilocytosis Slight; RBC 2.74 m/uL (4.30-5.90); RDW 14.4 % (11.5-15.5); WBC 11.9 k/uL (3.8-10.6)
[2019-12-30 04:39] LABS: HGB 6.7 gm/dL (13.0-17.5)
[2019-12-30 04:53] LABS: African American GFR (CKD) >90 (>60 ml/min/1.73 sqM); Blood Urea Nitrogen 17 mg/dL (9-20); Chloride 94 mmol/L (98-107); Glucose 133 mg/dL (74-99); Non-African American GFR(CKD) >90 (>60 ml/min/1.73 sqM); Sodium 135 mmol/L (137-145)
[2019-12-30 05:01] LABS: Anion Gap 0 mmol/L
[2019-12-30] MEDS: methylPREDNISolone SOD SUCCI 125 MG/2 ML VIAL IV SCH ×3 (05:02→18:05)
[2019-12-30 05:13] LABS: Carbon Dioxide 41 mmol/L (22-30)
[2019-12-30 05:59] LABS: ABG Base Excess 18.7 mmol/L; ABG Oxygen Saturation 97.9 % (94-97); ABG PO2 95 mmHg (83-108); ABG TCO2 46 mmol/L (19-24); Allen Test Performed? Yes
[2019-12-30 06:01] LABS: ABG HCO3 44 mmol/L (21-25); ABG PCO2 71 mmHg (35-45)
[2019-12-30 06:08] LABS: Glucose,Whole Blood 165 mg/dL (75-99)
[2019-12-30] MEDS: INSULIN ASPART (NovoLOG) 100 UNIT/ML VIAL SQ SCH ×3 (06:21→18:05)
[2019-12-30] MEDS: IPRATROPIUM-ALBUTEROL 3 ML NEB INHALATION SCH ×4 (07:51→21:07)
[2019-12-30] MEDS: SYMBICORT 160-4.5 MCG INHALER INHALATION SCH ×2 (07:51→21:07)
--- NOTE | 2019-12-30 08:47 | XR ---
EXAMINATION TYPE: XR chest 1V portable DATE OF EXAM: 12/30/2019 COMPARISON: 12/29/2019 INDICATION: Tube placement TECHNIQUE: Single frontal view of the chest is obtained. FINDINGS: The heart size is normal. The pulmonary vasculature is normal. Left infrahilar infiltrate may be slightly improved over the interval. Endotracheal tube tip is 7.3 cm above the rosana. Nasogastric tube transverses the [id number] with the tip within the abdomen. IMPRESSION: 1. Improving left infrahilar infiltrate. 2. Multiple lines and catheters discussed above
[2019-12-30] MEDS ORDERED: VERAPAMIL SR 240 MG TABLET.ER PO SCH (09:00)
[2019-12-30] MEDS: HALOPERIDOL LACTATE 5 MG/ML 1 ML VIAL IVP PRN ×4 (09:08→22:22)
[2019-12-30] MEDS: HYDROmorphone 1 MG/ML 1 ML SYRINGE IVP PRN ×2 (09:13→23:40)
[2019-12-30] MEDS: PANTOPRAZOLE 40 MG/10 ML VIAL IVP SCH (09:30)
[2019-12-30] MEDS: CHLORHEXIDINE GLUCONATE 15 ML CUP MUCOUS MEM SCH ×2 (09:31→20:32)
[2019-12-30] MEDS: DULoxetine HCL 60 MG CAPSULE.DR PO SCH (09:31)
[2019-12-30] MEDS: APIXABAN 5 MG TAB PO SCH ×2 (09:31→20:32)
[2019-12-30] MEDS: AMIODARONE 200 MG TAB PO SCH (09:31)
[2019-12-30 11:39] LABS: Glucose,Whole Blood 157 mg/dL (75-99)
[2019-12-30] MEDS: LORazepam 2 MG/ML INJ IV PRN ×3 (11:45→23:43)
--- NOTE | 2019-12-30 12:53 | P.PN ---
Subjective 49-year-old admitted for severe sepsis, no significant evidence of pneumonia on the x-ray with the urine is abnormal patient either has pneumonia or urinary tract infection and is in septic shock. Patient is off not in acute epinephrine today patient is still on propofol drips limited to support for acute hypoxic and hypercapnic respiratory failure. His respiratory status did improve patient hypoxemia improved and hypercapnia improved patient's hemoglobin is 6.7. Transfuse 1 unit of PRBC Review of systems: Unable to obtain due to his clinical condition All inpatient medications were reviewed and appropriate changes in these medications as dictated in the interval history and assessment and plan. Objective - Vital Signs Vital signs: Vital Signs Temp 97.4 F L 12/30/19 12:00 Pulse 62 12/30/19 12:15 Resp 18 12/30/19 12:00 BP 119/80 12/30/19 12:00 Pulse Ox 100 12/30/19 12:00 Intake & Output 12/29/19 12/30/19 12/30/19 18:59 06:59 18:59 Intake Total 2384.244 4363.535 674.177 Output Total 330 1060 280 Balance 1503.904 557.535 394.177 Weight 55.837 kg 60.5 kg Intake: IV 1754 1512 240 Azithromycin 500 mg In 250 Sodium Chloride 0.9% 250 ml @ 250 mls/hr IVPB ONCE [facility] Rx#:[id number] Sodium Chloride 0.9% 1, 504 1512 240 000 ml @ 40 mls/hr IV . Q24H [facility] Rx#:[id number] Sodium Chloride 0.9% 1, 1000 000 ml @ 999 mls/hr IV . Q1H1M [facility] Rx#:[id number] Intake, IV Titration 79.904 105.535 124.177 Amount Propofol 1,000 mg In 79.904 105.535 124.177 Empty Bag 1 bag @ Titrate IV .Q0M [facility] Rx#: [id number] Blood Product 310 Rc As-1 Unit 310 [id number] Output: Urine 330 1060 280 Other: Voiding Method Indwelling Catheter Indwelling Catheter Indwelling Catheter - Exam PHYSICAL EXAMINATION: GENERAL: Patient is intubated response to her. Respods to verbal stimuli HEENT: Pupils are round and equally reacting to light. EOMI. No scleral icterus. No conjunctival pallor. Normocephalic, atraumatic. No pharyngeal erythema. No thyromegaly. CARDIOVASCULAR: S1 and S2 present. No murmurs, rubs, or gallops. PULMONARY: Chest is clear to auscultation, no wheezing or crackles. ABDOMEN: Soft, nontender, nondistended, normoactive bowel sounds. No palpable organomegaly. MUSCULOSKELETAL: No joint swelling or deformity. EXTREMITIES: No cyanosis, clubbing, or pedal edema. NEUROLOGICAL: Patient is sedated and RASS score of 1 SKIN: No rashes. - Labs CBC & Chem 7: 12/30/19 03:30 12/30/19 03:30 Labs: Abnormal Lab Results - Last 24 Hours (Table) 12/29/19 12/29/19 12/29/19 Range/Units 10:58 10:58 13:22 WBC (3.8-10.6) k/uL RBC (4.30-5.90) m/uL Hgb (13.0-17.5) gm/dL Hct (39.0-53.0) % MCH (25.0-35.0) pg MCHC (31.0-37.0) g/dL Neutrophils # (1.3-7.7) k/uL Lymphocytes # (1.0-4.8) k/uL ABG pCO2 (35-45) mmHg ABG HCO3 (21-25) mmol/L ABG Total CO2 (19-24) mmol/L ABG O2 Saturation (94-97) % Sodium (137-145) mmol/L Chloride (98-107) mmol/L Carbon Dioxide (22-30) mmol/L Creatinine (0.66-1.25) mg/dL Glucose (74-99) mg/dL POC Glucose (mg/dL) 144 H (75-99) mg/dL Calcium (8.4-10.2) mg/dL Ferritin 6.4 L (22.0-322.0) ng/mL Procalcitonin 0.63 H (0.02-0.09) ng/mL Urine Ketones (Negative) Urine Blood (Negative) Urine RBC (0-5) /hpf Urine Bacteria (None) /hpf Crossmatch 12/29/19 12/29/19 12/29/19 Range/Units 14:56 18:35 23:50 WBC (3.8-10.6) k/uL RBC (4.30-5.90) m/uL Hgb (13.0-17.5) gm/dL Hct (39.0-53.0) % MCH (25.0-35.0) pg MCHC (31.0-37.0) g/dL Neutrophils # (1.3-7.7) k/uL Lymphocytes # (1.0-4.8) k/uL ABG pCO2 (35-45) mmHg ABG HCO3 (21-25) mmol/L ABG Total CO2 (19-24) mmol/L ABG O2 Saturation (94-97) % Sodium (137-145) mmol/L Chloride (98-107) mmol/L Carbon Dioxide (22-30) mmol/L Creatinine (0.66-1.25) mg/dL Glucose (74-99) mg/dL POC Glucose (mg/dL) 161 H 138 H (75-99) mg/dL Calcium (8.4-10.2) mg/dL Ferritin (22.0-322.0) ng/mL Procalcitonin (0.02-0.09) ng/mL Urine Ketones 1+ H (Negative) Urine Blood Moderate H (Negative) Urine RBC 10 H (0-5) /hpf Urine Bacteria Rare H (None) /hpf Crossmatch 12/30/19 12/30/19 12/30/19 Range/Units 03:30 03:30 05:54 WBC 11.9 H (3.8-10.6) k/uL RBC 2.74 L (4.30-5.90) m/uL Hgb 6.7 L* (13.0-17.5) gm/dL Hct 23.2 L (39.0-53.0) % MCH 24.5 L (25.0-35.0) pg MCHC 29.0 L (31.0-37.0) g/dL Neutrophils # 11.1 H (1.3-7.7) k/uL Lymphocytes # 0.4 L (1.0-4.8) k/uL ABG pCO2 71 H* (35-45) mmHg ABG HCO3 44 H* (21-25) mmol/L ABG Total CO2 46 H (19-24) mmol/L ABG O2 Saturation 97.9 H (94-97) % Sodium 135 L (137-145) mmol/L Chloride 94 L (98-107) mmol/L Carbon Dioxide 41 H* (22-30) mmol/L Creatinine 0.48 L (0.66-1.25) mg/dL Glucose 133 H (74-99) mg/dL POC Glucose (mg/dL) (75-99) mg/dL Calcium 8.0 L (8.4-10.2) mg/dL Ferritin (22.0-322.0) ng/mL Procalcitonin (0.02-0.09) ng/mL Urine Ketones (Negative) Urine Blood (Negative) Urine RBC (0-5) /hpf Urine Bacteria (None) /hpf Crossmatch 12/30/19 12/30/19 12/30/19 Range/Units 06:07 07:03 11:38 WBC (3.8-10.6) k/uL RBC (4.30-5.90) m/uL Hgb (13.0-17.5) gm/dL Hct (39.0-53.0) % MCH (25.0-35.0) pg MCHC (31.0-37.0) g/dL Neutrophils # (1.3-7.7) k/uL Lymphocytes # (1.0-4.8) k/uL ABG pCO2 (35-45) mmHg ABG HCO3 (21-25) mmol/L ABG Total CO2 (19-24) mmol/L ABG O2 Saturation (94-97) % Sodium (137-145) mmol/L Chloride (98-107) mmol/L Carbon Dioxide (22-30) mmol/L Creatinine (0.66-1.25) mg/dL Glucose (74-99) mg/dL POC Glucose (mg/dL) 165 H 157 H (75-99) mg/dL Calcium (8.4-10.2) mg/dL Ferritin (22.0-322.0) ng/mL Procalcitonin (0.02-0.09) ng/mL Urine Ketones (Negative) Urine Blood (Negative) Urine RBC (0-5) /hpf Urine Bacteria (None) /hpf Crossmatch See Detail Microbiology - Last 24 Hours (Table) 12/29/19 09:46 Blood Culture - Preliminary Blood No Growth after 24 hours Assessment and Plan Plan: -Acute on chronic hypercapnic respiratory failure secondary to COPD exacerbation: Patient is intubated, didn't tolerate weaning trials today pulmo nology is following the patient -Septic shock probable source of sepsis being Pneumonia urine does look abnormal as well but my suspicion is low that patient has UTI continue with Rocephin and azithromycin. Blood cultures and sputum cultures are pending. Off norepinephrine -COPD advanced with a chronic hypercapnic respiratory failure requiring liters of oxygen at home patient does have advanced COPD -History of atrial fibrillation presently rate controlled sinus rhythm continue with anti-correlation, verapamil is on hold because of his low blood pressures. His heart rate remains stable -Gastroesophageal reflux disease -History of cerebral vascular accident in the past -Continue nicotine use -DVT prophylaxis patient is already on Eliquis GI prophylaxis Protonix
[2019-12-30 13:22] LABS: HCT 29.8 % (39.0-53.0); Hypochromasia Marked; MCH 25.5 pg (25.0-35.0); MCHC 29.4 g/dL (31.0-37.0); MCV 86.9 fL (80.0-100.0); Mean Platelet Volume 7.8; Platelet Count 206 k/uL (150-450); Poikilocytosis Slight; RBC 3.43 m/uL (4.30-5.90); RDW 14.7 % (11.5-15.5); WBC 12.7 k/uL (3.8-10.6)
[2019-12-30 13:27] LABS: HGB 8.7 gm/dL (13.0-17.5)
[2019-12-30] MEDS: AZITHROMYCIN 500 MG in SODIUM CHLORIDE 0.9% 250 ML IVPB SCH (13:28)
[2019-12-30] MEDS: NOREPINEPHRINE 4 MG in SODIUM CHLORIDE 0.9% 250 ML IV SCH (13:51)
--- NOTE | 2019-12-30 14:19 | P.PN ---
Subjective Progress Note Date: 12/30/19 On today's evaluation of 12/30/2019, the patient remains intubated on a mechanical ventilator. Note that the patient has advanced and stage COPD with FEV1 of 21% of predicted. The patient came in yesterday because of respiratory failure and severe respiratory acidosis and hypoxic and hypercapnic respiratory failure. He was intubated in the emergency department. This morning, the patient is an assist-control mode of ventilation at the rate of 18 with a tidal volume of 375 with a FiO2 of 40% and a PEEP of 5. The chest x-ray showing no acute abnormalities. There is hyperinflation and ET tube is in good location. The pH is at 7.38 with a pCO2 of 41 and pO2 of 121. The melgar virus nasal swab came back negative. The patient is currently afebrile. Peak air pressures around 26. Static pressure is 12. The patient remains quite bronchospastic and wheezy. He remains sedated with propofol running at 50 mg per KG per minute. The patient is also normal saline at rate of 40 mL an hour. Earlier this morning, his hemoglobin came back at 6.7 and the patient will be given a unit of packed RBC. He'll be also started enteral feeding for nutritional support. I do not think is ready for any weaning yet. The patient remains quite bronchospastic and wheezy. He remains on a combination of Rocephin and Zithromax is empiric antibiotic coverage. The patient is also on IV Solu-Medrol and DuoNeb nebulized treatments around the clock. Cardiac rhythm is sinus. Objective - Vital Signs Vital signs: Vital Signs Temp 97.4 F L 12/30/19 12:00 Pulse 69 12/30/19 13:00 Resp 18 12/30/19 13:00 BP 137/89 12/30/19 13:00 Pulse Ox 100 12/30/19 13:00 Intake & Output 12/29/19 12/30/19 12/30/19 18:59 06:59 18:59 Intake Total 8425.135 6525.535 1064.177 Output Total 330 1060 355 Balance 1503.904 557.535 709.177 Weight 55.837 kg 60.5 kg Intake: IV 1754 1512 630 Azithromycin 500 mg In 250 Sodium Chloride 0.9% 250 ml @ 250 mls/hr IVPB ONCE STA Rx#:[id number] Azithromycin 500 mg In 250 Sodium Chloride 0.9% 250 ml @ 250 mls/hr IVPB Q24H [facility] Rx#:[id number] Sodium Chloride 0.9% 1, 504 1512 280 000 ml @ 40 mls/hr IV . Q24H [facility] Rx#:[id number] Sodium Chloride 0.9% 1, 1000 000 ml @ 999 mls/hr IV . Q1H1M [facility] Rx#:[id number] cefTRIAXone 1 gm In 100 Sodium Chloride 0.9% 50 ml @ 100 mls/hr IVPB Q24H [facility] Rx#:[id number] Intake, IV Titration 79.904 105.535 124.177 Amount Propofol 1,000 mg In 79.904 105.535 124.177 Empty Bag 1 bag @ Titrate IV .Q0M [facility] Rx#: [id number] Blood Product 310 Rc As-1 Unit 310 [id number] Output: Urine 330 1060 355 Other: Voiding Method Indwelling Catheter Indwelling Catheter Indwelling Catheter - Exam Gen. appearance the patient is sedated, comfortable intubated on a mechanical ventilator. Orogastric and orotracheal tube are both in place. Head exam was generally normal. There was no scleral icterus or corneal arcus. Mucous membranes were moist. Neck was supple and without jugular venous distension, thyromegaly, or carotid bruits. Carotids were easily palpable bilaterally. There was no adenopathy. Lungs marked diminished breath sound bilaterally along with scattered expiratory we'll rhonchi and wheezes. Cardiac exam revealed the PMI to be normally situated and sized. The rhythm was regular and no extrasystoles were noted during several minutes of auscultation. The first and second heart sounds were normal and physiologic splitting of the second heart sound was noted. There were no murmurs, rubs, clicks, or gallops. Abdominal exam revealed normal bowel sounds. The abdomen was soft, non-tender, a nd without masses, organomegaly, or appreciable enlargement of the abdominal aorta. Examination of the extremities revealed easily palpable radial, femoral and pedal pulses. There was no cyanosis, clubbing or edema. Examination of the skin revealed no evidence of significant rashes, suspicious appearing nevi or other concerning lesions. Neurologically sedated, comfortable with a RASS sale of 1 - Labs CBC & Chem 7: 12/30/19 13:06 12/30/19 03:30 Labs: Abnormal Lab Results - Last 24 Hours (Table) 12/29/19 12/29/19 12/29/19 Range/Units 10:58 10:58 14:56 WBC (3.8-10.6) k/uL RBC (4.30-5.90) m/uL Hgb (13.0-17.5) gm/dL Hct (39.0-53.0) % MCH (25.0-35.0) pg MCHC (31.0-37.0) g/dL Neutrophils # (1.3-7.7) k/uL Lymphocytes # (1.0-4.8) k/uL ABG pCO2 (35-45) mmHg ABG HCO3 (21-25) mmol/L ABG Total CO2 (19-24) mmol/L ABG O2 Saturation (94-97) % Sodium (137-145) mmol/L Chloride (98-107) mmol/L Carbon Dioxide (22-30) mmol/L Creatinine (0.66-1.25) mg/dL Glucose (74-99) mg/dL POC Glucose (mg/dL) (75-99) mg/dL Calcium (8.4-10.2) mg/dL Ferritin 6.4 L (22.0-322.0) ng/mL Procalcitonin 0.63 H (0.02-0.09) ng/mL Urine Ketones 1+ H (Negative) Urine Blood Moderate H (Negative) Urine RBC 10 H (0-5) /hpf Urine Bacteria Rare H (None) /hpf Crossmatch 12/29/19 12/29/19 12/30/19 Range/Units 18:35 23:50 03:30 WBC 11.9 H (3.8-10.6) k/uL RBC 2.74 L (4.30-5.90) m/uL Hgb 6.7 L* (13.0-17.5) gm/dL Hct 23.2 L (39.0-53.0) % MCH 24.5 L (25.0-35.0) pg MCHC 29.0 L (31.0-37.0) g/dL Neutrophils # 11.1 H (1.3-7.7) k/uL Lymphocytes # 0.4 L (1.0-4.8) k/uL ABG pCO2 (35-45) mmHg ABG HCO3 (21-25) mmol/L ABG Total CO2 (19-24) mmol/L ABG O2 Saturation (94-97) % Sodium (137-145) mmol/L Chloride (98-107) mmol/L Carbon Dioxide (22-30) mmol/L Creatinine (0.66-1.25) mg/dL Glucose (74-99) mg/dL POC Glucose (mg/dL) 161 H 138 H (75-99) mg/dL Calcium (8.4-10.2) mg/dL Ferritin (22.0-322.0) ng/mL Procalcitonin (0.02-0.09) ng/mL Urine Ketones (Negative) Urine Blood (Negative) Urine RBC (0-5) /hpf Urine Bacteria (None) /hpf Crossmatch 12/30/19 12/30/19 12/30/19 Range/Units 03:30 05:54 06:07 WBC (3.8-10.6) k/uL RBC (4.30-5.90) m/uL Hgb (13.0-17.5) gm/dL Hct (39.0-53.0) % MCH (25.0-35.0) pg MCHC (31.0-37.0) g/dL Neutrophils # (1.3-7.7) k/uL Lymphocytes # (1.0-4.8) k/uL ABG pCO2 71 H* (35-45) mmHg ABG HCO3 44 H* (21-25) mmol/L ABG Total CO2 46 H (19-24) mmol/L ABG O2 Saturation 97.9 H (94-97) % Sodium 135 L (137-145) mmol/L Chloride 94 L (98-107) mmol/L Carbon Dioxide 41 H* (22-30) mmol/L Creatinine 0.48 L (0.66-1.25) mg/dL Glucose 133 H (74-99) mg/dL POC Glucose (mg/dL) 165 H (75-99) mg/dL Calcium 8.0 L (8.4-10.2) mg/dL Ferritin (22.0-322.0) ng/mL Procalcitonin (0.02-0.09) ng/mL Urine Ketones (Negative) Urine Blood (Negative) Urine RBC (0-5) /hpf Urine Bacteria (None) /hpf Crossmatch 12/30/19 12/30/19 12/30/19 Range/Units 07:03 11:38 13:06 WBC 12.7 H (3.8-10.6) k/uL RBC 3.43 L (4.30-5.90) m/uL Hgb 8.7 L D (13.0-17.5) gm/dL Hct 29.8 L (39.0-53.0) % MCH (25.0-35.0) pg MCHC 29.4 L (31.0-37.0) g/dL Neutrophils # (1.3-7.7) k/uL Lymphocytes # (1.0-4.8) k/uL ABG pCO2 (35-45) mmHg ABG HCO3 (21-25) mmol/L ABG Total CO2 (19-24) mmol/L ABG O2 Saturation (94-97) % Sodium (137-145) mmol/L Chloride (98-107) mmol/L Carbon Dioxide (22-30) mmol/L Creatinine (0.66-1.25) mg/dL Glucose (74-99) mg/dL POC Glucose (mg/dL) 157 H (75-99) mg/dL Calcium (8.4-10.2) mg/dL Ferritin (22.0-322.0) ng/mL Procalcitonin (0.02-0.09) ng/mL Urine Ketones (Negative) Urine Blood (Negative) Urine RBC (0-5) /hpf Urine Bacteria (None) /hpf Crossmatch See Detail Microbiology - Last 24 Hours (Table) 12/29/19 09:46 Blood Culture - Preliminary Blood No Growth after 24 hours Assessment and Plan Plan: 1 acute on chronic hypoxic/hypercapnic the story failure secondary to COPD exacerbation. Currently intubated on a mechanical ventilator, ventilator settings were noted, blood gases was noted, chest x-ray was noted. Limited improvement compared to yesterday. 2 severe advanced end-stage COPD with an FEV1 of 21% of predicted from 2014. The patient has been oxygen and steroid-dependent outpatient basis. Maintenance after medications of his Symbicort and the patient has been utilizing DuoNeb nebulized treatments around the clock. The patient also has a AVAPS machine on outpatient basis regarding his advanced COPD and hypercapnic respiratory failure. 3 acute fever, consider underlying UTI. No clear indication for pneumonia based on the chest x-ray findings. Right apex opacified. May benefit from a CAT scan at a later stage. The patient's UA came back negative and the patient is currently afebrile for now. The white cell count is at 12.7. 4 paroxysmal atrial fibrillation current rhythm is sinus. The patient is on amiodarone and verapamil and long-term anticoagulation with Eliquis 5 history of CVA 6 acid reflux 7 chronic anxiety 8 leukocytosis secondary to above 9 normocytic anemia hemoglobin of 6.7 and the patient was given a unit of packed RBC. 10 frequent falls, most likely secondary to above Plan Continue ventilator support The tidal volume to 375 Wean down FiO2 to maintain sufficient above 90%, and the patient's tidal volume is down to 40% Enteral feeding for nutritional support Continue DuoNeb nebulized treatment [id number] IV Solu Medrol 63 g every 6 hours Sputum Gram stain and culture Blood culture Urine culture IV Rocephin and Zithromax Resume home medications including Cymbalta No room for any further weaning of today's evaluation. We'll continue to follow. The patient was taken off sedation he became quite restless and agitated and he was not following commands adequately. We'll try to do the same thing tomorrow and the sedation holiday was aborted today. We'll continue to follow. Condition is critical. Prognosis poor. Consideration was on a more than 30 minutes. Time with Patient: Greater than 30
[2019-12-30 18:02] LABS: Glucose,Whole Blood 145 mg/dL (75-99)
[2019-12-31] LABS: Glucose,Whole Blood 120 mg/dL (75-99)
[2019-12-31] MEDS: INSULIN ASPART (NovoLOG) 100 UNIT/ML VIAL SQ SCH ×4 (00:01→18:36)
[2019-12-31] MEDS: methylPREDNISolone SOD SUCCI 125 MG/2 ML VIAL IV SCH ×3 (00:04→12:04)
[2019-12-31] MEDS: HALOPERIDOL LACTATE 5 MG/ML 1 ML VIAL IVP PRN ×8 (02:52→22:16)
[2019-12-31 04:27] LABS: Basophils % (A) 0 %; Eosinophils # (A) 0.1 k/uL (0-0.7); Eosinophils % (A) 0 %; HCT 28.9 % (39.0-53.0); HGB 8.2 gm/dL (13.0-17.5); Hypochromasia Marked; Lymphocytes # (A) 0.3 k/uL (1.0-4.8); Lymphocytes % (A) 2 %; MCHC 28.4 g/dL (31.0-37.0); MCV 84.6 fL (80.0-100.0); Mean Platelet Volume 8.1; Monocytes # (A) 0.5 k/uL (0-1.0); Monocytes % (A) 3 %; Neutrophils # (A) 15.2 k/uL (1.3-7.7); Neutrophils % (A) 94 %; Platelet Count 230 k/uL (150-450); Poikilocytosis Slight; RBC 3.42 m/uL (4.30-5.90); RDW 15.6 % (11.5-15.5); WBC 16.1 k/uL (3.8-10.6)
[2019-12-31 04:35] LABS: African American GFR (CKD) >90 (>60 ml/min/1.73 sqM); Anion Gap 6 mmol/L; Blood Urea Nitrogen 21 mg/dL (9-20); Calcium 8.6 mg/dL (8.4-10.2); Carbon Dioxide 37 mmol/L (22-30); Chloride 96 mmol/L (98-107); Glucose 113 mg/dL (74-99); Non-African American GFR(CKD) >90 (>60 ml/min/1.73 sqM); Potassium 4.3 mmol/L (3.5-5.1); Sodium 139 mmol/L (137-145)
[2019-12-31 04:59] LABS: Glucose,Whole Blood 124 mg/dL (75-99)
[2019-12-31] MEDS: HYDROmorphone 1 MG/ML 1 ML SYRINGE IVP PRN ×4 (05:55→20:03)
[2019-12-31] MEDS: IPRATROPIUM-ALBUTEROL 3 ML NEB INHALATION SCH ×4 (06:23→19:48)
--- NOTE | 2019-12-31 07:12 | XR ---
EXAMINATION TYPE: XR chest 1V portable DATE OF EXAM: 12/31/2019 HISTORY: Shortness of breath. COMPARISON: 12/30/2019 TECHNIQUE: Single view of the chest is submitted. FINDINGS: Endotracheal and NG tubes have been. Persistent left lower lobe infiltrate essentially unchanged. The heart is stable. Hilar and mediastinal structures are within normal limits. Degenerative changes are seen of the dorsal spine. IMPRESSION: 1. Endotracheal and NG tubes have been. Persistent left lower lobe infiltrate essentially unchanged.
[2019-12-31] MEDS: SYMBICORT 160-4.5 MCG INHALER INHALATION SCH (08:02)
[2019-12-31] MEDS: CHLORHEXIDINE GLUCONATE 15 ML CUP MUCOUS MEM SCH (08:41)
[2019-12-31] MEDS: PANTOPRAZOLE 40 MG/10 ML VIAL IVP SCH (08:41)
[2019-12-31] MEDS ORDERED: FUROSEMIDE 10 MG/ML 2 ML VIAL IV ONE (09:18)
[2019-12-31 09:57] LABS: ABG Base Excess 18.5 mmol/L; ABG Oxygen Saturation 98.3 % (94-97); ABG PCO2 62 mmHg (35-45); ABG PH 7.45 (7.35-7.45); ABG PO2 103 mmHg (83-108); ABG TCO2 44 mmol/L (19-24); Allen Test Performed? Yes
[2019-12-31 10:02] LABS: ABG HCO3 43 mmol/L (21-25)
[2019-12-31] MEDS: DULoxetine HCL 60 MG CAPSULE.DR PO SCH (10:02)
[2019-12-31] MEDS: APIXABAN 5 MG TAB PO SCH ×2 (10:02→21:29)
[2019-12-31] MEDS: AMIODARONE 200 MG TAB PO SCH (10:02)
[2019-12-31] MEDS: DEXMEDETOMIDINE/0.9% NACL(PMX) 400 MCG in EMPTY BAG 1 BAG IV SCH ×3 (10:08→18:43)
[2019-12-31 13:09] LABS: Glucose,Whole Blood 131 mg/dL (75-99)
[2019-12-31] MEDS ORDERED: OLANZapine ODT 5 MG TAB PO PRN (13:11)
[2019-12-31] MEDS: AZITHROMYCIN 500 MG in SODIUM CHLORIDE 0.9% 250 ML IVPB SCH (13:17)
--- NOTE | 2019-12-31 14:31 | P.PN ---
Subjective 49-year-old admitted for severe sepsis, no significant evidence of pneumonia on the x-ray with the urine is abnormal patient either has pneumonia or urinary tract infection and is in septic shock. Patient is off not in acute epinephrine today patient is still on propofol drips limited to support for acute hypoxic and hypercapnic respiratory failure. His respiratory status did improve patient hypoxemia improved and hypercapnia improved patient's hemoglobin is 6.7. Transfuse 1 unit of PRBC. 12/31/2019 Patient self extubated. Patient evidently was wheezing quite a bit earlier today patient is on high-dose of stomach steroids patient when I examined has diminished air entry without any significant wheezing will cut down the steroids to 40 mg twice a day IV as patient is having frequent agitation episodes of his agitation is probably secondary to toxic encephalopathy from multiple opiates and narcotic medications he received when he was intubated. Patient is doing well on 4 L of our isn't usually uses 3 L of oxygen. Patient is already receiving Haldol and as-needed basis patient has a soft restraints I did discuss with the nursing staff patient appears to more appropriate answering questions except for some speech abnormality from intubation. Speech therapy will evaluate for swallow. Review of systems: Unable to obtain due to his clinical condition All inpatient medications were reviewed and appropriate changes in these medications as dictated in the interval history and assessment and plan. Objective - Vital Signs Vital signs: Vital Signs Temp 98.5 F 12/31/19 08:00 Pulse 80 12/31/19 13:00 Resp 26 H 12/31/19 13:00 BP 150/97 12/31/19 13:00 Pulse Ox 97 12/31/19 13:00 Intake & Output 12/30/19 12/31/19 12/31/19 18:59 06:59 18:59 Intake Total 1390.780 592.544 392.678 Output Total 801 720 8293 Balance 720.780 132.544 -792.322 Weight 60.5 kg 60.1 kg Intake: IV 830 440 330 Azithromycin 500 mg In 250 Sodium Chloride 0.9% 250 ml @ 250 mls/hr IVPB Q24H [facility] Rx#:[id number] Sodium Chloride 0.9% 1, 480 440 280 000 ml @ 40 mls/hr IV . Q24H [facility] Rx#:[id number] cefTRIAXone 1 gm In 100 50 Sodium Chloride 0.9% 50 ml @ 100 mls/hr IVPB Q24H [facility] Rx#:[id number] Intake, IV Titration 160.780 132.544 62.678 Amount Dexmedetomidine/0.9% NaCl 21.957 62.678 (Pmx) 400 mcg In Empty Bag 1 bag @ Titrate IV . Q0M [facility] Rx#:[id number] Propofol 1,000 mg In 160.780 110.587 Empty Bag 1 bag @ Titrate IV .Q0M [facility] Rx#: [id number] Tube Feeding 90 20 Blood Product 310 Rc As-1 Unit 310 [id number] Output: Gastric Drainage 100 Urine 678 842 4104 Other: Voiding Method Indwelling Catheter Indwelling Catheter Indwelling Catheter - Exam PHYSICAL EXAMINATION: GENERAL: Alert oriented 3. HEENT: Pupils are round and equally reacting to light. EOMI. No scleral icterus. No conjunctival pallor. Normocephalic, atraumatic. No pharyngeal erythema. No thyromegaly. CARDIOVASCULAR: S1 and S2 present. No murmurs, rubs, or gallops. PULMONARY: Chest is clear to auscultation, no wheezing or crackles. ABDOMEN: Soft, nontender, nondistended, normoactive bowel sounds. No palpable organomegaly. MUSCULOSKELETAL: No joint swelling or deformity. EXTREMITIES: No cyanosis, clubbing, or pedal edema. NEUROLOGICAL: No focal deficits patient is pleasant and the following commands to me presently has soft restraints SKIN: No rashes. - Labs CBC & Chem 7: 12/31/19 03:26 12/31/19 03:26 Labs: Abnormal Lab Results - Last 24 Hours (Table) 12/30/19 12/30/19 12/31/19 Range/Units 18:00 23:58 03:26 WBC 16.1 H (3.8-10.6) k/uL RBC 3.42 L (4.30-5.90) m/uL Hgb 8.2 L (13.0-17.5) gm/dL Hct 28.9 L (39.0-53.0) % MCH 24.0 L (25.0-35.0) pg MCHC 28.4 L (31.0-37.0) g/dL RDW 15.6 H (11.5-15.5) % Neutrophils # 15.2 H (1.3-7.7) k/uL Lymphocytes # 0.3 L (1.0-4.8) k/uL ABG pCO2 (35-45) mmHg ABG HCO3 (21-25) mmol/L ABG Total CO2 (19-24) mmol/L ABG O2 Saturation (94-97) % Chloride (98-107) mmol/L Carbon Dioxide (22-30) mmol/L BUN (9-20) mg/dL Creatinine (0.66-1.25) mg/dL Glucose (74-99) mg/dL POC Glucose (mg/dL) 145 H 120 H (75-99) mg/dL 12/31/19 12/31/19 12/31/19 Range/Units 03:26 04:58 09:47 WBC (3.8-10.6) k/uL RBC (4.30-5.90) m/uL Hgb (13.0-17.5) gm/dL Hct (39.0-53.0) % MCH (25.0-35.0) pg MCHC (31.0-37.0) g/dL RDW (11.5-15.5) % Neutrophils # (1.3-7.7) k/uL Lymphocytes # (1.0-4.8) k/uL ABG pCO2 62 H (35-45) mmHg ABG HCO3 43 H* (21-25) mmol/L ABG Total CO2 44 H (19-24) mmol/L ABG O2 Saturation 98.3 H (94-97) % Chloride 96 L (98-107) mmol/L Carbon Dioxide 37 H (22-30) mmol/L BUN 21 H (9-20) mg/dL Creatinine 0.52 L (0.66-1.25) mg/dL Glucose 113 H (74-99) mg/dL POC Glucose (mg/dL) 124 H (75-99) mg/dL 12/31/19 Range/Units 13:08 WBC (3.8-10.6) k/uL RBC (4.30-5.90) m/uL Hgb (13.0-17.5) gm/dL Hct (39.0-53.0) % MCH (25.0-35.0) pg MCHC (31.0-37.0) g/dL RDW (11.5-15.5) % Neutrophils # (1.3-7.7) k/uL Lymphocytes # (1.0-4.8) k/uL ABG pCO2 (35-45) mmHg ABG HCO3 (21-25) mmol/L ABG Total CO2 (19-24) mmol/L ABG O2 Saturation (94-97) % Chloride (98-107) mmol/L Carbon Dioxide (22-30) mmol/L BUN (9-20) mg/dL Creatinine (0.66-1.25) mg/dL Glucose (74-99) mg/dL POC Glucose (mg/dL) 131 H (75-99) mg/dL Microbiology - Last 24 Hours (Table) 12/29/19 09:46 Blood Culture - Preliminary Blood No Growth after 48 hours Assessment and Plan Plan: -Acute on chronic hypercapnic respiratory failure secondary to COPD exacerbation: As in 3 extubated initially -Septic shock probable source of sepsis being Pneumonia urine does look abnormal as well but my suspicion is low that patient has UTI continue with Rocephin and azithromycin. Blood cultures and sputum cultures are pending. Off norepinephrine -COPD advanced with a chronic hypercapnic respiratory failure requiring liters of oxygen at home patient does have advanced COPD -History of atrial fibrillation presently rate controlled sinus rhythm continue with anti-correlation, verapamil is on hold because of his low blood pressures. His heart rate remains stable -Gastroesophageal reflux disease -History of cerebral vascular accident in the past -Continue nicotine use -DVT prophylaxis patient is already on Eliquis GI prophylaxis Protonix
--- NOTE | 2019-12-31 15:59 | P.PN ---
Subjective Progress Note Date: 12/31/19 On today's evaluation of 12/30/2019, the patient remains intubated on a mechanical ventilator. Note that the patient has advanced and stage COPD with FEV1 of 21% of predicted. The patient came in yesterday because of respiratory failure and severe respiratory acidosis and hypoxic and hypercapnic respiratory failure. He was intubated in the emergency department. This morning, the patient is an assist-control mode of ventilation at the rate of 18 with a tidal volume of 375 with a FiO2 of 40% and a PEEP of 5. The chest x-ray showing no acute abnormalities. There is hyperinflation and ET tube is in good location. The pH is at 7.38 with a pCO2 of 41 and pO2 of 121. The melgar virus nasal swab came back negative. The patient is currently afebrile. Peak air pressures around 26. Static pressure is 12. The patient remains quite bronchospastic and wheezy. He remains sedated with propofol running at 50 mg per KG per minute. The patient is also normal saline at rate of 40 mL an hour. Earlier this morning, his hemoglobin came back at 6.7 and the patient will be given a unit of packed RBC. He'll be also started enteral feeding for nutritional support. I do not think is ready for any weaning yet. The patient remains quite bronchospastic and wheezy. He remains on a combination of Rocephin and Zithromax is empiric antibiotic coverage. The patient is also on IV Solu-Medrol and DuoNeb nebulized treatments around the clock. Cardiac rhythm is sinus. On 12/31/2019 the patient is extubated. Yesterday, the patient self extubated and he was Extubated. He was briefly placed on BiPAP which was unable to tolerate. He was offered higher dose pressure BiPAP at a pressure of 20/5 cm of water and subsequently the BiPAP pressure changed to 12/5 cm of water and FiO2 of 35%. He is currently on [address]Jacob by nasal cannula. Overnight, he was getting more delirious and agitated. He was given Haldol for agitation a total of 3 mg overnight and subsequently was placed on Precedex at the rate of 0.7 g per KG per hour. The patient was evaluated this morning. He seems to be drowsy at much more comfortable. No overt signs of respiratory distress and the patient had a subsequent blood gas showing a pH of 7.44 with a pCO2 of 62 and pO2 of 103 and this was on FiO2 of 36%. He remains and accommodation bronchodilators and steroids and antibiotics. He withdraws to painful supinatio n all 4 extremities. He can hold only a short conversation. The is at the bedside. Note that he has advanced COPD with an FEV1 of 21% of predicted. His lung disease is quite endstage this point in time. Cardiac rhythm is sinus. He received a unit of packed RBC and hemoglobin is up to 8.2 events also stable. Objective - Vital Signs Vital signs: Vital Signs Temp 98.5 F 12/31/19 08:00 Pulse 84 12/31/19 15:00 Resp 17 12/31/19 15:00 BP 144/94 12/31/19 15:00 Pulse Ox 96 12/31/19 15:00 Intake & Output 12/30/19 12/31/19 12/31/19 18:59 06:59 18:59 Intake Total 1390.780 592.544 682.678 Output Total 747 728 9905 Balance 720.780 132.544 -677.322 Weight 60.5 kg 60.1 kg Intake: IV 830 440 620 Azithromycin 500 mg In 250 250 Sodium Chloride 0.9% 250 ml @ 250 mls/hr IVPB Q24H [facility] Rx#:[id number] Sodium Chloride 0.9% 1, 480 440 320 000 ml @ 40 mls/hr IV . Q24H [facility] Rx#:[id number] cefTRIAXone 1 gm In 100 50 Sodium Chloride 0.9% 50 ml @ 100 mls/hr IVPB Q24H [facility] Rx#:[id number] Intake, IV Titration 160.780 132.544 62.678 Amount Dexmedetomidine/0.9% NaCl 21.957 62.678 (Pmx) 400 mcg In Empty Bag 1 bag @ Titrate IV . Q0M [facility] Rx#:[id number] Propofol 1,000 mg In 160.780 110.587 Empty Bag 1 bag @ Titrate IV .Q0M [facility] Rx#: [id number] Tube Feeding 90 20 Blood Product 310 Rc As-1 Unit 310 [id number] Output: Gastric Drainage 100 Urine 996 792 7537 Other: Voiding Method Indwelling Catheter Indwelling Catheter Indwelling Catheter - Exam Gen. appearance the patient is sedated, yet is calm and comfortable. He is able to protect his airways. He is arousable. No significant agitation at time of my evaluation. No signs of the significant respiratory distress. He is not using excessive muscle breathing. Head exam was generally normal. There was no scleral icterus or corneal arcus. Mucous membranes were moist. Neck was supple and without jugular venous distension, thyromegaly, or carotid bruits. Carotids were easily palpable bilaterally. There was no adenopathy. Lungs marked diminished breath sound bilaterally along with scattered expiratory we'll rhonchi and wheezes. Cardiac exam revealed the PMI to be normally situated and sized. The rhythm was regular and no extrasystoles were noted during several minutes of auscultation. The first and second heart sounds were normal and physiologic splitting of the second heart sound was noted. There were no murmurs, rubs, clicks, or gallops. Abdominal exam revealed normal bowel sounds. The abdomen was soft, non-tender, and without masses, organomegaly, or appreciable enlargement of the abdominal aorta. Examination of the extremities revealed easily palpable radial, femoral and pedal pulses. There was no cyanosis, clubbing or edema. Examination of the skin revealed no evidence of significant rashes, suspicious appearing nevi or other concerning lesions. Neurologically sedated, comfortable and his neurologic exam is nonfocal. - Labs CBC & Chem 7: 12/31/19 03:26 12/31/19 03:26 Labs: Abnormal Lab Results - Last 24 Hours (Table) 12/30/19 12/30/19 12/31/19 Range/Units 18:00 23:58 03:26 WBC 16.1 H (3.8-10.6) k/uL RBC 3.42 L (4.30-5.90) m/uL Hgb 8.2 L (13.0-17.5) gm/dL Hct 28.9 L (39.0-53.0) % MCH 24.0 L (25.0-35.0) pg MCHC 28.4 L (31.0-37.0) g/dL RDW 15.6 H (11.5-15.5) % Neutrophils # 15.2 H (1.3-7.7) k/uL Lymphocytes # 0.3 L (1.0-4.8) k/uL ABG pCO2 (35-45) mmHg ABG HCO3 (21-25) mmol/L ABG Total CO2 (19-24) mmol/L ABG O2 Saturation (94-97) % Chloride (98-107) mmol/L Carbon Dioxide (22-30) mmol/L BUN (9-20) mg/dL Creatinine (0.66-1.25) mg/dL Glucose (74-99) mg/dL POC Glucose (mg/dL) 145 H 120 H (75-99) mg/dL 12/31/19 12/31/19 12/31/19 Range/Units 03:26 04:58 09:47 WBC (3.8-10.6) k/uL RBC (4.30-5.90) m/uL Hgb (13.0-17.5) gm/dL Hct (39.0-53.0) % MCH (25.0-35.0) pg MCHC (31.0-37.0) g/dL RDW (11.5-15.5) % Neutrophils # (1.3-7.7) k/uL Lymphocytes # (1.0-4.8) k/uL ABG pCO2 62 H (35-45) mmHg ABG HCO3 43 H* (21-25) mmol/L ABG Total CO2 44 H (19-24) mmol/L ABG O2 Saturation 98.3 H (94-97) % Chloride 96 L (98-107) mmol/L Carbon Dioxide 37 H (22-30) mmol/L BUN 21 H (9-20) mg/dL Creatinine 0.52 L (0.66-1.25) mg/dL Glucose 113 H (74-99) mg/dL POC Glucose (mg/dL) 124 H (75-99) mg/dL 12/31/19 Range/Units 13:08 WBC (3.8-10.6) k/uL RBC (4.30-5.90) m/uL Hgb (13.0-17.5) gm/dL Hct (39.0-53.0) % MCH (25.0-35.0) pg MCHC (31.0-37.0) g/dL RDW (11.5-15.5) % Neutrophils # (1.3-7.7) k/uL Lymphocytes # (1.0-4.8) k/uL ABG pCO2 (35-45) mmHg ABG HCO3 (21-25) mmol/L ABG Total CO2 (19-24) mmol/L ABG O2 Saturation (94-97) % Chloride (98-107) mmol/L Carbon Dioxide (22-30) mmol/L BUN (9-20) mg/dL Creatinine (0.66-1.25) mg/dL Glucose (74-99) mg/dL POC Glucose (mg/dL) 131 H (75-99) mg/dL Microbiology - Last 24 Hours (Table) 12/29/19 09:46 Blood Culture - Preliminary Blood No Growth after 48 hours Assessment and Plan Plan: 1 acute on chronic hypoxic/hypercapnic the story failure secondary to COPD exacerbation. The patient is an extubated. He is on 4 L of oxygen nasal cannula. Chest x-ray shows no interval change. Remains on a, laser bro nchodilators and steroids. BiPAP is strongly encouraged although the patient is not tolerating the treatment despite lowering in the BiPAP pressures down to 12/5 cm of water. He does have a AVAPS machine at home and utilizes for advanced COPD and chronic hypercapnic respiratory failure. 2 severe advanced end-stage COPD with an FEV1 of 21% of predicted from 2015. The patient has been oxygen and steroid-dependent outpatient basis. Maintenance after medications of his Symbicort and the patient has been utilizing DuoNeb nebulized treatments around the clock. The patient also has a AVAPS machine on outpatient basis regarding his advanced COPD and hypercapnic respiratory failure. 3 acute fever, recovered and the cultures are negative and the patient is on a combination of Rocephin and Zithromax 4 paroxysmal atrial fibrillation current rhythm is sinus. The patient is on amiodarone and verapamil and long-term anticoagulation with Eliquis 5 history of CVA 6 acid reflux 7 chronic anxiety 8 leukocytosis secondary to above 9 normocytic anemia,, post RBC transfusion hemoglobin is up to 8.2 10 frequent falls, most likely secondary to above 11.id. currently on accommodation of Haldol and Precedex to control the agitation. Plan Monitor respiratory status Keep oxygen at 4 L per minute nasal cannula Encouraged use of BiPAP Continue DuoNeb nebulized treatments around the clock Continue IV Solu Medrol Continue antibiotics Continue Precedex for agitation and delirium and utilize Haldol when necessary for agitation Blood cultures negative. Hemoglobin is stable We'll discuss with the the possibility of intubation if needed. My understanding that the patient's and the patient himself did not want to be presented for long-term basis and will continue her medical management for now and will establish final CODE STATUS. Condition is critical and prognosis poor based above-mentioned comorbidities. Keep nothing by mouth for now.
[2019-12-31] MEDS: SODIUM CHLORIDE 0.9% 1,000 ML IV SCH (16:50)
[2019-12-31] MEDS: NOREPINEPHRINE 4 MG in SODIUM CHLORIDE 0.9% 250 ML IV SCH (16:50)
[2019-12-31 18:25] LABS: Glucose,Whole Blood 125 mg/dL (75-99)
[2019-12-31] MEDS: FORMOTEROL FUMARATE 20 MCG/2 ML NEBU INHALATION SCH (19:48)
[2019-12-31] MEDS: methylPREDNISolone SOD SUCCI 40 MG/ML 1 ML VIAL IV SCH (19:59)
[2020-01-01] MEDS: HYDROmorphone 1 MG/ML 1 ML SYRINGE IVP PRN ×4 (00:07→20:45)
[2020-01-01] MEDS: HALOPERIDOL LACTATE 5 MG/ML 1 ML VIAL IVP PRN ×2 (00:08→04:04)
[2020-01-01 04:52] LABS: Basophils % (A) 0 %; Eosinophils % (A) 0 %; HCT 28.4 % (39.0-53.0); HGB 8.2 gm/dL (13.0-17.5); Hypochromasia Marked; Lymphocytes # (A) 0.2 k/uL (1.0-4.8); Lymphocytes % (A) 2 %; MCH 24.4 pg (25.0-35.0); MCV 84.1 fL (80.0-100.0); Monocytes # (A) 0.5 k/uL (0-1.0); Monocytes % (A) 5 %; Neutrophils # (A) 9.6 k/uL (1.3-7.7); Neutrophils % (A) 92 %; Platelet Count 197 k/uL (150-450); Poikilocytosis Slight; RBC 3.38 m/uL (4.30-5.90); WBC 10.5 k/uL (3.8-10.6)
[2020-01-01 05:04] LABS: African American GFR (CKD) >90 (>60 ml/min/1.73 sqM); Blood Urea Nitrogen 30 mg/dL (9-20); Calcium 8.8 mg/dL (8.4-10.2); Chloride 95 mmol/L (98-107); Glucose 103 mg/dL (74-99); Non-African American GFR(CKD) >90 (>60 ml/min/1.73 sqM); Potassium 4.2 mmol/L (3.5-5.1); Sodium 140 mmol/L (137-145)
[2020-01-01 05:11] LABS: Anion Gap 3 mmol/L
[2020-01-01 05:22] LABS: Carbon Dioxide 42 mmol/L (22-30)
--- NOTE | 2020-01-01 07:46 | XR ---
EXAMINATION TYPE: XR chest 1V portable DATE OF EXAM: 01/01/2020 COMPARISON: Prior chest x-ray 12/31/2019 HISTORY: Abnormal chest x-ray, tube placement TECHNIQUE: Single frontal view of the chest is obtained. FINDINGS: No evident pneumothorax or pleural effusion. Patchy retrocardiac density persists. Heart i s stable. IMPRESSION: Correlate for left lower lobe pneumonia.
[2020-01-01] MEDS: FORMOTEROL FUMARATE 20 MCG/2 ML NEBU INHALATION SCH ×2 (08:47→20:13)
[2020-01-01] MEDS: IPRATROPIUM-ALBUTEROL 3 ML NEB INHALATION SCH ×4 (08:47→20:13)
[2020-01-01] MEDS: DULoxetine HCL 60 MG CAPSULE.DR PO SCH (09:41)
[2020-01-01] MEDS: APIXABAN 5 MG TAB PO SCH ×2 (09:41→20:44)
[2020-01-01] MEDS: AMIODARONE 200 MG TAB PO SCH (09:41)
[2020-01-01] MEDS: methylPREDNISolone SOD SUCCI 40 MG/ML 1 ML VIAL IV SCH (09:41)
[2020-01-01] MEDS: PANTOPRAZOLE 40 MG/10 ML VIAL IVP SCH (09:41)
[2020-01-01 11:55] LABS: Glucose,Whole Blood 101 mg/dL (75-99)
[2020-01-01] MEDS: MORPHINE SULFATE 4 MG/ML SYRINGE IVP PRN ×3 (12:18→22:38)
--- NOTE | 2020-01-01 12:33 | XR ---
EXAMINATION TYPE: XR chest 1V portable DATE OF EXAM: 01/01/2020 COMPARISON: Prior chest x-ray 01/01/2020 HISTORY: Redness of breath TECHNIQUE: Single frontal view of the chest is obtained. FINDINGS: There is no pleural effusion or pneumothorax seen. Prominent lung volumes suggest underly ing COPD. Old posterior rib fracture on the left is again noted. Minimal patchy density persists at t he left lung base. The cardiac silhouette size is within normal limits. The osseous structures are intact. IMPRESSION: No significant interval change compared to prior exam. Emphysema
[2020-01-01] MEDS ORDERED: FUROSEMIDE 10 MG/ML 4 ML VIAL IV STA (13:11)
[2020-01-01] MEDS ORDERED: MORPHINE SULFATE 2 MG/ML SYRINGE IVP STA (13:13)
[2020-01-01] MEDS: SODIUM CHLORIDE 0.9% 1,000 ML IV SCH (13:28)
[2020-01-01 13:29] LABS: Glucose,Whole Blood 98 mg/dL (75-99)
[2020-01-01] MEDS: NOREPINEPHRINE 4 MG in SODIUM CHLORIDE 0.9% 250 ML IV SCH (13:29)
--- NOTE | 2020-01-01 14:39 | P.PN ---
Subjective Progress Note Date: 01/01/20 Principal diagnosis: 49-year-old admitted for severe sepsis, no significant evidence of pneumonia on the x-ray with the urine is abnormal patient either has pneumonia or urinary tr act infection and is in septic shock. Patient is off not in acute epinephrine today patient is still on propofol drips limited to support for acute hypoxic and hypercapnic respiratory failure. His respiratory status did improve patient hypoxemia improved and hypercapnia improved patient's hemoglobin is 6.7. Transfuse 1 unit of PRBC. 12/31/2019 Patient self extubated. Patient evidently was wheezing quite a bit earlier today patient is on high-dose of stomach steroids patient when I examined has diminished air entry without any significant wheezing will cut down the steroids to 40 mg twice a day IV as patient is having frequent agitation episodes of his agitation is probably secondary to toxic encephalopathy from multiple opiates and narcotic medications he received when he was intubated. Patient is doing well on 4 L of our isn't usually uses 3 L of oxygen. Patient is already receiv ing Haldol and as-needed basis patient has a soft restraints I did discuss with the nursing staff patient appears to more appropriate answering questions except for some speech abnormality from intubation. Speech therapy will evaluate for swallow. Review of systems: Unable to obtain due to his clinical condition All inpatient medications were reviewed and appropriate changes in these medications as dictated in the interval history and assessment and plan. 01/01/2020 Patient is seen and evaluated in follow-up and continues to be in the ICU being closely monitored. Patient continues to have severe dyspnea with any exertion although states his breathing has slightly improved. Repeat chest x-ray today shows no evidence of pneumothorax or pleural effusion with possible left lower lobe pneumonia. Patient is currently maintained on azithromycin and ceftriaxone and will continue at this time. Continue with bronchodilators and IV steroids at this time. Pulmonary following closely. Patient was given a dose of IV Lasix once. Patient's diet being advanced today as patient passed a swallow eval today. Patient is currently on 4 L of oxygen via nasal cannula and will continue at this time. Patient may likely transfer out of ICU once a bed becomes available. Objective - Vital Signs Vital signs: Vital Signs Temp 97.8 F 01/01/20 08:00 Pulse 48 L 01/01/20 11:00 Resp 13 01/01/20 11:00 BP 147/81 01/01/20 11:00 Pulse Ox 99 01/01/20 11:00 Intake & Output 12/31/19 01/01/20 01/01/20 18:59 06:59 18:59 Intake Total 932.957 480 160 Output Total 1570 1040 260 Balance -637.043 -560 -100 Weight 61.8 kg Intake: IV 780 480 160 Azithromycin 500 mg In 250 Sodium Chloride 0.9% 250 ml @ 250 mls/hr IVPB Q24H [facility] Rx#:[id number] Sodium Chloride 0.9% 1, 480 480 160 000 ml @ 40 mls/hr IV . Q24H [facility] Rx#:[id number] cefTRIAXone 1 gm In 50 Sodium Chloride 0.9% 50 ml @ 100 mls/hr IVPB Q24H [facility] Rx#:[id number] Intake, IV Titration 152.957 Amount Dexmedetomidine/0.9% NaCl 152.957 (Pmx) 400 mcg In Empty Bag 1 bag @ Titrate IV . Q0M [facility] Rx#:[id number] Output: Urine 1570 1040 260 Other: Voiding Method Indwelling Catheter Indwelling Catheter Indwelling Catheter - Exam GENERAL: Alert oriented 3. Sitting up in bed, awake, appears to be in no acute distress. Thin built HEENT: Pupils are round and equally reacting to light. EOMI. No scleral icterus. No conjunctival pallor. Normocephalic, atraumatic. No pharyngeal erythema. No thyromegaly. CARDIOVASCULAR: S1 and S2 present. No murmurs, rubs, or gallops. PULMONARY: Diminished breath sounds bilaterally otherwise clear to auscultation, no wheezing or crackles. ABDOMEN: Soft, nontender, nondistended, normoactive bowel sounds. No palpable organomegaly. MUSCULOSKELETAL: No joint swelling or deformity. EXTREMITIES: No cyanosis, clubbing, or pedal edema. NEUROLOGICAL: No focal deficits noted SKIN: No rashes. - Labs CBC & Chem 7: 01/01/20 04:17 01/01/20 04:17 Labs: Abnormal Lab Results - Last 24 Hours (Table) 12/31/19 12/31/19 01/01/20 Range/Units 13:08 18:23 04:17 RBC 3.38 L (4.30-5.90) m/uL Hgb 8.2 L (13.0-17.5) gm/dL Hct 28.4 L (39.0-53.0) % MCH 24.4 L (25.0-35.0) pg MCHC 29.0 L (31.0-37.0) g/dL RDW 16.0 H (11.5-15.5) % Neutrophils # 9.6 H (1.3-7.7) k/uL Lymphocytes # 0.2 L (1.0-4.8) k/uL Chloride (98-107) mmol/L Carbon Dioxide (22-30) mmol/L BUN (9-20) mg/dL Glucose (74-99) mg/dL POC Glucose (mg/dL) 131 H 125 H (75-99) mg/dL 01/01/20 Range/Units 04:17 RBC (4.30-5.90) m/uL Hgb (13.0-17.5) gm/dL Hct (39.0-53.0) % MCH (25.0-35.0) pg MCHC (31.0-37.0) g/dL RDW (11.5-15.5) % Neutrophils # (1.3-7.7) k/uL Lymphocytes # (1.0-4.8) k/uL Chloride 95 L (98-107) mmol/L Carbon Dioxide 42 H* (22-30) mmol/L BUN 30 H (9-20) mg/dL Glucose 103 H (74-99) mg/dL POC Glucose (mg/dL) (75-99) mg/dL Microbiology - Last 24 Hours (Table) 12/29/19 09:46 Blood Culture - Preliminary Blood No Growth after 72 hours 12/29/19 20:58 Gram Stain - Preliminary Sputum Sputum Culture - Preliminary Assessment and Plan Assessment: -Acute on chronic hypercapnic respiratory failure secondary to COPD exacerbation requiring intubation, patient has self-extubated and on 4 L via nasal cannula with intermittent BiPAP -Septic shock probable source of sepsis being Pneumonia urine does look abnormal as well but my suspicion is low that patient has UTI continue with Rocephin and azithromycin. Blood cultures remain negative and sputum cultures showing some gram-positive cocci and gram-positive bacilli. -COPD advanced with a chronic hypercapnic respiratory failure requiring 4 liters of oxygen at home patient does have advanced COPD -History of atrial fibrillation presently rate controlled sinus rhythm continue with anticoagulation -Gastroesophageal reflux disease -History of cerebral vascular accident in the past -continued ongoing nicotine use -DVT prophylaxis on Eliquis GI -prophylaxis Protonix Plan: Continue current medications, management, and symptomatic treatment. Continue with bronchodilators along with IV steroids. Patient underwent swallow eval and passed and will be initiated on regular diet. Pulmonary following closely. Continue to monitor vital signs and labs closely. Patient is maintained on antibiotics and will continue at this time. Will repeat a.m. labs. Continue with chest x-rays. Patient will likely transfer out of the ICU once the bed on selective becomes available. Further recommendations to follow.
--- NOTE | 2020-01-01 14:49 | P.PN ---
Subjective Progress Note Date: 01/01/20 On today's evaluation of 12/30/2019, the patient remains intubated on a mechanical ventilator. Note that the patient has advanced and stage COPD with FEV1 of 21% of predicted. The patient came in yesterday because of respiratory failure and severe respiratory acidosis and hypoxic and hypercapnic respiratory failure. He was intubated in the emergency department. This morning, the patient is an assist-control mode of ventilation at the rate of 18 with a tidal volume of 375 with a FiO2 of 40% and a PEEP of 5. The chest x-ray showing no acute abnormalities. There is hyperinflation and ET tube is in good location. The pH is at 7.38 with a pCO2 of 41 and pO2 of 121. The melgar virus nasal swab came back negative. The patient is currently afebrile. Peak air pressures around 26. Static pressure is 12. The patient remains quite bronchospastic and wheezy. He remains sedated with propofol running at 50 mg per KG per minute. The patient is also normal saline at rate of 40 mL an hour. Earlier this morning, his hemoglobin came back at 6.7 and the patient will be given a unit of packed RBC. He'll be also started enteral feeding for nutritional support. I do not think is ready for any weaning yet. The patient remains quite bronchospastic and wheezy. He remains on a combination of Rocephin and Zithromax is empiric antibiotic coverage. The patient is also on IV Solu-Medrol and DuoNeb nebulized treatments around the clock. Cardiac rhythm is sinus. On 12/31/2019 the patient is extubated. Yesterday, the patient self extubated and he was Extubated. He was briefly placed on BiPAP which was unable to tolerate. He was offered higher dose pressure BiPAP at a pressure of 20/5 cm of water and subsequently the BiPAP pressure changed to 12/5 cm of water and FiO2 of 35%. He is currently on [address]Jacob by nasal cannula. Overnight, he was getting more delirious and agitated. He was given Haldol for agitation a total of 3 mg overnight and subsequently was placed on Precedex at the rate of 0.7 g per KG per hour. The patient was evaluated this morning. He seems to be drowsy at much more comfortable. No overt signs of respiratory distress and the patient had a subsequent blood gas showing a pH of 7.44 with a pCO2 of 62 and pO2 of 103 and this was on FiO2 of 36%. He remains and accommodation bronchodilators and steroids and antibiotics. He withdraws to painful supinatio n all 4 extremities. He can hold only a short conversation. The is at the bedside. Note that he has advanced COPD with an FEV1 of 21% of predicted. His lung disease is quite endstage this point in time. Cardiac rhythm is sinus. He received a unit of packed RBC and hemoglobin is up to 8.2 events also stable. On 01/01/2020, so the patient first thing in the morning and the patient was qu ite comfortable, communicating and he denies having any major respiratory distress. He has advanced and end-stage lung disease. He had self extubated and has been on nasal cannula since. Unable to tolerate BiPAP and it was offered to him on multiple occasions. Note the post extubation, the patient became agitated and confused and delirious. He was given Precedex and Haldol which controlled his agitation significantly. This morning he seemed to be much more reasonable and communicative and alert compared to yesterday. However, later on in the afternoon, the patient became progressively more short of breath and restless. For that reason, he was given morphine for agitation and to take care of the breathlessness. He was placed on a higher dose of IV Solu-Medrol. He was asked to go back on a BiPAP intermittently for his ongoing shortness of breath. A chest x-ray from today shows no acute abnormalities. His advanced emphysema with hyperinflation. He remains on a combination of bronchodilators with DuoNeb nebulized treatments around the clock. He remains on IV Solu- Medrol. Cardiac rhythm is sinus. He remains and accommodation Rocephin and Zithromax. He remains on long-term and to coagulation with Eliquis regarding his previous history of PAF. The patient's hemoglobin at 8.2. With regard nonelevated. Objective - Vital Signs Vital signs: Vital Signs Temp 97.8 F 01/01/20 08:00 Pulse 92 01/01/20 14:00 Resp 17 01/01/20 14:00 BP 146/91 01/01/20 14:00 Pulse Ox 93 L 01/01/20 14:00 Intake & Output 12/31/19 01/01/20 01/01/20 18:59 06:59 18:59 Intake Total 932.957 480 330 Output Total 1570 1040 980 Balance -637.043 -560 -650 Weight 61.8 kg Intake: IV 780 480 330 Azithromycin 500 mg In 250 Sodium Chloride 0.9% 250 ml @ 250 mls/hr IVPB Q24H [facility] Rx#:[id number] Sodium Chloride 0.9% 1, 480 480 280 000 ml @ 40 mls/hr IV . Q24H [facility] Rx#:[id number] cefTRIAXone 1 gm In 50 50 Sodium Chloride 0.9% 50 ml @ 100 mls/hr IVPB Q24H [facility] Rx#:[id number] Intake, IV Titration 152.957 Amount Dexmedetomidine/0.9% NaCl 152.957 (Pmx) 400 mcg In Empty Bag 1 bag @ Titrate IV . Q0M [facility] Rx#:[id number] Output: Urine 1570 1040 980 Other: Voiding Method Indwelling Catheter Indwelling Catheter Indwelling Catheter - Exam Gen. appearance the patient is sedated, yet is calm and comfortable. He is able to protect his airways. He is arousable. No significant agitation at time of my evaluation. No signs of the significant respiratory distress. He is not using excessive muscle breathing. His examination was earlier during the day. Later on in the afternoon, the patient became progressively more short of breath and tachypneic and somewhat restless. Head exam was generally normal. There was no scleral icterus or corneal arcus. Mucous membranes were moist. Neck was supple and without jugular venous distension, thyromegaly, or carotid bruits. Carotids were easily palpable bilaterally. There was no adenopathy. Lungs marked diminished breath sound bilaterally along with scattered expiratory we'll rhonchi and wheezes. Cardiac exam revealed the PMI to be normally situated and sized. The rhythm was regular and no extrasystoles were noted during several minutes of auscultation. The first and second heart sounds were normal and physiologic splitting of the second heart sound was noted. There were no murmurs, rubs, clicks, or gallops. Abdominal exam revealed normal bowel sounds. The abdomen was soft, non-tender, and without masses, organomegaly, or appreciable enlargement of the abdominal aorta. Examination of the extremities revealed easily palpable radial, femoral and pedal pulses. There was no cyanosis, clubbing or edema. Examination of the skin revealed no evidence of significant rashes, suspicious appearing nevi or other concerning lesions. Neurologically sedated, comfortable and his neurologic exam is nonfocal. - Labs CBC & Chem 7: 01/01/20 04:17 01/01/20 04:17 Labs: Abnormal Lab Results - Last 24 Hours (Table) 12/31/19 01/01/20 01/01/20 Range/Units 18:23 04:17 04:17 RBC 3.38 L (4.30-5.90) m/uL Hgb 8.2 L (13.0-17.5) gm/dL Hct 28.4 L (39.0-53.0) % MCH 24.4 L (25.0-35.0) pg MCHC 29.0 L (31.0-37.0) g/dL RDW 16.0 H (11.5-15.5) % Neutrophils # 9.6 H (1.3-7.7) k/uL Lymphocytes # 0.2 L (1.0-4.8) k/uL D-Dimer (<0.60) mg/L FEU Chloride 95 L (98-107) mmol/L Carbon Dioxide 42 H* (22-30) mmol/L BUN 30 H (9-20) mg/dL Glucose 103 H (74-99) mg/dL POC Glucose (mg/dL) 125 H (75-99) mg/dL 01/01/20 01/01/20 Range/Units 11:54 12:26 RBC (4.30-5.90) m/uL Hgb (13.0-17.5) gm/dL Hct (39.0-53.0) % MCH (25.0-35.0) pg MCHC (31.0-37.0) g/dL RDW (11.5-15.5) % Neutrophils # (1.3-7.7) k/uL Lymphocytes # (1.0-4.8) k/uL D-Dimer 2.86 H (<0.60) mg/L FEU Chloride (98-107) mmol/L Carbon Dioxide (22-30) mmol/L BUN (9-20) mg/dL Glucose (74-99) mg/dL POC Glucose (mg/dL) 101 H (75-99) mg/dL Microbiology - Last 24 Hours (Table) 12/29/19 09:46 Blood Culture - Preliminary Blood No Growth after 72 hours 12/29/19 20:58 Gram Stain - Preliminary Sputum Sputum Culture - Preliminary Assessment and Plan Plan: 1 acute on chronic hypoxic/hypercapnic the story failure secondary to COPD exacerbation. The patient is an extubated. The patient continues to have on and off difficulties of breathing even at rest. As stated earlier, he has end- stage COPD and his condition is extremely borderline. Chronic hypoxic and hypercapnic respiratory failure. No evidence of pneumonia on his chest x-ray. Earlier this morning he was quite comfortable and subsequently became more short of breath. For that reason he was given a higher dose of Solu-Medrol and he was given a dose of diuretics. He was also given morphine for shortness of breath and anxiety and restlessness and breathlessness. 2 severe advanced end-stage COPD with an FEV1 of 21% of predicted from 2015. The patient has been oxygen and steroid-dependent outpatient basis. Maintenance after medications of his Symbicort and the patient has been utilizing DuoNeb nebulized treatments around the clock. The patient also has a AVAPS machine on outpatient basis regarding his advanced COPD and hypercapnic respiratory failure. 3 acute fever, recovered and the cultures are negative and the patient is on a combination of Rocephin and Zithromax, the patient has been afebrile since his admission 4 paroxysmal atrial fibrillation current rhythm is sinus. The patient is on amiodarone and verapamil and long-term anticoagulation with Eliquis 5 history of CVA 6 acid reflux 7 chronic anxiety 8 leukocytosis secondary to above 9 normocytic anemia,, post RBC transfusion hemoglobin is up to 8.2 10 frequent falls, most likely secondary to above 11.id. currently on accommodation of Haldol and Precedex to control the agitation. Plan Monitor respiratory status Keep oxygen at 4 L per minute nasal cannula and this can be alternated with BiPAP intermittently during the day. Increase IV Solu-Medrol back to 60 mg every 6 hours Continue DuoNeb nebulized treatments around the clock Utilize morphine 2 mg every 2-3 hours for anxiety and breathlessness Continue antibiotics Precedex and was discontinued Blood cultures negative. Hemoglobin is stable CODE STATUS is DNR/DNI and the patient will not be reintubated if he goes back and the respiratory failure and this is based on his 's and his wishes. We'll continue to follow. Long-term prognosis poor baseline above-mentioned comorbidities.
[2020-01-01 15:23] LABS: Glucose,Whole Blood 107 mg/dL (75-99)
[2020-01-01] MEDS: AZITHROMYCIN 500 MG in SODIUM CHLORIDE 0.9% 250 ML IVPB SCH (16:15)
[2020-01-01 18:02] LABS: Glucose,Whole Blood 128 mg/dL (75-99)
[2020-01-01] MEDS: methylPREDNISolone SOD SUCCI 125 MG/2 ML VIAL IV SCH (18:57)
[2020-01-02] MEDS: HYDROmorphone 1 MG/ML 1 ML SYRINGE IVP PRN ×2 (01:08→15:33)
[2020-01-02] MEDS: methylPREDNISolone SOD SUCCI 125 MG/2 ML VIAL IV SCH ×4 (01:08→17:34)
[2020-01-02 05:16] LABS: Anisocytosis Slight; Basophils % (A) 0 %; Eosinophils % (A) 1 %; HCT 29.7 % (39.0-53.0); HGB 8.8 gm/dL (13.0-17.5); Hypochromasia Marked; Lymphocytes # (A) 0.2 k/uL (1.0-4.8); Lymphocytes % (A) 3 %; MCH 24.6 pg (25.0-35.0); MCHC 29.5 g/dL (31.0-37.0); MCV 83.5 fL (80.0-100.0); Monocytes # (A) 0.3 k/uL (0-1.0); Monocytes % (A) 5 %; Neutrophils # (A) 5.7 k/uL (1.3-7.7); Neutrophils % (A) 92 %; Platelet Count 212 k/uL (150-450); Poikilocytosis Slight; RBC 3.55 m/uL (4.30-5.90); RDW 16.2 % (11.5-15.5); WBC 6.3 k/uL (3.8-10.6)
[2020-01-02 05:38] LABS: African American GFR (CKD) >90 (>60 ml/min/1.73 sqM); Blood Urea Nitrogen 26 mg/dL (9-20); Calcium 8.8 mg/dL (8.4-10.2); Chloride 92 mmol/L (98-107); Glucose 110 mg/dL (74-99); Non-African American GFR(CKD) >90 (>60 ml/min/1.73 sqM); Potassium 4.1 mmol/L (3.5-5.1); Sodium 139 mmol/L (137-145)
[2020-01-02] MEDS: MORPHINE SULFATE 4 MG/ML SYRINGE IVP PRN ×2 (05:39→22:12)
[2020-01-02 05:45] LABS: Anion Gap 4 mmol/L
[2020-01-02 05:47] LABS: Carbon Dioxide 43 mmol/L (22-30)
[2020-01-02] MEDS: IPRATROPIUM-ALBUTEROL 3 ML NEB INHALATION SCH ×4 (07:49→18:58)
[2020-01-02] MEDS: FORMOTEROL FUMARATE 20 MCG/2 ML NEBU INHALATION SCH ×2 (07:49→18:58)
[2020-01-02] MEDS: PANTOPRAZOLE 40 MG/10 ML VIAL IVP SCH (07:56)
[2020-01-02] MEDS: APIXABAN 5 MG TAB PO SCH ×2 (07:56→21:14)
[2020-01-02] MEDS: AMIODARONE 200 MG TAB PO SCH (07:56)
[2020-01-02] MEDS: DULoxetine HCL 60 MG CAPSULE.DR PO SCH (07:56)
--- NOTE | 2020-01-02 08:00 | XR ---
EXAMINATION TYPE: XR chest 1V portable DATE OF EXAM: 01/02/2020 COMPARISON: 12/22/2019 INDICATION: Tube placement TECHNIQUE: Single frontal view of the chest is obtained. FINDINGS: The heart size is normal. The pulmonary vasculature is normal. The lungs are clear. IMPRESSION: 1. No acute pulmonary process.
[2020-01-02 10:47] VITALS: BMI 19.7
[2020-01-02 11:41] LABS: Glucose,Whole Blood 139 mg/dL (75-99)
--- NOTE | 2020-01-02 13:16 | P.PN ---
Subjective Progress Note Date: 01/02/20 Principal diagnosis: Acute on chronic hypoxic/hypercapnic respiratory failure secondary to COPD exacerbation On today's evaluation of 12/30/2019, the patient remains intubated on a mechanical ventilator. Note that the patient has advanced and stage COPD with FEV1 of 21% of predicted. The patient came in yesterday because of respiratory failure and severe respiratory acidosis and hypoxic and hypercapnic respiratory failure. He was intubated in the emergency department. This morning, the patient is an assist-control mode of ventilation at the rate of 18 with a tidal volume of 375 with a FiO2 of 40% and a PEEP of 5. The chest x-ray showing no acute abnormalities. There is hyperinflation and ET tube is in good location. The pH is at 7.38 with a pCO2 of 41 and pO2 of 121. The melgar virus nasal swab came back negative. The patient is currently afebrile. Peak air pressures around 26. Static pressure is 12. The patient remains quite bronchospastic and wheezy. He remains sedated with propofol running at 50 mg per KG per minute. The patient is also normal saline at rate of 40 mL an hour. Earlier this morning, his hemoglobin came back at 6.7 and the patient will be given a unit of packed RBC. He'll be also started enteral feeding for nutritional support. I do not think is ready for any weaning yet. The patient remains quite bronchospastic and wheezy. He remains on a combination of Rocephin and Zithromax is empiric antibiotic coverage. The patient is also on IV Solu-Medrol and DuoNeb nebulized treatments around the clock. Cardiac rhythm is sinus. On 12/31/2019 the patient is extubated. Yesterday, the patient self extubated and he was Extubated. He was briefly placed on BiPAP which was unable to tolerate. He was offered higher dose pressure BiPAP at a pressure of 20/5 cm of water and subsequently the BiPAP pressure changed to 12/5 cm of water and FiO2 of 35%. He is currently on [address]Jacob by nasal cannula. Overnight, he was getting more delirious and agitated. He was given Haldol for agitation a total of 3 mg overnight and subsequently was placed on Precedex at the rate of 0.7 g per KG per hour. The patient was evaluated this morning. He seems to be drowsy at much more comfortable. No overt signs of respiratory distress and the patient had a subsequent blood gas showing a pH of 7.44 with a pCO2 of 62 and pO2 of 103 and this was on FiO2 of 36%. He remains and accommodation bronchodilators and steroids and antibiotics. He withdraws to painful supination all 4 extremities. He can hold only a short conversation. The is at the bedside. Note that he has advanced COPD with an FEV1 of 21% of predicted. His lung disease is quite endstage this point in time. Cardiac rhythm is sinus. He received a unit of packed RBC and hemoglobin is up to 8.2 events also stable. On 01/01/2020, so the patient first thing in the morning and the patient was quite comfortable, communicating and he denies having any major respiratory distress. He has advanced and end-stage lung disease. He had self extubated and has been on nasal cannula since. Unable to tolerate BiPAP and it was offered to him on multiple occasions. Note the post extubation, the patient became agitated and confused and delirious. He was given Precedex and Haldol which controlled his agitation significantly. This morning he seemed to be much more reasonable and communicative and alert compared to yesterday. However, later on in the afternoon, the patient became progressively more short of breath and restless. For that reason, he was given morphine for agitation and to take care of the breathlessness. He was placed on a higher dose of IV Solu-Medrol. He was asked to go back on a BiPAP intermittently for his ongoing shortness of breath. A chest x-ray from today shows no acute abnormalities. His advanced emphysema with hyperinflation. He remains on a combination of bronchodilators with DuoNeb nebulized treatments around the clock. He remains on IV Solu- Medrol. Cardiac rhythm is sinus. He remains and accommodation Rocephin and Zithromax. He remains on long-term and to coagulation with Eliquis regarding his previous history of PAF. The patient's hemoglobin at 8.2. With regard nonelevated. On 01/01/2020 patient seen in follow-up in the intensive care unit, he is awake and alert, in no acute distress, he is status post extubation on 12/31/2019, yesterday in the afternoon he did develop increasing shortness of breath, tachypnea and tachycardia, and his IV steroids have been increased, patient required additional doses of IV morphine for breathlessness, anxiety, dyspnea. He did not tolerate BiPAP support, as the patient is extremely anxious, however he did well on nasal cannula, and he is currently on 4 L of oxygen and the pulse ox of 98%, no fever or chills, no patient is stable, his breathing easier today. IV 0.9 normal saline infusing at a rate of 40 ML per hour. No other drips. Today's chest x-ray reviewed showing no acute pulmonary process. Patient was given an extra dose of IV Lasix yesterday, he remains on nebulized broncho- dilators and empiric antibiotics. He is in sinus mechanism on a monitor. With a controlled rate. His blood culture revealed no growth, his sputum culture showed rare epithelial cells, many PMNs, many gram-positive cocci and few gram- positive bacilli, no fever or chills. Objective - Vital Signs Vital signs: Vital Signs Temp 97.4 F L 01/02/20 08:00 Pulse 72 01/02/20 12:06 Resp 19 01/02/20 08:00 BP 159/100 01/02/20 08:00 Pulse Ox 98 01/02/20 08:00 Intake & Output 01/01/20 01/02/20 01/02/20 18:59 06:59 18:59 Intake Total 740 480 80 Output Total 2730 1110 225 Balance -1989 -877 -145 Weight 62.3 kg 62.3 kg Intake: IV 740 480 80 Azithromycin 500 mg In 250 Sodium Chloride 0.9% 250 ml @ 250 mls/hr IVPB Q24H [facility] Rx#:[id number] Sodium Chloride 0.9% 1, 440 480 80 000 ml @ 40 mls/hr IV . Q24H [facility] Rx#:[id number] cefTRIAXone 1 gm In 50 Sodium Chloride 0.9% 50 ml @ 100 mls/hr IVPB Q24H [facility] Rx#:[id number] Output: Urine 2730 1110 225 Other: Voiding Method Indwelling Catheter Indwelling Catheter Indwelling Catheter - Exam GENERAL EXAM: Alert, very pleasant, 49-year-old white male, currently on 4 L of oxygen pulse ox of 98%, dyspneic with conversation, but no acute distress comfortable in no apparent distress. HEAD: Normocephalic/atraumatic. EYES: Normal reaction of pupils, equal size. Conjunctiva pink, sclera white. NOSE: Clear with pink turbinates. THROAT: No erythema or exudates. NECK: No masses, no JVD, no thyroid enlargement, no adenopathy. CHEST: No chest wall deformity. Symmetrical expansion. LUNGS: Markedly diminished entry with no crackles, wheeze, rhonchi or dullness. CVS: Regular rate and rhythm, normal S1 and S2, no gallops, no murmurs, no rubs ABDOMEN: Soft, nontender. No hepatosplenomegaly, normal bowel sounds, no guarding or rigidity. EXTREMITIES: No clubbing, no edema, no cyanosis, 2+ pulses and upper and lower extremities. MUSCULOSKELETAL: Muscle strength and tone normal. SPINE: No scoliosis or deformity SKIN: No rashes CENTRAL NERVOUS SYSTEM: Alert and oriented -3. No focal deficits, tone is normal in all 4 extremities. PSYCHIATRIC: Alert and oriented -3. Appropriate affect. Intact judgment and insight. - Labs CBC & Chem 7: 01/02/20 04:54 01/02/20 04:54 Labs: Abnormal Lab Results - Last 24 Hours (Table) 01/01/20 01/01/20 01/02/20 Range/Units 15:03 18:01 04:54 RBC 3.55 L (4.30-5.90) m/uL Hgb 8.8 L (13.0-17.5) gm/dL Hct 29.7 L (39.0-53.0) % MCH 24.6 L (25.0-35.0) pg MCHC 29.5 L (31.0-37.0) g/dL RDW 16.2 H (11.5-15.5) % Lymphocytes # 0.2 L (1.0-4.8) k/uL Chloride (98-107) mmol/L Carbon Dioxide (22-30) mmol/L BUN (9-20) mg/dL Creatinine (0.66-1.25) mg/dL Glucose (74-99) mg/dL POC Glucose (mg/dL) 107 H 128 H (75-99) mg/dL 01/02/20 01/02/20 Range/Units 04:54 11:40 RBC (4.30-5.90) m/uL Hgb (13.0-17.5) gm/dL Hct (39.0-53.0) % MCH (25.0-35.0) pg MCHC (31.0-37.0) g/dL RDW (11.5-15.5) % Lymphocytes # (1.0-4.8) k/uL Chloride 92 L (98-107) mmol/L Carbon Dioxide 43 H* (22-30) mmol/L BUN 26 H (9-20) mg/dL Creatinine 0.56 L (0.66-1.25) mg/dL Glucose 110 H (74-99) mg/dL POC Glucose (mg/dL) 139 H (75-99) mg/dL Microbiology - Last 24 Hours (Table) 12/29/19 09:46 Blood Culture - Preliminary Blood No Growth after 96 hours Assessment and Plan Plan: Assessment: 1 acute on chronic hypoxic/hypercapnic the story failure secondary to COPD exacerbation. The patient is an extubated no 12/31/2019, currently on 4 L of oxygen. The patient continues to have on and off difficulties of breathing even at rest. As stated earlier, he has end-stage COPD and his condition is extremely borderline. Chronic hypoxic and hypercapnic respiratory failure. No evidence of pneumonia on his chest x-ray. Earlier this morning he was quite comfortable and subsequently became more short of breath. For that reason he was given a higher dose of Solu-Medrol and he was given a dose of diuretics. He was also given morphine for shortness of breath and anxiety and restlessness and breathlessness. On today's follow-up on 01/02/2020 patient is breathing easier, not tolerating BiPAP, but doing well on nasal cannula. 2 severe advanced end-stage COPD with an FEV1 of 21% of predicted from 2014. The patient has been oxygen and steroid-dependent outpatient basis. Maintenance after medications of his Symbicort and the patient has been utilizing DuoNeb nebulized treatments around the clock. The patient also has a AVAPS machine on outpatient basis regarding his advanced COPD and hypercapnic respiratory failure. 3 acute fever, recovered and the cultures are negative and the patient is on a combination of Rocephin and Zithromax, the patient has been afebrile since his admission 4 paroxysmal atrial fibrillation current rhythm is sinus. The patient is on amiodarone and verapamil and long-term anticoagulation with Eliquis 5 history of CVA 6 acid reflux 7 chronic anxiety 8 leukocytosis secondary to above 9 normocytic anemia,, post RBC transfusion hemoglobin is up to 8.2 10 frequent falls, most likely secondary to above 11. delirium, currently on accommodation of Haldol and Precedex to control the agitation, resolved Plan: Continue same dose of IV steroids, bronchodilators, antibiotics. Patient is doing better, breathing easier, will add Roxanol 5 mg twice daily scheduled dose, continue oral anticoagulation, patient currently in sinus mechanism, no acute events overnight. Mentation is appropriate, no confusion or delirium. Patient and his decided to keep the patient a full code without intubation and placement on mechanical ventilator support. Overall prognosis is extremely guarded in view of extremely poor lung function, will continue to monitor the patient in the ICU for 1 more day. I performed a history & physical examination of the patient and discussed their management with my nurse practitioner, Renetta Lomax. I reviewed the nurse practitioner's note and agree with the documented findings and plan of care. Lung sounds are positive for diminished breath sounds bilaterally. The findings and the impression was discussed with the patient. I attest to the documentation by the nurse practitioner. Time with Patient: Less than 30
[2020-01-02] MEDS: NOREPINEPHRINE 4 MG in SODIUM CHLORIDE 0.9% 250 ML IV SCH (13:22)
[2020-01-02] MEDS: AZITHROMYCIN 500 MG in SODIUM CHLORIDE 0.9% 250 ML IVPB SCH (13:26)
[2020-01-02] MEDS: SODIUM CHLORIDE 0.9% 1,000 ML IV SCH (13:30)
--- NOTE | 2020-01-02 14:42 | P.PN ---
Subjective Progress Note Date: 01/02/20 Principal diagnosis: 49-year-old admitted for severe sepsis, no significant evidence of pneumonia on the x-ray with the urine is abnormal patient either has pneumonia or urinary tr act infection and is in septic shock. Patient is off not in acute epinephrine today patient is still on propofol drips limited to support for acute hypoxic and hypercapnic respiratory failure. His respiratory status did improve patient hypoxemia improved and hypercapnia improved patient's hemoglobin is 6.7. Transfuse 1 unit of PRBC. 12/31/2019 Patient self extubated. Patient evidently was wheezing quite a bit earlier today patient is on high-dose of stomach steroids patient when I examined has diminished air entry without any significant wheezing will cut down the steroids to 40 mg twice a day IV as patient is having frequent agitation episodes of his agitation is probably secondary to toxic encephalopathy from multiple opiates and narcotic medications he received when he was intubated. Patient is doing well on 4 L of our isn't usually uses 3 L of oxygen. Patient is already receiv ing Haldol and as-needed basis patient has a soft restraints I did discuss with the nursing staff patient appears to more appropriate answering questions except for some speech abnormality from intubation. Speech therapy will evaluate for swallow. Review of systems: Unable to obtain due to his clinical condition All inpatient medications were reviewed and appropriate changes in these medications as dictated in the interval history and assessment and plan. 01/01/2020 Patient is seen and evaluated in follow-up and continues to be in the ICU being closely monitored. Patient continues to have severe dyspnea with any exertion although states his breathing has slightly improved. Repeat chest x-ray today shows no evidence of pneumothorax or pleural effusion with possible left lower lobe pneumonia. Patient is currently maintained on azithromycin and ceftriaxone and will continue at this time. Continue with bronchodilators and IV steroids at this time. Pulmonary following closely. Patient was given a dose of IV Lasix once. Patient's diet being advanced today as patient passed a swallow eval today. Patient is currently on 4 L of oxygen via nasal cannula and will continue at this time. Patient may likely transfer out of ICU once a bed becomes available. 01/02/2020 Patient is seen in follow-up today and currently remains in the ICU. Pulmonary following closely. Repeat chest x-ray today shows no acute pulmonary process although patient continues to be severely dyspneic even while at rest. Patient continues to be extremely anxious and morphine was initiated. IV steroids been increased to 60 mg every 6 and will continue at this time. Patient was unable to tolerate BiPAP and is currently on 4 L of oxygen and tolerating. Patient's carbon dioxide continues to be elevated at 43. Patient to continue on bronchodilators and breathing treatments. Currently no reports of chest pain or palpitations. Patient is afebrile. No reports of nausea or vomiting and patient is tolerating diet. Objective - Vital Signs Vital signs: Vital Signs Temp 98.4 F 01/02/20 12:00 Pulse 80 01/02/20 13:00 Resp 28 H 01/02/20 13:00 BP 154/92 01/02/20 13:00 Pulse Ox 96 01/02/20 13:00 Intake & Output 01/01/20 01/02/20 01/02/20 18:59 06:59 18:59 Intake Total 740 480 280 Output Total 2730 1110 865 Balance -1990 -630 -585 Weight 62.3 kg 62.3 kg Intake: IV 740 480 280 Azithromycin 500 mg In 250 Sodium Chloride 0.9% 250 ml @ 250 mls/hr IVPB Q24H [facility] Rx#:[id number] Sodium Chloride 0.9% 1, 440 480 280 000 ml @ 40 mls/hr IV . Q24H [facility] Rx#:[id number] cefTRIAXone 1 gm In 50 Sodium Chloride 0.9% 50 ml @ 100 mls/hr IVPB Q24H [facility] Rx#:[id number] Output: Urine 2730 1110 865 Other: Voiding Method Indwelling Catheter Indwelling Catheter Indwelling Catheter - Exam GENERAL: Alert oriented 3. Sitting up in bed, awake, appears to be in no acute distress. Thin built HEENT: Pupils are round and equally reacting to light. EOMI. No scleral icterus. No conjunctival pallor. Normocephalic, atraumatic. No pharyngeal erythema. No thyromegaly. CARDIOVASCULAR: S1 and S2 present. No murmurs, rubs, or gallops. PULMONARY: Diminished breath sounds bilaterally otherwise clear to auscultation, no wheezing or crackles noted on exam. ABDOMEN: Soft, nontender, nondistended, normoactive bowel sounds. No palpable organomegaly. MUSCULOSKELETAL: No joint swelling or deformity. EXTREMITIES: No cyanosis, clubbing, or pedal edema. NEUROLOGICAL: No focal deficits noted SKIN: No rashes. - Labs CBC & Chem 7: 01/02/20 04:54 01/02/20 04:54 Labs: Abnormal Lab Results - Last 24 Hours (Table) 01/01/20 01/01/20 01/02/20 Range/Units 15:03 18:01 04:54 RBC 3.55 L (4.30-5.90) m/uL Hgb 8.8 L (13.0-17.5) gm/dL Hct 29.7 L (39.0-53.0) % MCH 24.6 L (25.0-35.0) pg MCHC 29.5 L (31.0-37.0) g/dL RDW 16.2 H (11.5-15.5) % Lymphocytes # 0.2 L (1.0-4.8) k/uL Chloride (98-107) mmol/L Carbon Dioxide (22-30) mmol/L BUN (9-20) mg/dL Creatinine (0.66-1.25) mg/dL Glucose (74-99) mg/dL POC Glucose (mg/dL) 107 H 128 H (75-99) mg/dL 01/02/20 01/02/20 Range/Units 04:54 11:40 RBC (4.30-5.90) m/uL Hgb (13.0-17.5) gm/dL Hct (39.0-53.0) % MCH (25.0-35.0) pg MCHC (31.0-37.0) g/dL RDW (11.5-15.5) % Lymphocytes # (1.0-4.8) k/uL Chloride 92 L (98-107) mmol/L Carbon Dioxide 43 H* (22-30) mmol/L BUN 26 H (9-20) mg/dL Creatinine 0.56 L (0.66-1.25) mg/dL Glucose 110 H (74-99) mg/dL POC Glucose (mg/dL) 139 H (75-99) mg/dL Microbiology - Last 24 Hours (Table) 12/29/19 09:46 Blood Culture - Preliminary Blood No Growth after 96 hours Assessment and Plan Assessment: -Acute on chronic hypercapnic respiratory failure secondary to COPD exacerbation requiring intubation, patient has self-extubated and on 4 L via nasal cannula, unable to tolerate BiPAP -Septic shock probable source of sepsis being Pneumonia urine does look abnormal as well but my suspicion is low that patient has UTI, no reports of dysuria or retention, patient currently remains on IV azithromycin and will continue at this time. -COPD advanced with a chronic hypercapnic respiratory failure requiring 4 liters of oxygen at home -History of atrial fibrillation presently rate controlled sinus rhythm continue with anticoagulation -Gastroesophageal reflux disease -History of cerebral vascular accident in the past -continued ongoing nicotine use -DVT prophylaxis on Eliquis -GI prophylaxis Protonix Plan: Continue current medications, management, and symptomatic treatment. Oral morphine being added for discomfort and intermittent periods of worsening dyspnea with anxiety. Continue with bronchodilators along with IV steroids. Pulmonary following closely. Continue to monitor vital signs and labs closely. Patient is maintained on antibiotics and will continue at this time. Will repeat a.m. labs. Further recommendations to follow. Anticipate discharge in 24-48 hours.
[2020-01-02] MEDS: MORPHINE CONC SOLN 10mg/0.5mL ORAL SYRG PO SCH (17:33)
[2020-01-03] MEDS: methylPREDNISolone SOD SUCCI 125 MG/2 ML VIAL IV SCH ×4 (00:42→17:20)
[2020-01-03] MEDS: MORPHINE SULFATE 4 MG/ML SYRINGE IVP PRN (04:11)
[2020-01-03] MEDS: SODIUM CHLORIDE 0.9% 1,000 ML IV SCH (04:17)
[2020-01-03 05:16] LABS: Basophils % (A) 0 %; Eosinophils % (A) 1 %; HCT 32.2 % (39.0-53.0); HGB 9.6 gm/dL (13.0-17.5); Hypochromasia Marked; Lymphocytes # (A) 0.2 k/uL (1.0-4.8); Lymphocytes % (A) 3 %; MCH 25.1 pg (25.0-35.0); MCHC 29.8 g/dL (31.0-37.0); MCV 84.2 fL (80.0-100.0); Mean Platelet Volume 6.7; Monocytes # (A) 0.4 k/uL (0-1.0); Monocytes % (A) 6 %; Neutrophils # (A) 5.7 k/uL (1.3-7.7); Neutrophils % (A) 90 %; Platelet Count 261 k/uL (150-450); Poikilocytosis Slight; RBC 3.82 m/uL (4.30-5.90); WBC 6.4 k/uL (3.8-10.6)
[2020-01-03 05:27] LABS: African American GFR (CKD) >90 (>60 ml/min/1.73 sqM); Anion Gap 4 mmol/L; Blood Urea Nitrogen 18 mg/dL (9-20); Calcium 8.8 mg/dL (8.4-10.2); Carbon Dioxide 40 mmol/L (22-30); Chloride 89 mmol/L (98-107); Glucose 119 mg/dL (74-99); Non-African American GFR(CKD) >90 (>60 ml/min/1.73 sqM); Potassium 3.7 mmol/L (3.5-5.1); Sodium 133 mmol/L (137-145)
[2020-01-03] MEDS ORDERED: Potassium Replacement Protocol 1 EACH MISC MISCELLANE PRN (05:39)
[2020-01-03] MEDS ORDERED: POTASSIUM CHLORIDE ER 20 MEQ TAB.ER PO SCH (06:00)
--- NOTE | 2020-01-03 06:42 | XR ---
EXAMINATION TYPE: XR chest 1V portable DATE OF EXAM: 01/03/2020 HISTORY: Tube placement. REFERENCE: Previous study dated 01/02/2020. FINDINGS: The lungs are overinflated but clear. Pleural spaces are clear. The heart is not enlarged. IMPRESSION: PLEASE CORRELATE FOR COPD.
[2020-01-03] MEDS: MORPHINE CONC SOLN 10mg/0.5mL ORAL SYRG PO SCH (07:22)
[2020-01-03 08:13] LABS: Glucose,Whole Blood 174 mg/dL (75-99)
[2020-01-03] MEDS: IPRATROPIUM-ALBUTEROL 3 ML NEB INHALATION SCH ×4 (08:36→19:34)
[2020-01-03] MEDS: FORMOTEROL FUMARATE 20 MCG/2 ML NEBU INHALATION SCH ×2 (08:39→19:34)
[2020-01-03] MEDS: PANTOPRAZOLE 40 MG/10 ML VIAL IVP SCH (09:41)
[2020-01-03] MEDS: APIXABAN 5 MG TAB PO SCH ×2 (09:42→20:30)
[2020-01-03] MEDS: DULoxetine HCL 60 MG CAPSULE.DR PO SCH (09:42)
[2020-01-03] MEDS: AMIODARONE 200 MG TAB PO SCH (09:42)
[2020-01-03] MEDS: HYDROcodone/APAP 7.5-325MG 1 EACH TAB PO PRN ×2 (13:00→20:33)
[2020-01-03] MEDS: GABAPENTIN 300 MG CAP PO SCH ×3 (13:01→22:08)
--- NOTE | 2020-01-03 14:52 | P.PN ---
Subjective Progress Note Date: 01/03/20 On 01/03/2020 and seeing the patient for a follow-up. Doing well. No complaints. I started him on Roxanol for dyspnea and pain. The patient opted to preferred and go back to his [place]. He denies having any major respiratory distress. Is less focused bronchospastic and wheezy. No chest pain. No cough or sputum production. No cardiac arrhythmias. The patient remains on DuoNeb nebulized treatments around the clock, IV Solu-Medrol, and he is on medication including Cymbalta, Zyprexa and Xanax will be ordered resume. For now, is able to tolerate his diet. No altered mentation. No signs of any CO2 narcosis. We'll make additional stool mode this patient to medical surgical floor. He remains on long-term and to coagulation with Eliquis as the patient has previous history of PAF. Objective - Vital Signs Vital signs: Vital Signs Temp 99.1 F 01/03/20 08:00 Pulse 100 01/03/20 13:00 Resp 19 01/03/20 13:00 BP 174/102 01/03/20 12:00 Pulse Ox 98 01/03/20 13:00 Intake & Output 01/02/20 01/03/20 01/03/20 18:59 06:59 18:59 Intake Total 780 1200 280 Output Total 1365 1480 1375 Balance -585 -280 -1095 Weight 62.3 kg 55.4 kg Intake: IV 780 480 280 Azithromycin 500 mg In 250 Sodium Chloride 0.9% 250 ml @ 250 mls/hr IVPB Q24H [facility] Rx#:[id number] Sodium Chloride 0.9% 1, 480 480 280 000 ml @ 40 mls/hr IV . Q24H [facility] Rx#:[id number] cefTRIAXone 1 gm In 50 Sodium Chloride 0.9% 50 ml @ 100 mls/hr IVPB Q24H [facility] Rx#:[id number] Oral 720 Output: Urine 1365 1480 1375 Other: Voiding Method Indwelling Catheter Indwelling Catheter Indwelling Catheter # Bowel Movements 1 - Exam Gen. appearance the patient is sedated, yet is calm and comfortable. Head exam was generally normal. There was no scleral icterus or corneal arcus. Mucous membranes were moist. Neck was supple and without jugular venous distension, thyromegaly, or carotid bruits. Carotids were easily palpable bilaterally. There was no adenopathy. Lungs marked diminished breath sound bilaterally along with scattered expiratory we'll rhonchi and wheezes. Cardiac exam revealed the PMI to be normally situated and sized. The rhythm was regular and no extrasystoles were noted during several minutes of auscultation. The first and second heart sounds were normal and physiologic splitting of the second heart sound was noted. There were no murmurs, rubs, clicks, or gallops. Abdominal exam revealed normal bowel sounds. The abdomen was soft, non-tender, and without masses, organomegaly, or appreciable enlargement of the abdominal aorta. Examination of the extremities revealed easily palpable radial, femoral and pedal pulses. There was no cyanosis, clubbing or edema. Examination of the skin revealed no evidence of significant rashes, suspicious appearing nevi or other concerning lesions. Neurologically sedated, comfortable and his neurologic exam is nonfocal. - Labs CBC & Chem 7: 01/03/20 04:53 01/03/20 09:33 Labs: Abnormal Lab Results - Last 24 Hours (Table) 01/03/20 01/03/20 01/03/20 Range/Units 04:53 04:53 08:12 RBC 3.82 L (4.30-5.90) m/uL Hgb 9.6 L (13.0-17.5) gm/dL Hct 32.2 L (39.0-53.0) % MCHC 29.8 L (31.0-37.0) g/dL RDW 16.0 H (11.5-15.5) % Lymphocytes # 0.2 L (1.0-4.8) k/uL Sodium 133 L (137-145) mmol/L Chloride 89 L (98-107) mmol/L Carbon Dioxide 40 H (22-30) mmol/L Creatinine 0.51 L (0.66-1.25) mg/dL Glucose 119 H (74-99) mg/dL POC Glucose (mg/dL) 174 H (75-99) mg/dL Microbiology - Last 24 Hours (Table) 12/29/19 09:46 Blood Culture - Preliminary Blood No Growth after 120 hours 12/29/19 20:58 Gram Stain - Final Sputum Sputum Culture - Final Assessment and Plan Plan: 1 acute on chronic hypoxic/hypercapnic the story failure secondary to COPD exacerbation. The patient is an extubated. The patient continues to have on and off difficulties of breathing even at rest. As stated earlier, he has end- stage COPD and his condition is extremely borderline. Chronic hypoxic and hypercapnic respiratory failure. No evidence of pneumonia on his chest x-ray. Earlier this morning he was quite comfortable and subsequently became more short of breath. 2 severe advanced end-stage COPD with an FEV1 of 21% of predicted from 2015. The patient has been oxygen and steroid-dependent outpatient basis. Maintenance after medications of his Symbicort and the patient has been utilizing DuoNeb nebulized treatments around the clock. The patient also has a AVAPS machine on outpatient basis regarding his advanced COPD and hypercapnic respiratory failure. 3 acute fever, recovered and the cultures are negative and the patient is on a combination of Rocephin and Zithromax, the patient has been afebrile since his admission 4 paroxysmal atrial fibrillation current rhythm is sinus. The patient is on amiodarone and verapamil and long-term anticoagulation with Eliquis 5 history of CVA 6 acid reflux 7 chronic anxiety 8 leukocytosis secondary to above 9 normocytic anemia,, post RBC transfusion hemoglobin is up to 9.6 10 frequent falls, most likely secondary to above Plan Discontinue the Roxanol and go back to [place] for pain control Put the patient on DuoNeb nebulized since [id number] IV Solu Medrol for another 24 hours and switch him to a prednisone burst taper as of tomorrow Increased level of activity as tolerated Oxygen at 47 minute nasal cannula and the patient not utilizing any form of noninvasive positive pressure ventilation for now Restart Xanax Restart Cymbalta and Zyprexa Haldol as needed we'll continue to follow. The patient can be transferred to a medical surgical floor. CODE STATUS is DNR/DNI and the patient will not be reintubated if he goes back and the respiratory failure and this is based on his 's and his wishes. We'll continue to follow. Long-term prognosis poor baseline above-mentioned comorbidities.
[2020-01-03] MEDS: AZITHROMYCIN 500 MG in SODIUM CHLORIDE 0.9% 250 ML IVPB SCH (15:18)
[2020-01-03] MEDS: ALPRAZolam 0.5 MG TAB PO SCH ×2 (15:22→20:29)
--- NOTE | 2020-01-03 16:02 | P.PN ---
Subjective 49-year-old admitted for severe sepsis, no significant evidence of pneumonia on the x-ray with the urine is abnormal patient either has pneumonia or urinary tract infection and is in septic shock. Patient is off not in acute epinephrine today patient is still on propofol drips limited to support for acute hypoxic and hypercapnic respiratory failure. His respiratory status did improve patient hypoxemia improved and hypercapnia improved patient's hemoglobin is 6.7. Transfuse 1 unit of PRBC. 12/31/2019 Patient self extubated. Patient evidently was wheezing quite a bit earlier today patient is on high-dose of stomach steroids patient when I examined has diminished air entry without any significant wheezing will cut down the steroids to 40 mg twice a day IV as patient is having frequent agitation episodes of his agitation is probably secondary to toxic encephalopathy from multiple opiates and narcotic medications he received when he was intubated. Patient is doing well on 4 L of our isn't usually uses 3 L of oxygen. Patient is already receiving Haldol and as-needed basis patient has a soft restraints I did discuss with the nursing staff patient appears to more appropriate answering questions except for some speech abnormality from intubation. Speech therapy will evaluate for swallow. 01/01/2020 Patient is seen and evaluated in follow-up and continues to be in the ICU being closely monitored. Patient continues to have severe dyspnea with any exertion although states his breathing has slightly improved. Repeat chest x-ray today shows no evidence of pneumothorax or pleural effusion with possible left lower lobe pneumonia. Patient is currently maintained on azithromycin and ceftriaxone and will continue at this time. Continue with bronchodilators and IV steroids at this time. Pulmonary following closely. Patient was given a dose of IV Lasix once. Patient's diet being advanced today as patient passed a swallow eval today. Patient is currently on 4 L of oxygen via nasal cannula and will continue at this time. Patient may likely transfer out of ICU once a bed becomes available. 01/02/2020 Patient is seen in follow-up today and currently remains in the ICU. Pulmonary following closely. Repeat chest x-ray today shows no acute pulmonary process although patient continues to be severely dyspneic even while at rest. Patient continues to be extremely anxious and morphine was initiated. IV steroids been increased to 60 mg every 6 and will continue at this time. Patient was unable to tolerate BiPAP and is currently on 4 L of oxygen and tolerating. Patient's carbon dioxide continues to be elevated at 43. Patient to continue on bronchodilators and breathing treatments. Currently no reports of chest pain or palpitations. Patient is afebrile. No reports of nausea or vomiting and patient is tolerating diet. 01/03/2020 Patient has barely any air entry into bilateral lung bond patient will transfer out of ICU patient is on 4 L patient has advanced COPD patient blood pressure is bit elevated patient was started back on verapamil. Patient is being resumed on his antipsychotic and antianxiety medications. Constitutional: Denied any fatigue denied any fever. Cardio vascular: denied any chest pain, palpitations Gastrointestinal denied any nausea vomiting Pulmonary: Shortness of breath improved Neurologic denied any new focal deficits All inpatient medications were reviewed and appropriate changes in these medications as dictated in the interval history and assessment and plan. Objective - Vital Signs Vital signs: Vital Signs Temp 99.1 F 01/03/20 08:00 Pulse 89 01/03/20 15:00 Resp 17 01/03/20 15:00 BP 139/103 01/03/20 14:00 Pulse Ox 97 01/03/20 15:00 Intake & Output 01/02/20 01/03/20 01/03/20 18:59 06:59 18:59 Intake Total 780 1200 360 Output Total 1365 1480 1625 Balance -582 -029 -1765 Weight 62.3 kg 55.4 kg Intake: IV 780 480 360 Azithromycin 500 mg In 250 Sodium Chloride 0.9% 250 ml @ 250 mls/hr IVPB Q24H [facility] Rx#:[id number] Sodium Chloride 0.9% 1, 480 480 360 000 ml @ 40 mls/hr IV . Q24H [facility] Rx#:[id number] cefTRIAXone 1 gm In 50 Sodium Chloride 0.9% 50 ml @ 100 mls/hr IVPB Q24H [facility] Rx#:[id number] Oral 720 Output: Urine 1365 1480 1625 Other: Voiding Method Indwelling Catheter Indwelling Catheter Indwelling Catheter # Bowel Movements 1 - Exam PHYSICAL EXAMINATION: GENERAL: Alert oriented 3. HEENT: Pupils are round and equally reacting to light. EOMI. No scleral icterus. No conjunctival pallor. Normocephalic, atraumatic. No pharyngeal erythema. No thyromegaly. CARDIOVASCULAR: S1 and S2 present. No murmurs, rubs, or gallops. PULMONARY: No significant air entry into bilateral lung bond no significant wheezing either ABDOMEN: Soft, nontender, nondistended, normoactive bowel sounds. No palpable organomegaly. MUSCULOSKELETAL: No joint swelling or deformity. EXTREMITIES: No cyanosis, clubbing, or pedal edema. NEUROLOGICAL: No focal deficits patient is pleasant and the following commands to me presently has soft restraints SKIN: No rashes. - Labs CBC & Chem 7: 01/03/20 04:53 01/03/20 09:33 Labs: Abnormal Lab Results - Last 24 Hours (Table) 01/03/20 01/03/20 01/03/20 Range/Units 04:53 04:53 08:12 RBC 3.82 L (4.30-5.90) m/uL Hgb 9.6 L (13.0-17.5) gm/dL Hct 32.2 L (39.0-53.0) % MCHC 29.8 L (31.0-37.0) g/dL RDW 16.0 H (11.5-15.5) % Lymphocytes # 0.2 L (1.0-4.8) k/uL Sodium 133 L (137-145) mmol/L Chloride 89 L (98-107) mmol/L Carbon Dioxide 40 H (22-30) mmol/L Creatinine 0.51 L (0.66-1.25) mg/dL Glucose 119 H (74-99) mg/dL POC Glucose (mg/dL) 174 H (75-99) mg/dL Microbiology - Last 24 Hours (Table) 12/29/19 09:46 Blood Culture - Preliminary Blood No Growth after 120 hours 12/29/19 20:58 Gram Stain - Final Sputum Sputum Culture - Final Assessment and Plan Plan: Assessment and Plan Assessment: -Acute on chronic hypercapnic respiratory failure secondary to COPD exacerbation requiring intubation, patient has self-extubated 2 days ago and on 4 L via nasal cannula, -Septic shock probable source of sepsis being Pneumonia urine does look abnormal as well but my suspicion is low that patient has UTI, patient will be continued on present antibiotics -COPD advanced with a chronic hypercapnic respiratory failure requiring 4 liters of oxygen at home -History of atrial fibrillation presently rate controlled sinus rhythm continue with anticoagulation patient will be started on verapamil old as his blood pressure started going up -Gastroesophageal reflux disease -History of cerebral vascular accident in the past -continued ongoing nicotine use -DVT prophylaxis on Eliquis -GI prophylaxis Protonix
[2020-01-03] MEDS: VERAPAMIL SR 240 MG TABLET.ER PO SCH (17:19)
[2020-01-04] MEDS: methylPREDNISolone SOD SUCCI 125 MG/2 ML VIAL IV SCH ×2 (00:29→06:36)
[2020-01-04] MEDS: ALPRAZolam 0.5 MG TAB PO SCH ×3 (00:56→12:20)
[2020-01-04] MEDS: HYDROcodone/APAP 7.5-325MG 1 EACH TAB PO PRN (04:18)
[2020-01-04] MEDS ORDERED: PANTOPRAZOLE 40 MG TABLET PO SCH (07:30)
[2020-01-04] MEDS: IPRATROPIUM-ALBUTEROL 3 ML NEB INHALATION SCH ×2 (07:32→11:30)
[2020-01-04] MEDS: FORMOTEROL FUMARATE 20 MCG/2 ML NEBU INHALATION SCH (07:32)
[2020-01-04] MEDS: AMIODARONE 200 MG TAB PO SCH (07:50)
[2020-01-04] MEDS: DULoxetine HCL 60 MG CAPSULE.DR PO SCH (07:51)
[2020-01-04] MEDS: GABAPENTIN 300 MG CAP PO SCH (07:51)
[2020-01-04] MEDS: APIXABAN 5 MG TAB PO SCH (07:51)
[2020-01-04] MEDS: VERAPAMIL SR 240 MG TABLET.ER PO SCH (07:51)
[2020-01-04 08:12] VITALS: TEMP 97.5
[2020-01-04] MEDS ORDERED: predniSONE 20 MG TAB PO STA (10:43)
[2020-01-04] MEDS ORDERED: guaiFENesin-DM 600/30MG 1 EACH TAB.ER.12H PO SCH (10:45)
--- NOTE | 2020-01-04 11:34 | P.DS ---
Providers Date of admission: 12/29/19 12:26 Attending physician: Magdaleno Sellers Consults: 12/29/19 12:26 Consult Physician Stat Consulting Provider: Amanda Ozuna Consult Reason/Comments: resp failure Do you want consulting provider notified?: Already Contacted Primary care physician: Hue Laurent [facility] Course: 49-year-old admitted for severe sepsis, no significant evidence of pneumonia on the x-ray with the urine is abnormal patient either has pneumonia or urinary tract infection and is in septic shock. Patient is off not in acute epinephrine today patient is still on propofol drips limited to support for acute hypoxic and hypercapnic respiratory failure. His respiratory status did improve patient hypoxemia improved and hypercapnia improved patient's hemoglobin is 6.7. Transfuse 1 unit of PRBC. 12/31/2019 Patient self extubated. Patient evidently was wheezing quite a bit earlier today patient is on high-dose of stomach steroids patient when I examined has diminished air entry without any significant wheezing will cut down the steroids to 40 mg twice a day IV as patient is having frequent agitation episodes of his agitation is probably secondary to toxic encephalopathy from multiple opiates and narcotic medications he received when he was intubated. Patient is doing well on 4 L of our isn't usually uses 3 L of oxygen. Patient is already receiving Haldol and as-needed basis patient has a soft restraints I did discuss with the nursing staff patient appears to more appropriate answering questions except for some speech abnormality from intubation. Speech therapy will evaluate for swallow. 01/01/2020 Patient is seen and evaluated in follow-up and continues to be in the ICU being closely monitored. Patient continues to have severe dyspnea with any exertion although states his breathing has slightly improved. Repeat chest x-ray today shows no evidence of pneumothorax or pleural effusion with possible left lower lobe pneumonia. Patient is currently maintained on azithromycin and ceftriaxone and will continue at this time. Continue with bronchodilators and IV steroids at this time. Pulmonary following closely. Patient was given a dose of IV Lasix once. Patient's diet being advanced today as patient passed a swallow eval today. Patient is currently on 4 L of oxygen via nasal cannula and will continue at this time. Patient may likely transfer out of ICU once a bed becomes available. 01/02/2020 Patient is seen in follow-up today and currently remains in the ICU. Pulmonary following closely. Repeat chest x-ray today shows no acute pulmonary process although patient continues to be severely dyspneic even while at rest. Patient continues to be extremely anxious and morphine was initiated. IV steroids been increased to 60 mg every 6 and will continue at this time. Patient was unable to tolerate BiPAP and is currently on 4 L of oxygen and tolerating. Patient's carbon dioxide continues to be elevated at 43. Patient to continue on bronchodilators and breathing treatments. Currently no reports of chest pain or palpitations. Patient is afebrile. No reports of nausea or vomiting and patient is tolerating diet. 01/03/2020 Patient has barely any air entry into bilateral lung bond patient will transfer out of ICU patient is on 4 L patient has advanced COPD patient blood pressure is bit elevated patient was started back on verapamil. Patient is being resumed on his antipsychotic and antianxiety medications. 01/04/2020 Patient has decreased air entry into bilateral lung bond is this is his baseline pressure patient is saturating almost 100% on for its lungs and patient looks much better will be today discharged. There is no clear evidence of pneumonia although patient had fever which was treated with the ceftriaxone and azithromycin. PHYSICAL EXAMINATION: GENERAL: The patient is alert and oriented x3, not in any acute distress. Well developed, well nourished. HEENT: Pupils are round and equally reacting to light. EOMI. No scleral icterus. No conjunctival pallor. Normocephalic, atraumatic. No pharyngeal erythema. No thyromegaly. CARDIOVASCULAR: S1 and S2 present. No murmurs, rubs, or gallops. PULMONARY: Decreased air entry into bilateral lung bond which is his baseline ABDOMEN: Soft, nontender, nondistended, normoactive bowel sounds. No palpable organomegaly. MUSCULOSKELETAL: No joint swelling or deformity. EXTREMITIES: No cyanosis, clubbing, or pedal edema. NEUROLOGICAL: Gross neurological examination did not reveal any focal deficits. SKIN: No rashes. Assessment and Plan Assessment: -Acute on chronic hypercapnic respiratory failure secondary to COPD exacerbation requiring intubation, patient has self-extubated 3 days ago and on 3 L via nasal cannula saturating well patient is at his baseline, -Septic shock probable source of sepsis being Pneumonia she will be discharged on Ceftin -COPD advanced with a chronic hypercapnic respiratory failure requiring 4 liters of oxygen at home -History of atrial fibrillation presently rate controlled sinus rhythm continue with anticoagulation patient is on verapamil which was resumed yesterday. -Gastroesophageal reflux disease -History of cerebral vascular accident in the past -continued ongoing nicotine use Patient Condition at Discharge: Critical Plan - Discharge Summary Discharge Rx Participant: No New Discharge Prescriptions: New Cefuroxime Axetil [Ceftin] 500 mg PO BID 4 Days #8 tab predniSONE 10 mg PO DAILY #30 tab Continue Ipratropium/Albuterol Sulfate [Combivent Respimat Inhaler] 1 puff INHALATION RT-QID Gabapentin 600 mg PO TID DULoxetine HCL 60 mg PO DAILY Budesonide-Formot 160-4.5 Mcg [Symbicort 160-4.5 Mcg Inhaler] 2 puff INHALATION RT-BID Famotidine [Pepcid] 20 mg PO BID #60 tab guaiFENesin [Mucinex] 600 mg PO BID Apixaban [Eliquis] 5 mg PO BID #60 tab Amiodarone [Cordarone] 200 mg PO BID #60 tab Verapamil Sr [Isoptin Sr] 240 mg PO DAILY #30 tablet.er Albuterol Nebulized [Ventolin Nebulized] 2.5 mg INHALATION RT-QID Budesonide/Formoterol Fumarate [Symbicort 160-4.5 Mcg Inhaler] 2 puff INHALATION RT-BID Ipratropium-Albuterol Nebulize [Duoneb 0.5 mg-3 mg/3 ml Soln] 3 ml INHALATION RT-QID HYDROcodone/APAP 7.5-325MG [[place] 7.5-325] 1 tab PO TID PRN PRN Reason: Pain Gabapentin 600 mg PO TID DULoxetine HCL [Cymbalta] 60 mg PO DAILY Apixaban [Eliquis] 5 mg PO BID Ipratropium/Albuterol Sulfate [Combivent Respimat Inhaler] 1 puff INHALATION RT-DAILY Amiodarone [Cordarone] 200 mg PO DAILY Changed ALPRAZolam [Xanax] 0.5 mg PO QID PRN #0 PRN Reason: Anxiety Discontinued ALPRAZolam 0.5 mg PO QID HYDROcodone/APAP 7.5-325MG [[place] 7.5-325] 1 tab PO TID predniSONE 10 mg PO DAILY predniSONE 10 mg PO DIRECTED #20 tab Verapamil HCl [Verapamil ER] 240 mg PO DAILY Discharge Medication List DULoxetine HCL 60 mg PO DAILY 03/28/15 [History] Gabapentin 600 mg PO TID 03/28/15 [History] Ipratropium/Albuterol Sulfate [Combivent Respimat Inhaler] 1 puff INHALATION RT- QID 03/28/15 [History] Budesonide-Formot 160-4.5 Mcg [Symbicort 160-4.5 Mcg Inhaler] 2 puff INHALATION RT-BID 01/31/18 [History] Famotidine [Pepcid] 20 mg PO BID #60 tab 07/12/18 [Rx] guaiFENesin [Mucinex] 600 mg PO BID 03/05/19 [History] Apixaban [Eliquis] 5 mg PO BID #60 tab 03/08/19 [Rx] Amiodarone [Cordarone] 200 mg PO BID #60 tab 03/10/19 [Rx] Verapamil Sr [Isoptin Sr] 240 mg PO DAILY #30 tablet.er 03/10/19 [Rx] Albuterol Nebulized [Ventolin Nebulized] 2.5 mg INHALATION RT-QID 06/10/19 [History] Amiodarone [Cordarone] 200 mg PO DAILY 12/29/19 [History] Apixaban [Eliquis] 5 mg PO BID 12/29/19 [History] Budesonide/Formoterol Fumarate [Symbicort 160-4.5 Mcg Inhaler] 2 puff INHALATION RT-BID 12/29/19 [History] DULoxetine HCL [Cymbalta] 60 mg PO DAILY 12/29/19 [History] Gabapentin 600 mg PO TID 12/29/19 [History] HYDROcodone/APAP 7.5-325MG [[place] 7.5-325] 1 tab PO TID PRN 12/29/19 [History] Ipratropium-Albuterol Nebulize [Duoneb 0.5 mg-3 mg/3 ml Soln] 3 ml INHALATION RT-QID 12/29/19 [History] Ipratropium/Albuterol Sulfate [Combivent Respimat Inhaler] 1 puff INHALATION RT- DAILY 12/29/19 [History] ALPRAZolam [Xanax] 0.5 mg PO QID PRN #0 01/04/20 [Rx] Cefuroxime Axetil [Ceftin] 500 mg PO BID 4 Days #8 tab 01/04/20 [Rx] predniSONE 10 mg PO DAILY #30 tab 01/04/20 [Rx] Follow up Appointment(s)/Referral(s): [facility], [NON-STAFF] - Hue Laurent MD [Primary Care Provider] - 3 Days Amanda Ozuna MD [STAFF PHYSICIAN] - 1 Week
[2020-01-04] MEDS: SODIUM CHLORIDE 0.9% 1,000 ML IV SCH (11:47)
[2020-01-04] MEDS: AZITHROMYCIN 500 MG in SODIUM CHLORIDE 0.9% 250 ML IVPB SCH (12:20)
--- NOTE | 2020-01-04 13:04 | P.PN ---
Subjective Progress Note Date: 01/04/20 Principal diagnosis: The patient is seen today 01/04/2020 in follow-up on the selective care unit. He is currently sitting up in a chair at the bedside. Awake and alert in no acu te distress. He denies any worsening shortness of breath, cough or congestion. Still some dyspnea on exertion. Maintaining good O2 saturations in the upper 90s on 4 L/m per nasal cannula. He is afebrile. Hemodynamically stable. Blood and sputum cultures reveal no growth. He remains on bronchodilators, antibiotics in form azithromycin, anticoagulated with Eliquis. Objective - Vital Signs Vital signs: Vital Signs Temp 97.5 F L 01/04/20 07:59 Pulse 84 01/04/20 11:45 Resp 18 01/04/20 07:59 BP 112/74 01/04/20 07:59 Pulse Ox 99 01/04/20 07:59 Intake & Output 01/03/20 01/04/20 01/04/20 18:59 06:59 18:59 Intake Total 440 480 480 Output Total 1975 500 500 Balance -153 Weight 56 kg Intake: IV 440 Sodium Chloride 0.9% 1, 440 000 ml @ 40 mls/hr IV . Q24H [facility] Rx#:[id number] Oral 480 480 Output: Urine 1974 500 500 Other: Voiding Method Indwelling Catheter Toilet Urinal - Exam Gen. appearance the patient is a pleasant 49-year-old gentleman, awake and alert in no acute distress, on 4 L nasal cannula. Head exam was generally normal. There was no scleral icterus or corneal arcus. Mucous membranes were moist. Neck was supple and without jugular venous distension, thyromegaly, or carotid bruits. Carotids were easily palpable bilaterally. There was no adenopathy. Lungs marked diminished breath sound bilaterally along with scattered expiratory we'll rhonchi and wheezes. Cardiac exam revealed the PMI to be normally situated and sized. The rhythm was regular and no extrasystoles were noted during several minutes of auscultation. The first and second heart sounds were normal and physiologic splitting of the second heart sound was noted. There were no murmurs, rubs, clicks, or gallops. Abdominal exam revealed normal bowel sounds. The abdomen was soft, non-tender, and without masses, organomegaly, or appreciable enlargement of the abdominal aorta. Examination of the extremities revealed easily palpable radial, femoral and pedal pulses. There was no cyanosis, clubbing or edema. Examination of the skin revealed no evidence of significant rashes, suspicious appearing nevi or other concerning lesions. Neurologically sedated, comfortable and his neurologic exam is nonfocal. - Labs CBC & Chem 7: 01/03/20 04:53 01/03/20 09:33 Labs: Microbiology - Last 24 Hours (Table) 12/29/19 09:46 Blood Culture - Final Blood No Growth after 144 hours Assessment and Plan Assessment: 1 acute on chronic hypoxic/hypercapnic the story failure secondary to COPD exac erbation. The patient is an extubated and improved. Currently on 4 L nasal cannula. 2 severe advanced end-stage COPD with an FEV1 of 21% of predicted from 2014. The patient has been oxygen and steroid-dependent outpatient basis. Maintenance after medications of his Symbicort and the patient has been utilizing DuoNeb nebulized treatments around the clock. The patient also has a AVAPS machine on outpatient basis regarding his advanced COPD and hypercapnic respiratory failure. 3 acute fever, recovered and the cultures are negative and the patient is on Zithromax, the patient has been afebrile since his admission 4 paroxysmal atrial fibrillation current rhythm is sinus. The patient is on amiodarone and verapamil and long-term anticoagulation with Eliquis 5 history of CVA 6 acid reflux 7 chronic anxiety 8 leukocytosis secondary to above 9 normocytic anemia, post RBC transfusion hemoglobin is up to 9.6 10 frequent falls, most likely secondary to above Plan The patient was seen and evaluated by Dr. Ozuna He is stable for discharge from the pulmonary standpoint Overall prognosis remains guarded based on the severity of his lung function Continue home oxygen and AVAPS Complete course of antibiotics Complete prednisone burst and taper Follow-up in the office in 1-2 weeks' I, the cosigning physician, performed a history & physical examination of the patient. Lungs sounds with bilateral end expiratory wheeze, diminished. Maintaining good O2 saturations in the 90s on 4 L/m per nasal cannula. I discussed the assessment and plan of care with my nurse practitioner, Gabrielle Segura. I attest to the above note as dictated by her.
[2020-01-04 13:08] VITALS: BP 127/74; PULSE 82; RESP 20
== END 2020-01-04 13:52 | disposition home health service (06) | DRG 871 ==
LOC: EC 09:27 → MERGE 12:26 → 2SICU 12:26 → 3SCARD 01-03 17:31
PROVIDERS: ADMIT Internal Medicine; ATTEND Internal Medicine
PROC: 5A1945Z Respiratory Ventilation, 24-96 Consecutive Hours (ICD-10-PCS; principal; 2019-12-29)
PROC: 0BH17EZ Insertion of Endotracheal Airway into Trachea, Via Natural or Artificial Opening (ICD-10-PCS; principal; 2019-12-29)
PROC: 30233N1 Transfusion of Nonautologous Red Blood Cells into Peripheral Vein, Percutaneous Approach (ICD-10-PCS; 2019-12-30)
DX: A41.9 Sepsis, unspecified organism (principal); G92 Toxic encephalopathy; J18.9 Pneumonia, unspecified organism; J96.21 Acute and chronic respiratory failure with hypoxia; J96.22 Acute and chronic respiratory failure with hypercapnia; R65.21 Severe sepsis with septic shock; R40.2222 Coma scale, best verbal response, incomprehensible words, at arrival to emergency department; E87.2 Acidosis; N39.0 Urinary tract infection, site not specified; D64.9 Anemia, unspecified; E11.9 Type 2 diabetes mellitus without complications; F17.210 Nicotine dependence, cigarettes, uncomplicated; F41.1 Generalized anxiety disorder; I48.0 Paroxysmal atrial fibrillation; J43.9 Emphysema, unspecified; J98.4 Other disorders of lung; K21.9 Gastro-esophageal reflux disease without esophagitis; M79.7 Fibromyalgia; R29.6 Repeated falls; R45.1 Restlessness and agitation; Z78.1 Physical restraint status; R40.2362 Coma scale, best motor response, obeys commands, at arrival to emergency department; R40.2142 Coma scale, eyes open, spontaneous, at arrival to emergency department; Z79.01 Long term (current) use of anticoagulants; Z79.51 Long term (current) use of inhaled steroids; Z79.52 Long term (current) use of systemic steroids; Z79.899 Other long term (current) drug therapy; Z80.8 Family history of malignant neoplasm of other organs or systems; Z82.5 Family history of asthma and other chronic lower respiratory diseases; Z86.73 Personal history of transient ischemic attack (TIA), and cerebral infarction without residual deficits; Z91.81 History of falling; Z99.81 Dependence on supplemental oxygen; Z83.6 Family history of other diseases of the respiratory system; Z80.1 Family history of malignant neoplasm of trachea, bronchus and lung; Z20.828 Contact with and (suspected) exposure to other viral communicable diseases
CPT/HCPCS: 31500; 36415; 36600; 51701; 70450; 71045; 72125; 80048; 80053; 81001; 82728; 82805; 83605; 83615; 83735; 84132; 84145; 85025; 85027; 85379; 85610; 85730; 86140; 86850; 86900; 86901; 86920; 87040; 87070; 87205; 93005; 94002; 94003; 94640; 94660; 96365; 96366; 96375; 96376; 99291

== ENCOUNTER 2020-03-03 20:27 | Inpatient (IN) | payer BC, MEDICARE ==
[2020-03-03] MEDS ORDERED: IPRATROPIUM-ALBUTEROL 3 ML NEB INHALATION STA (20:45)
--- NOTE | 2020-03-03 20:50 | ED ---
General Adult HPI - General Chief complaint: Altered Mental Status Stated complaint: Shortness of breath Time Seen by Provider: 03/03/20 20:33 Source: patient, RN notes reviewed Mode of arrival: EMS Limitations: no limitations - History of Present Illness Initial comments: Patient is a pleasant 50-year-old male presenting to the emergency department for dyspnea and drowsiness as noticed by family. Patient omits to feeling short of breath however states this feels much better following treatment and Solu- Medrol by EMS. Patient omits to feeling somewhat drowsy. Patient states he does sometimes get this way secondary to his advanced COPD. Pulse ox was reportedly in the 80s earlier. Patient denies any confusion or weakness. No fevers. - Related Data Home Medications Medication Instructions Recorded Confirmed DULoxetine HCL 60 mg PO DAILY 03/28/15 03/03/20 Ipratropium/Albuterol Sulfate 1 puff INHALATION RT-QID 03/28/15 03/03/20 [Combivent Respimat Inhaler] Amiodarone [Cordarone] 200 mg PO DAILY 12/29/19 03/03/20 Apixaban [Eliquis] 5 mg PO BID 12/29/19 03/03/20 Budesonide/Formoterol Fumarate 2 puff INHALATION RT-BID 12/29/19 03/03/20 [Symbicort 160-4.5 Mcg Inhaler] Gabapentin 600 mg PO TID 12/29/19 03/03/20 HYDROcodone/APAP 7.5-325MG [[place] 1 tab PO TID 12/29/19 03/03/20 7.5-325] Ipratropium-Albuterol Nebulize 3 ml INHALATION RT-QID 12/29/19 03/03/20 [Duoneb 0.5 mg-3 mg/3 ml Soln] ALPRAZolam [Xanax] 0.5 mg PO QID 03/03/20 03/03/20 Famotidine [Pepcid] 20 mg PO DAILY 03/03/20 03/03/20 Nystatin 100,000 Unit/ml Susp 500,000 unit PO QID 03/03/20 03/03/20 [Mycostatin Oral Susp] Previous Rx's Medication Instructions Recorded Verapamil Sr [Isoptin Sr] 240 mg PO DAILY #30 tablet.er 03/10/19 predniSONE 10 mg PO DAILY #30 tab 01/04/20 Allergies Allergy/AdvReac Type Severity Reaction Status Date / Time No Known Allergies Allergy Verified 03/03/20 20:43 Review of Systems ROS Statement: Those systems with pertinent positive or pertinent negative responses have been documented in the HPI. ROS Other: All systems not noted in ROS Statement are negative. Constitutional: Denies: fever Eyes: Denies: eye pain ENT: Denies: ear pain Respiratory: Reports: as per HPI, dyspnea Cardiovascular: Denies: chest pain Endocrine: Reports: fatigue Gastrointestinal: Denies: abdominal pain Genitourinary: Denies: dysuria Musculoskeletal: Denies: back pain Skin: Denies: rash Neurological: Denies: weakness Past Medical History Past Medical History: Atrial Fibrillation, COPD, CVA/TIA, Fibromyalgia, GERD/Reflux, Hyperlipidemia, Hypertension, Memory Impairment, Osteoarthritis (OA), Pneumonia, Respiratory Disorder Additional Past Medical History / Comment(s): Home oxygen at 3.5-4L/NC ATC, r ecent blood in urine/brown urine off and on past few months, bronchitis, tia years ago, chronic back pain, neuropathy bilateral hands History of Any Multi-Drug Resistant Organisms: None Reported, Unobtainable Past Surgical History: Ear Surgery Additional Past Surgical History / Comment(s): Lumbar epidural injections, ear surgery for eardrum injury. Past Anesthesia/Blood Transfusion Reactions: No Reported Reaction Additional Past Anesthesia/Blood Transfusion Reaction / Comment(s): never had any blood transfusions Past Psychological History: Anxiety Smoking Status: Current every day smoker Past Alcohol Use History: Heavy, None Reported - Past Family History Father Family Medical History: Cancer Additional Family Medical History / Comment(s): Father had lung/brain cancer and of this at the age of 56yrs. He was a smoker. Mother Family Medical History: COPD Additional Family Medical History / Comment(s): Mother was a smoker and of COPD about age 75 yrs. General Exam Limitations: no limitations General appearance: other (Patient is drowsy but arousable to voice.) Head exam: Present: other (Small skin tear over left eyebrow) Eye exam: Present: normal appearance, PERRL, EOMI ENT exam: Present: normal oropharynx Neck exam: Present: normal inspection. Absent: tenderness Respiratory exam: Present: wheezes, decreased breath sounds Cardiovascular Exam: Present: tachycardia GI/Abdominal exam: Present: soft. Absent: tenderness Extremities exam: Present: normal inspection, full ROM. Absent: tenderness, pedal edema, calf tenderness Neurological exam: Present: oriented X3, CN II-XII intact. Absent: motor sensory deficit Expanded Neurological exam: Present: protecting the airway, other (Drowsy but arousable to voice) Speech: Present: fluid speech Cranial nerves: EOM's Intact: Normal Motor strength exam: RUE: 5, LUE: 5, RLE: 5, LLE: 5 Eye Response: (3) open to voice Motor Response: (6) obeys commands Verbal Response: (5) oriented Psychiatric exam: Present: normal affect, normal mood Skin exam: Present: abrasion (Skin tear over left eyebrow, patient states he fell couple of days ago) Course Vital Signs 03/03/20 03/03/20 03/03/20 20:39 20:45 21:25 Temperature 99.2 F Pulse Rate 108 H 103 H Respiratory 19 Rate Blood Pressure 109/77 O2 Sat by Pulse 92 L Oximetry 03/03/20 21:34 Temperature Pulse Rate 99 Respiratory Rate Blood Pressure O2 Sat by Pulse Oximetry - Reevaluation(s) Reevaluation #1: 03/03/20 21:53 Patient does meet sepsis criteria diagnosed at 2150. Blood culture and lactic acid were ordered. IV antibiotics will be ordered. EKG Findings - EKG Comments: EKG Findings:: Sinus tachycardia 105. PA 132. QRS 98. QT 340. QTc 449. Normal axis. Normal QRS. No acute ST change. Procedures - ABG Interpretation Ph: 7.31 PCO2: 91.4 PO2: 66.5 Bicarbonate: 46.9 Interpretation: metabolic acidosis Medical Decision Making - Medical Decision Making Patient reevaluated and resting comfortably in bed, still easily arousable to voice. Patient updated on results and plan. Case was discussed in detail with Dr. Dos Santos, who will admit covering for Dr. Laurent. - Lab Data Result diagrams: 03/03/20 20:54 03/03/20 20:54 Lab Results 03/03/20 03/03/20 03/03/20 Range/Units 20:52 20:54 20:54 WBC 29.9 H (3.8-10.6) k/uL RBC 3.43 L (4.30-5.90) m/uL Hgb 7.9 L D (13.0-17.5) gm/dL Hct 28.3 L (39.0-53.0) % MCV 82.5 (80.0-100.0) fL MCH 23.1 L (25.0-35.0) pg MCHC 28.1 L (31.0-37.0) g/dL RDW 16.0 H (11.5-15.5) % Plt Count 307 (150-450) k/uL Hypochromasia Marked Poikilocytosis Slight PT 10.2 (9.0-12.0) sec INR 1.0 (<1.2) APTT 27.7 (22.0-30.0) sec Sample Site right radial ABG pH 7.32 L (7.35-7.45) ABG pCO2 91 H* (35-45) mmHg ABG pO2 67 L (83-108) mmHg ABG HCO3 47 H* (21-25) mmol/L ABG Total CO2 50 H (19-24) mmol/L ABG O2 Saturation 92.8 L (94-97) % ABG Base Excess 20.8 mmol/L Gonsalo Test Yes FiO2 40 % Sodium (137-145) mmol/L Potassium (3.5-5.1) mmol/L Chloride (98-107) mmol/L Carbon Dioxide (22-30) mmol/L Anion Gap mmol/L BUN (9-20) mg/dL Creatinine (0.66-1.25) mg/dL Est GFR (CKD-EPI)AfAm (>60 ml/min/1.73 sqM) Est GFR (CKD-EPI)NonAf (>60 ml/min/1.73 sqM) Glucose (74-99) mg/dL Plasma Lactic Acid Jamaal (0.7-2.0) mmol/L Calcium (8.4-10.2) mg/dL Total Bilirubin (0.2-1.3) mg/dL AST (17-59) U/L ALT (4-49) U/L Alkaline Phosphatase (38-126) U/L Troponin I (0.000-0.034) ng/mL Total Protein (6.3-8.2) g/dL Albumin (3.5-5.0) g/dL 09/03/03/20 03/03/20 Range/Units 20:54 20:54 20:54 WBC (3.8-10.6) k/uL RBC (4.30-5.90) m/uL Hgb (13.0-17.5) gm/dL Hct (39.0-53.0) % MCV (80.0-100.0) fL MCH (25.0-35.0) pg MCHC (31.0-37.0) g/dL RDW (11.5-15.5) % Plt Count (150-450) k/uL Hypochromasia Poikilocytosis PT (9.0-12.0) sec INR (<1.2) APTT (22.0-30.0) sec Sample Site ABG pH (7.35-7.45) ABG pCO2 (35-45) mmHg ABG pO2 (83-108) mmHg ABG HCO3 (21-25) mmol/L ABG Total CO2 (19-24) mmol/L ABG O2 Saturation (94-97) % ABG Base Excess mmol/L [place] Test FiO2 % Sodium 134 L (137-145) mmol/L Potassium 4.5 (3.5-5.1) mmol/L Chloride 89 L (98-107) mmol/L Carbon Dioxide 42 H* (22-30) mmol/L Anion Gap 3 mmol/L BUN 10 (9-20) mg/dL Creatinine 0.69 (0.66-1.25) mg/dL Est GFR (CKD-EPI)AfAm >90 (>60 ml/min/1.73 sqM) Est GFR (CKD-EPI)NonAf >90 (>60 ml/min/1.73 sqM) Glucose 90 (74-99) mg/dL Plasma Lactic Acid Jamaal 0.7 (0.7-2.0) mmol/L Calcium 8.5 (8.4-10.2) mg/dL Total Bilirubin 0.4 (0.2-1.3) mg/dL AST 27 (17-59) U/L ALT 10 (4-49) U/L Alkaline Phosphatase 62 (38-126) U/L Troponin I <0.012 (0.000-0.034) ng/mL Total Protein 6.1 L (6.3-8.2) g/dL Albumin 3.6 (3.5-5.0) g/dL - Radiology Data Radiology results: report reviewed (Computed tomography scan of brain reveals no acute process.), image reviewed (Chest x-ray does show mild pneumonia left midlung.) Critical Care Time Critical Care Time: Yes Total Critical Care Time: 35 Disposition Clinical Impression: Acute exacerbation of chronic obstructive airways disease, Sepsis, Pneumonia, Respiratory failure with hypercapnia Disposition: ADMITTED IP TO THIS [facility] Condition: Serious Is patient prescribed a controlled substance at d/c from ED?: No Referrals: Hue Laurent MD [Primary Care Provider] - 1-2 days Decision Time: 21:54
[2020-03-03 21:02] LABS: ABG Base Excess 20.8 mmol/L; ABG Oxygen Saturation 92.8 % (94-97); ABG PH 7.32 (7.35-7.45); ABG PO2 67 mmHg (83-108); ABG TCO2 50 mmol/L (19-24); Allen Test Performed? Yes
[2020-03-03 21:06] LABS: HCT 28.3 % (39.0-53.0); Hypochromasia Marked; MCH 23.1 pg (25.0-35.0); MCHC 28.1 g/dL (31.0-37.0); MCV 82.5 fL (80.0-100.0); Mean Platelet Volume 6.7; Platelet Count 307 k/uL (150-450); Poikilocytosis Slight; RBC 3.43 m/uL (4.30-5.90); WBC 29.9 k/uL (3.8-10.6)
[2020-03-03 21:09] LABS: HGB 7.9 gm/dL (13.0-17.5)
[2020-03-03 21:09] LABS: ABG HCO3 47 mmol/L (21-25); ABG PCO2 91 mmHg (35-45)
[2020-03-03 21:16] LABS: ALT 10 U/L (4-49); AST 27 U/L (17-59); African American GFR (CKD) >90 (>60 ml/min/1.73 sqM); Albumin 3.6 g/dL (3.5-5.0); Alkaline Phosphatase 62 U/L (38-126); Blood Urea Nitrogen 10 mg/dL (9-20); Calcium 8.5 mg/dL (8.4-10.2); Chloride 89 mmol/L (98-107); Glucose 90 mg/dL (74-99); Non-African American GFR(CKD) >90 (>60 ml/min/1.73 sqM); Potassium 4.5 mmol/L (3.5-5.1); Sodium 134 mmol/L (137-145); Total Bilirubin 0.4 mg/dL (0.2-1.3); Total Protein 6.1 g/dL (6.3-8.2)
[2020-03-03 21:18] LABS: Partial Thromboplastin Time 27.7 sec (22.0-30.0); Prothrombin Time 10.2 sec (9.0-12.0)
[2020-03-03 21:21] LABS: Anion Gap 3 mmol/L
[2020-03-03 21:27] LABS: Carbon Dioxide 42 mmol/L (22-30)
--- NOTE | 2020-03-03 21:29 | XR ---
EXAMINATION TYPE: XR chest 2V DATE OF EXAM: 03/03/2020 COMPARISON: 01/03/2020 HISTORY: Difficulty breathing TECHNIQUE: FINDINGS: There is some mild infiltrate in the left midlung. The other lung bond are clear. Heart i s normal. Costophrenic angles are clear. Mediastinum is normal. There are chest leads. IMPRESSION: There is a mild pneumonia in the left midlung that is new compared to old exam. Normal he art.
--- NOTE | 2020-03-03 21:33 | CT ---
EXAMINATION TYPE: CT brain wo con DATE OF EXAM: 03/03/2020 COMPARISON: 12/29/2019 HISTORY: Drowsiness and head injury. CT DLP: 1125.4 mGycm Automated exposure control for dose reduction was used. Ventricles and sulci appear normal. There is no mass effect nor midline shift. There is no sign of in tracranial hemorrhage. The calvarium is intact. There is no evidence of cerebral edema. Skull base is intact. There is previous surgery on the right mastoid sinus. There is mucus retention cyst right ma xillary sinus. IMPRESSION: No acute intracranial abnormality. No change compared to old exam.
[2020-03-03] MEDS ORDERED: PNEUMONIA PROTOCOL UTILIZED 1 EACH MISC PO PRN (21:55)
[2020-03-03] MEDS ORDERED: IPRATROPIUM-ALBUTEROL 3 ML NEB INHALATION PRN (21:55)
[2020-03-03] MEDS ORDERED: AZITHROMYCIN 500 MG in SODIUM CHLORIDE 0.9% 250 ML IVPB ONE (22:00)
[2020-03-03 22:09] LABS: Anisocytosis (M) Present; Band Neutrophils % 8 %; Lymphocytes # (M) 1.79 k/uL (1.0-4.8); Monocytes # (M) 2.09 k/uL (0-1.0); Neutrophils % (M) 79 %; Nucleated Red Blood Cells 0 /100 WBC (0-0); Total Cells Counted 200
[2020-03-03 22:26] LABS: Appearance,Urine Clear (Clear); Bacteria,Urine Rare /hpf; Bilirubin,Urine Negative (Negative); Blood,Urine Large (Negative); Color,Urine Yellow; Glucose,Urine (UA) Negative (Negative); Hyaline Casts,Urine 4 /lpf (0-2); Ketones,Urine Negative (Negative); Leukocyte Esterase,Urine Small (Negative); Mucus,Urine Rare /hpf; Nitrite,Urine Negative (Negative); PH, Urine 6.5 (5.0-8.0); Protein,Urine Trace (Negative); RBC,Urine >182 /hpf (0-5); Specific Gravity,Urine 1.012 (1.001-1.035); Urobilinogen,Urine <2.0 mg/dL (<2.0); WBC,Urine 25 /hpf (0-5)
[2020-03-04] MEDS: methylPREDNISolone SOD SUCCI 125 MG/2 ML VIAL IV SCH ×2 (00:13→06:59)
[2020-03-04] MEDS ORDERED: ALPRAZolam 0.5 MG TAB PO PRN (00:57)
[2020-03-04] MEDS: HYDROcodone/APAP 7.5-325MG 1 EACH TAB PO PRN ×2 (01:33→17:22)
--- NOTE | 2020-03-04 07:23 | XR ---
EXAMINATION TYPE: XR chest 1V portable DATE OF EXAM: 03/04/2020 HISTORY: Shortness of breath. COMPARISON: 03/03/2020 TECHNIQUE: Single view of the chest is submitted. FINDINGS: Demonstrated are scattered senescent parenchymal change. There is no evidence for focal infiltrate. The heart is stable. Hilar and mediastinal structures are within normal limits. Degenerative changes are seen of the dorsal spine. IMPRESSION: 1. Chronic changes without evidence for acute pulmonary disease.
[2020-03-04] MEDS: IPRATROPIUM-ALBUTEROL 3 ML NEB INHALATION SCH ×4 (07:44→19:51)
[2020-03-04] MEDS ORDERED: HEPARIN SODIUM,PORCINE 5,000 UNIT/ML 1 ML VIAL SQ SCH (08:00)
[2020-03-04] MEDS: GABAPENTIN 300 MG CAP PO SCH ×3 (08:52→21:23)
[2020-03-04] MEDS: VERAPAMIL SR 240 MG TABLET.ER PO SCH (08:52)
[2020-03-04] MEDS: APIXABAN 5 MG TAB PO SCH ×2 (08:52→21:23)
[2020-03-04] MEDS: FAMOTIDINE 20 MG TAB PO SCH (08:52)
[2020-03-04] MEDS: AMIODARONE 200 MG TAB PO SCH (08:52)
[2020-03-04] MEDS: DULoxetine HCL 60 MG CAPSULE.DR PO SCH (08:52)
[2020-03-04] MEDS ORDERED: AZITHROMYCIN 500 MG TAB PO SCH (09:00)
--- NOTE | 2020-03-04 10:41 | P.HPIM ---
History of Present Illness 50-year-old male presenting to the emergency department for dyspnea and drowsiness as noticed by family. Patient omits to feeling short of breath however states this feels much better following treatment and Solu-Medrol by EMS. Patient omits to feeling somewhat drowsy. Patient states he does sometimes get this way secondary to his advanced COPD. Pulse ox was reportedly in the 80s earlier. Patient denies any confusion or weakness. No fevers. Patient is a lesion is erythematous approximate home patient does use a BiPAP at nighttime. The patient is found to have a hypercapnic respiratory failure with the elevated pCO2 to of 91 patient baseline pCO2 appears to be around 70, patient did fall because of generalized weakness denied any syncopal episode. Patient chest x-ray did not show any pneumonia patient does have leukocytosis with highly elevated white blood cell count of around 25,000. Upon questioning patient did admit to dysuria and patient urine is significantly abnormal although patient doesn't have any pneumonia on the chest x-ray. Patient was started on Rocephin and azithromycin will be discontinued. Review of Systems REVIEW OF SYSTEMS: CONSTITUTIONAL: No fever, no malaise, no fatigue. HEENT: No recent visual problems or hearing problems. Denied any sore throat. CARDIOVASCULAR: No chest pain, orthopnea, PND, no palpitations, no syncope. PULMONARY: no hemoptysis. GASTROINTESTINAL: No diarrhea, no nausea, no vomiting, no abdominal pain. NEUROLOGICAL: No headaches, no weakness, no numbness. HEMATOLOGICAL: Denies any bleeding or petechiae. GENITOURINARY: As mentioned in the HPI MUSCULOSKELETAL/RHEUMATOLOGICAL: Denies any joint pain, swelling, or any muscle pain. ENDOCRINE: Denies any polyuria or polydipsia. The rest of the 14-point review of systems is negative. Past Medical History Past Medical History: Atrial Fibrillation, COPD, CVA/TIA, Fibromyalgia, GERD/Reflux, Hyperlipidemia, Hypertension, Memory Impairment, Osteoarthritis (OA), Pneumonia, Respiratory Disorder Additional Past Medical History / Comment(s): Home oxygen at 3.5-4L/[place] ATC, recent blood in urine/brown urine off and on past few months, bronchitis, tia years ago, chronic back pain, neuropathy bilateral hands History of Any Multi-Drug Resistant Organisms: None Reported Past Surgical History: Ear Surgery Additional Past Surgical History / Comment(s): Lumbar epidural injections, ear surgery for eardrum injury. Past Anesthesia/Blood Transfusion Reactions: No Reported Reaction Additional Past Anesthesia/Blood Transfusion Reaction / Comment(s): never had any blood transfusions Past Psychological History: Anxiety Additional Psychological History / Comment(s): Pt resides with his spouse, son, alissa-in-law and son's . He has home oxygen and a nebulizer. He has a cane/walker but does not use them. He has been having falls. He no longer drives, his spouse drives. Smoking Status: Current every day smoker Past Alcohol Use History: None Reported Past Drug Use History: None Reported - Past Family History Father Family Medical History: Cancer Additional Family Medical History / Comment(s): Father had lung/brain cancer and of this at the age of 56yrs. He was a smoker. Mother Family Medical History: COPD Additional Family Medical History / Comment(s): Mother was a smoker and of COPD about age 75 yrs. Medications and Allergies Home Medications Medication Instructions Recorded Confirmed Type DULoxetine HCL 60 mg PO DAILY 03/28/15 03/03/20 History Ipratropium/Albuterol Sulfate 1 puff INHALATION RT-QID 03/28/15 03/03/20 History [Combivent Respimat Inhaler] Verapamil Sr [Isoptin Sr] 240 mg PO DAILY #30 tablet.er 03/10/19 03/03/20 Rx Amiodarone [Cordarone] 200 mg PO DAILY 12/29/19 03/03/20 History Apixaban [Eliquis] 5 mg PO BID 12/29/19 03/03/20 History Budesonide/Formoterol Fumarate 2 puff INHALATION RT-BID 12/29/19 03/03/20 His tory [Symbicort 160-4.5 Mcg Inhaler] Gabapentin 600 mg PO TID 12/29/19 03/03/20 History HYDROcodone/APAP 7.5-325MG [[place] 1 tab PO TID 12/29/19 03/03/20 History 7.5-325] Ipratropium-Albuterol Nebulize 3 ml INHALATION RT-QID 12/29/19 03/03/20 History [Duoneb 0.5 mg-3 mg/3 ml Soln] predniSONE 10 mg PO DAILY #30 tab 01/04/20 03/03/20 Rx ALPRAZolam [Xanax] 0.5 mg PO QID 03/03/20 03/03/20 History Famotidine [Pepcid] 20 mg PO DAILY 03/03/20 03/03/20 History Nystatin 100,000 Unit/ml Susp 500,000 unit PO QID 03/03/20 03/03/20 History [Mycostatin Oral Susp] Allergies Allergy/AdvReac Type Severity Reaction Status Date / Time No Known Allergies Allergy Verified 03/03/20 20:43 Physical Exam Vitals: Vital Signs Temp Pulse Pulse Resp BP BP Pulse Ox 03/04/20 08:00 98 F 92 19 108/75 98 03/04/20 07:53 91 03/04/20 07:45 90 03/04/20 04:00 97.6 F 88 20 115/76 96 03/04/20 00:10 98.5 F 98 19 120/81 97 03/03/20 23:26 98.7 F 99 19 122/80 95 03/03/20 22:08 105 H 20 128/75 93 L 03/03/20 21:34 99 03/03/20 21:25 103 H 03/03/20 20:45 99.2 F 03/03/20 20:39 108 H 19 109/77 92 L Intake and Output 03/03/20 03/04/20 03/04/20 22:59 06:59 14:59 Output Total 175 Balance -175 Output: Urine 175 Other: # Voids 3 1 Weight 63.503 kg 59.5 kg PHYSICAL EXAMINATION: GENERAL: The patient is alert and oriented x3, not in any acute distress. Well developed, well nourished. HEENT: Pupils are round and equally reacting to light. EOMI. No scleral icterus. No conjunctival pallor. Normocephalic, atraumatic. No pharyngeal erythema. No thyromegaly. CARDIOVASCULAR: S1 and S2 present. No murmurs, rubs, or gallops. PULMONARY: Significantly decreased air entry into bilateral lung bond mild expiratory wheezing ABDOMEN: Soft, nontender, nondistended, normoactive bowel sounds. No palpable organomegaly. MUSCULOSKELETAL: No joint swelling or deformity. EXTREMITIES: No cyanosis, clubbing, or pedal edema. NEUROLOGICAL: Gross neurological examination did not reveal any focal deficits. SKIN: No rashes. Results CBC & Chem 7: 03/03/20 20:54 03/03/20 20:54 Labs: Abnormal Lab Results - Last 24 Hours (Table) 03/03/20 03/03/20 03/03/20 Range/Units 20:52 20:54 20:54 WBC 29.9 H (3.8-10.6) k/uL RBC 3.43 L (4.30-5.90) m/uL Hgb 7.9 L D (13.0-17.5) gm/dL Hct 28.3 L (39.0-53.0) % MCH 23.1 L (25.0-35.0) pg MCHC 28.1 L (31.0-37.0) g/dL RDW 16.0 H (11.5-15.5) % Neutrophils # (Manual) 26.00 H (1.3-7.7) k/uL Monocytes # (Manual) 2.09 H (0-1.0) k/uL ABG pH 7.32 L (7.35-7.45) ABG pCO2 91 H* (35-45) mmHg ABG pO2 67 L (83-108) mmHg ABG HCO3 47 H* (21-25) mmol/L ABG Total CO2 50 H (19-24) mmol/L ABG O2 Saturation 92.8 L (94-97) % Sodium (137-145) mmol/L Chloride (98-107) mmol/L Carbon Dioxide (22-30) mmol/L Total Protein (6.3-8.2) g/dL Urine Protein Trace H (Negative) Urine Blood Large H (Negative) Ur Leukocyte Esterase Small H (Negative) Urine RBC >182 H (0-5) /hpf Urine WBC 25 H (0-5) /hpf Urine Bacteria Rare H (None) /hpf Hyaline Casts 4 H (0-2) /lpf Urine Mucus Rare H (None) /hpf 03/03/20 Range/Units 20:54 WBC (3.8-10.6) k/uL RBC (4.30-5.90) m/uL Hgb (13.0-17.5) gm/dL Hct (39.0-53.0) % MCH (25.0-35.0) pg MCHC (31.0-37.0) g/dL RDW (11.5-15.5) % Neutrophils # (Manual) (1.3-7.7) k/uL Monocytes # (Manual) (0-1.0) k/uL ABG pH (7.35-7.45) ABG pCO2 (35-45) mmHg ABG pO2 (83-108) mmHg ABG HCO3 (21-25) mmol/L ABG Total CO2 (19-24) mmol/L ABG O2 Saturation (94-97) % Sodium 134 L (137-145) mmol/L Chloride 89 L (98-107) mmol/L Carbon Dioxide 42 H* (22-30) mmol/L Total Protein 6.1 L (6.3-8.2) g/dL Urine Protein (Negative) Urine Blood (Negative) Ur Leukocyte Esterase (Negative) Urine RBC (0-5) /hpf Urine WBC (0-5) /hpf Urine Bacteria (None) /hpf Hyaline Casts (0-2) /lpf Urine Mucus (None) /hpf Microbiology - Last 24 Hours (Table) 03/03/20 20:54 Urine Culture - Preliminary Urine,Clean Catch Assessment and Plan Plan: -Acute on chronic hypercapnic respiratory failure: Patient is presently on BiPAP with continued pulmonary will evaluate the patient. Patient does have a respiratory compensation from chronic CO2 retention. Patient bicarbonate is elevated because of that reason. Continue with systemic steroids inhalational treatments. No evidence of pneumonia -Possible urinary tract infection awaiting urine cultures patient will be continued on Rocephin. -Leukocytosis secondary to assessment #1 and 2 -Hypovolemic hyponatremia patient will be started on IV fluids -Atrial fibrillation probably paroxysmal presently rate controlled continue with the amiodarone in the anti-correlation -CVA or TIA in the past -Hyperlipidemia Gastroesophageal reflux disease -Hyperlipidemia -Continued nicotine use: Counseling was provided -GI prophylaxis with Pepcid
--- NOTE | 2020-03-04 14:42 | P.CNPUL ---
History of Present Illness Consult date: 03/04/20 Requesting physician: Magdaleno Sellers Reason for consult: dyspnea Chief complaint: Dyspnea History of present illness: 50-year-old white male patient of Dr. 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 Patient also has a Trilogy AVAPS, he is on oxygen 24 7 at 2 L/m, patient is a chronic smoker, he continues to smoke currently at 2 cigarettes daily. Patient is under the care of Dr. Stephens. Had a recent hospitalization in December for an acute exacerbation of COPD and at that time patient required intubation and mechanical ventilation. Other medical history includes paroxysmal atrial fibrillation on Eliquis, previous history of CVA/TIA, hypertension, hyperlipidemia, osteoarthritis, previous episodes of pneumonia. Patient presented to the emergency department on 03/03/2020 with complaints of dyspnea, and drowsiness noted by the family. Pulse ox was reportedly in the 80s, patient himself denied any confusion or weakness, denied any fever or chills. Lab work showed white blood cell count of 29.9, hemoglobin of 7.9, pO2 was 67, pCO2 is 91, pH was 7.32. Sodium is 134, potassium is 4.5, chloride is 89, CO2 is 42, renal profile was within normal limits, troponin was negative. Urinalysis showed evidence of urinary tract infection, with red blood cells, white blood cells, and rare bacteria. Chest x-ray showed mild infiltrates in the left mid lung, however today's chest x-ray shows chronic changes without evidence for acute pulmonary disease. Patient has been afebrile, he was placed on BiPAP support, started on breathing treatments, antibiotics in the form of azithromycin and Rocephin, and IV steroids, and patient is feeling better on today's exam, he still on BiPAP, with pressures of 12/6, and FiO2 of 40%, but she is awake, answering questions appropriately. He states he is breathing easier, lung sounds reveal diminished breath sounds with diminished air entry with diffuse expiratory wheezes and prolongation of the expiratory phase of breathing. Review of Systems All systems: negative Constitutional: Denies chills, Denies fever Eyes: denies blurred vision, denies pain Ears, nose, mouth and throat: Denies headache, Denies sore throat Cardiovascular: Denies chest pain, Denies shortness of breath Respiratory: Reports dyspnea, Denies cough Gastrointestinal: Denies abdominal pain, Denies diarrhea, Denies nausea, Denies vomiting Musculoskeletal: Denies myalgias Integumentary: Denies pruritus, Denies rash Neurological: Denies numbness, Denies weakness Psychiatric: Denies anxiety, Denies depression Endocrine: Denies fatigue, Denies weight change Past Medical History Past Medical History: Atrial Fibrillation, COPD, CVA/TIA, Fibromyalgia, GERD/Reflux, Hyperlipidemia, Hypertension, Memory Impairment, Osteoarthritis (OA), Pneumonia, Respiratory Disorder Additional Past Medical History / Comment(s): Home oxygen at 3.5-4L/[place] ATC, recent blood in urine/brown urine off and on past few months, bronchitis, tia years ago, chronic back pain, neuropathy bilateral hands History of Any Multi-Drug Resistant Organisms: None Reported Past Surgical History: Ear Surgery Additional Past Surgical History / Comment(s): Lumbar epidural injections, ear surgery for eardrum injury. Past Anesthesia/Blood Transfusion Reactions: No Reported Reaction Additional Past Anesthesia/Blood Transfusion Reaction / Comment(s): never had any blood transfusions Past Psychological History: Anxiety Additional Psychological History / Comment(s): Pt resides with his spouse, son, alissa-in-law and son's . He has home oxygen and a nebulizer. He has a ca ne/walker but does not use them. He has been having falls. He no longer drives, his spouse drives. Smoking Status: Current every day smoker Past Alcohol Use History: None Reported Past Drug Use History: None Reported - Past Family History Father Family Medical History: Cancer Additional Family Medical History / Comment(s): Father had lung/brain cancer and of this at the age of 56yrs. He was a smoker. Mother Family Medical History: COPD Additional Family Medical History / Comment(s): Mother was a smoker and of COPD about age 75 yrs. Medications and Allergies Home Medications Medication Instructions Recorded Confirmed Type DULoxetine HCL 60 mg PO DAILY 03/28/15 03/03/20 History Ipratropium/Albuterol Sulfate 1 puff INHALATION RT-QID 03/28/15 03/03/20 History [Combivent Respimat Inhaler] Verapamil Sr [Isoptin Sr] 240 mg PO DAILY #30 tablet.er 03/10/19 03/03/20 Rx Amiodarone [Cordarone] 200 mg PO DAILY 12/29/19 03/03/20 History Apixaban [Eliquis] 5 mg PO BID 12/29/19 03/03/20 History Budesonide/Formoterol Fumarate 2 puff INHALATION RT-BID 12/29/19 03/03/20 History [Symbicort 160-4.5 Mcg Inhaler] Gabapentin 600 mg PO TID 12/29/19 03/03/20 History HYDROcodone/APAP 7.5-325MG [[place] 1 tab PO TID 12/29/19 03/03/20 History 7.5-325] Ipratropium-Albuterol Nebulize 3 ml INHALATION RT-QID 12/29/19 03/03/20 History [Duoneb 0.5 mg-3 mg/3 ml Soln] predniSONE 10 mg PO DAILY #30 tab 01/04/20 03/03/20 Rx ALPRAZolam [Xanax] 0.5 mg PO QID 03/03/20 03/03/20 History Famotidine [Pepcid] 20 mg PO DAILY 03/03/20 03/03/20 History Nystatin 100,000 Unit/ml Susp 500,000 unit PO QID 03/03/20 03/03/20 History [Mycostatin Oral Susp] Allergies Allergy/AdvReac Type Severity Reaction Status Date / Time No Known Allergies Allergy Verified 03/03/20 20:43 Physical Exam Vitals: Vital Signs Temp Pulse Pulse Resp BP BP Pulse Ox 03/04/20 12:00 76 18 99/66 95 03/04/20 10:59 92 03/04/20 10:50 92 03/04/20 08:00 98 F 92 19 108/75 98 03/04/20 07:53 91 03/04/20 07:45 90 03/04/20 04:00 97.6 F 88 20 115/76 96 03/04/20 00:10 98.5 F 98 19 120/81 97 03/03/20 23:26 98.7 F 99 19 122/80 95 03/03/20 22:08 105 H 20 128/75 93 L 03/03/20 21:34 99 03/03/20 21:25 103 H 03/03/20 20:45 99.2 F 03/03/20 20:39 108 H 19 109/77 92 L Intake and Output 03/03/20 03/04/20 03/04/20 22:59 06:59 14:59 Intake Total 240 Output Total 175 Balance 65 Intake: Oral 240 Output: Urine 175 Other: # Voids 3 1 Weight 63.503 kg 59.5 kg GENERAL EXAM: Alert, very pleasant, 50-year-old cachectic white male, currently on BiPAP support, with pressures of 12/6 and FiO2 of 40% with a pulse ox of 98% comfortable in no apparent distress. HEAD: Normocephalic/atraumatic. EYES: Normal reaction of pupils, equal size. Conjunctiva pink, sclera white. NOSE: Clear with pink turbinates. THROAT: No erythema or exudates. NECK: No masses, no JVD, no thyroid enlargement, no adenopathy. CHEST: No chest wall deformity. Symmetrical expansion. LUNGS: Diminished air entry with diffuse wheezes CVS: Regular rate and rhythm, normal S1 and S2, no gallops, no murmurs, no rubs ABDOMEN: Soft, nontender. No hepatosplenomegaly, normal bowel sounds, no guarding or rigidity. EXTREMITIES: No clubbing, no edema, no cyanosis, 2+ pulses and upper and lower extremities. MUSCULOSKELETAL: Muscle strength and tone normal. SPINE: No scoliosis or deformity SKIN: No rashes CENTRAL NERVOUS SYSTEM: Alert and oriented -3. No focal deficits, tone is normal in all 4 extremities. PSYCHIATRIC: Alert and oriented -3. Appropriate affect. Intact judgment and insight. Results - Laboratory Findings CBC and BMP: 03/03/20 20:54 03/03/20 20:54 ABG ABG pH 7.32 (7.35-7.45) L 03/03/20 20:52 ABG pCO2 91 mmHg (35-45) H* 03/03/20 20:52 ABG pO2 67 mmHg (83-108) L 03/03/20 20:52 ABG O2 Saturation 92.8 % (94-97) L 03/03/20 20:52 PT/INR, D-dimer PT 10.2 sec (9.0-12.0) 03/03/20 20:54 INR 1.0 (<1.2) 03/03/20 20:54 Abnormal lab findings: Abnormal Labs 03/03/20 03/03/20 03/03/20 20:52 20:54 20:54 WBC 29.9 H RBC 3.43 L Hgb 7.9 L D Hct 28.3 L MCH 23.1 L MCHC 28.1 L RDW 16.0 H Neutrophils # (Manual) 26.00 H Monocytes # (Manual) 2.09 H ABG pH 7.32 L ABG pCO2 91 H* ABG pO2 67 L ABG HCO3 47 H* ABG Total CO2 50 H ABG O2 Saturation 92.8 L Sodium Chloride Carbon Dioxide Total Protein Urine Protein Trace H Urine Blood Large H Ur Leukocyte Esterase Small H Urine RBC >182 H Urine WBC 25 H Urine Bacteria Rare H Hyaline Casts 4 H Urine Mucus Rare H 03/03/20 20:54 WBC RBC Hgb Hct MCH MCHC RDW Neutrophils # (Manual) Monocytes # (Manual) ABG pH ABG pCO2 ABG pO2 ABG HCO3 ABG Total CO2 ABG O2 Saturation Sodium 134 L Chloride 89 L Carbon Dioxide 42 H* Total Protein 6.1 L Urine Protein Urine Blood Ur Leukocyte Esterase Urine RBC Urine WBC Urine Bacteria Hyaline Casts Urine Mucus - Diagnostic Findings Chest x-ray: report reviewed, image reviewed Assessment and Plan Plan: Assessment: #1. Acute on chronic hypoxic and hypercapnic respiratory failure related to acute exacerbation of COPD. Initial chest x-ray showed possibility of mild infiltrate in the left midlung, however follow-up chest x-ray today shows chronic changes without acute cardiopulmonary process #2. Possible urinary tract infection, urine culture pending, patient is covered with a combination of azithromycin and Rocephin at this time #3. Severe advanced COPD with chronic hypoxic and hypercapnic respiratory failure on home oxygen at 2 L/m, and Trilogy AVAPS on a regular basis, with baseline FEV1 of 21% of predicted #4. History of paroxysmal A. fib on Eliquis #5. History of CVA/TIA #6. Hypertension #7. Hyperlipidemia #8. Osteoarthritis #9. Fibromyalgia #10. GERD/reflux #11. Chronic and ongoing history of smoking Plan: Continue the antibiotics, IV steroids, nebulized bronchodilators, continue BiPAP support at bedtime and as needed. Mentation is appropriate, patient is awake and alert, answering questions, still tight and wheezy, with diminished air entry bilaterally, no significant cough or congestion, will continue current medical treatment, urine culture is pending. We'll continue to follow I performed a history & physical examination of the patient and discussed their management with my nurse practitioner, Renetta Lomax. I reviewed the nurse practitioner's note and agree with the documented findings and plan of care. Lung sounds are positive for diminished breath sounds with diffuse wheezes. The findings and the impression was discussed with the patient. I attest to the documentation by the nurse practitioner. Time with Patient: Greater than 30
[2020-03-04] MEDS: SODIUM CHLORIDE 0.9% 1,000 ML IV SCH ×2 (15:15→23:23)
[2020-03-04] MEDS: methylPREDNISolone SOD SUCCI 40 MG/ML 1 ML VIAL IV SCH ×2 (17:18→23:23)
[2020-03-05] MEDS: AMIODARONE 200 MG TAB PO SCH (08:17)
[2020-03-05] MEDS: GABAPENTIN 300 MG CAP PO SCH (08:17)
[2020-03-05] MEDS: VERAPAMIL SR 240 MG TABLET.ER PO SCH (08:17)
[2020-03-05] MEDS: FAMOTIDINE 20 MG TAB PO SCH (08:17)
[2020-03-05] MEDS: methylPREDNISolone SOD SUCCI 40 MG/ML 1 ML VIAL IV SCH (08:17)
[2020-03-05] MEDS: DULoxetine HCL 60 MG CAPSULE.DR PO SCH (08:17)
[2020-03-05] MEDS: APIXABAN 5 MG TAB PO SCH (08:17)
[2020-03-05] MEDS: HYDROcodone/APAP 7.5-325MG 1 EACH TAB PO PRN (08:21)
[2020-03-05] MEDS: IPRATROPIUM-ALBUTEROL 3 ML NEB INHALATION SCH ×2 (08:21→11:15)
[2020-03-05 08:52] LABS: HCT 27.2 % (39.0-53.0); HGB 7.8 gm/dL (13.0-17.5); Hypochromasia Marked; MCH 23.6 pg (25.0-35.0); MCHC 28.6 g/dL (31.0-37.0); MCV 82.7 fL (80.0-100.0); Mean Platelet Volume 7.3; Platelet Count 334 k/uL (150-450); Poikilocytosis Slight; RBC 3.28 m/uL (4.30-5.90); RDW 15.9 % (11.5-15.5); WBC 33.1 k/uL (3.8-10.6)
[2020-03-05 09:06] LABS: African American GFR (CKD) >90 (>60 ml/min/1.73 sqM); Blood Urea Nitrogen 17 mg/dL (9-20); Calcium 9.1 mg/dL (8.4-10.2); Chloride 92 mmol/L (98-107); Glucose 134 mg/dL (74-99); Non-African American GFR(CKD) >90 (>60 ml/min/1.73 sqM); Potassium 4.1 mmol/L (3.5-5.1); Sodium 136 mmol/L (137-145)
[2020-03-05 09:12] LABS: Anion Gap 5 mmol/L; Carbon Dioxide 39 mmol/L (22-30)
[2020-03-05 09:24] VITALS: RESP 20
--- NOTE | 2020-03-05 12:08 | P.PN ---
Subjective Progress Note Date: 03/05/20 Principal diagnosis: Acute on chronic hypoxic and hypercapnic respiratory failure related to acute exacerbation of COPD 50-year-old white male patient of Dr. 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 Patient also has a Trilogy AVAPS, he is on oxygen 24 7 at 2 L/m, patient is a chronic smoker, he continues to smoke currently at 2 cigarettes daily. Patient is under the care of Dr. Stephens. Had a recent hospitalization in December for an acute exacerbation of COPD and at that time patient required intubation and mechanical ventilation. Other medical history includes paroxysmal atrial fibrillation on Eliquis, previous history of CVA/TIA, hypertension, hyperlipidemia, osteoarthritis, previous episodes of pneumonia. Patient presented to the emergency department on 03/03/2020 with complaints of dyspnea, and drowsiness noted by the family. Pulse ox was reportedly in the 80s, patient himself denied any confusion or weakness, denied any fever or chills. Lab work showed white blood cell count of 29.9, hemoglobin of 7.9, pO2 was 67, pCO2 is 91, pH was 7.32. Sodium is 134, potassium is 4.5, chloride is 89, CO2 is 42, renal profile was within normal limits, troponin was negative. Urinalysis showed evidence of urinary tract infection, with red blood cells, white blood cells, and rare bacteria. Chest x-ray showed mild infiltrates in the left mid lung, however today's chest x-ray shows chronic changes without evidence for acute pulmonary disease. Patient has been afebrile, he was placed on BiPAP support, started on breathing treatments, antibiotics in the form of azithromycin and Rocephin, and IV steroids, and patient is feeling better on today's exam, he still on BiPAP, with pressures of 12/6, and FiO2 of 40%, but she is awake, answering questions appropriately. He states he is breathing easier, lung sounds reveal diminished breath sounds with diminished air entry with diffuse expiratory wheezes and prolongation of the expiratory phase of breathing. On 03/05/2020 patient seen in follow-up on selective care unit, breathing significantly improved the last 24 hours, he did wear his BiPAP support last night, he is currently on 4 L of oxygen with pulse ox of 95%. He normally wears 2-3 L on the regular basis, lung sounds reveal improved air entry bilaterally, with only minimal end expiratory wheezing. Breathing easier, feeling better, no lethargy, alert and oriented. No significant cough or congestion, patient is requesting to go home today events overnight, no fever or chills. has been treated with antibiotics in the form of azithromycin and Rocephin, IV steroids, and nebulized with dilators, improved, and can be considered for discharge home today. Objective - Vital Signs Vital signs: Vital Signs Temp 98.7 F 03/05/20 08:15 Pulse 80 03/05/20 11:23 Resp 20 03/05/20 08:15 BP 137/83 03/05/20 08:15 Pulse Ox 95 03/05/20 08:15 Intake & Output 03/04/20 03/05/20 03/05/20 18:59 06:59 18:59 Intake Total 480 200 Output Total 325 125 250 Balance 155 -125 -50 Weight 59.5 kg Intake: Oral 480 200 Output: Urine 325 125 250 Other: Voiding Method Urinal # Voids 1 1 1 - Exam GENERAL EXAM: Alert, very pleasant, 50-year-old cachectic white male, currently on 4 L of oxygen pulse ox of 94% HEAD: Normocephalic/atraumatic. EYES: Normal reaction of pupils, equal size. Conjunctiva pink, sclera white. NOSE: Clear with pink turbinates. THROAT: No erythema or exudates. NECK: No masses, no JVD, no thyroid enlargement, no adenopathy. CHEST: No chest wall deformity. Symmetrical expansion. LUNGS: Diminished air entry with diffuse wheezes CVS: Regular rate and rhythm, normal S1 and S2, no gallops, no murmurs, no rubs ABDOMEN: Soft, nontender. No hepatosplenomegaly, normal bowel sounds, no guardi ng or rigidity. EXTREMITIES: No clubbing, no edema, no cyanosis, 2+ pulses and upper and lower extremities. MUSCULOSKELETAL: Muscle strength and tone normal. SPINE: No scoliosis or deformity SKIN: No rashes CENTRAL NERVOUS SYSTEM: Alert and oriented -3. No focal deficits, tone is normal in all 4 extremities. PSYCHIATRIC: Alert and oriented -3. Appropriate affect. Intact judgment and insight. - Labs CBC & Chem 7: 03/05/20 08:35 03/05/20 08:35 Labs: Abnormal Lab Results - Last 24 Hours (Table) 03/05/20 03/05/20 Range/Units 08:35 08:35 WBC 33.1 H (3.8-10.6) k/uL RBC 3.28 L (4.30-5.90) m/uL Hgb 7.8 L (13.0-17.5) gm/dL Hct 27.2 L (39.0-53.0) % MCH 23.6 L (25.0-35.0) pg MCHC 28.6 L (31.0-37.0) g/dL RDW 15.9 H (11.5-15.5) % Sodium 136 L (137-145) mmol/L Chloride 92 L (98-107) mmol/L Carbon Dioxide 39 H (22-30) mmol/L Creatinine 0.60 L (0.66-1.25) mg/dL Glucose 134 H (74-99) mg/dL Microbiology - Last 24 Hours (Table) 03/03/20 20:54 Urine Culture - Preliminary Urine,Clean Catch Group D Enterococcus 03/03/20 20:54 Blood Culture - Preliminary Blood No Growth after 24 hours Assessment and Plan Plan: Assessment: #1. Acute on chronic hypoxic and hypercapnic respiratory failure related to acute exacerbation of COPD. Initial chest x-ray showed possibility of mild infiltrate in the left midlung, however follow-up chest x-ray today shows chronic changes without acute cardiopulmonary process #2. Possible urinary tract infection, urine culture pending, patient is covered with a combination of azithromycin and Rocephin at this time #3. Severe advanced COPD with chronic hypoxic and hypercapnic respiratory failure on home oxygen at 2 L/m, and Trilogy AVAPS on a regular basis, with baseline FEV1 of 21% of predicted #4. History of paroxysmal A. fib on Eliquis #5. History of CVA/TIA #6. Hypertension #7. Hyperlipidemia #8. Osteoarthritis #9. Fibromyalgia #10. GERD/reflux #11. Chronic and ongoing history of smoking Plan: Vital signs have been stable, patient is improving, less dyspneic, bronchospastic, better air entry noted bilaterally on today's exam, no fever or chills, from pulmonary perspective patient is stable for discharge home today, he has home oxygen, he has Trilogy/AVAPS at home, and nebulizer machine, he can follow up with Dr. Stephens in the 7-10 days I performed a history & physical examination of the patient and discussed their management with my nurse practitioner, Renetta Lomax. I reviewed the nurse practitioner's note and agree with the documented findings and plan of care. Lung sounds are positive for diminished breath sounds with diffuse wheezes. The findings and the impression was discussed with the patient. I attest to the documentation by the nurse practitioner. Time with Patient: Less than 30
[2020-03-05] MEDS: SODIUM CHLORIDE 0.9% 1,000 ML IV SCH (12:13)
--- NOTE | 2020-03-05 12:13 | P.DS ---
Providers Date of admission: 03/03/20 21:55 Attending physician: Leeann Dos Santos Consults: 03/03/20 21:56 Consult Physician Urgent Consulting Provider: Amanda Ozuna Consult Reason/Comments: Respiratory failure, COPD,, pneumonia, BiPAP Do you want consulting provider notified?: Yes Primary care physician: Hue [facility] Course: 50-year-old male presenting to the emergency department for dyspnea and drowsiness as noticed by family. Patient omits to feeling short of breath however states this feels much better following treatment and Solu-Medrol by EMS. Patient omits to feeling somewhat drowsy. Patient states he does sometimes get this way secondary to his advanced COPD. Pulse ox was reportedly in the 80s earlier. Patient denies any confusion or weakness. No fevers. Patient is a lesion is erythematous approximate home patient does use a BiPAP at nighttime. The patient is found to have a hypercapnic respiratory failure with the elevated pCO2 to of 91 patient baseline pCO2 appears to be around 70, patient did fall because of generalized weakness denied any syncopal episode. Patient chest x-ray did not show any pneumonia patient does have leukocytosis with highly elevated white blood cell count of around 25,000. Upon questioning patient did admit to dysuria and patient urine is significantly abnormal although patient doesn't have any pneumonia on the chest x-ray. Patient was started on Rocephin and azithromycin will be discontinued. 03/05/2020 Patient was pretty status improved but his white blood cell count went up to 32,000 this is due to systemic steroids. Patient the urine culture showed enterococcus group D although they're less than 100,000. I'm not waiting for the urine cultures sensitivities because patient wanted to go home and since its enterococcus patient will be discharged on Augmentin will follow-up with his cultures tomorrow. Since the patient's cultures are less than 100,000, my suspicion for UTI is low as well, although I cannot completely rule it out. PHYSICAL EXAMINATION: GENERAL: The patient is alert and oriented x3, not in any acute distress. Well developed, well nourished. HEENT: Pupils are round and equally reacting to light. EOMI. No scleral icterus. No conjunctival pallor. Normocephalic, atraumatic. No pharyngeal erythema. No thyromegaly. CARDIOVASCULAR: S1 and S2 present. No murmurs, rubs, or gallops. PULMONARY: Chest is clear to auscultation, no wheezing or crackles. ABDOMEN: Soft, nontender, nondistended, normoactive bowel sounds. No palpable organomegaly. MUSCULOSKELETAL: No joint swelling or deformity. EXTREMITIES: No cyanosis, clubbing, or pedal edema. NEUROLOGICAL: Gross neurological examination did not reveal any focal deficits. SKIN: No rashes. Assessment and Plan Plan: -Acute on chronic hypercapnic respiratory failure: She had significant improvement and presently at his baseline fairly good air entry into bilateral lung bond patient will be discharged today patient has advanced COPD -Possible urinary tract infection, group D enterococcus in the urine 5 days of Augmentin as mentioned above -Leukocytosis secondary to assessment #1 and 2 along with systemic steroids -Hypovolemic hyponatremia improved with IV fluids -Atrial fibrillation probably paroxysmal presently rate controlled continue with the amiodarone for continued on anticoagulation -CVA or TIA in the past -Hyperlipidemia Gastroesophageal reflux disease -Hyperlipidemia -Continued nicotine use: Counseling was provided -GI prophylaxis with Pepcid Patient Condition at Discharge: Serious Plan - Discharge Summary Discharge Rx Participant: No New Discharge Prescriptions: New Amoxic-Pot Clav 875-125Mg [Augmentin 875-125] 1 tab PO Q12HR 5 Days #10 tab Famotidine [Pepcid] 20 mg PO BID #30 tablet predniSONE 10 mg PO DAILY #30 tab Continue Ipratropium/Albuterol Sulfate [Combivent Respimat Inhaler] 1 puff INHALATION RT-QID DULoxetine HCL 60 mg PO DAILY Verapamil Sr [Isoptin Sr] 240 mg PO DAILY #30 tablet.er Budesonide/Formoterol Fumarate [Symbicort 160-4.5 Mcg Inhaler] 2 puff INHALATION RT-BID Ipratropium-Albuterol Nebulize [Duoneb 0.5 mg-3 mg/3 ml Soln] 3 ml INHALATION RT-QID HYDROcodone/APAP 7.5-325MG [[place] 7.5-325] 1 tab PO TID Gabapentin 600 mg PO TID Apixaban [Eliquis] 5 mg PO BID Amiodarone [Cordarone] 200 mg PO DAILY predniSONE 10 mg PO DAILY #30 tab Nystatin 100,000 Unit/ml Susp [Mycostatin Oral Susp] 500,000 unit PO QID Famotidine [Pepcid] 20 mg PO DAILY ALPRAZolam [Xanax] 0.5 mg PO QID Discharge Medication List DULoxetine HCL 60 mg PO DAILY 03/28/15 [History] Ipratropium/Albuterol Sulfate [Combivent Respimat Inhaler] 1 puff INHALATION RT- QID 03/28/15 [History] Verapamil Sr [Isoptin Sr] 240 mg PO DAILY #30 tablet.er 03/10/19 [Rx] Amiodarone [Cordarone] 200 mg PO DAILY 12/29/19 [History] Apixaban [Eliquis] 5 mg PO BID 12/29/19 [History] Budesonide/Formoterol Fumarate [Symbicort 160-4.5 Mcg Inhaler] 2 puff INHALATION RT-BID 12/29/19 [History] Gabapentin 600 mg PO TID 12/29/19 [History] HYDROcodone/APAP 7.5-325MG [Frank[place] 7.5-325] 1 tab PO TID 12/29/19 [History] Ipratropium-Albuterol Nebulize [Duoneb 0.5 mg-3 mg/3 ml Soln] 3 ml INHALATION RT-QID 12/29/19 [History] predniSONE 10 mg PO DAILY #30 tab 01/04/20 [Rx] ALPRAZolam [Xanax] 0.5 mg PO QID 03/03/20 [History] Famotidine [Pepcid] 20 mg PO DAILY 03/03/20 [History] Nystatin 100,000 Unit/ml Susp [Mycostatin Oral Susp] 500,000 unit PO QID 03/03/20 [History] Amoxic-Pot Clav 875-125Mg [Augmentin 875-125] 1 tab PO Q12HR 5 Days #10 tab 03/05/20 [Rx] Famotidine [Pepcid] 20 mg PO BID #30 tablet 03/05/20 [Rx] predniSONE 10 mg PO DAILY #30 tab 03/05/20 [Rx] Follow up Appointment(s)/Referral(s): [facility] [NON-STAFF] - 1 Week Hue Laurent MD [Primary Care Provider] - 3 Days Amanda Ozuna MD [STAFF PHYSICIAN] - 1 Week Discharge Disposition: HOME SELF-CARE
[2020-03-05 12:39] VITALS: BP 135/74; PULSE 95; TEMP 98.2
== END 2020-03-05 14:27 | disposition home health service (06) | DRG 189 ==
LOC: EC 20:27 → 3SCARD 21:55
PROVIDERS: ADMIT Hospitalist; ATTEND Hospitalist
PROC: 5A09457 Assistance with Respiratory Ventilation, 24-96 Consecutive Hours, Continuous Positive Airway Pressure (ICD-10-PCS; principal; 2020-03-03)
DX: J96.22 Acute and chronic respiratory failure with hypercapnia (principal); R64 Cachexia; E87.2 Acidosis; J44.1 Chronic obstructive pulmonary disease with (acute) exacerbation; E87.1 Hypo-osmolality and hyponatremia; N39.0 Urinary tract infection, site not specified; E86.1 Hypovolemia; I48.0 Paroxysmal atrial fibrillation; B95.2 Enterococcus as the cause of diseases classified elsewhere; Z99.81 Dependence on supplemental oxygen; J96.21 Acute and chronic respiratory failure with hypoxia; D72.829 Elevated white blood cell count, unspecified; T38.0X5A Adverse effect of glucocorticoids and synthetic analogues, initial encounter; I10 Essential (primary) hypertension; E78.5 Hyperlipidemia, unspecified; G62.9 Polyneuropathy, unspecified; S00.212A Abrasion of left eyelid and periocular area, initial encounter; G89.29 Other chronic pain; M54.9 Dorsalgia, unspecified; F41.9 Anxiety disorder, unspecified; M79.7 Fibromyalgia; K21.9 Gastro-esophageal reflux disease without esophagitis; R29.6 Repeated falls; M19.90 Unspecified osteoarthritis, unspecified site; F17.210 Nicotine dependence, cigarettes, uncomplicated; Z71.6 Tobacco abuse counseling; Z79.01 Long term (current) use of anticoagulants; Z79.51 Long term (current) use of inhaled steroids; Z79.891 Long term (current) use of opiate analgesic; Z79.899 Other long term (current) drug therapy; Z87.01 Personal history of pneumonia (recurrent); Z86.73 Personal history of transient ischemic attack (TIA), and cerebral infarction without residual deficits; Z86.69 Personal history of other diseases of the nervous system and sense organs; Z98.890 Other specified postprocedural states; W19.XXXA Unspecified fall, initial encounter; Z80.1 Family history of malignant neoplasm of trachea, bronchus and lung; Z80.8 Family history of malignant neoplasm of other organs or systems; Z82.5 Family history of asthma and other chronic lower respiratory diseases; Z81.2 Family history of tobacco abuse and dependence
CPT/HCPCS: 36415; 36600; 70450; 71045; 71046; 80048; 80053; 81001; 82805; 83605; 84484; 85025; 85027; 85610; 85730; 87040; 87070; 87077; 87086; 87186; 87205; 93005; 94640; 94660; 96365; 96367; 99291